=== PATIENT | male | born 1985 | race Caucasian/White ===

== ENCOUNTER 2016-11-05 09:14 | Inpatient (IN) | payer OTHER ==
[2017-01-16 12:41] VITALS: BP 106/66
--- NOTE | 2017-01-16 17:07 | ADMNOTE ---
Admission Note HPI - HPI Handedness: H&P DOS 01/16/17 right History of Present Illness: Omar Downs Jr is a 31 year old man with a history of anxiety and presumed epilepsy since the age of 2. The history was obtained from the patient as the patient's mother was not in the room at the time of the interview. He is not sure what his seizures were like when he was a child. Now, he reports his hands become clammy, then he "snaps into a seizure". He is still able to walk around during his seizures but reports his "top half" twitches. He denies convulsions. Events last [address] Kurger's notes indicates he is unresponsive during these events. The last seizures were 3 weeks ago and he reports having 9 seizures "back to back" on that day. This occurred a couple of days after his daughter was born (to his ex, and he has not really seen the baby ). He believes anxiety triggers these and says Dr. Kruger thinks so too. He is not well versed in his medications and indicates that he has been out of diazepam for one month, and is not sure why Dr. Kruger stopped it. He indicates this was given to him for his anxiety, when records indicate the intent was for seizures. He is also treated with lamotrigine 100mg BID and levetiracetam 750mg 3 tabs BID. He sometimes forgets to take his meds at night. His longest seizure-free period was 4 to 5 months. He was prescribed paroxetine at a recent visit with Dr. Kruger but it does not sound like he is taking that. Epilepsy Risk Factors: Father had epilepsy till he was 21 years old. Patient has a history of learning disability, was in special ed classes and dropped out in 11th grade. PNEA Risk Factors: Anxiety PMH/Surg Hx/FS Hx/Imm Hx Endocrine/Hematology History: Denies: Hx Anticoagulant Therapy, Hx Diabetes, Hx Thyroid Disease Cardiovascular History: Denies: Hx Hypertension, Hx Pacemaker/ICD Respiratory History: Denies: Hx Asthma, Hx Chronic Obstructive Pulmonary Disease (COPD) History: Denies: Hx Renal Disease Sensory History: Denies: Hx Contacts or Glasses, Hx Hearing Aid Opthamlomology History: Denies: Hx Contacts or Glasses Neurological History: Reports: Hx Developmental Delay - Learning Disabled, Hx Headaches, Hx Migraine - reports gets frequent Migraines, Hx Seizures - see detailed Hx--Pt here at EMU for Seizure Study Denies: Hx Dementia, Hx Nerve Disease, Hx Spinal Cord Injury, Hx Transient Ischemic Attacks (TIA), Other Neuro Impairments/Disorders Psychiatric History: Reports: Hx Anxiety, Hx Depression, Hx Substance Abuse Denies: Hx Attention Deficit Hyperactivity Disorder, Hx Eating Disorder, Hx Panic Disorder, Hx Post Traumatic Stress Disorder, Hx Inpatient Treatment, Hx Community Mental Health Tx - Has been referred, yet has not gone, Hx Schizophrenia, Hx Bipolar Disorder, Hx Suicide Attempt, Hx of Violent Episodes Against Others, Other Psychiatric Issues/Disorders - Immunization History Date of Tetanus Vaccine: 6 months ago Date of Influenza Vaccine: none Infectious Disease History: No Infectious Disease History: Denies: Hx Hepatitis, Hx Human Immunodeficiency Virus (HIV), Traveled Outside the [place] in Last 30 Days - Family History Known Family History: Positive: Other - Negative depression, negative alcohol abuse - Social History Alcohol Use: varying reports from several daily to none currently Alcohol Amount: as above Substance Use Type: Reports: Prescribed Substance Use Comment - Amount & Last Used: believed to have used Diazepam inappropriately Hx Tobacco Use: Yes Smoking Status (MU): Heavy Every Day Tobacco Smoker Type: Cigarettes Amount Used/How Often: 1/2 PPD + Have You Smoked in the Last Year: Yes EMU Exam - Exam Physical/Neurological Exam: Physical Exam: General: Well appearing in no acute distress. Thin Eyes: normal conjunctiva, pupils were equal and reactive. Neck: supple, no bruit ENT: atraumatic, normal oropharynx, missing teeth Pulmonary: clear to auscultation, good respiratory effort Cardiac: regular rate and rhythmic, no murmurs/rubs/gallops, pulses palpable MSK: no extremity deformities Derm: no rashes or lesions Neurological Exam: Mental Status: Awake and alert. Oriented to person, place, and time. Fluent. Comprehension intact. Affect appropriate. Cranial Nerves: Visual castro full to confrontation.. Pupils were equal, round, and reactive constricting from 3mm to 2mm. Versions were full and without nystagmus. Facial musculature and sensation were symmetric. Hearing grossly intact to finger rub. Palate was upgoing bilaterally. Tongue was midline. Shoulder shrug was symmetric. Motor: Bulk, tone, and strength were normal throughout. Pronator drift was absent. There were no abnormal movements. Sensory: Sensation to light touch intact. Romberg was deferred. Coordination: Finger to nose and heel to bay were intact. Reflexes: 2+ throughout the upper and lower extremities with downgoing toes bilaterally. Gait: Narrow based and normal. EMU Review of Systems Review of Systems: A 12 point review of systems was completed and significantly positive for: as per HPI. The remainder of the review was negative except as stated above in the HPI. EMU Diagnostics - Diagnostic Most Recent Vital Signs: Vital Signs: Temp Pulse Resp BP Pulse Ox 97.2 F 58 16 106/66 100 01/16/17 14:30 01/16/17 14:30 01/16/17 14:30 01/16/17 14:30 01/16/17 14:30 Interim video-EEG long-term monitoring report: Routine EEG in July demonstrated left temporal slowing EMU Assessment/Plan - Assessment/Plan Assessment/Plan: Patient presents with episodes of unresponsiveness and twitching, but preserved ability to walk triggered by anxiety. These events sometimes happen back to back. Routine EEG in the fall showed slowing and sharp features in the left temporal region, but not definitive epileptiform abnormalities. The differential includes localization-related epilepsy and psychogenic non- epileptic attacks, the latter especially suggested given the preserved ability to walk around with apparent bilateral twitching and unresponsiveness and events that occur in quick succession. The patient was to be admitted for characterization of these events. Unfortunately, within 4 hours, the patient indicated that he felt trapped and could not tolerate the admission. He felt forced to come here by his mother and others around him and did not want to stay. He indicated that he would "get the state involved" if he could not go. He was informed that this was a voluntary admission and the purposes and goals were explained to him again. I tried to see if he would agree to stay at least overnight, to see if we could glean any more information, but he avoided eye contact and indicated that he could not. Plan: Admitted briefly to the Epilepsy Service, Dr. Alex attending [facility] discharge home on current meds, with follow up with Dr Kruger as planned.
--- NOTE | 2017-01-18 06:57 | EEG ---
CC: Dr. Kruger ELECTROENCEPHALOGRAPHY: DATE OF STUDY: 01/16/17 LOCATION: The patient was an inpatient in the EMU. CLINICAL PROBLEM: This is a 31-year-old male with a history of seizures since he was 2 years old. He reports that with an event his hands get clammy and then he "snaps into the seizure." He reports being able to walk during a seizure and denies any generalized tonic-clonic activity. He indicates when pressed that his top half "twitches" and episodes usually last 15 to 20 minutes. The last one was approximately 3 weeks ago and he reports having had 9 episodes back to back. This occurred a couple of days after his daughter was born. He believes anxiety triggers these events. He was recommended for admission to the epilepsy monitoring unit for characterization of these events and was admitted but several hours after his admission, he expressed that he was unable to tolerate staying in the hospital and requested to be discharged. Therefore, approximately 4-1/2 hours of EEG was recorded and the patient was subsequently discharged home. He did not have any events during his brief stay. MEDICATIONS: 1. Lamotrigine 100 mg twice daily. 2. Keppra 750 mg 3 tablets twice daily. REPORT: The most notable feature of the intraictal EEG was the presence of polymorphic slowing and sharp waves which were rarely seen in the left temporoparietal region during sleep. The slowing was in the range of 2 to 5 Hz and intermixed with occasional spike/sharp waves with maximal negativity at T7 and P7. The morphology of these sharp waves were borderline epileptiform in nature but not definitive. Otherwise, the waking background showed appropriate organization with clearly defined anterior to posterior voltage and frequency gradients. There was a well - defined posterior dominant rhythm of 9 Hz which was symmetrical and showed normal reactivity. Anteriorly, there is an expected pattern of lower voltage, irregular, fixed faster frequencies. Attenuation of the occipital rhythm accompanied drowsiness. The sleep background was appropriately organized with well-developed sleep spindles and vertex waves. The sleep transients showed appropriate morphology and were bilaterally synchronous and symmetrical. Throughout the recording, there were no typical events captured. CLINICAL IMPRESSION: This is an abnormal waking and sleep prolonged EEG due to the presence of intermittent slowing in the left temporoparietal region with associated sharp wave forms which are borderline epileptiform in nature but not definitive. These findings are suggestive of underlying neuronal dysfunction in these brain regions with possible increased epileptic potential. Unfortunately , the patient chose not to stay for the epilepsy monitoring admission and none of his typical events were recorded. [id number]/[facility] #: [id number] HERNANDEZ
--- NOTE | 2017-01-19 15:45 | DS ---
EMU Discharge - Discharge Summary Discharge Summary: Admitted: 01/16/17 Attending: Socorro Alex MD Admitting Diagnosis: epilepsy Discharge Diagnosis: epilepsy Admission History (From Admission H&P): see H&P Admission Examination: see H&P Admission AED Medications: lamotrigine 150mgg BID levetiracetam 2250mg BID Hospital Course: The patient was admitted to the epilepsy service for long-term video EEG monitoring. The patient had 0 events because he requested to be discharged 4 hours after admission. He indicated that he had been forced to come to the hospital by his mother and others and did not want to stay. The following medication medication changes were made during the testing: none The nature of his events remains uncertain Discharge Examination: not done, see H&P Destination: Home. Diet: Regular. Follow-up: with Dr Kruger as previously scheduled. Home Medications Medication Instructions Recorded Confirmed Type Diazepam TAB(*) [Valium TAB(*)] 5 mg PO BID PRN 06/11/13 01/16/17 History Levetiracetam 2,250 mg PO BID 06/11/13 01/16/17 History lamoTRIgine TAB(*) [Lamictal 150 mg PO BID 06/11/13 01/16/17 History TAB(*)]
== END 2017-01-16 17:35 | disposition home or self-care (01) | DRG 53 ==
LOC: EMU 01-16 11:20
PROVIDERS: ADMIT Psychiatry & Neurology Neurology; ATTEND Psychiatry & Neurology Neurology
DX: G40.909 Epilepsy, unspecified, not intractable, without status epilepticus (principal); F41.9 Anxiety disorder, unspecified; F81.9 Developmental disorder of scholastic skills, unspecified; Z82.0 Family history of epilepsy and other diseases of the nervous system
CPT/HCPCS: 95813

== ENCOUNTER 2016-12-22 01:45 | Emergency (ER) | payer MEDICAID, OTHER ==
[2016-12-22] MEDS ORDERED: NS 0.9% 1000 ML* 1,000 ML IV ONE (02:08)
[2016-12-22] MEDS ORDERED: Ketorolac INJ* 30 MG/ML 1 ML VIAL IV PUSH ONE (02:09)
[2016-12-22] MEDS ORDERED: LORazepam INJ* 2 MG/ML 1 ML VIAL IV PUSH ONE ×2 (02:24→03:50)
[2016-12-22 02:39] LABS: Hematocrit 38 % (42-52); Hemoglobin 12.8 g/dl (14.0-18.0); Mean Corpuscular HGB Conc 34 g/dl (31-36); Mean Corpuscular Hemoglobin 30 pg (27-31); Mean Corpuscular Volume 89 fL (80-94); Mean Platelet Volume 8 um3 (7.4-10.4); Red Blood Count 4.22 10^6/ul (4.0-5.4); Red Cell Distribution Width 14 % (10.5-15); White Blood Count 10.6 10^3/ul (3.5-10.8)
[2016-12-22 02:42] LABS: Albumin 4.3 g/dL (3.2-5.2); BUN/Creatinine Ratio 11.4 (8-20); EGFR African American 96.4 (>60); EGFR Non-African American 74.9 (>60); Globulin 3.2 g/dL (2-4); Magnesium 2.2 mg/dL (1.9-2.7); Potassium 3.9 mmol/L (3.5-5.0); Total Bilirubin 0.3 mg/dL (0.2-1.0); Total Protein 7.5 g/dL (6.4-8.9)
[2016-12-22 04:26] VITALS: BP 100/51
--- NOTE | 2016-12-22 04:42 | ED ---
Balaji Rojas Adam, scribed for Abdiaziz Guallpa MD on 12/22/16 at 0210 . Neurological HPI - HPI Summary HPI Summary: Pt is a 31 year old male presenting after multiple seizures. His girlfriend states that she has witnessed the pt have 7 seizures today. He was lying in bed when the first seizure set on. He apparently bit his tongue and he presents with a laceration to the left side of his tongue. He did not hit his head and he has no other injuries, but he does c/o a MANE which he states is normal after he has a seizure. He denies any vomiting, fever, cough, dysuria, abdominal pain , or recent illness. Pt takes Keppra and Lamictal for seizures. He used to take Valium. His last seizure prior to today was several months ago. Positive tobacco use. Occasional alcohol use but none recently. - History of Current Complaint Chief Complaint: EDSeizure Stated Complaint: SEIZURES Time Seen by Provider: 12/22/16 01:58 Hx Obtained From: Patient Onset/Duration: Sudden Onset, Started hours ago, Resolved Timing: Intermittent Episodes Lasting: - Seconds Current Severity: None Seizure Severity: Moderate Number of Seizures: 7 Aggravating: Unknown Alleviating: Spontanious Resolution Associated Signs and Symptoms: Positive: Headache - and tongue laceration - Allergy/Home Medications Allergies/Adverse Reactions: Allergies Allergy/AdvReac Type Severity Reaction Status Date / Time No Known Allergies Allergy Verified 10/23/13 12:09 PMH/Surg Hx/FS Hx/Imm Hx Endocrine/Hematology History: Denies: Hx Anticoagulant Therapy, Hx Diabetes, Hx Thyroid Disease Cardiovascular History: Denies: Hx Hypertension, Hx Pacemaker/ICD Respiratory History: Denies: Hx Asthma, Hx Chronic Obstructive Pulmonary Disease (COPD) History: Denies: Hx Renal Disease Neurological History: 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 Denies: Hx Dementia Psychiatric History: Reports: Hx Substance Abuse Denies: Hx Eating Disorder, Hx of Violent Episodes Against Others - Immunization History Date of Tetanus Vaccine: 6 months ago Date of Influenza Vaccine: none Infectious Disease History: No Infectious Disease History: Denies: Hx Hepatitis, Hx Human Immunodeficiency Virus (HIV), Traveled Outside the [place] in Last 30 Days - Family History Known Family History: Positive: Other - Negative depression, negative alcohol abuse - Social History Occupation: Disabled Lives: Alone Alcohol Use: Occasionally Hx Tobacco Use: Yes Smoking Status (MU): Heavy Every Day Tobacco Smoker Amount Used/How Often: 1/2 PPD Review of Systems Negative: Fever Negative: Cough Negative: Abdominal Pain, Vomiting Negative: dysuria Positive: Other - Tongue laceration Neurological: Other - Seizures Positive: Headache All Other Systems Reviewed And Are Negative: Yes Physical Exam - Summary Physical Exam Summary: The patient is well-nourished in no acute distress and in no acute pain. The skin is warm and dry and skin color reflects adequate perfusion. HEENT: The head is normocephalic and atraumatic. The pupils are equal and reactive. The conjunctivae are clear and without drainage. Nares are patent and without drainage. Mouth reveals moist mucous membranes and the throat is without erythema and exudate. Laceration to the left side of the tongue. The external ears are intact. The ear canals are patent and without drainage. The tympanic membranes are intact. Neck is supple with full range of motion and non-tender. There are no carotid bruits. There is no neck vein distension. Respiratory: Chest is non-tender. Lungs are clear to auscultation and breath sounds are symmetrical and equal. Cardiovascular: Hear is regular rate and rhythm. There is no murmur or rub auscultated. There is no peripheral edema and pulses are symmetrical and equal. Abdomen: The abdomen is soft and non-tender. There are normal bowel sounds heard in all four quadrants and there is no organomegaly palpated. Musculoskeletal: There is no back pain noted. Extremities are non-tender with full range of motion. There is good capillary refill. There is no peripheral edema or calf tenderness elicited. Neurological: Patient is alert and oriented to person, place and time. Slow to answer questions, which could be his baseline. The patient has symmetrical motor strength in all four extremities. Cranial nerves are grossly intact. Deep tendon reflexes are symmetrical and equal in all four extremities. Patient is not seizing anymore. Psychiatric: The patient has an appropriate affect and does not exhibit any anxiety or depression. Triage Information Reviewed: Yes Vital Signs On Initial Exam: Initial Vitals Temp Pulse Resp BP Pulse Ox 99.0 F 86 16 99/58 96 12/22/16 02:02 12/22/16 02:02 12/22/16 02:02 12/22/16 02:02 12/22/16 02:02 Vital Signs Reviewed: Yes Diagnostics - Vital Signs Vital Signs Temp Pulse Resp BP Pulse Ox 12/22/16 02:02 99.0 F 86 16 99/58 96 - Laboratory Lab Results: Lab Results 12/22/16 12/22/16 12/22/16 Range/Units 02:13 02:13 02:13 WBC 10.6 (3.5-10.8) 10^3/ul RBC 4.22 (4.0-5.4) 10^6/ul Hgb 12.8 L (14.0-18.0) g/dl Hct 38 L (42-52) % MCV 89 (80-94) fL MCH 30 (27-31) pg MCHC 34 (31-36) g/dl RDW 14 (10.5-15) % Plt Count 169 (150-450) 10^3/ul MPV 8 (7.4-10.4) um3 Neut % (Auto) 88.2 H (38-83) % Lymph % (Auto) 6.3 L (25-47) % Bailey % (Auto) 5.4 (1-9) % Eos % (Auto) 0 (0-6) % Baso % (Auto) 0.1 (0-2) % Absolute Neuts (auto) 9.3 H (1.5-7.7) 10^3/ul Absolute Lymphs (auto) 0.7 L (1.0-4.8) 10^3/ul Absolute Monos (auto) 0.6 (0-0.8) 10^3/ul Absolute Eos (auto) 0 (0-0.6) 10^3/ul Absolute Basos (auto) 0 (0-0.2) 10^3/ul Absolute Nucleated RBC 0.01 10^3/ul Nucleated RBC % 0.1 INR (Anticoag Therapy) 1.02 (0.89-1.11) Sodium 136 (133-145) mmol/L Potassium 3.9 (3.5-5.0) mmol/L Chloride 104 (101-111) mmol/L Carbon Dioxide 25 (22-32) mmol/L Anion Gap 7 (2-11) mmol/L BUN 13 (6-24) mg/dL Creatinine 1.14 (0.67-1.17) mg/dL Est GFR ( Amer) 96.4 (>60) Est GFR (Non-Af Amer) 74.9 (>60) BUN/Creatinine Ratio 11.4 (8-20) Glucose 103 H (70-100) mg/dL Lactic Acid (0.5-2.0) mmol/L Calcium 9.0 (8.6-10.3) mg/dL Magnesium 2.2 (1.9-2.7) mg/dL Total Bilirubin 0.30 (0.2-1.0) mg/dL AST 21 (13-39) U/L ALT 22 (7-52) U/L Alkaline Phosphatase 41 (34-104) U/L Total Creatine Kinase 104 (10-223) U/L Total Protein 7.5 (6.4-8.9) g/dL Albumin 4.3 (3.2-5.2) g/dL Globulin 3.2 (2-4) g/dL Albumin/Globulin Ratio 1.3 (1-3) // Range/Units 02:13 WBC (3.5-10.8) 10^3/ul RBC (4.0-5.4) 10^6/ul Hgb (14.0-18.0) g/dl Hct (42-52) % MCV (80-94) fL MCH (27-31) pg MCHC (31-36) g/dl RDW (10.5-15) % Plt Count (150-450) 10^3/ul MPV (7.4-10.4) um3 Neut % (Auto) (38-83) % Lymph % (Auto) (25-47) % Bailey % (Auto) (1-9) % Eos % (Auto) (0-6) % Baso % (Auto) (0-2) % Absolute Neuts (auto) (1.5-7.7) 10^3/ul Absolute Lymphs (auto) (1.0-4.8) 10^3/ul Absolute Monos (auto) (0-0.8) 10^3/ul Absolute Eos (auto) (0-0.6) 10^3/ul Absolute Basos (auto) (0-0.2) 10^3/ul Absolute Nucleated RBC 10^3/ul Nucleated RBC % INR (Anticoag Therapy) (0.89-1.11) Sodium (133-145) mmol/L Potassium (3.5-5.0) mmol/L Chloride (101-111) mmol/L Carbon Dioxide (22-32) mmol/L Anion Gap (2-11) mmol/L BUN (6-24) mg/dL Creatinine (0.67-1.17) mg/dL Est GFR ( Amer) (>60) Est GFR (Non-Af Amer) (>60) BUN/Creatinine Ratio (8-20) Glucose (70-100) mg/dL Lactic Acid 1.1 (0.5-2.0) mmol/L Calcium (8.6-10.3) mg/dL Magnesium (1.9-2.7) mg/dL Total Bilirubin (0.2-1.0) mg/dL AST (13-39) U/L ALT (7-52) U/L Alkaline Phosphatase (34-104) U/L Total Creatine Kinase (10-223) U/L Total Protein (6.4-8.9) g/dL Albumin (3.2-5.2) g/dL Globulin (2-4) g/dL Albumin/Globulin Ratio (1-3) Result Diagrams: 12/22/16 02:13 12/22/16 02:13 Lab Statement: Any lab studies that have been ordered have been reviewed, and results considered in the medical decision making process. Re-Evaluation - Re-Evaluation First Eval Re-Evaluation Time: 02:24 - Patient is having seizure-like activity. 1 mg Ativan given. Second Eval Re-Evaluation Time: 03:53 - Patient is feeling better and is ready to go home. Change: Improved Course/Dx - Course Course Of Treatment: Previous chart reviewed. Last EEG showed no seizure-like activity. - Differential Dx Differential Diagnoses Neuro: Positive: Seizure Disorder, Other - anxiety, pseudoseizure - Diagnoses Provider Diagnoses: Pseudoseizures Discharge - Discharge Plan Condition: Stable Disposition: HOME Patient Education Materials: Recurrent Seizures in Adults (ED) Referrals: Raul Cosme MD [Primary Care Provider] - Additional Instructions: Follow up with your Primary Care Physician. The documentation as recorded by the Balaji dickson Adam accurately reflects the service I personally performed and the decisions made by me, Abdiaziz Guallpa MD.
== END 2016-12-22 04:38 | disposition home or self-care (01) ==
LOC: ED 01:45
DX: F44.5 Conversion disorder with seizures or convulsions (principal); S01.512A Laceration without foreign body of oral cavity, initial encounter; R51 Headache; X58.XXXA Exposure to other specified factors, initial encounter; Y93.9 Activity, unspecified; Y92.9 Unspecified place or not applicable
CPT/HCPCS: 36415; 80053; 80175; 80177; 82550; 83605; 83735; 85025; 85610; 96374; 96375; 99282; J1885; J2060

== ENCOUNTER 2017-03-22 12:22 | Emergency (ER) | payer OTHER ==
[2017-03-22] MEDS ORDERED: LORazepam INJ* 2 MG/ML 1 ML VIAL ONE (12:29)
[2017-03-22] MEDS ORDERED: LORazepam INJ* 2 MG/ML 1 ML VIAL IV ONE (12:35)
[2017-03-22] MEDS ORDERED: NS 0.9% 1000 ML* 1,000 ML IV ONE (12:35)
[2017-03-22 12:45] LABS: Hematocrit 43 % (42-52); Hemoglobin 14.5 g/dl (14.0-18.0); Mean Corpuscular HGB Conc 34 g/dl (31-36); Mean Corpuscular Hemoglobin 31 pg (27-31); Mean Corpuscular Volume 92 fL (80-94); Mean Platelet Volume 8 um3 (7.4-10.4); Red Blood Count 4.69 10^6/ul (4.0-5.4); Red Cell Distribution Width 13 % (10.5-15); White Blood Count 15.1 10^3/ul (3.5-10.8)
[2017-03-22 13:03] LABS: ALT 9 U/L (7-52); AST 19 U/L (13-39); Albumin 5.1 g/dL (3.2-5.2); Alkaline Phosphatase 47 U/L (34-104); Anion Gap 11 mmol/L (2-11); BUN/Creatinine Ratio 10.3 (8-20); Blood Urea Nitrogen 13 mg/dL (6-24); CO2 Carbon Dioxide 22 mmol/L (22-32); Calcium 9.7 mg/dL (8.6-10.3); Chloride 106 mmol/L (101-111); EGFR African American 85.8 (>60); EGFR Non-African American 66.8 (>60); Globulin 3.3 g/dL (2-4); Glucose 91 mg/dL (70-100); Magnesium 2.5 mg/dL (1.9-2.7); Potassium 4.2 mmol/L (3.5-5.0); Sodium 139 mmol/L (133-145); Total Protein 8.4 g/dL (6.4-8.9)
[2017-03-22 13:24] LABS: Alcohol < 10 mg/dL (<10)
[2017-03-22 13:35] LABS: TSH (Thyroid Stimulating Horm) 1.15 mcIU/mL (0.34-5.60)
--- NOTE | 2017-03-22 13:47 | RAD ---
INDICATION: Left rib injury. TECHNIQUE: 4 views of the left ribs were obtained. FINDINGS: No fracture or significant focal osseous abnormality is seen. IMPRESSION: NO EVIDENCE FOR FRACTURE.
--- NOTE | 2017-03-22 13:49 | RAD ---
INDICATION: Seizure. COMPARISON: Comparison is made with a prior chest x-ray study from October 08, 2010. TECHNIQUE: AP and lateral views of the chest were obtained. FINDINGS: The heart is within normal limits in size. Mediastinal and hilar contours appear within normal limits. The lungs are clear. No pleural effusion or pneumothorax is seen. IMPRESSION: NO EVIDENCE FOR ACTIVE CARDIOPULMONARY DISEASE.
[2017-03-22] MEDS ORDERED: levETIRAcetam 500 MG IVPREMIX* 500 MG/100 ML BAG IV SCH (14:00)
[2017-03-22 15:14] LABS: Urine Bacteria Absent (Absent); Urine Bilirubin Negative (Negative); Urine Glucose Negative (Negative); Urine Nitrite Negative (Negative)
[2017-03-22 15:18] LABS: Benzodiazepine Urine Screen None Detected (None Detect)
[2017-03-22 16:03] VITALS: BP 99/55
--- NOTE | 2017-03-23 09:18 | ED ---
Jina Rojas Thomas, scribed for Raul Singh MD on 03/22/17 at 1239 . Altered Mental Status - HPI Summary HPI Summary: LEVEL 5 CAVEAT: HPI IS LIMITED BY PATIENTS SEIZURE The pt is a 31 y/o M accompanied by his girlfriend and presenting to the ED c/o episodes of seizures that began this AM. At the time of evaluation he is under a seizure. His girlfriend supplies his history. She says that he started seizing today at 09:30 and he has had 4 seizures today, including his current seizure. She reporrs that his current seizure is typical for him. His neurologist is Dr. Kruger. The pt has a PMHx of seizures since he was [age] years old. His last seizure before his current seizure was today at 10:00. He daily medications are Keppra 750 three times a day, Lamotrigine 150mg BID. His last seizure before today was 3 weeks ago (03/03/17). He drank a little last night but otherwise he does not drink much, per girlfriend. She claims that he is generally compliant with his medication. PMHx: seizures, claustrophobia. PSHx : none. SHx: tobacco smoking, rare alcohol, no illicit drugs. FHx: seizures. - History Of Current Complaint Stated Complaint: SEIZURE Hx Obtained From: Patient, Family/[employer] - is present Onset/Duration: Suddenly - this AM at 09:30 Aggravating Factor(s): Nothing Alleviating Factor(s): Nothing Associated Signs And Symptoms: Positive: Seizure - Allergies/Home Medications Allergies/Adverse Reactions: Allergies Allergy/AdvReac Type Severity Reaction Status Date / Time No Known Allergies Allergy Verified 10/23/13 12:09 PMH/Surg Hx/FS Hx/Imm Hx Previously Healthy: No - LEVEL 5 CAVEAT: PMHX IS LIMITED BY PATIENTS SEIZURE Endocrine/Hematology History: Denies: Hx Anticoagulant Therapy, Hx Diabetes, Hx Thyroid Disease Cardiovascular History: Denies: Hx Hypertension, Hx Pacemaker/ICD Respiratory History: Denies: Hx Asthma, Hx Chronic Obstructive Pulmonary Disease (COPD) History: Denies: Hx Renal Disease Sensory History: Denies: Hx Contacts or Glasses, Hx Hearing Aid Opthamlomology History: Denies: Hx Contacts or Glasses Neurological History: Reports: Hx Developmental Delay - Learning Disabled, Hx Headaches, Hx Migraine - reports gets frequent Migraines, Hx Seizures - see detailed Hx--Pt here at EMU for Seizure Study Denies: Hx Dementia, Hx Nerve Disease, Hx Spinal Cord Injury, Hx Transient Ischemic Attacks (TIA), Other Neuro Impairments/Disorders Psychiatric History: Reports: Hx Anxiety, Hx Depression, Hx Substance Abuse Denies: Hx Attention Deficit Hyperactivity Disorder, Hx Eating Disorder, Hx Panic Disorder, Hx Post Traumatic Stress Disorder, Hx Inpatient Treatment, Hx Community Mental Health Tx - Has been referred, yet has not gone, Hx Schizophrenia, Hx Bipolar Disorder, Hx Suicide Attempt, Hx of Violent Episodes Against Others, Other Psychiatric Issues/Disorders - Immunization History Date of Tetanus Vaccine: 6 months ago Date of Influenza Vaccine: none Infectious Disease History: Denies: Hx Hepatitis, Hx Human Immunodeficiency Virus (HIV), Traveled Outside the [place] in Last 30 Days - Family History Known Family History: Positive: Other - POS: seizure; Negative depression, negative alcohol abuse - Social History Alcohol Use: Rare Alcohol Amount: as above Substance Use Type: Reports: Prescribed Substance Use Comment - Amount & Last Used: believed to have used Diazepam inappropriately Hx Tobacco Use: Yes Smoking Status (MU): Heavy Every Day Tobacco Smoker Type: Cigarettes Amount Used/How Often: 1/2 PPD + Have You Smoked in the Last Year: Yes Review of Systems - ROS Summary Review of Systems Summary: LEVEL 5 CAVEAT: ROS IS LIMITED BY PATIENTS SEIZURE Neurological: Other - POS: seizure (at time of evaluation and 3x today, beginning at 09:30) All Other Systems Reviewed And Are Negative: No Physical Exam - Summary Physical Exam Summary: LEVEL 5 CAVEAT: PE IS LIMITED BY PATIENTS SEIZURE VITAL SIGNS: Reviewed. GENERAL: Patient is a well-developed and nourished male who is lying comfortable in the stretcher. ~Patient is not in any acute respiratory distress. HEAD AND FACE: No signs of trauma. ~No ecchymosis, hematomas or skull depressions. No sinus tenderness. EYES: PERRLA, EOMI x 2, No injected conjunctiva, no nystagmus. No photophobia. EARS: Hearing grossly intact. Ear canals and tympanic membranes are within normal limits. MOUTH: Oropharynx within normal limits. NECK: Supple, trachea is midline, no adenopathy, no JVD, no carotid bruit, no c- spine tenderness, neck with full ROM. No meningeal signs, no Kernig's or brudzinskis signs. CHEST: Symmetric, no tenderness at palpation LUNGS: Clear to auscultation bilaterally. No wheezing or crackles. CVS: Regular rate and rhythm, S1 and S2 present, no murmurs or gallops appreciated. ABDOMEN: Soft, non-tender. No signs of distention. No rebound no guarding, and no masses palpated. Bowel sounds are normal. EXTREMITIES: Myoclonus in the extremities. FROM in all major joints, no edema, no cyanosis or clubbing. NEURO: Alert but not oriented. It seems that the patient may be actively seizing. No acute neurological deficits. SKIN: Dry and warm Triage Information Reviewed: Yes Vital Signs On Initial Exam: Initial Vitals Pulse Pulse Ox 164 94 03/22/17 12:34 03/22/17 12:34 Vital Signs Reviewed: Yes Diagnostics - Vital Signs Vital Signs Temp Pulse Resp BP Pulse Ox 03/22/17 16:03 99 F 80 17 99/55 98 03/22/17 14:00 61 99 03/22/17 13:00 74 94 03/22/17 12:44 19 03/22/17 12:42 100.8 F 100 19 150/107 96 03/22/17 12:41 96 03/22/17 12:40 104 150/117 96 03/22/17 12:38 100.8 F 101 19 150/107 96 03/22/17 12:34 164 94 - Laboratory Lab Results: Lab Results 03/22/17 03/22/17 03/22/17 Range/Units 12:30 12:30 12:35 WBC 15.1 H (3.5-10.8) 10^3/ul RBC 4.69 (4.0-5.4) 10^6/ul Hgb 14.5 (14.0-18.0) g/dl Hct 43 (42-52) % MCV 92 (80-94) fL MCH 31 (27-31) pg MCHC 34 (31-36) g/dl RDW 13 (10.5-15) % Plt Count 198 (150-450) 10^3/ul MPV 8 (7.4-10.4) um3 Neut % (Auto) 87.6 H (38-83) % Lymph % (Auto) 6.4 L (25-47) % [place] % (Auto) 5.9 (1-9) % Eos % (Auto) 0 (0-6) % Baso % (Auto) 0.1 (0-2) % Absolute Neuts (auto) 13.3 H (1.5-7.7) 10^3/ul Absolute Lymphs (auto) 1.0 (1.0-4.8) 10^3/ul Absolute Monos (auto) 0.9 H (0-0.8) 10^3/ul Absolute Eos (auto) 0 (0-0.6) 10^3/ul Absolute Basos (auto) 0 (0-0.2) 10^3/ul Absolute Nucleated RBC 0.05 10^3/ul Nucleated RBC % 0.4 INR (Anticoag Therapy) 0.90 (0.89-1.11) Sodium 139 (133-145) mmol/L Potassium 4.2 (3.5-5.0) mmol/L Chloride 106 (101-111) mmol/L Carbon Dioxide 22 (22-32) mmol/L Anion Gap 11 (2-11) mmol/L BUN 13 (6-24) mg/dL Creatinine 1.26 H (0.67-1.17) mg/dL Est GFR ( Amer) 85.8 (>60) Est GFR (Non-Af Amer) 66.8 (>60) BUN/Creatinine Ratio 10.3 (8-20) Glucose 91 (70-100) mg/dL Lactic Acid (0.5-2.0) mmol/L Calcium 9.7 (8.6-10.3) mg/dL Magnesium 2.5 (1.9-2.7) mg/dL Total Bilirubin 0.40 (0.2-1.0) mg/dL AST 19 (13-39) U/L ALT 9 (7-52) U/L Alkaline Phosphatase 47 (34-104) U/L Total Protein 8.4 (6.4-8.9) g/dL Albumin 5.1 (3.2-5.2) g/dL Globulin 3.3 (2-4) g/dL Albumin/Globulin Ratio 1.5 (1-3) TSH 1.15 (0.34-5.60) mcIU/mL Urine Color Urine Appearance Urine pH (5-9) Ur Specific [place] (1.010-1.030) Urine Protein (Negative) Urine Ketones (Negative) Urine Blood (Negative) Urine Nitrate (Negative) Urine Bilirubin (Negative) Urine Urobilinogen (Negative) Ur Leukocyte Esterase (Negative) Urine WBC (Auto) (Absent) Urine RBC (Auto) (Absent) Urine Bacteria (Absent) Urine Glucose (Negative) Urine Opiates Screen (None Detect) Ur Barbiturates Screen (None Detect) Ur Phencyclidine Scrn (None Detect) Ur Amphetamines Screen (None Detect) U Benzodiazepines Scrn (None Detect) Urine Cocaine Screen (None Detect) U Cannabinoids Screen (None Detect) Serum Alcohol < 10 (<10) mg/dL 03/22/17 03/22/17 03/22/17 Range/Units 12:35 14:54 14:54 WBC (3.5-10.8) 10^3/ul RBC (4.0-5.4) 10^6/ul Hgb (14.0-18.0) g/dl Hct (42-52) % MCV (80-94) fL MCH (27-31) pg MCHC (31-36) g/dl RDW (10.5-15) % Plt Count (150-450) 10^3/ul MPV (7.4-10.4) um3 Neut % (Auto) (38-83) % Lymph % (Auto) (25-47) % [place] % (Auto) (1-9) % Eos % (Auto) (0-6) % Baso % (Auto) (0-2) % Absolute Neuts (auto) (1.5-7.7) 10^3/ul Absolute Lymphs (auto) (1.0-4.8) 10^3/ul Absolute Monos (auto) (0-0.8) 10^3/ul Absolute Eos (auto) (0-0.6) 10^3/ul Absolute Basos (auto) (0-0.2) 10^3/ul Absolute Nucleated RBC 10^3/ul Nucleated RBC % INR (Anticoag Therapy) (0.89-1.11) Sodium (133-145) mmol/L Potassium (3.5-5.0) mmol/L Chloride (101-111) mmol/L Carbon Dioxide (22-32) mmol/L Anion Gap (2-11) mmol/L BUN (6-24) mg/dL Creatinine (0.67-1.17) mg/dL Est GFR ( Amer) (>60) Est GFR (Non-Af Amer) (>60) BUN/Creatinine Ratio (8-20) Glucose (70-100) mg/dL Lactic Acid 2.1 H* (0.5-2.0) mmol/L Calcium (8.6-10.3) mg/dL Magnesium (1.9-2.7) mg/dL Total Bilirubin (0.2-1.0) mg/dL AST (13-39) U/L ALT (7-52) U/L Alkaline Phosphatase (34-104) U/L Total Protein (6.4-8.9) g/dL Albumin (3.2-5.2) g/dL Globulin (2-4) g/dL Albumin/Globulin Ratio (1-3) TSH (0.34-5.60) mcIU/mL Urine Color Yellow Urine Appearance Cloudy Urine pH 5.0 (5-9) Ur Specific [place] 1.015 (1.010-1.030) Urine Protein Negative (Negative) Urine Ketones Trace H (Negative) Urine Blood 1+ H (Negative) Urine Nitrate Negative (Negative) Urine Bilirubin Negative (Negative) Urine Urobilinogen Negative (Negative) Ur Leukocyte Esterase Negative (Negative) Urine WBC (Auto) Trace(0-5/hpf) (Absent) Urine RBC (Auto) Trace(0-2/hpf) (Absent) Urine Bacteria Absent (Absent) Urine Glucose Negative (Negative) Urine Opiates Screen None detected (None Detect) Ur Barbiturates Screen None detected (None Detect) Ur Phencyclidine Scrn None detected (None Detect) Ur Amphetamines Screen None detected (None Detect) U Benzodiazepines Scrn None detected (None Detect) Urine Cocaine Screen None detected (None Detect) U Cannabinoids Screen None detected (None Detect) Serum Alcohol (<10) mg/dL Result Diagrams: 03/22/17 12:30 03/22/17 12:35 Lab Statement: Any lab studies that have been ordered have been reviewed, and results considered in the medical decision making process. - Radiology Ribs XR Xray Interpretation: No Acute Changes - No Fx Radiology Interpretation Completed By: Radiologist CXR Xray Interpretation: No Acute Changes - No evidence for active cardiopulmonary disease Radiology Interpretation Completed By: Radiologist Altered Mental Statu Course/Dx - Course Assessment/Plan: LEVEL 5 CAVEAT: A&P IS LIMITED BY PATIENTS SEIZURE. The pt is a 31 y/o M accompanied by his girlfriend and presenting to the ED c/o episodes of seizures that began this AM. At the time of evaluation he is under a seizure. His girlfriend supplies his history. She says that he started seizing today at 09:30 and he has had 4 seizures today, including his current seizure. She reporrs that his current seizure is typical for him. His neurologist is Dr. Kruger. The pt has a PMHx of seizures since he was [age] years old. His last seizure before his current seizure was today at 10:00. He daily medications are Keppra 750 three times a day, Lamotrigine 150mg BID. His last seizure before today was 3 weeks ago (03/03/17). He drank a little last night but otherwise he does not drink much, per girlfriend. She claims that he is generally compliant with his medication. PMHx: seizures, claustrophobia. PSHx : none. SHx: tobacco smoking, rare alcohol, no illicit drugs. FHx: seizures. Ribs XR shows no evidence for fracture. CXR reveals no evidence for active cardiopulmonary disease. The tests results are without significant abnormalities except WBC 15.1 and creatinine 1.26. UA is negative for UTI. Urine toxicology is negative. In the ED course the patient was hydrated with IV fluids and Ativan 2mg, and the patients symptoms resolved. At this point, the patient is A&Ox3 and has been observed for a couple of hours The patient was given one dose of Keppra IV 700mg. I consulted the case with Dr. Kruger, neurologist, who recommended to discharge home with later follow-up at their office. We discussed the test results with the patient and his , and they agreed with the plan. The pt will be discharged home with follow-up with Dr. Kruger and was instructed to continue to take his medication as indicated at this time. - Diagnoses Differential Diagnosis/HQI/PQRI: Seizure Discharge Diagnoses: Seizure Discharge - Discharge Plan Condition: Stable Disposition: HOME Patient Education Materials: Recurrent Seizures in Adults (ED) Referrals: Raul Cosme MD [Primary Care Provider] - 3 Days The documentation as recorded by the Jina dickson Thomas accurately reflects the service I personally performed and the decisions made by me, Raul Singh MD.
[2017-03-24 15:19] LABS: Lamotrigine 3.4 mcg/mL (2.5 - 15.0)
[2017-03-24 15:45] LABS: Levetiracetam 82.9 mcg/mL
== END 2017-03-22 16:16 | disposition home or self-care (01) ==
LOC: ED 12:22 → EEVIPCON 12:22 → ED 16:16
DX: R56.9 Unspecified convulsions (principal)
CPT/HCPCS: 36415; 71020; 80053; 80175; 80177; 80307; 80320; 81003; 81015; 83605; 83735; 84443; 85025; 85610; 93005; 96374; 99282; G0480; J2060

== ENCOUNTER 2017-03-27 14:20 | Emergency (ER) | payer OTHER ==
[2017-03-27] MEDS ORDERED: LORazepam INJ* 2 MG/ML 1 ML VIAL IV PUSH ONE (16:08)
--- NOTE | 2017-03-27 16:47 | RAD ---
Indication: Tightness in throat. Possible metallic foreign body ingestion. Comparison: June 13, 2011 Technique: AP and lateral views of the neck with soft tissue technique. Report: Dental amalgam and presumed jewelry related linear metallic element at the level of the oral cavity unchanged from the prior exam. Superimposed earrings. No finding suspicious for retained radiopaque foreign body at the soft tissues of the neck. Unremarkable prevertebral soft tissue contours. Normal alignment of the cervical spine without suspicious osseous finding. IMPRESSION: No finding suspicious for retained radiopaque foreign body at the soft tissues of the neck.
[2017-03-27 17:14] LABS: Hematocrit 48 % (42-52); Hemoglobin 16.2 g/dl (14.0-18.0); Mean Corpuscular HGB Conc 34 g/dl (31-36); Mean Corpuscular Hemoglobin 31 pg (27-31); Mean Corpuscular Volume 92 fL (80-94); Mean Platelet Volume 8 um3 (7.4-10.4); Red Blood Count 5.21 10^6/ul (4.0-5.4); Red Cell Distribution Width 13 % (10.5-15)
[2017-03-27 17:28] LABS: Albumin 5.2 g/dL (3.2-5.2); BUN/Creatinine Ratio 7.9 (8-20); Calcium 10.2 mg/dL (8.6-10.3); EGFR African American 96.4 (>60); EGFR Non-African American 74.9 (>60); Globulin 3.4 g/dL (2-4); Magnesium 2.1 mg/dL (1.9-2.7); Potassium 3.9 mmol/L (3.5-5.0); Total Bilirubin 0.9 mg/dL (0.2-1.0); Total Protein 8.6 g/dL (6.4-8.9)
[2017-03-27 17:54] LABS: TSH (Thyroid Stimulating Horm) 1.8 mcIU/mL (0.34-5.60)
[2017-03-27 18:01] LABS: Free T4 1.07 ng/dL (0.61-1.12)
[2017-03-27 18:53] VITALS: BP 115/73
[2017-03-30 16:20] LABS: Lamotrigine 4.4 mcg/mL (2.5 - 15.0)
[2017-03-30 16:39] LABS: Levetiracetam 58.1 mcg/mL
--- NOTE | 2017-04-04 14:43 | ED ---
Jina Rojas Thomas, scribed for Tigre Doe MD on 03/27/17 at 1543 . Psychiatric Complaint - HPI Summary HPI Summary: The pt is a 31 y/o M presenting to the ED complaining of feelings of anxiety that began today at 09:00. His fiance is present and supplies his history. He recently was taken off of Valium. He is on Keppra 750mg three times a day and Lamotrigine 150mg BID. He denies missing any doses of these medications. He denies that he is coming off of any drugs. His last drink was five days ago. The pt has not slept in two days. Recent stressors include inability to see his 4-month-old daughter in [place] because the child's mother will not let him see his daughter. The last time he had a seizure was five days ago when he was seen at [facility] by Dr. Singh. During these seizures, he had constant, shaking movement. He had four seizures that day. Pt additionally c/o throat tightness, feelings of numbness, shaky hands, cool hands to the touch, blurred vision, eyes roll back in the head, insomnia, tachypnea. Pt denies SI. He also recently swallowed a metal tongue ring. Dr. Kruger saw the patient last month. PMHx: seizures, anxiety, substance abuse. PSHx: tonsillectomy. SHx: occasional drinking, no illicit drugs, tobacco use. FHx: seizures. He denies any work or court obligations. He has never been admitted to the hospital. - History Of Current Complaint Chief Complaint: EDPsychosocial Time Seen by Provider: 03/27/17 14:27 Hx Obtained From: Patient, Family/Die Att[employer] - fiance is in room and supplies much of history. Onset/Duration: Lasting Hours - onset today at 09:00, Still Present Timing: Constant Character: Anxious Aggravating Factor(s): Nothing Alleviating Factor(s): Nothing Associated Signs And Symptoms: Positive: Sleep Disturbance - insomnia, has not slept in last two days Related History: Positive For: Prior Psychiatric Issues - for anxiety, substance abuse Has Homicidal: Denies: Thoughts Recent Stressor(s): Cannot see 4-month-old daughter - Allergies/Home Medications Allergies/Adverse Reactions: Allergies Allergy/AdvReac Type Severity Reaction Status Date / Time No Known Allergies Allergy Verified 10/23/13 12:09 PMH/Surg Hx/FS Hx/Imm Hx Previously Healthy: No Endocrine/Hematology History: Denies: Hx Anticoagulant Therapy, Hx Diabetes, Hx Thyroid Disease Cardiovascular History: Denies: Hx Hypertension, Hx Pacemaker/ICD Respiratory History: Denies: Hx Asthma, Hx Chronic Obstructive Pulmonary Disease (COPD) History: Denies: Hx Renal Disease Sensory History: Denies: Hx Contacts or Glasses, Hx Hearing Aid Opthamlomology History: Denies: Hx Contacts or Glasses Neurological History: Reports: Hx Developmental Delay - Learning Disabled, Hx Headaches, Hx Migraine - reports gets frequent Migraines, Hx Seizures - see detailed Hx--Pt here at EMU for Seizure Study Denies: Hx Dementia, Hx Nerve Disease, Hx Spinal Cord Injury, Hx Transient Ischemic Attacks (TIA), Other Neuro Impairments/Disorders Psychiatric History: Reports: Hx Anxiety, Hx Depression, Hx Substance Abuse Denies: Hx Attention Deficit Hyperactivity Disorder, Hx Eating Disorder, Hx Panic Disorder, Hx Post Traumatic Stress Disorder, Hx Inpatient Treatment, Hx Community Mental Health Tx - Has been referred, yet has not gone, Hx Schizophrenia, Hx Bipolar Disorder, Hx Suicide Attempt, Hx of Violent Episodes Against Others, Other Psychiatric Issues/Disorders - Immunization History Date of Tetanus Vaccine: 6 months ago Date of Influenza Vaccine: none Infectious Disease History: Denies: Hx Hepatitis, Hx Human Immunodeficiency Virus (HIV), Traveled Outside the [place] in Last 30 Days - Family History Known Family History: Positive: Other - POS: seizure; Negative depression, negative alcohol abuse - Social History Alcohol Use: Rare Alcohol Amount: as above Substance Use Type: Reports: Prescribed Substance Use Comment - Amount & Last Used: believed to have used Diazepam inappropriately Hx Tobacco Use: Yes Smoking Status (MU): Heavy Every Day Tobacco Smoker Type: Cigarettes Amount Used/How Often: 1/2 PPD + Have You Smoked in the Last Year: Yes Review of Systems Positive: Other - POS: "hands cool to the touch". Negative: Fever, Chills Positive: Blurred Vision. Negative: Erythema - eyes Positive: Other - POS: throat tighness. Negative: Ear Ache Cardiovascular: Negative Negative: Chest Pain Positive: Other - POS: tachypnea. Negative: Shortness Of Breath, Cough Gastrointestinal: Negative Negative: Abdominal Pain, Vomiting, Nausea Genitourinary: Negative Negative: dysuria, hematuria Musculoskeletal: Negative Negative: Edema - leg Skin: Negative Negative: Rash Neurological: Other - POS: "shaky hands"; NEG: dizziness Positive: Numbness - "feelings of numbness" Positive: Anxious - onset today at 09:00, Other - POS: insomnia; NEG: SI All Other Systems Reviewed And Are Negative: Yes Physical Exam - Summary Physical Exam Summary: Constitutional: Well-developed, Well-nourished, Alert. (-) Distressed Skin: Warm, Dry HENT: Normocephalic; Atraumatic Eyes: Conjunctiva normal Neck: Musculoskeletal ROM normal neck. (-) JVD, (-) Stridor, (-) Tracheal deviation Cardio: Rhythm regular, rate normal, Heart sounds normal; Intact distal pulses; The pedal pulses are 2+ and symmetric. Radial pulses are 2+ and symmetric. (-) Murmur Pulmonary/Chest wall: Effort normal. (-) Respiratory distress, (-) Wheezes, (-) Rales Abd: Soft, (-) Tenderness, (-) Distension, (-) Guarding, (-) Rebound Musculoskeletal: (-) Edema Lymph: (-) Cervical adenopathy Neuro: Tremulous. Alert, Oriented x3 Psych: Mood and affect Normal Triage Information Reviewed: Yes Vital Signs On Initial Exam: Initial Vitals Temp Pulse Resp BP Pulse Ox 98.0 F 57 18 123/63 100 03/27/17 14:42 03/27/17 14:42 03/27/17 14:42 03/27/17 14:42 03/27/17 14:42 Vital Signs Reviewed: Yes Diagnostics - Vital Signs Vital Signs Temp Pulse Resp BP Pulse Ox 03/27/17 15:07 52 100 03/27/17 15:06 113/75 03/27/17 14:42 98.0 F 57 18 123/63 100 - Laboratory Result Diagrams: 03/27/17 17:00 03/27/17 17:00 Lab Statement: Any lab studies that have been ordered have been reviewed, and results considered in the medical decision making process. - Radiology Soft tissue neck XR Xray Interpretation: No Acute Changes - No finding suspicious for retained radiopaque foreign body at the soft tissues of the neck. Radiology Interpretation Completed By: Radiologist - EKG 15:16 Cardiac Rate: Bradycardia - 48 BPM EKG Interpretation: TWI at V2 (new) and V3, no STEMI Re-Evaluation - Re-Evaluation First Eval Re-Evaluation Time: 18:15 Change: Improved Comment: The patient tells me that he is feeling better. He still has some mild R throat discomfort. There are no palpable masses and no lymphadenopathy. I do not suspect a parapharyngeal abscess. Course/Dx - Course Assessment/Plan: The pt is a 31 y/o M presenting to the ED complaining of feelings of anxiety that began today at 09:00. His fiance is present and supplies his history. He recently was taken off of Valium. He is on Keppra 750mg three times a day and Lamotrigine 150mg BID. He denies missing any doses of these medications. He denies that he is coming off of any drugs. His last drink was five days ago. The pt has not slept in two days. Recent stressors include inability to see his 4-month-old daughter in [place] because the child's mother will not let him see his daughter. The last time he had a seizure was five days ago when he was seen at [facility] by Dr. Singh. During these seizures, he had constant, shaking movement. He had four seizures that day. Pt additionally c/o throat tightness, feelings of numbness, shaky hands, cool hands to the touch, blurred vision, eyes roll back in the head, insomnia, tachypnea. Pt denies SI. He also recently swallowed a metal tongue ring. Dr. Kruger saw the patient last month. PMHx: seizures, anxiety, substance abuse. PSHx: tonsillectomy. SHx: occasional drinking, no illicit drugs, tobacco use. FHx: seizures. He denies any work or court obligations. He has never been admitted to the hospital. PE Findings: (normal adult, normal child, normal baby , trauma adult, trauma child, neuro, no-touch exam). EKG reveals TWI at V2 (new ) and V3, no STEMI. Soft tissue neck XR reveals No finding suspicious for retained radiopaque foreign body at the soft tissues of the neck. During re- evaluation, the patient tells me that he is feeling better. He still has some mild R throat discomfort. There are no palpable masses and no lymphadenopathy. I do not suspect a parapharyngeal abscess. Dr. Kruger says that the pt has had benzodiazepine abuse in the past as well as medication noncompliance. He says that there is no indication for admission at this time. The patient is discharged from [facility] and diagnosed with panic attack and neck pain. - Differential Dx/Clinical Impression Provider Diagnosis: Panic attack, Neck pain - Physician Notifications Discussed Care Of Patient With: Matthew Kruger Time Discussed With Above Provider: 18:16 Instructed by Provider To: Other - Dr. Kruger says that the pt has had benzodiazepine abuse in the past as well as medication noncompliance. He says that there is no indication for admission at this time. Discharge - Discharge Plan Condition: Stable Disposition: HOME Prescriptions: traZODone TAB* [Desyrel TAB*] 50 mg PO BEDTIME PRN #[id number] tab PRN Reason: Insomnia Patient Education Materials: Neck Pain (ED), Panic Attack (ED) Referrals: Matthew Kruger MD [Medical Doctor] - 3 Days [facility] REFERRAL [Outside] - 3 Days Additional Instructions: RETURN TO THE EMERGENCY DEPARTMENT FOR CHANGING OR WORSENING SYMPTOMS The documentation as recorded by the Jina dickson Thomas accurately reflects the service I personally performed and the decisions made by me, Tigre Doe MD.
== END 2017-03-27 18:53 | disposition home or self-care (01) ==
LOC: ED 14:20
DX: N39.0 Urinary tract infection, site not specified (principal); E46 Unspecified protein-calorie malnutrition
CPT/HCPCS: 36415; 70360; 80053; 80175; 80177; 83735; 84439; 84443; 85027; 93005; 96374; 99282; J2060

== ENCOUNTER 2017-06-05 12:34 | Inpatient (IN) | payer OTHER ==
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
[2017-06-05] MEDS: Nicotine Inhaler* 10 MG AMP INH PRN ×3 (17:39→22:06)
[2017-06-05] MEDS: Ibuprofen TAB* 400 MG PO PRN (17:40)
[2017-06-05] MEDS: diPHENhydraMINE PO* 25 MG PO PRN (17:41)
[2017-06-05] MEDS: Nicotine PATCH 21 MG/24 HR* PATCH TRANSDERM SCH (17:46)
[2017-06-05] MEDS ORDERED: Mouth Piece, Nicotine* 1 EACH CARTRIDGE INH ONE (18:00)
[2017-06-05] MEDS: lamoTRIgine TAB(*) 25 MG PO SCH (19:57)
[2017-06-05] MEDS: LORazepam INJ* 2 MG/ML 1 ML VIAL IV PRN (20:54)
[2017-06-05] MEDS ORDERED: levETIRAcetam LIQ* 500 MG/5 ML UDC PO SCH (21:00)
[2017-06-05] MEDS: Acetaminophen TAB* 325 MG PO PRN (21:32)
[2017-06-06] MEDS: Ibuprofen TAB* 400 MG PO PRN ×3 (08:33→20:15)
[2017-06-06] MEDS: Acetaminophen TAB* 325 MG PO PRN (08:33)
[2017-06-06] MEDS: Nicotine Inhaler* 10 MG AMP INH PRN ×2 (08:33→14:15)
[2017-06-06] MEDS ORDERED: PAROXETINE 12.5 MG PO SCH (09:00)
[2017-06-06] MEDS ORDERED: Influenza VAC *QUAD* 2017-18* 0.5 ML SYRINGE IM ONE (09:00)
[2017-06-06] MEDS: lamoTRIgine TAB(*) 25 MG PO SCH ×2 (09:51→20:15)
[2017-06-06] MEDS ORDERED: levETIRAcetam TAB* 500 MG PO SCH ×2 (10:00→21:00)
[2017-06-06] MEDS: LORazepam INJ* 2 MG/ML 1 ML VIAL IV PRN (10:35)
[2017-06-06] MEDS: Nicotine PATCH 21 MG/24 HR* PATCH TRANSDERM SCH (11:13)
[2017-06-06] MEDS: PARoxetine HCL TAB* 20 MG PO SCH (11:15)
--- NOTE | 2017-06-06 11:35 | EEG ---
[facility] VIDEO/EEG MONITORING - Monitoring Monitoring Start Date: 06/05/17 Current Monitoring Session: 06/05/17 to [] EEG Clinical Indication: Omar Downs is a 31 year old man with a history of epilepsy since he was a toddler, now treated with lamotrigine and levetiracetam, who presents for characterization of episodes which begin with clammy hands, tremulousness and jitteriness and progress to bilateral shaking which often involves his upper extremities more than his lower extremities, but can involve all 4 extremities. He can often communicate and continue to hear what others are saying to him during episodes of bilateral upper body shaking. Events can last 15 to 20 minutes and occur back to back for an hour or more. Triggers include stress. retirement monitoring is undertaken in order to characterize these events. Introduction: INTRODUCTION: The EEG was monitored from 21 scalp electrodes. Nineteen electrodes consisted of the standard parasagittal, temporal and midline leads of the International 10 -20 system. In addition, special electrodes FT9 and FT10 were placed. EEG data were recorded on an [employer] system with simultaneous MPEG-4 digital video recording of patient behavior. EEG recording was in a monopolar montage with all electrodes referenced to FCz. Significant behavioral events were signaled by an event button, or putative electrical seizure events were detected by a computer program. All EEG data were reviewed in their entirety on a monitor with reconstruction of montages and adjustments of sensitivity and filtering. Simultaneous patient behavior was viewed on an adjacent monitor and correlated with the EEG. - Medications Active Medications: Acetaminophen (Tylenol Tab*) 650 mg PO Q6H PRN PRN Reason: PAIN Last Admin: 06/06/17 08:33 Dose: 650 mg Diphenhydramine HCl (Benadryl Po*) 25 mg PO Q6H PRN PRN Reason: ITCHING Last Admin: 06/05/17 17:41 Dose: 25 mg Ibuprofen (Motrin Tab*) 400 mg PO Q6H PRN PRN Reason: PAIN Last Admin: 06/06/17 08:33 Dose: 400 mg Lamotrigine (Lamictal Tab(*)) 75 mg PO BID [facility] Last Admin: 06/06/17 09:51 Dose: 75 mg Levetiracetam (Keppra Tab*) 1,000 mg PO BID [facility] Last Admin: 06/06/17 09:51 Dose: 1,000 mg Lorazepam (Ativan Inj*) 1 mg IV Q8H PRN PRN Reason: SEE COMMENTS Last Admin: 06/06/17 10:35 Dose: 1 mg Nicotine (Nicotine Inhaler*) 10 mg INH Q2H PRN PRN Reason: CRAVING Last Admin: 06/06/17 08:33 Dose: 10 mg Nicotine (Nicotine Patch 21 Mg/24 Hr*) 1 patch TRANSDERM DAILY [facility] Last Admin: 06/06/17 11:13 Dose: 1 patch Paroxetine HCl (Paxil Tab*) 20 mg PO DAILY [facility] Last Admin: 06/06/17 11:15 Dose: 20 mg Pharmacy Profile Note (Nicotine Patch Removal Note*) 1 note PATCH OFF 2100 [facility] - Description Background: The waking background showed appropriate organization with clearly defined anterior-posterior voltage and frequency gradients. There was a defined posterior dominant rhythm of 8.5-9 Hertz, which was symmetrical and showed normal reactivity. Anteriorly, there was the expected pattern of lower voltage and more irregular theta and beta rhythms. There was intermittent, moderate voltage, diffuse polymorphic mixed frequency slowing lasting 1 to seconds per epoch. In addition, there was occasional polymorphic mixed frequency slowing in the left temporal region with some intermixed sharp features which were not epileptiform in morphology. The sleep background was appropriately organized with well-developed spindles and vertex waves indicative of stage 2 sleep. These sleep transients showed appropriate morphology and were bilaterally synchronous and symmetrical. Development of diffuse delta range frequencies with dropout of stage 2 architecture accompanied transition to slow wave sleep, and a lower voltage mixed frequency pattern associated with eye movements was consistent with REM sleep. No epileptiform abnormalities were recorded. Intericatal Epileptiform Activity: #01 06/05: Medications: lamotrigine 75mg BID and levetiracetam 1125mg QPM and 1000mg QAM Background as described above. No epileptiform abnormalities. #02 10/: Medications: lamotrigine 50mg BID x2 doses starting PM 10/7, levetiracetam 500mg BID x2 doses starting PM 10/7 Background as described above. There were some periods of slowing and sharp features in the left temporal region, which were not definitively epileptiform in nature. In addition, there were occasional sharp contours intermixed within brief epochs of diffuse slowing, also not epileptiform. #03 06/07 Ictal Activity: #01 06/05: The patient experienced a typical event which began around 20:34 on 06/05. His hands became shaky and he stated he felt jittery and "not normal". He called the nurse in and was given a cold washcloth which he placed on his forehead. He eventually developed slightly tremulousness, then his body stiffened up. His eyes closed and he exhibited irregular jerking. His right leg was extended and left leg was flexed at the hip and knee and externally rotated. He remained with his left hand up near his eyes through much of the event. The event button was pressed by the nurse at 20:52 and he was given 1mg Ativan IV at 20:55. The shaking and tremulousness rapidly resolved after this. The EEG was normal throughout the event. No ictal patterns noted #02 06/06: The patient experienced another typical event and the event button was pressed at 10:14, then again at 10:28 on 06/06. He was sitting in bed using his nicotine inhaler when he commented to his mother that he started feeling jittery. His hands were tremulous. The nurse call button was pressed and his mother indicated this is how it started last night. His mother offered a cold washcloth, which he accepted. The nurse pressed the event button for him. There was a lot of artifact in the EKG lead so it was difficult to discern his heart rate. Tremulousness increased and started to involve his legs. He indicated he was trying to control it. He continued to tell the nurse how he felt and how his events typically progress. He indicated he did not want to lay down because it usually causes him to bite his tongue. Nurse asked him to raise his right hand and he did not do so but moved the washcloth, which was in his right hand, from his mouth to his forehead. He was able to show 3 fingers on his left hand, but was shaky. He was able to state his name. After 5 minutes he indicated the muscles in his chest were getting tight and he reclined in bed with the washcloth placed over his nose and eyes, which were closed. A normal PDR was seen. He stopped trembling but still appeared uncomfortable. Intermittent body jerks began around 10:27 and he was noted to start tightening up. At this point , the nurse pressed his event button again. His eyes were closed, he grimaced, grabbed his left leg with his right hand and began to roll onto his left side. The left hand was clutching his right shoulder. The nurse asked him his last name he did not respond. There was irregular, arrhythmic low amplitude shaking of the legs and the arms were stiff. The left foot was turned inward. There was excessive muscle artifact noted but no ictal pattern was seen and intermittently a normal PDR was observed. He was given 1mg Ativan at 10:34. The shaking calmed down after this but he was still intermittently tremulous and indicated he could not roll onto his back but was able to state his last name. He showed 3 fingers on his left hand. He could not remember the recall phrase given to him. 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 I entered the room and began discussing with his mother that there was no ictal pattern associated with this shaking and this would pass and he stopped shaking around 10:44. He was extremely sweaty and indicated his muscles were sore. The EEG was normal throughout. He had another event at 23:12. Around 23:03 he was noted to be sitting up in bed , rocking slightly. His nurse got him a cold washcloth, which he put up to his mouth. At 23:09, the nurse laid him back in bed and he began to stiffen and jerk irregularly. Eyes were closed with the washcloth pressed to his face. A normal PDR was observed. He rolled onto his right side and continued to shake. The shaking stopped at 23:18, then he gradually started to stiffen and shake again around 23:25. The event button was pressed again at 23:27 when this increased. Shaking gradually slowed over a period of more than 10 minutes then stopped around 23:41. Again, a normal background was observed. He started shaking again around 23:50 for about 5 minutes. EEG normal throughout. No ictal patterns noted.
--- NOTE | 2017-06-06 11:41 | PN ---
Epilepsy Service Progress Note - Subjective DOS 06/06/17 Patient experienced 2 typical events: the first around 20:30 last evening and the second at 10:14am this morning. With both of these the patient first felt jittery, hands became clammy and he became tremulous. With the event this morning, this progressed to whole body stiffness and irregular shaking. He was able to hear what was being said to him but could not respond. He was given 1mg Ativan IV with each of these events. These events were non-epileptic After the event, he indicated that he wanted to go home but I expressed that it would be beneficial to continue to reduce his medication to see if he still has epileptic features in his EEG to try to determine whether he still requires antiseizure medication or not. After discussion with him and his mother he has agreed to stay until Thursday at this point. - Medications Active Medications: Acetaminophen (Tylenol Tab*) 650 mg PO Q6H PRN PRN Reason: PAIN Last Admin: 06/06/17 08:33 Dose: 650 mg Diphenhydramine HCl (Benadryl Po*) 25 mg PO Q6H PRN PRN Reason: ITCHING Last Admin: 06/05/17 17:41 Dose: 25 mg Ibuprofen (Motrin Tab*) 400 mg PO Q6H PRN PRN Reason: PAIN Last Admin: 06/06/17 08:33 Dose: 400 mg Lamotrigine (Lamictal Tab(*)) 75 mg PO BID COUNT INCLUDES [facility] Last Admin: 06/06/17 09:51 Dose: 75 mg Levetiracetam (Keppra Tab*) 1,000 mg PO BID COUNT INCLUDES THE [facility] Last Admin: 06/06/17 09:51 Dose: 1,000 mg Lorazepam (Ativan Inj*) 1 mg IV Q8H PRN PRN Reason: SEE COMMENTS Last Admin: 06/06/17 10:35 Dose: 1 mg Nicotine (Nicotine Inhaler*) 10 mg INH Q2H PRN PRN Reason: CRAVING Last Admin: 06/06/17 08:33 Dose: 10 mg Nicotine (Nicotine Patch 21 Mg/24 Hr*) 1 patch TRANSDERM DAILY [facility] Last Admin: 06/06/17 11:13 Dose: 1 patch Paroxetine HCl (Paxil Tab*) 20 mg PO DAILY [facility] Last Admin: 06/06/17 11:15 Dose: 20 mg Pharmacy Profile Note (Nicotine Patch Removal Note*) 1 note PATCH OFF 2100 [facility] Diagnostics - Diagnostic Most Recent Vital Signs: Vital Signs: Temp Pulse Resp BP Pulse Ox 98.3 F 71 30 106/57 99 06/05/17 19:57 06/05/17 19:57 06/06/17 10:35 06/05/17 19:57 06/05/17 13:48 Interim video-EEG long-term monitoring report: #01 06/05: PDR 9, intermittent diffuse polymorphic slowing and other periods of polymorphic slowing in the left temporal region with some sharp features which are not epileptiform in nature. Sleep background is normal. He had an event of jitteriness, clammy hands, and irregular shaking around 20:30 which was non- epileptic in nature. No epileptiform discharges #02 06/06: event at 10:14 waxed and waned for more than 15 minutes and consisted of the above features but progressed to also involve whole body stiffening, sweating, eyes closed. He received 1mg Ativan IV. This event was non-epileptic in nature as well. EMU Exam - Exam Physical/Neurological Exam: Physical Exam: General: Well appearing in no acute distress. Thin. Sweaty after event. c/o muscle soreness MSK: no extremity deformities Derm: no rashes or lesions but multiple tattoos and piercings present Neurological Exam: Mental Status: Awake and alert. Oriented to person, place, and time. Fluent. Comprehension intact. Affect restricted and somewhat annoyed after event discussing next steps. Cranial Nerves: Visual castro full to confrontation.. Pupils were equal, round, and reactive constricting from 3mm to 2mm. Versions were full and without nystagmus. Facial musculature and sensation were symmetric. Hearing grossly intact to voice. Palate was upgoing bilaterally. Tongue was midline. Shoulder shrug was symmetric. Motor: Bulk, tone, and strength were normal throughout. Pronator drift was absent. There were no abnormal movements after the above described episode ceased. Sensory: Sensation to light touch intact. Romberg was deferred. Coordination: Finger to nose intact. Reflexes: 2+ throughout the upper and lower extremities with downgoing toes bilaterally. Gait: deferred EMU Progress Note Assessment/P - Assessment/Plan Assessment: 31 year old man with a history of childhood epilepsy admitted for characterization of episodes of jitteriness, clammy hands progressing to stiffening and shaking which can last many minutes, sometimes an hour, and often occur back to back. Differential includes epileptic and non-epileptic events but suspicion was high for non-epileptic events. Two typical events recorded which are non-epileptic in nature. 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 Supportive management discussed and mother encouraged to not call ambulance in the future for these events. Recommend counseling as outpatient. Will provide PNEA brochure. Encouraged patient to stay to continue to taper medications to see if he still has a latent/well-controlled epilepsy, or if AEDs can be discontinued completely. Patient has a difficult time understanding rationale but appears amenable currently to staying with continued reinforcement from his mother. Will continue to wean meds. Plan: * Continue terminal makeup operator video EEG monitoring to capture typical episodes and evaluate for emergence of epileptiform abnormalities * Seizure precautions * reduce lamotrigine to 50mg tonight, 50mg tomorrow morning then stop * reduce levetiracetam to 500mg tonight, 250mg tomorrow morning, then stop * will not give Ativan for any further PNEA episodes but will encourage deep breathing and muscle relaxation during event, provide reassurance. * Ativan 1mg IV only to be given for GTC (eyes open, tonic stiffening followed by clonic extremity shaking) * continue alternating ibuprofen and acetaminophen as needed for shoulder pain or muscle soreness.
[2017-06-06] MEDS ORDERED: Nicotine Lozenge* 4 MG LOZENGE MT PRN (13:08)
[2017-06-06] MEDS: diPHENhydraMINE PO* 25 MG PO PRN ×2 (13:10→21:50)
[2017-06-07] MEDS: Nicotine PATCH 21 MG/24 HR* PATCH TRANSDERM SCH ×3 (00:30→23:12)
[2017-06-07] MEDS: Nicotine Patch Removal NOTE PATCH OFF SCH ×2 (00:30→22:30)
[2017-06-07] MEDS: lamoTRIgine TAB(*) 25 MG PO SCH (08:53)
[2017-06-07] MEDS: PARoxetine HCL TAB* 20 MG PO SCH (08:53)
[2017-06-07] MEDS ORDERED: levETIRAcetam TAB* 500 MG PO SCH (09:00)
[2017-06-07] MEDS: Ibuprofen TAB* 400 MG PO PRN ×2 (12:16→19:16)
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
[2017-06-07] MEDS ORDERED: Mouth Piece, Nicotine* 1 EACH CARTRIDGE INH ONE (13:00)
[2017-06-07] MEDS: diPHENhydraMINE PO* 25 MG PO PRN (13:03)
[2017-06-07] MEDS: Nicotine Inhaler* 10 MG AMP INH PRN ×3 (16:57→23:05)
--- NOTE | 2017-06-07 22:54 | CONSULT ---
Consult Consult: CAT response Upon arrival, Mr Downs, was reported by his primary nurse to have been having a seizure for the past 45 minutes culminating in him becoming ashen colored and developing apnea for which the CAT was called. He additionally had some frothing of the mouth associated with some bleeding. He is hypo-responsive to noxious stimuli, but makes vague ataxic gestures with his hands reaching towards his EEG leads. He is profusely diffusely diaphoretic. There is no tonic or clonic movements. As I arrived, nursing was administering 1mg IV lorazepam. After ~5 minutes, Mr Downs began to open his eyes and make incoherent attempts at speech. After another ~10minutes he was understandable and perseverant regarding his desire to be given medication for the seizure, but seemed confused and not able to process repeated attempts to explain he had already received a medication. Vitals are stable. Glucose 155. general: WNWD white male currently in no distress lungs: CTAB, normal effort CV: sinus tachycardia by palpation rate ~110, normal S1S2 abdomen: SNTND extremities: grossly intact integument: diffusely profusely diaphoretic neuro: mental status confused, difficulty processing information labs: none indicated assessment: plan seizure-like activity : Frank Alex MD neurology apprised; will review EEG & further discuss management with nursing : no other specific intervention currently indicated, nursing to continue monitoring and report significant changes
[2017-06-07] MEDS: Acetaminophen TAB* 325 MG PO PRN (22:55)
[2017-06-07] MEDS: lamoTRIgine TAB(*) 100 MG PO SCH (22:58)
[2017-06-08] MEDS: lamoTRIgine TAB(*) 100 MG PO SCH (08:42)
[2017-06-08] MEDS: PARoxetine HCL TAB* 20 MG PO SCH (08:47)
[2017-06-08] MEDS: Nicotine Inhaler* 10 MG AMP INH PRN ×2 (08:48→12:17)
[2017-06-08] MEDS ORDERED: levETIRAcetam TAB* 500 MG PO SCH (09:00)
[2017-06-08 09:04] VITALS: BP 107/70
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
[2017-06-08 13:01] LABS: Levetiracetam 18.7 mcg/mL
--- NOTE | 2017-06-08 13:25 | DS ---
EMU Discharge - Discharge Summary Discharge Summary: Admitted: 06/05/17 Attending: Socorro Alex MD Admitting Diagnosis: [] Discharge Diagnosis: [] Admission History (From Admission H&P): [] Admission Examination: [] Admission AED Medications: [] Hospital Course: [] Discharge Examination: [] Destination: Home. Diet: Regular. Follow-up: [] Home Medications Medication Instructions Recorded Confirmed Type Levetiracetam 2,250 mg PO BID 06/11/13 06/05/17 History Paroxetine HCl [Paroxetine HCl ER] 25 mg PO DAILY 06/05/17 06/05/17 History Diazepam TAB(*) [Valium TAB(*)] 5 mg PO BID PRN #30 tab MDD 10 06/08/17 Rx lamoTRIgine TAB(*) [Lamictal 200 mg PO BID #0 06/08/17 06/05/17 Rx TAB(*)]
[2017-06-08 14:29] LABS: Lamotrigine 1.4 mcg/mL (2.5 - 15.0)
== END 2017-06-08 13:30 | disposition home or self-care (01) | DRG 53 ==
LOC: EMU 12:34
PROVIDERS: ADMIT Psychiatry & Neurology Neurology; ATTEND Psychiatry & Neurology Neurology
PROC: 4A10X4Z Monitoring of Central Nervous Electrical Activity, External Approach (ICD-10-PCS; principal; 2017-06-05)
DX: G40.909 Epilepsy, unspecified, not intractable, without status epilepticus (principal); F32.9 Major depressive disorder, single episode, unspecified; F11.90 Opioid use, unspecified, uncomplicated; F41.9 Anxiety disorder, unspecified; G43.909 Migraine, unspecified, not intractable, without status migrainosus; F17.210 Nicotine dependence, cigarettes, uncomplicated; Z72.89 Other problems related to lifestyle; F15.90 Other stimulant use, unspecified, uncomplicated; Z82.0 Family history of epilepsy and other diseases of the nervous system; F81.9 Developmental disorder of scholastic skills, unspecified; Z23 Encounter for immunization; R45.1 Restlessness and agitation
CPT/HCPCS: 80175; 80177; 90686; 95951; A9270-GY; J2060

== ENCOUNTER 2017-10-12 21:40 | Observation (INO) | payer OTHER ==
[2017-10-12] MEDS ORDERED: NS 0.9% 1000 ML* 1,000 ML IV ONE (22:22)
[2017-10-12 22:58] LABS: ABS Basophils 0 10^3/ul (0-0.2); ABS Eosinophils 0 10^3/ul (0-0.6); ABS Lymphocytes 0.7 10^3/ul (1.0-4.8); ABS Monocytes 0.6 10^3/ul (0-0.8); ABS Neutrophils 9.5 10^3/ul (1.5-7.7); ABS Nucleated RBC 0.1 10^3/ul; Eosinophil % 0 % (0-6); Hematocrit 44 % (42-52); Hemoglobin 15.5 g/dl (14.0-18.0); Lymphocyte % 6.2 % (25-47); Mean Corpuscular HGB Conc 35 g/dl (31-36); Mean Corpuscular Hemoglobin 32 pg (27-31); Mean Corpuscular Volume 91 fL (80-94); Mean Platelet Volume 8 um3 (7.4-10.4); Nucleated Red Blood Cells % 0.5; Platelet Count 224 10^3/ul (150-450); Red Blood Count 4.85 10^6/ul (4.0-5.4); Red Cell Distribution Width 14 % (10.5-15); White Blood Count 10.8 10^3/ul (3.5-10.8)
[2017-10-13] MEDS ORDERED: NS 0.9% 1000 ML* 1,000 ML IV ONE (00:30)
[2017-10-13] MEDS ORDERED: LORazepam INJ* 2 MG/ML 1 ML VIAL ONE (01:02)
[2017-10-13] MEDS ORDERED: LORazepam INJ* 2 MG/ML 1 ML VIAL IV PUSH ONE ×2 (01:04)
[2017-10-13] MEDS ORDERED: Acetaminophen TAB* 325 MG PO PRN (01:24)
[2017-10-13] MEDS ORDERED: Ondansetron INJ* 2 MG/ML VIAL IV PRN (01:24)
[2017-10-13] MEDS ORDERED: Al Hydrox/Mg Hydrox/Simet LIQ* 30 ML UDC PO PRN (01:24)
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
[2017-10-13] MEDS: NS 0.9% 1000 ML* 1,000 ML IV ONE ×2 (02:36→02:41)
[2017-10-13 03:23] LABS: Urine Appearance Cloudy; Urine Blood 1+ (Negative); Urine Color Yellow; Urine Ketones Trace (Negative); Urine Protein 1+(30 mg/dL) (Negative); Urine Urobilinogen Negative (Negative)
[2017-10-13] MEDS ORDERED: Ibuprofen TAB* 600 MG PO PRN (03:35)
[2017-10-13] MEDS ORDERED: diPHENhydraMINE PO* 25 MG PO PRN (03:35)
[2017-10-13] MEDS ORDERED: PARoxetine HCL TAB* 10 MG PO SCH (09:00)
[2017-10-13] MEDS ORDERED: levETIRAcetam TAB* 500 MG PO SCH (09:00)
[2017-10-13] MEDS ORDERED: lamoTRIgine TAB(*) 100 MG PO SCH ×3 (09:00→18:00)
[2017-10-13] MEDS ORDERED: PARoxetine HCL TAB* 20 MG PO SCH (09:42)
[2017-10-13 11:37] VITALS: BP 88/51
--- NOTE | 2017-10-13 12:27 | HP ---
CC: Dr. Raul Cosme; Dr. Socorro Alex. HISTORY AND PHYSICAL: DATE OF ADMISSION: 10/13/17 TIME OF EVALUATION: 0200. PRIMARY CARE PHYSICIAN: Raul Cosme MD and Socorro Alex MD. CHIEF COMPLAINT: Seizure. HISTORY OF PRESENT ILLNESS: This is a 31-year-old male with a past medical history of seizure and pseudoseizure disorder who presents to the emergency room with persistent seizures. The patient states he began having his seizure activity around 8 yesterday morning and he was seizing all day long. He called EMS. He said it seemed to improve when he arrived to the emergency room around 10 p.m. The patient had initial workup and thought the ER physician was going to send them home; however, he had another seizure which looked similar to his seizures in the past with his asynchronous movement of his upper extremities. He was verbalizing during his seizure activity. The patient was given Ativan in the emergency room and referred to me. I saw the patient shortly after anesthesia. He did not appear postictal. He did state he did bite his tongue earlier today, no loss of bowel or bladder control. He states he usually has a seizure one time per month, but this time it was 2 times. He denies missing any medications. He has been taking them routinely. He has been clean for the past several months, going to [facility] rehab. He has had some congestion recently, no cough, no fever, no nausea, vomiting, diarrhea, no abdominal pain, no urinary symptoms, no headache, otherwise review of systems is negative. PAST MEDICAL HISTORY: 1. History of seizure disorder and history of pseudoseizures, followed by Dr. Alex. 2. Anxiety. 3. History of IV drug use. 4. History of alcohol use. MEDICATIONS: 1. Lamotrigine 200 mg p.o. b.i.d. 2. Keppra 2250 mg p.o. b.i.d. 3. Valium as needed. 4. Paxil 25 mg daily. ALLERGIES: No known drug allergies. FAMILY HISTORY: Father with epilepsy. SOCIAL HISTORY: The patient states he lives alone. 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 He smokes about a half pack per day for the past 15 years. He has been clean for the past 7 months from alcohol and IV drug use. He used to inject opioids. He has a 9-month-old daughter who is under the custody of his mother. CODE STATUS: Full code. REVIEW OF SYSTEMS: A 14-point review of systems is as mentioned in the HPI, otherwise negative. PHYSICAL EXAMINATION GENERAL: In no acute distress, resting comfortably. VITAL SIGNS: Temp 91.1, pulse 94, respiratory rate 16, oxygen saturation 99% on room air, blood pressure 116/80. HEENT: Head normocephalic. Pupils equal and reactive, anicteric. Oropharynx: Mucous membranes moist. He has dried blood around his lips. NECK: Supple. No lymphadenopathy. RESPIRATORY: Diminished breath sounds. No wheezes, rhonchi or rales. CARDIAC: Regular rate and rhythm. No murmurs, rubs or gallops. ABDOMEN: Soft, nontender, nondistended. EXTREMITIES: No clubbing, cyanosis, or edema. +2 DPs. NEUROLOGIC: Alert and oriented x3. No gross focal neurological deficits. DERM: The patient will multiple tattoos and nose piercing. DIAGNOSTIC STUDIES/LAB DATA: White count 10.8, hemoglobin 15.5, hematocrit 44 , platelets 224. Sodium 139, potassium 4.7, chloride 103, bicarb 27, BUN 12, creatinine 1.24. Lactic acid 2.8. ASSESSMENT: This is a 31-year-old male with past medical history of seizures and pseudoseizures who seemed to have a prolonged seizure activity earlier and then another episode in the emergency room that was atypical most resembling his pseudoseizures that were described by Dr. Alex when he was in the EMU back in May 2017. 1. Seizure/pseudoseizure. Assessment: It is unclear what transpired, if this was all pseudoseizure as it seemed to have been in the emergency room and what really happened earlier today. He has been taking his medications routinely. There is no evidence of an infectious process and it appears that he has been clean from alcohol and drugs. Plan: We will admit him to telemetry, keep him on seizure precautions, neuro checks, continue his home antiepileptic regimen, will check order to put in for levels to be checked and order a urine drug screen and consult Neurology in the morning. 2. Chronic medical problems, anxiety. Continue his Paxil. 3. FEN. Will advance the patient's diet as tolerated. 4. DVT prophylaxis. The patient scores low risk. We will order SCDs as we would limit ambulation independently at this time. 5. Code status. Full code. TIME SPENT: Greater than 50 minutes spent doing the history and physical, more than half the time spent in direct patient contact. [id number]/[facility] #: [id number] MTDD
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
--- NOTE | 2017-10-14 03:18 | DS ---
CC: Dr. Cosme; Dr. Alex * DISCHARGE SUMMARY: DATE OF ADMISSION: 10/13/17 DATE OF DISCHARGE: 10/13/17 PRIMARY CARE PROVIDER: Dr. Cosme. DISCHARGE DIAGNOSIS: Epileptic versus nonepileptic seizures. SECONDARY DIAGNOSES: 1. History of nonepileptic seizures. 2. History of epilepsy. 3. History of anxiety. MEDICATIONS AT DISCHARGE: Include: 1. Lamictal 200 mg in the morning and 250 mg at night for 7 days, then increase it to 250 mg b.i.d. 2. Keppra 2250 mg b.i.d. 3. Valium as needed. 4. Paxil 25 mg daily. HOSPITALIZATION COURSE: Omar Downs is a 31-year-old male with a history of seizures and pseudoseizures, who presented to the hospital after a seizure and he was noted to seize again when in the ED. The patient was placed on overnight observation and did not have any seizures during his hospital stay. He appeared mildly dehydrated and was noted to have very mild hypercalcemia and elevation of creatinine. He received intravenous fluids during his hospital stay. The case was discussed with Dr. Le from Neurology, who recommended the patient to increase his lamotrigine as noted above. PHYSICAL EXAMINATION AT DISCHARGE: Blood pressure of 94/47, heart rate of 67 and regular, respiratory rate 18, oxygen saturation 100% on room air, and temperature 97.9. General: The patient is a very pleasant 31-year-old male who is in no acute distress. Alert, awake, and oriented x3. HEENT: Head, atraumatic and normocephalic. Eyes, pupils are equal, round, and reactive to light and accommodation. Oropharynx clear. Mucosa moist. Neck: Supple. No JVD, no bruits bilaterally. Cardiovascular: Regular rate and rhythm. No murmur. Respiratory: Clear to auscultation bilaterally. Abdomen: Soft and nontender. Bowel sounds present in all 4 quadrants. Extremities: There is no edema. Pulses are +2 bilaterally. No clubbing or cyanosis. Neuro Evaluation: Speech clear. Cranial nerves II through XII grossly intact. Motor Strength is 5/5 bilaterally. RECOMMENDATION: The patient is recommended to follow up with Dr. Cosme in approximately 4 to [address] Alex in approximately a month. The patient is recommended not to drive. Please note that this is a short summary of the patient's hospital stay. Please refer to further medical records for details. [id number]/[facility] #: [id number] MTDD
[2017-10-14 15:43] LABS: Levetiracetam 86.5 mcg/mL
== END 2017-10-13 14:34 | disposition home or self-care (01) ==
LOC: ED 21:40 → MEDTELE 10-13 01:24
PROVIDERS: ADMIT Pediatrics; ATTEND Internal Medicine
DX: G40.909 Epilepsy, unspecified, not intractable, without status epilepticus (principal); F11.11 Opioid abuse, in remission; Z86.59 Personal history of other mental and behavioral disorders; Z86.69 Personal history of other diseases of the nervous system and sense organs; F17.210 Nicotine dependence, cigarettes, uncomplicated; Z87.898 Personal history of other specified conditions
CPT/HCPCS: 36415; 80053; 80175; 80177; 80307; 81003; 81015; 82550; 83605; 83735; 85025; 96374; 96375; 99284; A9270-GY; G0378; J2060

== ENCOUNTER → 2017-11-05 10:40 | Emergency (ER) | payer OTHER ==
[~2017-11-05 10:40] MED LIST: Ketorolac INJ* 60 MG/2 ML VIAL IM ONE; Ondansetron ODT TAB* 4 MG PO ONE
[2017-11-05 11:21] LABS: ABS Basophils 0 10^3/ul (0-0.2); ABS Eosinophils 0 10^3/ul (0-0.6); ABS Lymphocytes 1.4 10^3/ul (1.0-4.8); ABS Monocytes 0.3 10^3/ul (0-0.8); ABS Neutrophils 1.9 10^3/ul (1.5-7.7); ABS Nucleated RBC 0 10^3/ul; Eosinophil % 0 % (0-6); Hematocrit 43 % (42-52); Hemoglobin 14.8 g/dl (14.0-18.0); Lymphocyte % 37.7 % (25-47); Mean Corpuscular HGB Conc 35 g/dl (31-36); Mean Corpuscular Hemoglobin 32 pg (27-31); Mean Corpuscular Volume 92 fL (80-94); Mean Platelet Volume 8 um3 (7.4-10.4); Nucleated Red Blood Cells % 0; Platelet Count 180 10^3/ul (150-450); Red Blood Count 4.65 10^6/ul (4.0-5.4); Red Cell Distribution Width 14 % (10.5-15); White Blood Count 3.7 10^3/ul (3.5-10.8)
[2017-11-05 11:45] LABS: EGFR Non-African American 74.2 (>60)
--- NOTE | 2017-11-05 11:53 | RAD ---
INDICATION: Headache COMPARISON: MRI of the brain dated July 09, 2017 TECHNIQUE: Contiguous axial sections of the brain were obtained from the skull base to the vertex without contrast. FINDINGS: The ventricles, cisterns and sulci are within normal limits. The pereira-white matter differentiation is adequately maintained and there is no sulcal effacement. No significant focal abnormality or mass effect is present. There is no evidence for intracranial hemorrhage. No significant focal osseous abnormality is present. The visualized portion of the paranasal sinuses appear clear. The mastoid air cells are well aerated bilaterally. IMPRESSION: Normal CT of the brain.
--- NOTE | 2017-11-05 11:54 | RAD ---
INDICATION: Dyspnea. COMPARISON: Comparison is made with a prior chest x-ray study from March 22, 2017. TECHNIQUE: Dual-energy PA and lateral views of the chest were obtained. FINDINGS: The heart is within normal limits in size. Mediastinal and hilar contours appear within normal limits. The lungs are underinflated and clear. No pleural effusion is seen. IMPRESSION: NO EVIDENCE FOR ACTIVE CARDIOPULMONARY DISEASE.
[2017-11-05 15:30] VITALS: BP 115/64
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
== END | disposition home or self-care (01) ==
LOC: ED 10:40
DX: R51 Headache (principal); F32.9 Major depressive disorder, single episode, unspecified; F17.210 Nicotine dependence, cigarettes, uncomplicated; F41.0 Panic disorder [episodic paroxysmal anxiety]; G43.909 Migraine, unspecified, not intractable, without status migrainosus
CPT/HCPCS: 36415; 70450; 71046; 80053; 80307; 85025; 96372; 99283; A9270-GY; J1885

== ENCOUNTER 2017-11-19 10:57 | Emergency (ER) | payer OTHER ==
[2017-11-19] MEDS: NS 0.9% 1000 ML* 2,000 ML IV ONE (11:48)
[2017-11-19 12:23] LABS: ABS Basophils 0 10^3/ul (0-0.2); ABS Eosinophils 0 10^3/ul (0-0.6); ABS Lymphocytes 0.8 10^3/ul (1.0-4.8); ABS Monocytes 0.8 10^3/ul (0-0.8); ABS Neutrophils 8.8 10^3/ul (1.5-7.7); ABS Nucleated RBC 0 10^3/ul; Eosinophil % 0 % (0-6); Hematocrit 41 % (42-52); Hemoglobin 14.1 g/dl (14.0-18.0); Lymphocyte % 7.5 % (25-47); Mean Corpuscular HGB Conc 34 g/dl (31-36); Mean Corpuscular Hemoglobin 31 pg (27-31); Mean Corpuscular Volume 91 fL (80-94); Mean Platelet Volume 7.5 um3 (7.4-10.4); Nucleated Red Blood Cells % 0; Platelet Count 188 10^3/ul (150-450); Red Cell Distribution Width 14 % (10.5-15); White Blood Count 10.4 10^3/ul (3.5-10.8)
[2017-11-19 12:34] LABS: INR 0.88 (0.77-1.02)
[2017-11-19] MEDS ORDERED: Acetaminophen TAB* 325 MG PO ONE (13:02)
[2017-11-19] MEDS ORDERED: Cyclobenzaprine TAB* 10 MG PO ONE (13:43)
[2017-11-19 14:31] VITALS: BP 114/51
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
== END 2017-11-19 14:31 | disposition home or self-care (01) ==
LOC: ED 10:57
DX: G40.901 Epilepsy, unspecified, not intractable, with status epilepticus (principal); R03.0 Elevated blood-pressure reading, without diagnosis of hypertension
CPT/HCPCS: 36415; 80053; 80175; 80177; 80320; 82550; 83605; 83735; 84443; 85025; 85610; 85730; 86140; 93005; 96360; 99283; A9270-GY; G0480

== ENCOUNTER 2017-11-22 15:21 | Emergency (ER) | payer OTHER ==
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
[2017-11-22 16:07] LABS: ABS Basophils 0 10^3/ul (0-0.2); ABS Eosinophils 0 10^3/ul (0-0.6); ABS Lymphocytes 1.7 10^3/ul (1.0-4.8); ABS Monocytes 0.4 10^3/ul (0-0.8); ABS Nucleated RBC 0 10^3/ul; Eosinophil % 0 % (0-6); Hematocrit 44 % (42-52); Hemoglobin 15.2 g/dl (14.0-18.0); Lymphocyte % 23.3 % (25-47); Mean Corpuscular HGB Conc 35 g/dl (31-36); Mean Corpuscular Hemoglobin 32 pg (27-31); Mean Corpuscular Volume 92 fL (80-94); Mean Platelet Volume 7.9 um3 (7.4-10.4); Nucleated Red Blood Cells % 0.1; Platelet Count 210 10^3/ul (150-450); Red Blood Count 4.77 10^6/ul (4.0-5.4); Red Cell Distribution Width 14 % (10.5-15); White Blood Count 7.1 10^3/ul (3.5-10.8)
[2017-11-22 16:19] LABS: EGFR Non-African American 77.6 (>60)
[2017-11-22] MEDS ORDERED: Cyclobenzaprine TAB* 10 MG PO ONE (16:49)
[2017-11-22 17:30] VITALS: BP 114/70
== END 2017-11-22 17:23 | disposition home or self-care (01) ==
LOC: ED 15:21
DX: R56.9 Unspecified convulsions (principal); F41.9 Anxiety disorder, unspecified; R45.7 State of emotional shock and stress, unspecified; R53.83 Other fatigue; G43.909 Migraine, unspecified, not intractable, without status migrainosus; R62.50 Unspecified lack of expected normal physiological development in childhood; F32.9 Major depressive disorder, single episode, unspecified; F17.210 Nicotine dependence, cigarettes, uncomplicated
CPT/HCPCS: 36415; 80053; 80320; 80329; 85025; 86140; 99282; A9270-GY; G0480

== ENCOUNTER 2017-12-15 02:13 | Emergency (ER) | payer OTHER ==
[2017-12-15] MEDS ORDERED: LORazepam INJ* 2 MG/ML 1 ML VIAL ONE (02:26)
[2017-12-15] MEDS ORDERED: Lidocaine 2% PF * 5 ML VIAL ONE (02:32)
[2017-12-15] MEDS ORDERED: LORazepam INJ* 2 MG/ML 1 ML VIAL IV PUSH ONE (02:40)
[2017-12-15] MEDS ORDERED: NS 0.9% 1000 ML* 1,000 ML IV ONE ×2 (02:40→03:35)
[2017-12-15] MEDS ORDERED: lamoTRIgine TAB(*) 100 MG PO ONE (02:51)
[2017-12-15 03:01] LABS: Hematocrit 46 % (42-52); Hemoglobin 15.3 g/dl (14.0-18.0); Mean Corpuscular HGB Conc 33 g/dl (31-36); Mean Corpuscular Hemoglobin 32 pg (27-31); Mean Corpuscular Volume 95 fL (80-94); Mean Platelet Volume 7.8 um3 (7.4-10.4); Platelet Count 253 10^3/ul (150-450); Red Blood Count 4.84 10^6/ul (4.0-5.4); Red Cell Distribution Width 14 % (10.5-15); White Blood Count 12.6 10^3/ul (3.5-10.8)
[2017-12-15 03:17] LABS: EGFR Non-African American 55.5 (>60)
[2017-12-15 03:19] LABS: INR 0.82 (0.77-1.02)
[2017-12-15] MEDS ORDERED: Potassium Chlor TAB* 20 MEQ TAB.ER PO ONE (03:22)
[2017-12-15 03:44] LABS: ABS Basophils 0 10^3/ul (0-0.2); ABS Eosinophils 0 10^3/ul (0-0.6); ABS Lymphocytes 7.4 10^3/ul (1.0-4.8); ABS Monocytes 1.1 10^3/ul (0-0.8); ABS Neutrophils 3.8 10^3/ul (1.5-7.7); ABS Nucleated RBC 0 10^3/ul; Eosinophil % 0.1 % (0-6); Lymphocyte % 59.9 % (25-47); Nucleated Red Blood Cells % 0
[2017-12-15] MEDS ORDERED: Metoclopramide IV* 5 MG/ML 2 ML VIAL IV SLOW PU ONE (04:36)
[2017-12-15] MEDS ORDERED: Morphine INJ* 4 MG/ML 1 ML SYRINGE (NEW SYRINGE VERSION) IV ONE (04:36)
[2017-12-15 04:41] LABS: Urine Appearance Clear; Urine Blood Negative (Negative); Urine Color Yellow; Urine Ketones Trace (Negative); Urine Protein 1+(30 mg/dL) (Negative); Urine Specific Gravity 1.027 (1.010-1.030); Urine Urobilinogen Negative (Negative)
[2017-12-15] MEDS ORDERED: Morphine VIAL* 4 MG/ML VIAL (1 ml vial) IV ONE (04:52)
[2017-12-15 05:46] VITALS: BP 114/69
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
--- NOTE | 2017-12-15 06:48 | CONS ---
CC: Raul Cosme MD; Socorro Alex MD CONSULTATION REPORT: DATE OF CONSULTATION: 12/15/17 TIME OF EVALUATION: 0500. PRIMARY CARE PHYSICIAN: Raul Cosme MD NEUROLOGIST: Socorro Alex MD REQUESTING PHYSICIAN FOR CONSULTATION: Dr. Morris. REASON FOR CONSULTATION: Evaluation for admission. CHIEF COMPLAINT: Seizure. HISTORY OF PRESENT ILLNESS: This is a 32-year-old male with a past medical history of seizures and p seudoseizures followed by Dr. Alex who was actually in the emergency room this evening accompanying his erendirae who was with the patient. She was discharged from the emergency room. While they are carlie ting for the cab, the patient told his fiancee that he was about to have a seizure. He was conscious , his arms were shaking, his legs were shaking. They brought him back to the emergency room. They h ad a difficult time getting an IV because of all the shaking. They ended up putting an IO and gettin g labs at that time that showed a significant metabolic lactic acidosis. He was given Ativan 2 mg, L amictal 100 mg and 2 L of normal saline. Hospitalist service was called for further evaluation. The patient denies having any infectious illness. No fevers. No chills. No URI symptoms. No nausea, v omiting, diarrhea. No urinary symptoms. He states he has been taking his medications as prescribed. He has noted over the past 2 to 3 months that he has been having difficulty with sleeping. He only got a few hours of sleep this evening and his fiancee says that he naps often during the day. The p atient states he was aware of mostly mainly of when he was seizing this evening; however, he was not aware of when he got the IO in place. He denied any loss of urine. No biting of his tongue. Otherw ise, remaining review of systems is negative. PAST MEDICAL HISTORY: 1. History of seizures and pseudoseizures followed by Dr. Alex. 2. History of anxiety. 3. History of IV drug use and alcohol use. The patient states he has been clean for 9 months. 4. History of headaches with migraines. MEDICATIONS: 1. The patient states he takes 2 and a half tabs of Lamictal in the morning and 3 tabs in the evenin g. 2. Keppra 750 mg p.o. b.i.d. 3. Paxil 25 mg daily. 4. Valium as needed. 5. He gets monthly Vivitrol injections at [facility]. ALLERGIES: No known drug allergies. SOCIAL HISTORY: The patient is living with his Galilea fraser, who is his healthcare proxy. He has been clean for 9 months. He is still smoking half a pack per day for the past 15 years. He has a 1 -year-old daughter who he is planning to meet with CPS for custody. Currently, the child is in his m other's custody. FAMILY HISTORY: Father has seizure disorder. REVIEW OF SYSTEMS: A 14-point review of systems as mentioned above, otherwise negative. The patient states he has diffuse body aches and being sore. PHYSICAL EXAMINATION: Vitals: Temp 98.1, pulse rate 100, respiratory rate 16, oxygen saturation 97% on room air, blood pressure 118/78. General: No acute distress. Resting comfortably with his fianc ee at the bedside. HEENT: Head: Normocephalic. Pupils are equal and reactive, anicteric. Orophary nx: Mucous membranes are moist. Neck: Supple. No lymphadenopathy. Cardiac: Tachycardia with soft , systolic murmur heard throughout. Respiratory: Clear to auscultation. No wheezing, rhonchi, or r ales. Abdomen: Soft, nontender, nondistended. Extremities: No clubbing, cyanosis, or edema. Neur ological: Alert and oriented x3. No gross focal neurologic deficits. He does have a mild resting t remor. Derm: Multiple tattoos noted. LABORATORY DATA: White count 12.6, hemoglobin 15.3, hematocrit 46, platelets 253. INR 0.82. Sodium 139, potassium 3.1, chloride 99, bicarb 14, anion gap 27, BUN 14, creatinine 1.47, glucose 130. Lact ic acid 15.5. Trace ketones in his urine. Urine tox screen is negative. RADIOGRAPHIC DATA: Chest x-ray is unremarkable. ASSESSMENT AND RECOMMENDATIONS: This is a 32-year-old male with a past medical history of seizure an d pseudoseizures who presented after having a seizure while leaving the emergency room for his fipanda hernandes who lives with the patient. Seizure/pseudoseizure. Assessment: It appears the patient gets the seizures on average once a month . He has been compliant with medication. I suspect this is related to sleep deprivation. The azeb rn is his lactic acidosis. The patient does not want to be admitted for observation. We will contin ue hydration and repeat followup labs. As he has appointment with his seo associate and meet with CPS ear ly this morning to discuss custody of his daughter, I spoke with Dr. Morris. Dr. Morris is going to [place] ve him be discharged against medical advice. I recommended the patient that he follow up with Dr. Justice virk regarding his seizure this morning and to defer to her for any changes in his antiseizure regimen . PATIENT TIME: Greater than 45 minutes were spent doing this consultation, more than half the time sp ent in direct patient contact. [id number]/[facility] #: [id number]
--- NOTE | 2017-12-15 07:59 | RAD ---
Indication: Seizures. Single frontal view of the chest performed at 0345 hours was reviewed. Comparison is made with previous exam dated November 05, 2017. No mediastinal shift is noted. Heart is of normal size and configuration. Lung castro appear clear. IMPRESSION: NO ACTIVE CARDIOPULMONARY DISEASE IS NOTED.
== END 2017-12-15 05:48 | disposition left against medical advice (07) ==
LOC: ED 02:13
DX: E87.2 Acidosis (principal); R56.9 Unspecified convulsions; F17.210 Nicotine dependence, cigarettes, uncomplicated; R51 Headache; Z86.69 Personal history of other diseases of the nervous system and sense organs; Z72.820 Sleep deprivation
CPT/HCPCS: 36415; 71045; 80053; 80307; 81003; 81015; 82550; 83605; 83735; 85025; 85060; 85610; 99284; A9270-GY; J2060; J2270; J2765

== ENCOUNTER 2018-01-17 23:00 | Emergency (ER) | payer OTHER ==
--- OUTSIDE RECORDS SUMMARY | 2018-01-17 23:09 | XMS REPORT ---
:1985 External Reference #:[id number] Author Organization [facility] Address [address] [address] Phone [phone] Care Team Providers Name Role Phone Raul Cosme III, MD Primary Care Physician Unavailable Payers Type Date Identification Numbers Payment Provider Subscriber Commercial Effective: Policy Number: [id number] [employer] Omar Downs JR 2016 Medicaid PayID: [id number] [address] [address] [place] [address] Medigap Part B Expires: 2016 Policy Number: Medicaid Omar Downs JR [id number] Group Name: [id number] [address] PayID: [id number] [place] [address] Problems Date Description Provider Status Onset: 07/25/2015 Idiopathic generalized epilepsy Matthew Kruger M.D. 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 Socorro Alex MD Active Onset: 08/05/2017 Refractory epilepsy Socorro Alex MD Active Social History Type Date Description Comments Marital Status Single Occupation Disabled On SSI due to seizure disorder ETOH Use Denies alcohol use Smoking Patient is a current smoker, smokes every day Recreational Drug Use Denies Drug Use Allergies, Adverse Reactions, Alerts Date Description Reaction Status Severity Comments 03/23/2014 NKDA active Medications Medication Date Status Form Strength Qnty SIG Indications Ordering Provider Topiramate 12/24/ Active Tablets 25mg 120ta 1 twice G40.919 Socorro 2017 bs a day MD Isai for 1 week then 2 twice a day Sumatriptan 12/24/ Active Tablets 50mg 9tabs take 1 G43.009 Socorro Succinate 2018 at onset MD Isai of migraine . may repeat within 2 hours if needed. max 2x/week. max daily dose 100mg Melatonin 12/24/ Active Tablets 3mg 30tab take 1 G47.00 Socorro 2018 s tablet 1 MD Isai to 2 hours before bed Cyclobenzaprine 11/22/ Active Tablets 10mg 15tab 1 tablet Socorro HCL 2017 s up to MD Isai three times daily as needed Paroxetine HCL ER 10/19/ Active Tablets ER 25mg 30tab 1 by Socorro 2015 24HR s mouth MD Isai every day Lamotrigine 07/25/ Active Tablets 100mg 150ta 2.5 tabs Socorro 2014 bs by mouth MD Isai twice a day Keppra / Active Tablets 750mg 180ta take Socorro bs three MD Isai tablets by mouth two times daily Mens Multi / Active Tablets 1 Tab A Unknown Vitamin & Day Mineral Formula Vivitrol / Active Suspension 380mg once a Unknown Rec month Paroxetine HCL ER 07/25/ Hx Tablets ER 12.5mg 30tab 1 by Matthew Winter 2014 - 24HR s mouth Slick, 10/19/ every M.D. 2015 day Lamotrigine ER / Hx Tablets ER 200mg 60tab 1 by Nela 0000 - 24HR s mouth Benjamin, 07/25/ twice a M.D. 2014 day Diazepam / Hx Tablets 5mg 30tab 1 by Socorro 0000 - s vinny Alex MD 10/21/ twice a 2017 day as needed for seizure Trazodone HCL / Hx Tablets 50mg 1 at [facility] 0000 - Tigre Verdugo 04/06/ M.D. 2016 Medications Administered in Office Medication Date Status Form Strength Qnty SIG Indications Ordering Provider Influenza Administered Injection Unknown Virus Vaccine 014 Vital Signs Date Vital Result Comment 12/24/2017 Height 68.5 inches 5'8.50" Weight 132.50 lb Heart Rate 80 /min BP Systolic 118 mmHg BP Diastolic 82 mmHg BMI (Body Mass Index) 19.9 kg/m2 08/05/2017 Height 68.5 inches 5'8.50" Weight 129.00 lb Heart Rate 74 /min BP Systolic 112 mmHg BP Diastolic 78 mmHg BMI (Body Mass Index) 19.3 kg/m2 04/06/2017 Height 68.5 inches 5'8.50" Weight 122.00 lb Heart Rate 68 /min BP Systolic Sitting 102 mmHg BP Diastolic Sitting 72 mmHg Respiratory Rate 14 /min BMI (Body Mass Index) 18.3 kg/m2 09/29/2016 Height 68.5 inches 5'8.50" Weight 121.12 lb Heart Rate 80 /min BP Systolic Sitting 90 mmHg BP Diastolic Sitting 60 mmHg Respiratory Rate 17 /min BMI (Body Mass Index) 18.1 kg/m2 10/19/2015 Height 68.5 inches 5'8.50" Weight 115.00 lb Heart Rate 64 /min BP Systolic Sitting 102 mmHg BP Diastolic Sitting 68 mmHg Respiratory Rate 20 /min BMI (Body Mass Index) 17.2 kg/m2 07/25/2015 Height 68.5 inches 5'8.50" Weight 130.00 lb Heart Rate 52 /min BP Systolic Sitting 112 mmHg BP Diastolic Sitting 60 mmHg Respiratory Rate 16 /min BMI (Body Mass Index) 19.5 kg/m2 01/01/2015 Height 68.5 inches 5'8.50" Weight 130.00 lb Heart Rate 59 /min BP Systolic Sitting 118 mmHg BP Diastolic Sitting 62 mmHg Body Temperature 97.6 F O2 % BldC Oximetry 95 % BMI (Body Mass Index) 19.5 kg/m2 03/23/2014 Height 68.5 inches 5'8.50" Weight 122.00 lb Heart Rate 52 /min BP Systolic Sitting 112 mmHg BP Diastolic Sitting 74 mmHg Body Temperature 97.1 F BMI (Body Mass Index) 18.3 kg/m2 Results Test Date Test Result H/L Range Note Urine Drug SCR ED 12/15/2017 Amphetamine Ur Screen None Detected None Detect & [facility] Barbiturates Urine Screen None Detected None Detect Benzodiazepine Urine Screen None Detected None Detect Urine Cannabinoids Screen None Detected None Detect Urine Cocaine Screen None Detected None Detect Urine Opiates Screen None Detected None Detect Urine Phencyclidine Screen None Detected None Detect 1 Urinalysis Profile 12/15/2017 Urine Color Yellow Urine Appearance Clear Urine Specific [place] 1.027 1.010-1.030 Urine pH 5.0 5-9 Urine Urobilinogen Negative Negative Urine Ketones Trace Negative Urine Protein 1+(30 mg/dL) Negative Urine Leukocytes Negative Negative Urine Blood Negative Negative * * Negative 2 Urine Nitrite Negative Negative Urine Bilirubin Negative Negative Urine Glucose Negative Negative Urine White Blood Cell Absent Absent Urine Red Blood Cell Trace(0-2/hpf) Absent Urine Bacteria Absent Absent Inr/Protime 12/15/2017 Inr 0.82 0.77-1.02 Comp Metabolic Panel 12/15/2017 Sodium 139 mmol/L 139-145 Potassium 3.1 mmol/L Low 3.5-5.0 Chloride 99 mmol/L Low 101-111 Glucose 130 mg/dL High 70-100 Blood Urea Nitrogen 14 mg/dL 6-24 Creatinine 1.47 mg/dL High 0.67-1.17 BUN/Creatinine Ratio 9.5 8-20 Calcium 9.8 mg/dL 8.6-10.3 Total Protein 8.5 g/dL 6.4-8.9 Albumin 5.3 g/dL High 3.2-5.2 Globulin 3.2 g/dL 2-4 Albumin/Globulin Ratio 1.7 1-3 Total Bilirubin 0.40 mg/dL 0.2-1.0 Alkaline Phosphatase 56 U/L 34-104 Alt 10 U/L 7-52 Ast 17 U/L 13-39 Egfr Non- 55.5 >60 Egfr 71.4 >60 3 Co2 Carbon Dioxide 14 mmol/L Low 22-32 4 Anion Gap 26 mmol/L High 2-11 Laboratory test finding 12/15/2017 Magnesium 2.1 mg/dL 1.9-2.7 Creatine Kinase(CK) 51 U/L 10-223 Lactic Acid 15.5 mmol/L High 0.5-2.0 5 CBC Auto Diff 12/15/2017 White Blood Count 12.6 10^3/uL High 3.5-10.8 Red Blood Count 4.84 10^6/uL 4.0-5.4 Hemoglobin 15.3 g/dL 14.0-18.0 Hematocrit 46 % 42-52 Mean Corpuscular Volume 95 fL High 80-94 Mean Corpuscular Hemoglobin 32 pg High 27-31 Mean Corpuscular HGB Conc 33 g/dL 31-36 Red Cell Distribution Width 14 % 10.5-15 Platelet Count 253 10^3/uL 150-450 Mean Platelet Volume 7.8 um3 7.4-10.4 Abs Neutrophils 3.8 10^3/uL 1.5-7.7 Abs Lymphocytes 7.4 10^3/uL High 1.0-4.8 Abs Monocytes 1.1 10^3/uL High 0-0.8 Abs Eosinophils 0 10^3/uL 0-0.6 Abs Basophils 0 10^3/uL 0-0.2 Abs Nucleated RBC 0 10^3/uL Granulocyte % 30.9 % Low 38-83 Lymphocyte % 59.9 % High 25-47 Monocyte % 8.8 % High 0-7 Eosinophil % 0.1 % 0-6 Basophil % 0.3 % 0-2 Nucleated Red Blood Cells % 0 Laboratory test finding 12/15/2017 Pathologist Review (SEE NOTE) 6 CBC Auto Diff 11/22/2017 White Blood Count 7.1 10^3/uL 3.5-10.8 Red Blood Count 4.77 10^6/uL 4.0-5.4 Hemoglobin 15.2 g/dL 14.0-18.0 Hematocrit 44 % 42-52 Mean Corpuscular Volume 92 fL 80-94 Mean Corpuscular Hemoglobin 32 pg High 27-31 Mean Corpuscular HGB Conc 35 g/dL 31-36 Red Cell Distribution Width 14 % 10.5-15 Platelet Count 210 10^3/uL 150-450 Mean Platelet Volume 7.9 um3 7.4-10.4 Abs Neutrophils 5.0 10^3/uL 1.5-7.7 Abs Lymphocytes 1.7 10^3/uL 1.0-4.8 Abs Monocytes 0.4 10^3/uL 0-0.8 Abs Eosinophils 0 10^3/uL 0-0.6 Abs Basophils 0 10^3/uL 0-0.2 Abs Nucleated RBC 0 10^3/uL Granulocyte % 70.5 % 38-83 Lymphocyte % 23.3 % Low 25-47 Monocyte % 6.1 % 0-7 Eosinophil % 0 % 0-6 Basophil % 0.1 % 0-2 Nucleated Red Blood Cells % 0.1 Comp Metabolic Panel 11/22/2017 Sodium 136 mmol/L 133-145 Potassium 4.0 mmol/L 3.5-5.0 Chloride 103 mmol/L 101-111 Co2 Carbon Dioxide 29 mmol/L 22-32 Anion Gap 4 mmol/L 2-11 Glucose 107 mg/dL High 70-100 Blood Urea Nitrogen 8 mg/dL 6-24 Creatinine 1.10 mg/dL 0.67-1.17 BUN/Creatinine Ratio 7.3 Low 8-20 Calcium 10.1 mg/dL 8.6-10.3 Total Protein 8.3 g/dL 6.4-8.9 Albumin 5.0 g/dL 3.2-5.2 Globulin 3.3 g/dL 2-4 Albumin/Globulin Ratio 1.5 1-3 Total Bilirubin 0.40 mg/dL 0.2-1.0 Alkaline Phosphatase 41 U/L 34-104 Alt 5 U/L Low 7-52 Ast 14 U/L 13-39 Egfr Non- 77.6 >60 Egfr 99.8 >60 7 Laboratory test finding 11/22/2017 C Reactive Protein < 1.00 mg/L &lt ; 5.00 8 Acetaminophen < 15 g/mL 9 Alcohol < 10 mg/dL <10 Laboratory test finding 11/19/2017 Magnesium 2.1 mg/dL 1.9-2.7 Creatine Kinase(CK) 46 U/L 10-223 C Reactive Protein < 1.00 mg/L < 5.00 10 Alcohol < 10 mg/dL <10 TSH (Thyroid Stim Horm) 2.55 mcIU/mL 0.34-5.60 Levetiracetam (Keppra) 81.3 g/mL 11 Lamotrigine (Lamictal) 9.0 g/mL 2.5 - 15.0 12 Comp Metabolic Panel 11/19/2017 Sodium 138 mmol/L 133-145 Potassium 4.0 mmol/L 3.5-5.0 Chloride 107 mmol/L 101-111 Co2 Carbon Dioxide 25 mmol/L 22-32 Anion Gap 6 mmol/L 2-11 Glucose 72 mg/dL 70-100 Blood Urea Nitrogen 12 mg/dL 6-24 Creatinine 1.16 mg/dL 0.67-1.17 BUN/Creatinine Ratio 10.3 8-20 Calcium 9.2 mg/dL 8.6-10.3 Total Protein 7.0 g/dL 6.4-8.9 Albumin 4.3 g/dL 3.2-5.2 Globulin 2.7 g/dL 2-4 Albumin/Globulin Ratio 1.6 1-3 Total Bilirubin 0.20 mg/dL 0.2-1.0 Alkaline Phosphatase 39 U/L 34-104 Alt 6 U/L Low 7-52 Ast 14 U/L 13-39 Egfr Non- 73.0 >60 Egfr 93.8 >60 13 Laboratory test finding 11/19/2017 Lactic Acid 2.3 mmol/L High 0.5-2.0 14 CBC Auto Diff 11/19/2017 White Blood Count 10.4 10^3/uL 3.5-10.8 Red Blood Count 4.50 10^6/uL 4.0-5.4 Hemoglobin 14.1 g/dL 14.0-18.0 Hematocrit 41 % Low 42-52 Mean Corpuscular Volume 91 fL 80-94 Mean Corpuscular Hemoglobin 31 pg 27-31 Mean Corpuscular HGB Conc 34 g/dL 31-36 Red Cell Distribution Width 14 % 10.5-15 Platelet Count 188 10^3/uL 150-450 Mean Platelet Volume 7.5 um3 7.4-10.4 Abs Neutrophils 8.8 10^3/uL High 1.5-7.7 Abs Lymphocytes 0.8 10^3/uL Low 1.0-4.8 Abs Monocytes 0.8 10^3/uL 0-0.8 Abs Eosinophils 0 10^3/uL 0-0.6 Abs Basophils 0 10^3/uL 0-0.2 Abs Nucleated RBC 0 10^3/uL Granulocyte % 84.4 % High 38-83 Lymphocyte % 7.5 % Low 25-47 Monocyte % 8.0 % High 0-7 Eosinophil % 0 % 0-6 Basophil % 0.1 % 0-2 Nucleated Red Blood Cells % 0 Laboratory test 11/19/2017 Partial Thrombo Time 29.1 seconds 26.0-36.3 finding PTT Inr/Protime 11/19/2017 Inr 0.88 0.77-1.02 Urine Drug SCR ED 11/05/2017 Amphetamine Ur Screen None Detected None Detect & Pain Clinic Barbiturates Urine Screen None Detected None Detect Benzodiazepine Urine Screen None Detected None Detect Urine Cannabinoids Screen None Detected None Detect Urine Cocaine Screen None Detected None Detect Urine Opiates Screen None Detected None Detect Urine Phencyclidine Screen None Detected None Detect 15 CBC Auto Diff 11/05/2017 White Blood Count 3.7 10^3/uL 3.5-10.8 Red Blood Count 4.65 10^6/uL 4.0-5.4 Hemoglobin 14.8 g/dL 14.0-18.0 Hematocrit 43 % 42-52 Mean Corpuscular Volume 92 fL 80-94 Mean Corpuscular Hemoglobin 32 pg High 27-31 Mean Corpuscular HGB Conc 35 g/dL 31-36 Red Cell Distribution Width 14 % 10.5-15 Platelet Count 180 10^3/uL 150-450 Mean Platelet Volume 8 um3 7.4-10.4 Abs Neutrophils 1.9 10^3/uL 1.5-7.7 Abs Lymphocytes 1.4 10^3/uL 1.0-4.8 Abs Monocytes 0.3 10^3/uL 0-0.8 Abs Eosinophils 0 10^3/uL 0-0.6 Abs Basophils 0 10^3/uL 0-0.2 Abs Nucleated RBC 0 10^3/uL Granulocyte % 52.7 % 38-83 Lymphocyte % 37.7 % 25-47 Monocyte % 9.0 % High 0-7 Eosinophil % 0 % 0-6 Basophil % 0.6 % 0-2 Nucleated Red Blood Cells % 0 Comp Metabolic Panel 11/05/2017 Sodium 136 mmol/L 133-145 Potassium 3.9 mmol/L 3.5-5.0 Chloride 105 mmol/L 101-111 Co2 Carbon Dioxide 27 mmol/L 22-32 Anion Gap 4 mmol/L 2-11 Glucose 95 mg/dL 70-100 Blood Urea Nitrogen 12 mg/dL 6-24 Creatinine 1.15 mg/dL 0.67-1.17 BUN/Creatinine Ratio 10.4 8-20 Calcium 9.7 mg/dL 8.6-10.3 Total Protein 7.7 g/dL 6.4-8.9 Albumin 4.7 g/dL 3.2-5.2 Globulin 3.0 g/dL 2-4 Albumin/Globulin Ratio 1.6 1-3 Total Bilirubin 0.30 mg/dL 0.2-1.0 Alkaline Phosphatase 42 U/L 34-104 Alt 6 U/L Low 7-52 Ast 12 U/L Low 13-39 Egfr Non- 74.2 >60 Egfr 95.4 >60 16 Laboratory test finding 10/12/2017 Levetiracetam (Keppra) 86.5 g/mL 17 Lamotrigine (Lamictal) 5.7 g/mL 2.5 - 15.0 18 CBC Auto Diff 10/12/2017 White Blood Count 10.8 10^3/uL 3.5-10.8 Red Blood Count 4.85 10^6/uL 4.0-5.4 Hemoglobin 15.5 g/dL 14.0-18.0 Hematocrit 44 % 42-52 Mean Corpuscular Volume 91 fL 80-94 Mean Corpuscular Hemoglobin 32 pg High 27-31 Mean Corpuscular HGB Conc 35 g/dL 31-36 Red Cell Distribution Width 14 % 10.5-15 Platelet Count 224 10^3/uL 150-450 Mean Platelet Volume 8 um3 7.4-10.4 Abs Neutrophils 9.5 10^3/uL High 1.5-7.7 Abs Lymphocytes 0.7 10^3/uL Low 1.0-4.8 Abs Monocytes 0.6 10^3/uL 0-0.8 Abs Eosinophils 0 10^3/uL 0-0.6 Abs Basophils 0 10^3/uL 0-0.2 Abs Nucleated RBC 0.1 10^3/uL Granulocyte % 87.8 % High 38-83 Lymphocyte % 6.2 % Low 25-47 Monocyte % 5.9 % 1-9 Eosinophil % 0 % 0-6 Basophil % 0.1 % 0-2 Nucleated Red Blood Cells % 0.5 Laboratory test finding 10/12/2017 Magnesium 2.5 mg/dL 1.9-2.7 Creatine Kinase(CK) 84 U/L 10-223 Comp Metabolic Panel 10/12/2017 Sodium 139 mmol/L 133-145 Potassium 4.7 mmol/L 3.5-5.0 Chloride 103 mmol/L 101-111 Co2 Carbon Dioxide 27 mmol/L 22-32 Anion Gap 9 mmol/L 2-11 Glucose 95 mg/dL 70-100 Blood Urea Nitrogen 12 mg/dL 6-24 Creatinine 1.24 mg/dL High 0.67-1.17 BUN/Creatinine Ratio 9.7 8-20 Calcium 10.4 mg/dL High 8.6-10.3 Total Protein 8.5 g/dL 6.4-8.9 Albumin 5.3 g/dL High 3.2-5.2 Globulin 3.2 g/dL 2-4 Albumin/Globulin Ratio 1.7 1-3 Total Bilirubin 0.40 mg/dL 0.2-1.0 Alkaline Phosphatase 42 U/L 34-104 Alt 7 U/L 7-52 Ast 16 U/L 13-39 Egfr Non- 68.0 >60 Egfr 87.4 >60 19 CBC Auto Diff 07/05/2017 White Blood Count 5.3 10^3/uL 3.5-10.8 Red Blood Count 4.85 10^6/uL 4.0-5.4 Hemoglobin 15.5 g/dL 14.0-18.0 Hematocrit 44 % 42-52 Mean Corpuscular Volume 91 fL 80-94 Mean Corpuscular Hemoglobin 32 pg High 27-31 Mean Corpuscular HGB Conc 35 g/dL 31-36 Red Cell Distribution Width 13 % 10.5-15 Platelet Count 187 10^3/uL 150-450 Mean Platelet Volume 8 um3 7.4-10.4 Abs Neutrophils 3.2 10^3/uL 1.5-7.7 Abs Lymphocytes 1.7 10^3/uL 1.0-4.8 Abs Monocytes 0.4 10^3/uL 0-0.8 Abs Eosinophils 0 10^3/uL 0-0.6 Abs Basophils 0 10^3/uL 0-0.2 Abs Nucleated RBC 0.01 10^3/uL Granulocyte % 60.7 % 38-83 Lymphocyte % 31.4 % 25-47 Monocyte % 7.6 % 1-9 Eosinophil % 0.1 % 0-6 Basophil % 0.2 % 0-2 Nucleated Red Blood Cells % 0.2 Laboratory test finding 07/05/2017 Lactic Acid 1.1 mmol/L 0.5-2.0 20 Comp Metabolic Panel 07/05/2017 Sodium 138 mmol/L 133-145 Potassium 3.8 mmol/L 3.5-5.0 Chloride 106 mmol/L 101-111 Co2 Carbon Dioxide 27 mmol/L 22-32 Anion Gap 5 mmol/L 2-11 Glucose 95 mg/dL 70-100 Blood Urea Nitrogen 11 mg/dL 6-24 Creatinine 1.16 mg/dL 0.67-1.17 BUN/Creatinine Ratio 9.5 8-20 Calcium 10.1 mg/dL 8.6-10.3 Total Protein 8.2 g/dL 6.4-8.9 Albumin 4.6 g/dL 3.2-5.2 Globulin 3.6 g/dL 2-4 Albumin/Globulin Ratio 1.3 1-3 Total Bilirubin 0.40 mg/dL 0.2-1.0 Alkaline Phosphatase 41 U/L 34-104 Alt 6 U/L Low 7-52 Ast 12 U/L Low 13-39 Egfr Non- 73.4 >60 Egfr 94.4 >60 21 Laboratory test finding 07/05/2017 Creatine Kinase(CK) 24 U/L 10-223 Acetaminophen < 15 g/mL 22 Alcohol < 10 mg/dL <10 Salicylate < 2.50 mg/dL <30 TSH (Thyroid Stim Horm) 0.80 mcIU/mL 0.34-5.60 Levetiracetam (Keppra) 75.1 g/mL 23 Lamotrigine (Lamictal) 6.7 g/mL 2.5 - 15.0 24 Urine Drug SCR ED 07/05/2017 Amphetamine Ur Screen None Detected None Detect & Pain Clinic Barbiturates Urine Screen None Detected None Detect Benzodiazepine Urine Screen Presumptive Posi <SEE NOTE> None Detect 25 Urine Cannabinoids Screen None Detected None Detect Urine Cocaine Screen None Detected None Detect Urine Opiates Screen None Detected None Detect Urine Phencyclidine Screen None Detected None Detect 26 Urinalysis Profile 07/05/2017 Urine Color Yellow Urine Appearance Clear Urine Specific [place] 1.019 1.010-1.030 Urine pH 6.0 5-9 Urine Urobilinogen Negative Negative Urine Ketones Negative Negative Urine Protein Negative Negative Urine Leukocytes Negative Negative Urine Blood 1+ Negative Urine Nitrite Negative Negative Urine Bilirubin Negative Negative Urine Glucose Negative Negative Urine White Blood Cell Trace(0-5/hpf) Absent Urine Red Blood Cell Trace(0-2/hpf) Absent Urine Bacteria Absent Absent Urine Squamous Epithelial Cell Present Absent Comp Metabolic Panel 03/27/2017 Sodium 139 mmol/L 133-145 Potassium 3.9 mmol/L 3.5-5.0 Chloride 106 mmol/L 101-111 Co2 Carbon Dioxide 27 mmol/L 22-32 Anion Gap 6 mmol/L 2-11 Glucose 95 mg/dL 70-100 Blood Urea Nitrogen 9 mg/dL 6-24 Creatinine 1.14 mg/dL 0.67-1.17 BUN/Creatinine Ratio 7.9 Low 8-20 Calcium 10.2 mg/dL 8.6-10.3 Total Protein 8.6 g/dL 6.4-8.9 Albumin 5.2 g/dL 3.2-5.2 Globulin 3.4 g/dL 2-4 Albumin/Globulin Ratio 1.5 1-3 Total Bilirubin 0.90 mg/dL 0.2-1.0 Alkaline Phosphatase 40 U/L 34-104 Alt 8 U/L 7-52 Ast 14 U/L 13-39 Egfr Non- 74.9 >60 Egfr 96.4 >60 27 CBC No Diff 03/27/2017 White Blood Count 7.0 10^3/uL 3.5-10.8 Red Blood Count 5.21 10^6/uL 4.0-5.4 Hemoglobin 16.2 g/dL 14.0-18.0 Hematocrit 48 % 42-52 Mean Corpuscular Volume 92 fL 80-94 Mean Corpuscular Hemoglobin 31 pg 27-31 Mean Corpuscular HGB Conc 34 g/dL 31-36 Red Cell Distribution Width 13 % 10.5-15 Platelet Count 194 10^3/uL 150-450 Mean Platelet Volume 8 um3 7.4-10.4 Laboratory test finding 03/27/2017 Magnesium 2.1 mg/dL 1.9-2.7 TSH (Thyroid Stim Horm) 1.80 mcIU/mL 0.34-5.60 Free T4 (Free Thyroxine) 1.07 ng/dL 0.61-1.12 Lamotrigine (Lamictal) 4.4 g/mL 2.5 - 15.0 28 Levetiracetam (Keppra) 58.1 g/mL 29 CBC Auto Diff 03/22/2017 White Blood Count 15.1 10^3/uL High 3.5-10.8 Red Blood Count 4.69 10^6/uL 4.0-5.4 Hemoglobin 14.5 g/dL 14.0-18.0 Hematocrit 43 % 42-52 Mean Corpuscular Volume 92 fL 80-94 Mean Corpuscular Hemoglobin 31 pg 27-31 Mean Corpuscular HGB Conc 34 g/dL 31-36 Red Cell Distribution Width 13 % 10.5-15 Platelet Count 198 10^3/uL 150-450 Mean Platelet Volume 8 um3 7.4-10.4 Abs Neutrophils 13.3 10^3/uL High 1.5-7.7 Abs Lymphocytes 1.0 10^3/uL 1.0-4.8 Abs Monocytes 0.9 10^3/uL High 0-0.8 Abs Eosinophils 0 10^3/uL 0-0.6 Abs Basophils 0 10^3/uL 0-0.2 Abs Nucleated RBC 0.05 10^3/uL Granulocyte % 87.6 % High 38-83 Lymphocyte % 6.4 % Low 25-47 Monocyte % 5.9 % 1-9 Eosinophil % 0 % 0-6 Basophil % 0.1 % 0-2 Nucleated Red Blood Cells % 0.4 Inr/Protime 03/22/2017 Inr 0.90 0.89-1.11 Laboratory test finding 03/22/2017 Lactic Acid 2.1 mmol/L High 0.5-2.0 30 Comp Metabolic Panel 03/22/2017 Sodium 139 mmol/L 133-145 Potassium 4.2 mmol/L 3.5-5.0 Chloride 106 mmol/L 101-111 Co2 Carbon Dioxide 22 mmol/L 22-32 Anion Gap 11 mmol/L 2-11 Glucose 91 mg/dL 70-100 Blood Urea Nitrogen 13 mg/dL 6-24 Creatinine 1.26 mg/dL High 0.67-1.17 BUN/Creatinine Ratio 10.3 8-20 Calcium 9.7 mg/dL 8.6-10.3 Total Protein 8.4 g/dL 6.4-8.9 Albumin 5.1 g/dL 3.2-5.2 Globulin 3.3 g/dL 2-4 Albumin/Globulin Ratio 1.5 1-3 Total Bilirubin 0.40 mg/dL 0.2-1.0 Alkaline Phosphatase 47 U/L 34-104 Alt 9 U/L 7-52 Ast 19 U/L 13-39 Egfr Non- 66.8 >60 Egfr 85.8 >60 31 Laboratory test finding 03/22/2017 Magnesium 2.5 mg/dL 1.9-2.7 Alcohol < 10 mg/dL <10 TSH (Thyroid Stim Horm) 1.15 mcIU/mL 0.34-5.60 Urinalysis Profile 03/22/2017 Urine Color Yellow Urine Appearance Cloudy Urine Specific [place] 1.015 1.010-1.030 Urine pH 5.0 5-9 Urine Urobilinogen Negative Negative Urine Ketones Trace Negative Urine Protein Negative Negative Urine Leukocytes Negative Negative Urine Blood 1+ Negative Urine Nitrite Negative Negative Urine Bilirubin Negative Negative Urine Glucose Negative Negative Urine White Blood Cell Trace(0-5/hpf) Absent Urine Red Blood Cell Trace(0-2/hpf) Absent Urine Bacteria Absent Absent Laboratory test finding 03/22/2017 Lamotrigine (Lamictal) 3.4 g/mL 2.5 - 15.0 32 Levetiracetam (Keppra) 82.9 g/mL 33 Urine Drug SCR ED 03/22/2017 Amphetamine Ur Screen None Detected None Detect & Pain Clinic Barbiturates Urine Screen None Detected None Detect Benzodiazepine Urine Screen None Detected None Detect Urine Cannabinoids Screen None Detected None Detect Urine Cocaine Screen None Detected None Detect Urine Opiates Screen None Detected None Detect Urine Phencyclidine Screen None Detected None Detect 34 Laboratory test finding 12/22/2016 Lactic Acid 1.1 mmol/L 0.5-2.0 35 Comp Metabolic Panel 12/22/2016 Sodium 136 mmol/L 133-145 Potassium 3.9 mmol/L 3.5-5.0 Chloride 104 mmol/L 101-111 Co2 Carbon Dioxide 25 mmol/L 22-32 Anion Gap 7 mmol/L 2-11 Glucose 103 mg/dL High 70-100 Blood Urea Nitrogen 13 mg/dL 6-24 Creatinine 1.14 mg/dL 0.67-1.17 BUN/Creatinine Ratio 11.4 8-20 Calcium 9.0 mg/dL 8.6-10.3 Total Protein 7.5 g/dL 6.4-8.9 Albumin 4.3 g/dL 3.2-5.2 Globulin 3.2 g/dL 2-4 Albumin/Globulin Ratio 1.3 1-3 Total Bilirubin 0.30 mg/dL 0.2-1.0 Alkaline Phosphatase 41 U/L 34-104 Alt 22 U/L 7-52 Ast 21 U/L 13-39 Egfr Non- 74.9 >60 Egfr 96.4 >60 36 Laboratory test finding 12/22/2016 Magnesium 2.2 mg/dL 1.9-2.7 Creatine Kinase(CK) 104 U/L 10-223 Inr/Protime 12/22/2016 Inr 1.02 0.89-1.11 CBC Auto Diff 12/22/2016 White Blood Count 10.6 10^3/uL 3.5-10.8 Red Blood Count 4.22 10^6/uL 4.0-5.4 Hemoglobin 12.8 g/dL Low 14.0-18.0 Hematocrit 38 % Low 42-52 Mean Corpuscular Volume 89 fL 80-94 Mean Corpuscular Hemoglobin 30 pg 27-31 Mean Corpuscular HGB Conc 34 g/dL 31-36 Red Cell Distribution Width 14 % 10.5-15 Platelet Count 169 10^3/uL 150-450 Mean Platelet Volume 8 um3 7.4-10.4 Abs Neutrophils 9.3 10^3/uL High 1.5-7.7 Abs Lymphocytes 0.7 10^3/uL Low 1.0-4.8 Abs Monocytes 0.6 10^3/uL 0-0.8 Abs Eosinophils 0 10^3/uL 0-0.6 Abs Basophils 0 10^3/uL 0-0.2 Abs Nucleated RBC 0.01 10^3/uL Granulocyte % 88.2 % High 38-83 Lymphocyte % 6.3 % Low 25-47 Monocyte % 5.4 % 1-9 Eosinophil % 0 % 0-6 Basophil % 0.1 % 0-2 Nucleated Red Blood Cells % 0.1 Laboratory test finding 12/22/2016 Levetiracetam (Keppra) 91.7 g/mL 37 Lamotrigine (Lamictal) 3.6 g/mL 2.5 - 15.0 38 Comp Metabolic Panel 09/29/2016 Sodium 133 mmol/L 133-145 Potassium 4.1 mmol/L 3.5-5.0 Chloride 98 mmol/L Low 101-111 Co2 Carbon Dioxide 27 mmol/L 22-32 Anion Gap 8 mmol/L 2-11 Glucose 87 mg/dL 70-100 Blood Urea Nitrogen 10 mg/dL 6-24 Creatinine 1.12 mg/dL 0.67-1.17 BUN/Creatinine Ratio 8.9 8-20 Calcium 9.8 mg/dL 8.6-10.3 Total Protein 8.3 g/dL 6.4-8.9 Albumin 5.0 g/dL 3.2-5.2 Globulin 3.3 g/dL 2-4 Albumin/Globulin Ratio 1.5 1-3 Total Bilirubin 0.70 mg/dL 0.2-1.0 Alkaline Phosphatase 42 U/L 34-104 Alt 7 U/L 7-52 Ast 24 U/L 13-39 Egfr Non- 77.0 >60 Egfr 99.0 >60 39 Laboratory test finding 09/29/2016 Levetiracetam (Keppra) 92.8 g/mL 40 Lamotrigine (Lamictal) 5.6 g/mL 2.5 - 15.0 41 Comp Metabolic Panel 03/09/2016 Sodium 135 mmol/L 133-145 Potassium 3.2 mmol/L Low 3.5-5.0 Chloride 102 mmol/L 101-111 Co2 Carbon Dioxide 23 mmol/L 22-32 Anion Gap 10 mmol/L 2-11 Glucose 112 mg/dL High 70-100 Blood Urea Nitrogen 9 mg/dL 6-24 Creatinine 0.93 mg/dL 0.67-1.17 BUN/Creatinine Ratio 9.7 8-20 Calcium 9.4 mg/dL 8.6-10.3 Total Protein 7.3 g/dL 6.4-8.9 Albumin 4.1 g/dL 3.2-5.2 Globulin 3.2 g/dL 2-4 Albumin/Globulin Ratio 1.3 1-3 Total Bilirubin 0.30 mg/dL 0.2-1.0 Alkaline Phosphatase 44 U/L 34-104 Alt 7 U/L 7-52 Ast 15 U/L 13-39 Egfr Non- 95.4 >60 Egfr 122.7 >60 42 Laboratory test finding 03/09/2016 Creatine Kinase(CK) 328 U/L High 10- 223 Urinalysis Profile 03/09/2016 Urine Color Yellow Urine Appearance Clear Urine Specific [place] 1.014 1.010-1.030 Urine pH 6.0 5-9 Urine Urobilinogen Negative Negative Urine Ketones Negative Negative Urine Protein Negative Negative Urine Leukocytes Negative Negative Urine Blood 1+ Negative Urine Nitrite Negative Negative Urine Bilirubin Negative Negative Urine Glucose Negative Negative Urine White Blood Cell Trace(0-5/hpf) Absent Urine Red Blood Cell Trace(0-2/hpf) Absent Urine Bacteria Absent Absent Laboratory test finding 03/09/2016 Levetiracetam (Keppra) 85.5 g/mL 43 Lamotrigine (Lamictal) 3.7 g/mL 2.5 - 15.0 44 CBC Auto Diff 03/09/2016 White Blood Count 11.7 10^3/uL High 3.5-10.8 Red Blood Count 4.20 10^6/uL 4.0-5.4 Hemoglobin 12.9 g/dL Low 14.0-18.0 Hematocrit 37 % Low 42-52 Mean Corpuscular Volume 87 fL 80-94 Mean Corpuscular Hemoglobin 31 pg 27-31 Mean Corpuscular HGB Conc 35 g/dL 31-36 Red Cell Distribution Width 12 % 10.5-15 Platelet Count 206 10^3/uL 150-450 Mean Platelet Volume 8 um3 7.4-10.4 Abs Neutrophils 9.6 10^3/uL High 1.5-7.7 Abs Lymphocytes 1.0 10^3/uL 1.0-4.8 Abs Monocytes 1.0 10^3/uL High 0-0.8 Abs Eosinophils 0 10^3/uL 0-0.6 Abs Basophils 0 10^3/uL 0-0.2 Abs Nucleated RBC 0.01 10^3/uL Granulocyte % 82.5 % 38-83 Lymphocyte % 8.7 % Low 25-47 Monocyte % 8.6 % 1-9 Eosinophil % 0 % 0-6 Basophil % 0.2 % 0-2 Nucleated Red Blood Cells % 0.1 1 The urine specimen was tested at the listed cutoffs: Drug class test level (ng/mL) Amphetamines 500 Barbiturates 200 Benzodiazepine metabolites 200 Cocaine metabolites 150 Cannabinoids 50 Opiates 300 Pcp 25 Specimen was received without chain of custody. Results should be used for medical purposes only. 2 *Ascorbic acid is present which may interfere with detection of blood. 3 Because ethnic data is not always readily available, this report includes an eGFR for both -Americans and non- Americans. The National Kidney Disease Education Program (NKDEP) does not endorse the use of the MDRD equation for patients that are not between the ages of 18 and 70, are , have extremes of body size, muscle mass, or nutritional status, or are non- or non-. According to the National Kidney Foundation, irrespective of diagnosis, the stage of the disease is based on the level of kidney function: Stage Description GFR(mL/min/1.73 m(2)) 1 Kidney damage with normal or decreased GFR 90 2 Kidney damage with mild decrease in GFR 60-89 3 Moderate decrease in GFR 30-59 4 Severe decrease in GFR 15-29 5 Kidney failure <15 (or dialysis) 4 Critical Result CO2:14 Called to [id number] at: 03:22:47 by:[id number] Read back by:[id number] 5 Critical Result LACT:15.5 Called to [id number] at: 03:34:10 by:[id number] Read back by:[id number] [place] Severe Sepsis and Septic Shock Management Bundle Measure requires all lactic acids initially measuring >2.0 mmol/L be repeated. 6 Absolute lymphocytosis, favor reactive. If persistent, recommend correlation with flow cytometry to exclude a low-grade lymphoproliferative disorder. Reviewed by Fawn Gil MD 7 Because ethnic data is not always readily available, this report includes an eGFR for both -Americans and non- Americans. The National Kidney Disease Education Program (NKDEP) does not endorse the use of the MDRD equation for patients that are not between the ages of 18 and 70, are , have extremes of body size, muscle mass, or nutritional status, or are non- or non-. According to the National Kidney Foundation, irrespective of diagnosis, the stage of the disease is based on the level of kidney function: Stage Description GFR(mL/min/1.73 m(2)) 1 Kidney damage with normal or decreased GFR 90 2 Kidney damage with mild decrease in GFR 60-89 3 Moderate decrease in GFR 30-59 4 Severe decrease in GFR 15-29 5 Kidney failure <15 (or dialysis) 8 Acute inflammation: >10.00 9 Therapeutic concentration: <50 ug/mL Toxic concentration: >120 ug/mL 10 Acute inflammation: >10.00 11 REFERENCE VALUE 12.0 - 46.0 ADDITIONAL INFORMATION This test was developed and its performance characteristics determined by [facility] in a manner consistent with CLIA requirements. This test has not been cleared or approved by the U.S. Food and Drug Administration. Test Performed by: [facility] [employer] - [address] [address] 12 ADDITIONAL INFORMATION This test was developed and its performance characteristics determined by [facility] in a manner consistent with CLIA requirements. This test has not been cleared or approved by the U.S. Food and Drug Administration. Test Performed by: [facility] [place] [address] 13 Because ethnic data is not always readily available, this report includes an eGFR for both -Americans and non- Americans. The National Kidney Disease Education Program (NKDEP) does not endorse the use of the MDRD equation for patients that are not between the ages of 18 and 70, are , have extremes of body size, muscle mass, or nutritional status, or are non- or non-. According to the National Kidney Foundation, irrespective of diagnosis, the stage of the disease is based on the level of kidney function: Stage Description GFR(mL/min/1.73 m(2)) 1 Kidney damage with normal or decreased GFR 90 2 Kidney damage with mild decrease in GFR 60-89 3 Moderate decrease in GFR 30-59 4 Severe decrease in GFR 15-29 5 Kidney failure <15 (or dialysis) 14 Critical Result LACT:2.3 Called to KAELYN at: 12:52:18 by:[id number] Read back by:KAELYN FAY Severe Sepsis and Septic Shock Management Bundle Measure requires all lactic acids initially measuring >2.0 mmol/L be repeated. 15 The urine specimen was tested at the listed cutoffs: Drug class test level (ng/mL) Amphetamines 500 Barbiturates 200 Benzodiazepine metabolites 200 Cocaine metabolites 150 Cannabinoids 50 Opiates 300 Pcp 25 Specimen was received without chain of custody. Results should be used for medical purposes only. 16 Because ethnic data is not always readily available, this report includes an eGFR for both -Americans and non- Americans. The National Kidney Disease Education Program (NKDEP) does not endorse the use of the MDRD equation for patients that are not between the ages of 18 and 70, are , have extremes of body size, muscle mass, or nutritional status, or are non- or non-. According to the National Kidney Foundation, irrespective of diagnosis, the stage of the disease is based on the level of kidney function: Stage Description GFR(mL/min/1.73 m(2)) 1 Kidney damage with normal or decreased GFR 90 2 Kidney damage with mild decrease in GFR 60-89 3 Moderate decrease in GFR 30-59 4 Severe decrease in GFR 15-29 5 Kidney failure <15 (or dialysis) 17 REFERENCE VALUE 12.0 - 46.0 ADDITIONAL INFORMATION This test was developed and its performance characteristics determined by [facility] in a manner consistent with CLIA requirements. This test has not been cleared or approved by the U.S. Food and Drug Administration. Test Performed by: [facility] [employer] - [address] [address] 18 ADDITIONAL INFORMATION This test was developed and its performance characteristics determined by [facility] in a manner consistent with CLIA requirements. This test has not been cleared or approved by the U.S. Food and Drug Administration. Test Performed by: [facility] - [address] [address] 19 Because ethnic data is not always readily available, this report includes an eGFR for both -Americans and non- Americans. The National Kidney Disease Education Program (NKDEP) does not endorse the use of the MDRD equation for patients that are not between the ages of 18 and 70, are , have extremes of body size, muscle mass, or nutritional status, or are non- or non-. According to the National Kidney Foundation, irrespective of diagnosis, the stage of the disease is based on the level of kidney function: Stage Description GFR(mL/min/1.73 m(2)) 1 Kidney damage with normal or decreased GFR 90 2 Kidney damage with mild decrease in GFR 60-89 3 Moderate decrease in GFR 30-59 4 Severe decrease in GFR 15-29 5 Kidney failure <15 (or dialysis) 20 [facility] Severe Sepsis and Septic Shock Management Bundle Measure requires all lactic acids initially measuring >2.0 mmol/L be repeated. 21 Because ethnic data is not always readily available, this report includes an eGFR for both -Americans and non- Americans. The National Kidney Disease Education Program (NKDEP) does not endorse the use of the MDRD equation for patients that are not between the ages of 18 and 70, are , have extremes of body size, muscle mass, or nutritional status, or are non- or non-. According to the National Kidney Foundation, irrespective of diagnosis, the stage of the disease is based on the level of kidney function: Stage Description GFR(mL/min/1.73 m(2)) 1 Kidney damage with normal or decreased GFR 90 2 Kidney damage with mild decrease in GFR 60-89 3 Moderate decrease in GFR 30-59 4 Severe decrease in GFR 15-29 5 Kidney failure <15 (or dialysis) 22 Therapeutic concentration: <50 ug/mL Toxic concentration: >120 ug/mL 23 REFERENCE VALUE 12.0 - 46.0 ADDITIONAL INFORMATION This test was developed and its performance characteristics determined by [facility] in a manner consistent with CLIA requirements. This test has not been cleared or approved by the U.S. Food and Drug Administration. Test Performed by: [facility] [employer] - [facility] [address] [place] [address] 24 ADDITIONAL INFORMATION This test was developed and its performance characteristics determined by [facility] in a manner consistent with CLIA requirements. This test has not been cleared or approved by the U.S. Food and Drug Administration. Test Performed by: [facility] [employer] - [facility] [address] [place] [id number] 25 Presumptive Positive Presumptive positive results are unconfirmed. 26 The urine specimen was tested at the listed cutoffs: Drug class test level (ng/mL) Amphetamines 500 Barbiturates 200 Benzodiazepine metabolites 200 Cocaine metabolites 150 Cannabinoids 50 Opiates 300 Pcp 25 Specimen was received without chain of custody. Results should be used for medical purposes only. 27 Because ethnic data is not always readily available, this report includes an eGFR for both -Americans and non- Americans. The National Kidney Disease Education Program (NKDEP) does not endorse the use of the MDRD equation for patients that are not between the ages of 18 and 70, are , have extremes of body size, muscle mass, or nutritional status, or are non- or non-. According to the National Kidney Foundation, irrespective of diagnosis, the stage of the disease is based on the level of kidney function: Stage Description GFR(mL/min/1.73 m(2)) 1 Kidney damage with normal or decreased GFR 90 2 Kidney damage with mild decrease in GFR 60-89 3 Moderate decrease in GFR 30-59 4 Severe decrease in GFR 15-29 5 Kidney failure <15 (or dialysis) 28 ADDITIONAL INFORMATION This test was developed and its performance characteristics determined by [facility] in a manner consistent with CLIA requirements. This test has not been cleared or approved by the U.S. Food and Drug Administration. Test Performed by: [facility] [employer] - [facility] [address] [place] [address] 29 REFERENCE VALUE 12.0 - 46.0 ADDITIONAL INFORMATION This test was developed and its performance characteristics determined by [facility] in a manner consistent with CLIA requirements. This test has not been cleared or approved by the U.S. Food and Drug Administration. Test Performed by: [facility] [employer] [address] [place] [address] 30 Critical Result LACT:2.1 Called to [id number] at: 13:04:15 by:[id number] Read back by:DEANNE [place] Severe Sepsis and Septic Shock Management Bundle Measure requires all lactic acids initially measuring >2.0 mmol/L be repeated. 31 Because ethnic data is not always readily available, this report includes an eGFR for both -Americans and non- Americans. The National Kidney Disease Education Program (NKDEP) does not endorse the use of the MDRD equation for patients that are not between the ages of 18 and 70, are , have extremes of body size, muscle mass, or nutritional status, or are non- or non-. According to the National Kidney Foundation, irrespective of diagnosis, the stage of the disease is based on the level of kidney function: Stage Description GFR(mL/min/1.73 m(2)) 1 Kidney damage with normal or decreased GFR 90 2 Kidney damage with mild decrease in GFR 60-89 3 Moderate decrease in GFR 30-59 4 Severe decrease in GFR 15-29 5 Kidney failure <15 (or dialysis) 32 ADDITIONAL INFORMATION This test was developed and its performance characteristics determined by [facility] in a manner consistent with CLIA requirements. This test has not been cleared or approved by the U.S. Food and Drug Administration. Test Performed by: [facility] [employer] - [place] [employer] [address] [address] 33 REFERENCE VALUE 12.0 - 46.0 ADDITIONAL INFORMATION This test was developed and its performance characteristics determined by [facility] in a manner consistent with CLIA requirements. This test has not been cleared or approved by the U.S. Food and Drug Administration. Test Performed by: [facility] - [address] [address] 34 The urine specimen was tested at the listed cutoffs: Drug class test level (ng/mL) Amphetamines 500 Barbiturates 200 Benzodiazepine metabolites 200 Cocaine metabolites 150 Cannabinoids 50 Opiates 300 Pcp 25 Specimen was received without chain of custody. Results should be used for medical purposes only. 35 [facility] Severe Sepsis and Septic Shock Management Bundle Measure requires all lactic acids initially measuring >2.0 mmol/L be repeated. 36 Because ethnic data is not always readily available, this report includes an eGFR for both -Americans and non- Americans. The National Kidney Disease Education Program (NKDEP) does not endorse the use of the MDRD equation for patients that are not between the ages of 18 and 70, are , have extremes of body size, muscle mass, or nutritional status, or are non- or non-. According to the National Kidney Foundation, irrespective of diagnosis, the stage of the disease is based on the level of kidney function: Stage Description GFR(mL/min/1.73 m(2)) 1 Kidney damage with normal or decreased GFR 90 2 Kidney damage with mild decrease in GFR 60-89 3 Moderate decrease in GFR 30-59 4 Severe decrease in GFR 15-29 5 Kidney failure <15 (or dialysis) 37 REFERENCE VALUE 12.0 - 46.0 ADDITIONAL INFORMATION This test was developed and its performance characteristics determined by [facility] in a manner consistent with CLIA requirements. This test has not been cleared or approved by the U.S. Food and Drug Administration. Test Performed by: [facility] [employer] - [address] [address] 38 ADDITIONAL INFORMATION This test was developed and its performance characteristics determined by [facility] in a manner consistent with CLIA requirements. This test has not been cleared or approved by the U.S. Food and Drug Administration. Test Performed by: [facility] - [address] [address] 39 Because ethnic data is not always readily available, this report includes an eGFR for both -Americans and non- Americans. The National Kidney Disease Education Program (NKDEP) does not endorse the use of the MDRD equation for patients that are not between the ages of 18 and 70, are , have extremes of body size, muscle mass, or nutritional status, or are non- or non-. According to the National Kidney Foundation, irrespective of diagnosis, the stage of the disease is based on the level of kidney function: Stage Description GFR(mL/min/1.73 m(2)) 1 Kidney damage with normal or decreased GFR 90 2 Kidney damage with mild decrease in GFR 60-89 3 Moderate decrease in GFR 30-59 4 Severe decrease in GFR 15-29 5 Kidney failure <15 (or dialysis) 40 REFERENCE VALUE 12.0 - 46.0 ADDITIONAL INFORMATION This test was developed and its performance characteristics determined by [facility] in a manner consistent with CLIA requirements. This test has not been cleared or approved by the U.S. Food and Drug Administration. Test Performed by: [facility] [place] [address] [employer]: Adria Nguyen II, M.D., Ph.D. 41 ADDITIONAL INFORMATION This test was developed and its performance characteristics determined by [facility] in a manner consistent with CLIA requirements. This test has not been cleared or approved by the U.S. Food and Drug Administration. Test Performed by: [facility] [place] [address] [employer]: Adria Nguyen II, M.D., Ph.D. 42 Because ethnic data is not always readily available, this report includes an eGFR for both -Americans and non- Americans. The National Kidney Disease Education Program (NKDEP) does not endorse the use of the MDRD equation for patients that are not between the ages of 18 and 70, are , have extremes of body size, muscle mass, or nutritional status, or are non- or non-. According to the National Kidney Foundation, irrespective of diagnosis, the stage of the disease is based on the level of kidney function: Stage Description GFR(mL/min/1.73 m(2)) 1 Kidney damage with normal or decreased GFR 90 2 Kidney damage with mild decrease in GFR 60-89 3 Moderate decrease in GFR 30-59 4 Severe decrease in GFR 15-29 5 Kidney failure <15 (or dialysis) 43 REFERENCE VALUE 12.0 - 46.0 Test Performed by: [facility] [place] [address] [employer]: Adria Nguyen II, M.D., Ph.D. 44 Test Performed by: [place] [address] [employer]: Adria Nguyen II, M.D., Ph.D. Procedures Date CPT Code Description Status 06/07/2017 57796 EEG Monitoring & Video Recording Completed 06/06/2017 72651 EEG Monitoring & Video Recording Completed 06/05/2017 86294 EEG Monitoring & Video Recording Completed 01/16/2017 87376 Electroencephalogram EEG Extended Monitoring Over 1 Completed Hour 07/30/2015 46599 EEG Recording Awake & Drowsy Completed 08/12/2012 04115 EEG Recording Awake & Asleep Completed Encounters Type Date Location Provider CPT E/M Dx Office Visit 12/15/2017 [facility],[place] [address] G40.909 11:11a Hospitalists F41.9 F44.5 Office Visit 10/13/2017 2:10p [facility],[place] [address] R56.9 Hospitalists F44.5 F41.9 Office Visit 10/13/2017 1:35p [facility] Arnie Le [address] G40.019 Amari Office Visit 08/05/2017 1:00p [facility] [address] G40.919 F11.19 Office Visit 06/08/2017 11:42a [facility] [address] G40.919 Office Visit 06/07/2017 11:40a [facility] [place] [address] G40.919 Office Visit 06/07/2017 11:21a [facility],toshia Rodriguez [address] G40.901 Markos CHAN M.D. R06.81 Office Visit 06/06/2017 11:38a [facility] [place] [address] G40.919 Office Visit 06/05/2017 11:34a [facility] [address] G40.919 Office Visit 04/06/2017 10:30a [facility] Matthew Winter [address] G40.019 Services Of Carlos Kruger M.D. Z91.19 F41.9 Office Visit 01/16/2017 11:36a [facility] [place] [address] G40.019 Z91.19 Office Visit 09/29/2016 10:00a [facility] Matthew GrubbsKusum [address] G40.011 Amari Kruger Z91.19 Office Visit 10/19/2015 10:15a [facility] Matthew Winter [address] G40.909 Amari Kruger F41.9 Office Visit 07/25/2015 9:00a [facility] Matthew Winter [address] G40.909 Amari Kruger F41.9 Office Visit 01/01/2015 11:40a [facility] Raul Cosme, [address] 345.90 - Irma Fitzpatrick Office Visit 03/23/2014 3:40p [facility] Raul Cosme, [address] V70.0 - Irma Fitzpatrick 345.90 305.1 Office Visit 02/25/2012 10:45a [facility] Leilani Gonzales, [address] 883.0 Of Shelly Fitzpatrick Office Visit 02/18/2012 10:30a [facility] Leilani Gonzales, 88880 883.0 Of Shelly Fitzpatrick 305.1 Office Visit 01/06/2010 12:30a [facility], Yannick Mcconnell, [address]113 977.9 Hospitalists Amari 345.90 780.39 300.00 308.9 Office Visit 01/05/2010 1:15a [facility], Yannick Mccnonell, [address] 300.9 Hospitalists MRos 969.4 780.39 308.9 Office Visit 01/05/2010 12:30a [facility] Jay Guthrie, 277[address] 977.9 Assoc, Hospitalists MRos Hospitalist 780.39 300.9 Plan of Care Future Appointment(s):02/23/2018 9:00 am - Socorro Alex MD at [facility] Hadcwz4712/24/2017 - Socorro Alex MDG40.919 Epilepsy, unsp, intractable, without status epilepticusNew Medication:Topiramate 25 mgFollow up:: 8 weeks ok to add in 9am slotRecommendations:start topiramate which can help both seizrues and migraines. possible side effects include tingling,taste changes, weight loss, foggy thinking, rarely kidney stones. Always watch for a rash and call if any [id number] Migraine w/o aura, not intractable, w/o status migrainosusNew Medication:Sumatriptan Succinate 50 mgG47.00 Insomnia, unspecifiedNew Medication :Melatonin 3 mgRecommendations:try to avoid naps during the day so you're tired enough at night to sleep Avoid using your phone, TVor computer for at least 1 hour before you want to go to bed. Try melatonin 1 to 2 hours before bed
[2018-01-18] MEDS ORDERED: lamoTRIgine TAB(*) 100 MG PO ONE (00:02)
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
[2018-01-18 00:12] LABS: ABS Basophils 0 10^3/ul (0-0.2); ABS Eosinophils 0 10^3/ul (0-0.6); ABS Lymphocytes 1.9 10^3/ul (1.0-4.8); ABS Monocytes 0.7 10^3/ul (0-0.8); ABS Neutrophils 7.2 10^3/ul (1.5-7.7); ABS Nucleated RBC 0 10^3/ul; Eosinophil % 0.1 % (0-6); Hematocrit 43 % (42-52); Hemoglobin 15.2 g/dl (14.0-18.0); Lymphocyte % 19.7 % (25-47); Mean Corpuscular HGB Conc 35 g/dl (31-36); Mean Corpuscular Hemoglobin 32 pg (27-31); Mean Corpuscular Volume 91 fL (80-94); Mean Platelet Volume 7.7 um3 (7.4-10.4); Nucleated Red Blood Cells % 0; Platelet Count 210 10^3/ul (150-450); Red Blood Count 4.72 10^6/ul (4.0-5.4); Red Cell Distribution Width 13 % (10.5-15); White Blood Count 9.9 10^3/ul (3.5-10.8)
[2018-01-18 00:31] LABS: EGFR Non-African American 60.2 (>60)
[2018-01-18] MEDS ORDERED: NS 0.9% 1000 ML* 1,000 ML IV ONE (00:34)
[2018-01-18 02:13] VITALS: BP 112/77
== END 2018-01-18 02:15 | disposition home or self-care (01) ==
LOC: ED 23:00
DX: R25.1 Tremor, unspecified (principal); G40.909 Epilepsy, unspecified, not intractable, without status epilepticus; F41.9 Anxiety disorder, unspecified; F32.9 Major depressive disorder, single episode, unspecified; F17.210 Nicotine dependence, cigarettes, uncomplicated
CPT/HCPCS: 36415; 80053; 80307; 83605; 85025; 86140; 96360; 99284; A9270-GY

== ENCOUNTER 2018-01-30 15:59 | Emergency (ER) | payer OTHER ==
[2018-01-30 16:11] VITALS: BP 99/60
--- NOTE | 2018-01-30 16:42 | UC ---
Skin Complaint HPI - HPI Summary HPI Summary: Patient is a 32-year-old male presenting to the with bilateral upper shoulder rash. He endorses intense pruritus with small raised papules with no surrounding erythema, warmth or other signs of infection. This appears to be environmental allergy. No drainage from the area. No vesicular eruptions or other lesions. He denies any known allergies. States [place] He states he has been otherwise healthy. - History of Current Complaint Chief Complaint: UCUpperExtremity Time Seen by Provider: 01/30/18 16:14 Stated Complaint: RASH- L SHOULDER Hx Obtained From: Patient Onset/Duration: Sudden Onset Skin Exposure Onset/Duration: Hours Ago Timing: Constant Onset Severity: Mild Current Severity: Mild Pain Intensity: 0 Pain Scale Used: 0-10 Numeric Character: Pruritus Aggravating Factor(s): Nothing Alleviating Factor(s): Nothing Related History: Insect Bite/Sting, Possible Reaction to: Environmental Exposure - Allergy/Home Medications Allergies/Adverse Reactions: Allergies Allergy/AdvReac Type Severity Reaction Status Date / Time No Known Allergies Allergy Verified 01/30/18 16:11 Review of Systems Constitutional: Negative Skin: Rash Cardiovascular: Negative Gastrointestinal: Negative Motor: Negative Neurovascular: Negative Neurological: Negative Psychological: Negative Is Patient Immunocompromised?: No All Other Systems Reviewed And Are Negative: Yes PMH/Surg Hx/FS Hx/Imm Hx Previously Healthy: Yes Other History Of: Negative For: Anticoagulant Therapy - Surgical History Surgical History: None Surgery Procedure, Year, and Place: none - Family History Known Family History: Positive: Seizure Disorder, Other - Negative depression, negative alcohol abuse - Social History Occupation: Employed Full-time Lives: With Family Alcohol Use: Occasionally Alcohol Amount: denies Substance Use Type: Heroin, 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 Smoking Status (MU): Heavy Every Day Tobacco Smoker Type: Cigarettes Amount Used/How Often: 1/2 PPD + Have You Smoked in the Last Year: Yes Household Exposure Type: Cigarettes - Immunization History Most Recent Influenza Vaccination: reports did Not receive this past Flu Season Most Recent Pneumonia Vaccination: unknown if ever received Physical Exam Triage Information Reviewed: Yes Appearance: Well-Appearing, No Pain Distress, Well-Nourished Vital Signs: Initial Vital Signs Temp 97.1 F 01/30/18 16:05 Pulse 65 01/30/18 16:05 Resp 18 01/30/18 16:05 BP 99/60 01/30/18 16:05 Pulse Ox 100 01/30/18 16:05 Eye Exam: Normal Eyes: Positive: Conjunctiva Clear Respiratory: Positive: Chest non-tender Musculoskeletal Exam: Normal Musculoskeletal: Positive: Strength Intact Neurological Exam: Normal Neurological: Positive: Alert Psychological: Positive: Normal Response To Family Course/Dx - Course Course Of Treatment: During the course of treatment, patient is evaluated for environmental allergy vs other acute rash. There is a small collection of papules without drainage resembling acute reaction to environment. Triamcinolone and benadryl given as negative prescriptions. No evidence of bed bugs, fleas. - Diagnoses Provider Diagnoses: environmental reaction Discharge - Sign-Out/Discharge Documenting (check all that apply): Discharge/Admit/Transfer - Discharge Plan Condition: Stable Disposition: HOME Prescriptions: diphenhydrAMINE HCl [Benadryl Allergy] 25 mg PO TID #10 tablet Triamcinolone 0.5% CREAM(NF) [Triamcinolone 0.5% CREAM*] 1 applic TOPICAL TID # 1 tube Patient Education Materials: Acute Rash (ED) Referrals: Raul Cosme MD [Primary Care Provider] - Additional Instructions: Apply cream to area three times daily Benadryl up to three times daily - do not drive with this medication as it may make you drowsy - Billing Disposition and Condition Condition: STABLE Disposition: HOME
== END 2018-01-30 16:30 | disposition home or self-care (01) ==
LOC: UCEAST 15:59
DX: R21 Rash and other nonspecific skin eruption (principal); Z82.0 Family history of epilepsy and other diseases of the nervous system; F17.210 Nicotine dependence, cigarettes, uncomplicated
CPT/HCPCS: 99212; G0463

== ENCOUNTER 2018-02-27 19:33 | Emergency (ER) | payer OTHER ==
[2018-02-27 23:06] VITALS: BP 129/80
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
--- NOTE | 2018-02-28 08:10 | RAD ---
Indication: Cough. 2 views of the chest including dual energy PA views demonstrates no mediastinal shift. Heart is of normal size and configuration. Lung castro are clear. Compared to previous exam of December 15, 2017 no significant change is noted. IMPRESSION: No active cardiopulmonary disease is noted.
== END 2018-02-27 23:04 | disposition home or self-care (01) ==
LOC: ED 19:33
DX: J06.9 Acute upper respiratory infection, unspecified (principal); H60.91 Unspecified otitis externa, right ear; R62.50 Unspecified lack of expected normal physiological development in childhood; F17.210 Nicotine dependence, cigarettes, uncomplicated
CPT/HCPCS: 71046; 99282

== ENCOUNTER 2018-03-19 17:35 | Emergency (ER) | payer OTHER ==
--- OUTSIDE RECORDS SUMMARY | 2018-03-19 18:08 | XMS REPORT ---
:1985 External Reference #:[id number] Author Organization [facility] Address [address] [place] [address] Phone [phone] Care Team Providers Name Role Phone Raul Cosme III, MD Primary Care Physician Unavailable Payers Type Date Identification Numbers Payment Provider Subscriber Commercial Effective: Policy Number: [id number] [employer] Omar Downs JR 2016 Medicaid PayID: [id number] [address] [address] [place] [address] Medigap Part B Expires: 2016 Policy Number: Medicaid Omar Downs JR [id number] Group Name: [id number] [address] PayID: [id number] [place] [address] Problems Date Description Provider Status Onset: 07/25/2015 [...] Provider Topiramate 12/24/ Active Tablets 25mg 120ta 2 twice G40.919 Socorro 2017 bs a day MD Isai Sumatriptan 12/24/ Active Tablets 50mg 9tabs take 1 G43.009 Socorro Succinate 2018 at onset MD Isai of migraine . may repeat within 2 hours if needed. max 2x/week. max daily dose 100mg Cyclobenzaprine 11/22/ Active Tablets 10mg 15tab 1 tablet Socorro HCL 2017 s up to MD Isai three times daily as needed Paroxetine HCL ER 10/19/ Active Tablets ER 25mg 30tab 1 by Socorro 2015 24HR s mouth MD Isai every day Lamotrigine 07/25/ Active Tablets 100mg 165ta 2.5 tabs Socorro 2014 bs in the MD Isai morning and 3 at night Keppra / Active Tablets 750mg 180ta take Socorro bs three MD Isai tablets by mouth two times daily Vivitrol / Active Suspension 380mg once a Unknown Rec month Melatonin 12/24/ Hx Tablets 3mg 30tab take 1 G47.00 Socorro 2017 - s tablet 1 MD Isai to 2 2018 hours before bed Paroxetine HCL ER 07/25/ Hx Tablets ER 12.5mg 30tab 1 by Matthew Winter 2014 - 24HR s mouth Slick, 10/19/ every M.D. 2015 day Lamotrigine ER / Hx Tablets ER 200mg 60tab 1 by Nela 0000 - 24HR s mouth Benjamin, 07/25/ twice a M.D. 2014 day Diazepam / Hx Tablets 5mg 30tab 1 by Socorro 0000 - s mouth MD Isai 10/21/ twice a 2017 day as needed for seizure Trazodone HCL / Hx Tablets 50mg 1 at hs Nader 0000 - Tigre Verdugo 04/06/ M.D. 2017 Mens Multi / Hx Tablets 1 Tab A Unknown Vitamin & Mineral - Day Formula 2017 Medications Administered in Office Medication Date Status Form Strength Qnty SIG Indications Ordering Provider Influenza Administered Injection Unknown Virus Vaccine 014 Vital Signs Date Vital Result Comment 03/10/2018 Height 68.5 inches 5'8.50" Weight 131.00 lb Heart Rate 72 /min BP Systolic 110 mmHg BP Diastolic 66 mmHg BMI (Body Mass Index) 19.6 kg/m2 12/24/2017 Height 68.5 inches 5'8.50" Weight 132.50 [...] Test Date Test Result H/L Range Note CBC Auto Diff 01/18/2018 White Blood Count 9.9 10^3/uL 3.5-10.8 Red Blood Count 4.72 10^6/uL 4.0-5.4 Hemoglobin 15.2 g/dL 14.0-18.0 Hematocrit 43 % 42-52 Mean Corpuscular Volume 91 fL 80-94 Mean Corpuscular Hemoglobin 32 pg High 27-31 Mean Corpuscular HGB Conc 35 g/dL 31-36 Red Cell Distribution Width 13 % 10.5-15 Platelet Count 210 10^3/uL 150-450 Mean Platelet Volume 7.7 um3 7.4-10.4 Abs Neutrophils 7.2 10^3/uL 1.5-7.7 Abs Lymphocytes 1.9 10^3/uL 1.0-4.8 Abs Monocytes 0.7 10^3/uL 0-0.8 Abs Eosinophils 0 10^3/uL 0-0.6 Abs Basophils 0 10^3/uL 0-0.2 Abs Nucleated RBC 0 10^3/uL Granulocyte % 72.7 % 38-83 Lymphocyte % 19.7 % Low 25-47 Monocyte % 7.2 % High 0-7 Eosinophil % 0.1 % 0-6 Basophil % 0.3 % 0-2 Nucleated Red Blood Cells % 0 Comp Metabolic Panel 01/18/2018 Sodium 138 mmol/L Low 139-145 Potassium 4.1 mmol/L 3.5-5.0 Chloride 107 mmol/L 101-111 Co2 Carbon Dioxide 25 mmol/L 22-32 Anion Gap 6 mmol/L 2-11 Glucose 93 mg/dL 70-100 Blood Urea Nitrogen 18 mg/dL 6-24 Creatinine 1.37 mg/dL High 0.67-1.17 BUN/Creatinine Ratio 13.1 8-20 Calcium 9.9 mg/dL 8.6-10.3 Total Protein 8.1 g/dL 6.4-8.9 Albumin 4.8 g/dL 3.2-5.2 Globulin 3.3 g/dL 2-4 Albumin/Globulin Ratio 1.5 1-3 Total Bilirubin 0.40 mg/dL 0.2-1.0 Alkaline Phosphatase 52 U/L 34-104 Alt 6 U/L Low 7-52 Ast 13 U/L 13-39 Egfr Non- 60.2 >60 Egfr 77.4 >60 1 Laboratory test 01/18/2018 C Reactive Protein 3.38 mg/L < 5.00 2 finding Urine Drug SCR ED & 01/18/2018 Amphetamine Ur Screen None Detected None Detect Pain Clinic Barbiturates Urine Screen None Detected None Detect Benzodiazepine Urine Screen None Detected None Detect Urine Cannabinoids Screen None Detected None Detect Urine Cocaine Screen None Detected None Detect Urine Opiates Screen None Detected None Detect Urine Phencyclidine Screen None Detected None Detect 3 Laboratory test finding 01/18/2018 Lactic Acid 0.9 mmol/L 0.5-2.0 4 Laboratory test finding 12/15/2017 Pathologist Review (SEE NOTE) 5 CBC Auto Diff 12/15/2017 White Blood [...] Cells % 0 Laboratory test finding 12/15/2017 Magnesium 2.1 mg/dL 1.9-2.7 Creatine Kinase(CK) 51 U/L 10-223 Lactic Acid 15.5 mmol/L High 0.5-2.0 6 Comp Metabolic Panel 12/15/2017 Sodium 139 mmol/L [...] Egfr Non- 55.5 >60 Egfr 71.4 >60 7 Co2 Carbon Dioxide 14 mmol/L Low 22-32 8 Anion Gap 26 mmol/L High 2-11 Inr/Protime 12/15/2017 Inr 0.82 0.77-1.02 Urinalysis Profile 12/15/2017 Urine Color Yellow Urine Appearance Clear Urine Specific [place] 1.027 1.010-1.030 Urine pH 5.0 5-9 Urine Urobilinogen Negative Negative Urine Ketones Trace Negative Urine Protein 1+(30 mg/dL) Negative Urine Leukocytes Negative Negative Urine Blood Negative Negative * * Negative 9 Urine Nitrite Negative Negative Urine Bilirubin Negative Negative Urine Glucose Negative Negative Urine White Blood Cell Absent Absent Urine Red Blood Cell Trace(0-2/hpf) Absent Urine Bacteria Absent Absent Urine Drug SCR ED & 12/15/2017 Amphetamine Ur Screen None Detected None Detect Pain Clinic Barbiturates Urine Screen None Detected None Detect Benzodiazepine Urine Screen None Detected None Detect Urine Cannabinoids Screen None Detected None Detect Urine Cocaine Screen None Detected None Detect Urine Opiates Screen None Detected None Detect Urine Phencyclidine Screen None Detected None Detect 10 CBC Auto Diff 11/22/2017 White Blood Count [...] Egfr Non- 77.6 >60 Egfr 99.8 >60 11 Laboratory test finding 11/22/2017 C Reactive Protein < 1.00 mg/L < 5.00 12 Acetaminophen < 15 g/mL 13 Alcohol < 10 mg/dL <10 Laboratory test finding 11/19/2017 Magnesium 2.1 mg/dL 1.9-2.7 Creatine Kinase(CK) 46 U/L 10-223 C Reactive Protein < 1.00 mg/L < 5.00 14 Alcohol < 10 mg/dL <10 TSH (Thyroid Stim Horm) 2.55 mcIU/mL 0.34-5.60 Levetiracetam (Keppra) 81.3 g/mL 15 Lamotrigine (Lamictal) 9.0 g/mL 2.5 - 15.0 16 Comp Metabolic Panel 11/19/2017 Sodium 138 mmol/L [...] Egfr Non- 73.0 >60 Egfr 93.8 >60 17 Laboratory test finding 11/19/2017 Lactic Acid 2.3 mmol/L High 0.5-2.0 18 CBC Auto Diff 11/19/2017 White Blood Count [...] Inr 0.88 0.77-1.02 Urine Drug SCR ED & 11/05/2017 Amphetamine Ur Screen None Detected None Detect Pain Clinic Barbiturates Urine Screen None Detected None Detect Benzodiazepine Urine Screen None Detected None Detect Urine Cannabinoids Screen None Detected None Detect Urine Cocaine Screen None Detected None Detect Urine Opiates Screen None Detected None Detect Urine Phencyclidine Screen None Detected None Detect 19 CBC Auto Diff 11/05/2017 White Blood Count [...] Egfr Non- 74.2 >60 Egfr 95.4 >60 20 Comp Metabolic Panel 10/12/2017 Sodium 139 mmol/L [...] Egfr Non- 68.0 >60 Egfr 87.4 >60 21 Laboratory test finding 10/12/2017 Magnesium 2.5 mg/dL 1.9-2.7 Creatine Kinase(CK) 84 U/L 10-223 CBC Auto Diff 10/12/2017 White Blood Count [...] Cells % 0.5 Laboratory test finding 10/12/2017 Levetiracetam (Keppra) 86.5 g/mL 22 Lamotrigine (Lamictal) 5.7 g/mL 2.5 - 15.0 23 Urinalysis Profile 07/05/2017 Urine Color Yellow Urine Appearance Clear Urine Specific [place] 1.019 1.010-1.030 Urine pH 6.0 5-9 Urine Urobilinogen Negative Negative Urine Ketones Negative Negative Urine Protein Negative Negative Urine Leukocytes Negative Negative Urine Blood 1+ Negative Urine Nitrite Negative Negative Urine Bilirubin Negative Negative Urine Glucose Negative Negative Urine White Blood Cell Trace(0-5/hpf) Absent Urine Red Blood Cell Trace(0-2/hpf) Absent Urine Bacteria Absent Absent Urine Squamous Epithelial Cell Present Absent Urine Drug SCR ED & 07/05/2017 Amphetamine Ur Screen None Detected None Detect Pain Clinic Barbiturates Urine Screen None Detected None Detect Benzodiazepine Urine Screen Presumptive Posi <SEE NOTE> None Detect 24 Urine Cannabinoids Screen None Detected None Detect Urine Cocaine Screen None Detected None Detect Urine Opiates Screen None Detected None Detect Urine Phencyclidine Screen None Detected None Detect 25 Laboratory test finding 07/05/2017 Creatine Kinase(CK) 24 U/L 10-223 Acetaminophen < 15 g/mL 26 Alcohol < 10 mg/dL <10 Salicylate < 2.50 mg/dL <30 TSH (Thyroid Stim Horm) 0.80 mcIU/mL 0.34-5.60 Levetiracetam (Keppra) 75.1 g/mL 27 Lamotrigine (Lamictal) 6.7 g/mL 2.5 - 15.0 28 Comp Metabolic Panel 07/05/2017 Sodium 138 mmol/L [...] Egfr Non- 73.4 >60 Egfr 94.4 >60 29 Laboratory test finding 07/05/2017 Lactic Acid 1.1 mmol/L 0.5-2.0 30 CBC Auto Diff 07/05/2017 White Blood Count [...] 0-2 Nucleated Red Blood Cells % 0.2 CBC No Diff 03/27/2017 White Blood Count 7.0 10^3/uL 3.5-10.8 Red Blood Count 5.21 10^6/uL 4.0-5.4 Hemoglobin 16.2 g/dL 14.0-18.0 Hematocrit 48 % 42-52 Mean Corpuscular Volume 92 fL 80-94 Mean Corpuscular Hemoglobin 31 pg 27-31 Mean Corpuscular HGB Conc 34 g/dL 31-36 Red Cell Distribution Width 13 % 10.5-15 Platelet Count 194 10^3/uL 150-450 Mean Platelet Volume 8 um3 7.4-10.4 Comp Metabolic Panel 03/27/2017 Sodium 139 mmol/L [...] Egfr Non- 74.9 >60 Egfr 96.4 >60 31 Laboratory test finding 03/27/2017 Magnesium 2.1 mg/dL 1.9-2.7 TSH (Thyroid Stim Horm) 1.80 mcIU/mL 0.34-5.60 Free T4 (Free Thyroxine) 1.07 ng/dL 0.61-1.12 Lamotrigine (Lamictal) 4.4 g/mL 2.5 - 15.0 32 Levetiracetam (Keppra) 58.1 g/mL 33 Laboratory test finding 03/22/2017 Lamotrigine (Lamictal) 3.4 g/mL 2.5 - 15.0 34 Levetiracetam (Keppra) 82.9 g/mL 35 Urinalysis Profile 03/22/2017 Urine Color Yellow Urine Appearance Cloudy Urine Specific [place] 1.015 1.010-1.030 Urine pH 5.0 5-9 Urine Urobilinogen Negative Negative Urine Ketones Trace Negative Urine Protein Negative Negative Urine Leukocytes Negative Negative Urine Blood 1+ Negative Urine Nitrite Negative Negative Urine Bilirubin Negative Negative Urine Glucose Negative Negative Urine White Blood Cell Trace(0-5/hpf) Absent Urine Red Blood Cell Trace(0-2/hpf) Absent Urine Bacteria Absent Absent Laboratory test finding 03/22/2017 Magnesium 2.5 mg/dL 1.9-2.7 Alcohol < 10 mg/dL <10 TSH (Thyroid Stim Horm) 1.15 mcIU/mL 0.34-5.60 Comp Metabolic Panel 03/22/2017 Sodium 139 mmol/L [...] Egfr Non- 66.8 >60 Egfr 85.8 >60 36 Laboratory test finding 03/22/2017 Lactic Acid 2.1 mmol/L High 0.5-2.0 37 Inr/Protime 03/22/2017 Inr 0.90 0.89-1.11 CBC Auto Diff 03/22/2017 White Blood Count [...] 0-2 Nucleated Red Blood Cells % 0.4 Urine Drug SCR ED & 03/22/2017 Amphetamine Ur Screen None Detected None Detect Pain Clinic Barbiturates Urine Screen None Detected None Detect Benzodiazepine Urine Screen None Detected None Detect Urine Cannabinoids Screen None Detected None Detect Urine Cocaine Screen None Detected None Detect Urine Opiates Screen None Detected None Detect Urine Phencyclidine Screen None Detected None Detect 38 Laboratory test finding 12/22/2016 Levetiracetam (Keppra) 91.7 g/mL 39 Lamotrigine (Lamictal) 3.6 g/mL 2.5 - 15.0 40 CBC Auto Diff 12/22/2016 White Blood Count [...] 0-2 Nucleated Red Blood Cells % 0.1 Inr/Protime 12/22/2016 Inr 1.02 0.89-1.11 Laboratory test finding 12/22/2016 Lactic Acid 1.1 mmol/L 0.5-2.0 41 Comp Metabolic Panel 12/22/2016 Sodium 136 mmol/L [...] Egfr Non- 74.9 >60 Egfr 96.4 >60 42 Laboratory test finding 12/22/2016 Magnesium 2.2 mg/dL 1.9-2.7 Creatine Kinase(CK) 104 U/L 10-223 Laboratory test finding 09/29/2016 Levetiracetam (Keppra) 92.8 g/mL 43 Lamotrigine (Lamictal) 5.6 g/mL 2.5 - 15.0 44 Comp Metabolic Panel 09/29/2016 Sodium 133 mmol/L [...] Egfr Non- 77.0 >60 Egfr 99.0 >60 45 Laboratory test finding 03/09/2016 Levetiracetam (Keppra) 85.5 g/mL 46 Lamotrigine (Lamictal) 3.7 g/mL 2.5 - 15.0 47 Urinalysis Profile 03/09/2016 Urine Color Yellow Urine Appearance Clear Urine Specific [place] 1.014 1.010-1.030 Urine pH 6.0 5-9 Urine Urobilinogen Negative Negative Urine Ketones Negative Negative Urine Protein Negative Negative Urine Leukocytes Negative Negative Urine Blood 1+ Negative Urine Nitrite Negative Negative Urine Bilirubin Negative Negative Urine Glucose Negative Negative Urine White Blood Cell Trace(0-5/hpf) Absent Urine Red Blood Cell Trace(0-2/hpf) Absent Urine Bacteria Absent Absent Laboratory test finding 03/09/2016 Creatine Kinase(CK) 328 U/L High 10- 223 Comp Metabolic Panel 03/09/2016 Sodium 135 mmol/L [...] Egfr Non- 95.4 >60 Egfr 122.7 >60 48 CBC Auto Diff 03/09/2016 White Blood Count [...] Nucleated Red Blood Cells % 0.1 1 Because ethnic data is not always readily [...] 15-29 5 Kidney failure <15 (or dialysis) 2 Acute inflammation: >10.00 3 The urine specimen was tested at the listed cutoffs: Drug class test level (ng/mL) Amphetamines 500 Barbiturates 200 Benzodiazepine metabolites 200 Cocaine metabolites 150 Cannabinoids 50 Opiates 300 Pcp 25 Specimen was received without chain of custody. Results should be used for medical purposes only. 4 [facility] Severe Sepsis and Septic Shock Management Bundle Measure requires all lactic acids initially measuring >2.0 mmol/L be repeated. 5 Absolute lymphocytosis, favor reactive. If persistent, recommend correlation with flow cytometry to exclude a low-grade lymphoproliferative disorder. Reviewed by Fawn Gil MD 6 Critical Result LACT:15.5 Called to [id number] at: 03:34:10 by:[id number] Read back by:[id number] [facility] Severe Sepsis and Septic Shock Management Bundle Measure requires all lactic acids initially measuring >2.0 mmol/L be repeated. 7 Because ethnic data is not always [...] 5 Kidney failure <15 (or dialysis) 8 Critical Result CO2:14 Called to [id number] at: 03:22:47 by:[id number] Read back by:[id number] *Ascorbic acid is present which may interfere with detection of blood. 10 The urine specimen was tested at the listed cutoffs: Drug class test level (ng/mL) Amphetamines 500 Barbiturates 200 Benzodiazepine metabolites 200 Cocaine metabolites 150 Cannabinoids 50 Opiates 300 Pcp 25 Specimen was received without chain of custody. Results should be used for medical purposes only. 11 Because ethnic data is not always readily [...] 15-29 5 Kidney failure <15 (or dialysis) 12 Acute inflammation: >10.00 13 Therapeutic concentration: <50 ug/mL Toxic concentration: >120 ug/mL 14 Acute inflammation: >10.00 15 REFERENCE VALUE 12.0 - 46.0 ADDITIONAL INFORMATION This test was developed and its performance characteristics determined by [facility] in a manner consistent with CLIA requirements. This test has not been cleared or approved by the U.S. Food and Drug Administration. Test Performed by: [facility] [address] [place] [id number] ADDITIONAL INFORMATION This test was developed and its performance characteristics determined by [facility] in a manner consistent with CLIA requirements. This test has not been cleared or approved by the U.S. Food and Drug Administration. Test Performed by: [facility] [address] [facility], [place] [address] 17 Because ethnic data is not always readily [...] 15-29 5 Kidney failure <15 (or dialysis) 18 Critical Result LACT:2.3 Called to KAELYN at: 12:52:18 by:[id number] Read back by:KAELYN FAY Severe Sepsis and Septic Shock Management Bundle Measure requires all lactic acids initially measuring >2.0 mmol/L be repeated. 19 The urine specimen was tested at the listed cutoffs: Drug class test level (ng/mL) Amphetamines 500 Barbiturates 200 Benzodiazepine metabolites 200 Cocaine metabolites 150 Cannabinoids 50 Opiates 300 Pcp 25 Specimen was received without chain of custody. Results should be used for medical purposes only. 20 Because ethnic data is not always readily [...] 15-29 5 Kidney failure <15 (or dialysis) 21 Because ethnic data is not always [...] 5 Kidney failure <15 (or dialysis) 22 REFERENCE VALUE 12.0 - 46.0 ADDITIONAL INFORMATION This test was developed and its performance characteristics determined by [facility] in a manner consistent with CLIA requirements. This test has not been cleared or approved by the U.S. Food and Drug Administration. Test Performed by: [facility] [address] 23 ADDITIONAL INFORMATION This test was developed and its performance characteristics determined by [facility] in a manner consistent with CLIA requirements. This test has not been cleared or approved by the U.S. Food and Drug Administration. Test Performed by: [facility] [place] [address] 24 Presumptive Positive Presumptive positive results are unconfirmed. 25 The urine specimen was tested at the listed cutoffs: Drug class test level (ng/mL) Amphetamines 500 Barbiturates 200 Benzodiazepine metabolites 200 Cocaine metabolites 150 Cannabinoids 50 Opiates 300 Pcp 25 Specimen was received without chain of custody. Results should be used for medical purposes only. 26 Therapeutic concentration: <50 ug/mL Toxic concentration: >120 ug/mL 27 REFERENCE VALUE 12.0 - 46.0 ADDITIONAL INFORMATION This test was developed and its performance characteristics determined by [facility] in a manner consistent with CLIA requirements. This test has not been cleared or approved by the U.S. Food and Drug Administration. Test Performed by: [facility] - [address] [id number] 28 ADDITIONAL INFORMATION This test was developed and its performance characteristics determined by [facility] in a manner consistent with CLIA requirements. This test has not been cleared or approved by the U.S. Food and Drug Administration. Test Performed by: [facility] - [address] [address] 29 Because ethnic data is not always readily [...] 15-29 5 Kidney failure <15 (or dialysis) 30 [place] Severe Sepsis and Septic Shock Management [...] developed and its performance characteristics determined by [facility] in a manner consistent with CLIA requirements. This test has not been cleared or approved by the U.S. Food and Drug Administration. Test Performed by: [facility] - [address] [address] 33 REFERENCE VALUE 12.0 - 46.0 ADDITIONAL INFORMATION This test was developed and its performance characteristics determined by [facility] in a manner consistent with CLIA requirements. This test has not been cleared or approved by the U.S. Food and Drug Administration. Test Performed by: [facility] - [address] [address] 34 ADDITIONAL INFORMATION This test was developed and its performance characteristics determined by [facility] in a manner consistent with CLIA requirements. This test has not been cleared or approved by the U.S. Food and Drug Administration. Test Performed by: [facility] - [address] [address] 35 REFERENCE VALUE 12.0 - 46.0 ADDITIONAL INFORMATION This test was developed and its performance characteristics determined by [facility] in a manner consistent with CLIA requirements. This test has not been cleared or approved by the U.S. Food and Drug Administration. Test Performed by: [facility] - [address] [address] 36 Because ethnic data is not always [...] 5 Kidney failure <15 (or dialysis) 37 Critical Result LACT:2.1 Called to [id number] at: 13:04:15 by:[id number] Read back by:DEANNE [facility] Severe Sepsis and Septic Shock Management Bundle Measure requires all lactic acids initially measuring >2.0 mmol/L be repeated. 38 The urine specimen was tested at the listed cutoffs: Drug class test level (ng/mL) Amphetamines 500 Barbiturates 200 Benzodiazepine metabolites 200 Cocaine metabolites 150 Cannabinoids 50 Opiates 300 Pcp 25 Specimen was received without chain of custody. Results should be used for medical purposes only. 39 REFERENCE VALUE 12.0 - 46.0 ADDITIONAL INFORMATION This test was developed and its performance characteristics determined by [facility] in a manner consistent with CLIA requirements. This test has not been cleared or approved by the U.S. Food and Drug Administration. Test Performed by: [facility] - [address] [address] 40 ADDITIONAL INFORMATION This test was developed and its performance characteristics determined by [facility] in a manner consistent with CLIA requirements. This test has not been cleared or approved by the U.S. Food and Drug Administration. Test Performed by: [facility] - [address] [address] 41 [facility] Severe Sepsis and Septic Shock Management Bundle Measure requires all lactic acids initially measuring >2.0 mmol/L be repeated. 42 Because ethnic data is not always [...] dialysis) 43 REFERENCE VALUE 12.0 - 46.0 ADDITIONAL INFORMATION This test was developed and its performance characteristics determined by [facility] in a manner consistent with CLIA requirements. This test has not been cleared or approved by the U.S. Food and Drug Administration. Test Performed by: [facility] [address] Radiocommunications Technician: Adria Nguyen II, M.D., Ph.D. 44 ADDITIONAL INFORMATION This test was developed and its performance characteristics determined by [facility] in a manner consistent with CLIA requirements. This test has not been cleared or approved by the U.S. Food and Drug Administration. Test Performed by: [facility] - [place] [id number] Radiocommunications Technician: Adria Nguyen II, M.D., Ph.D. 45 Because ethnic data is not always readily [...] 15-29 5 Kidney failure <15 (or dialysis) 46 REFERENCE VALUE 12.0 - 46.0 Test Performed by: [facility] [address] Radiocommunications Technician: Adria Nguyen II, M.D., Ph.D. 47 Test Performed by: [facility] [place] [address] Radiocommunications Technician: Adria Nguyen II, M.D., Ph.D. 48 Because ethnic data is not always readily [...] 15-29 5 Kidney failure <15 (or dialysis) Procedures Date CPT Code Description Status 06/07/2017 34360 EEG Monitoring & Video Recording Completed 06/06/2017 23665 EEG Monitoring & Video Recording Completed 06/05/2017 25248 EEG Monitoring & Video Recording Completed 01/16/2017 92598 Electroencephalogram EEG Extended Monitoring Over 1 Completed Hour 07/30/2015 43038 EEG Recording Awake & Drowsy Completed 08/12/2012 63412 EEG Recording Awake & Asleep Completed Encounters Type Date Location Provider CPT E/M Dx Office Visit 12/24/2017 [facility] [address] G40.919 10:00a G43.009 G47.00 Office Visit 12/15/2017 11:11a [facility], [place] [address] G40.909 Hospitalists F41.9 F44.5 Office Visit 10/13/2017 2:10p [facility] Karen Lyons [address] R56.9 Hospitalists F44.5 F41.9 Office Visit 10/13/2017 1:35p [facility] Arnie Le 43263 G40.019 Amari Office Visit 08/05/2017 1:00p [facility] [address] G40.919 F11.19 Office Visit 06/08/2017 11:42a [facility] [place] [address] G40.919 Office Visit 06/07/2017 11:40a [facility] [address] G40.919 Office Visit 06/07/2017 11:21a [facility] Gilberto Rodriguez 525[address] G40.901 Markos CHAN M.D. R06.81 Office Visit 06/06/2017 11:38a [facility] [address] G40.919 Office Visit 06/05/2017 11:34a [facility] [address] G40.919 Office Visit 04/06/2017 10:30a [facility] Matthew Winter [address] G40.019 Services [facility] Carlos Kruger M.D. Z91.19 F41.9 Office Visit 01/16/2017 11:36a [facility] [address] G40.019 Z91.19 Office Visit 09/29/2016 10:00a [facility] Matthew Winter [address] G40.011 Amari Kruger Z91.19 Office Visit 10/19/2015 10:15a [facility] Matthew Winter [address]35[address] G40.909 Amari Kruger F41.9 Office Visit 07/25/2015 9:00a [facility] Matthew Winter 65560 G40.909 Amari Kruger F41.9 Office Visit 01/01/2015 11:40a [facility] Internal Medicine Raul Cosme [id number] Eric Solis M.D. Office Visit 03/23/2014 3:40p [facility] Internal Medicine Raul Cosme, 53424 V70.0 - Irma Fitzpatrick [phone] Office Visit 02/25/2012 10:45a [facility] Leilani Gonzales, [id number] 883.0 Of Shelly Fitzpatrick Office Visit 02/18/2012 10:30a [facility] Leilani Gonzales, 40295 883.0 Of Shelly Fitzpatrick 305.1 Office Visit 01/06/2010 12:30a [facility], Yannick Mcconnell, 23198 977.9 Hospitalists Amari [phone] 300.00 308.9 Office Visit 01/05/2010 1:15a [facility], Yannick Mcconnell, 55706 300.9 Hospitalists Amari 969.4 [phone] Office Visit 01/05/2010 12:30a [facility] Jay Guthrie, 63662 977.9 Assoc, Hospitalists M.Abiola Hospitalist [phone] Plan of Care 03/10/2018 - Socorro Alex MDG40.919 Epilepsy, unsp, intractable, without status epilepticusReferral:[facility], Clinic/CenterFollow up :: 4 MONTHS with me in [place] . You need to get the Medicaid transportation form done well ahead of time. Social work at of can help with thisRecommendations:continue lamotrigine 250mg in the AM and 300mg in the PM and continue topiramate 50mg twice a dayG43.009 Migraine w/o aura, not intractable, w/o status migrainosusRecommendations:continue sumatriptan as needed for migraine but not more than twice a week Make a follow up with Richelle for your regular medical care Your rib pain is musculoskeletal in nature. Ibuprofen as needed when it's bad could help.G47.00 Insomnia, unspecifiedRecommendations:stop melatonin. you could use Benadryl over the counter
[2018-03-19] MEDS ORDERED: LORazepam TAB(*) 1 MG PO ONE (20:58)
[2018-03-19 21:14] VITALS: BP 116/63
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
== END 2018-03-19 21:13 | disposition home or self-care (01) ==
LOC: ED 17:35
DX: G40.909 Epilepsy, unspecified, not intractable, without status epilepticus (principal); F11.11 Opioid abuse, in remission; F17.210 Nicotine dependence, cigarettes, uncomplicated; Z82.0 Family history of epilepsy and other diseases of the nervous system
CPT/HCPCS: 99282; A9270-GY

== ENCOUNTER 2018-03-19 21:25 | Emergency (ER) | payer OTHER ==
[2018-03-19] MEDS ORDERED: LORazepam INJ* 2 MG/ML 1 ML VIAL IM ONE (21:42)
[2018-03-19 22:04] LABS: ABS Basophils 0 10^3/ul (0-0.2); ABS Eosinophils 0 10^3/ul (0-0.6); ABS Lymphocytes 3.2 10^3/ul (1.0-4.8); ABS Monocytes 0.5 10^3/ul (0-0.8); ABS Neutrophils 4.9 10^3/ul (1.5-7.7); ABS Nucleated RBC 0 10^3/ul; Eosinophil % 0 % (0-6); Hematocrit 40 % (42-52); Hemoglobin 13.8 g/dl (14.0-18.0); Lymphocyte % 37.1 % (25-47); Mean Corpuscular HGB Conc 34 g/dl (31-36); Mean Corpuscular Hemoglobin 32 pg (27-31); Mean Corpuscular Volume 92 fL (80-94); Nucleated Red Blood Cells % 0.1; Platelet Count 225 10^3/ul (150-450); Red Blood Count 4.33 10^6/ul (4.00-5.40); Red Cell Distribution Width 13 % (10.5-15); White Blood Count 8.6 10^3/ul (3.5-10.8)
[2018-03-19 22:16] LABS: EGFR Non-African American 66.9 (>60)
[2018-03-19 22:50] VITALS: BP 125/82
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
== END 2018-03-19 22:49 | disposition home or self-care (01) ==
LOC: ED 21:25
DX: F44.5 Conversion disorder with seizures or convulsions (principal); F17.210 Nicotine dependence, cigarettes, uncomplicated
CPT/HCPCS: 36415; 80053; 83605; 85025; 96372; 99283; J2060

== ENCOUNTER 2018-03-24 20:51 | Emergency (ER) | payer OTHER ==
[2018-03-24] MEDS ORDERED: NS 0.9% 1000 ML* 1,000 ML IV ONE (21:59)
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
[2018-03-24 22:17] LABS: ABS Basophils 0 10^3/ul (0-0.2); ABS Eosinophils 0 10^3/ul (0-0.6); ABS Lymphocytes 0.9 10^3/ul (1.0-4.8); ABS Monocytes 0.5 10^3/ul (0-0.8); ABS Neutrophils 5.4 10^3/ul (1.5-7.7); ABS Nucleated RBC 0 10^3/ul; Eosinophil % 0 % (0-6); Hematocrit 37 % (42-52); Lymphocyte % 12.8 % (25-47); Mean Corpuscular HGB Conc 35 g/dl (31-36); Mean Corpuscular Hemoglobin 32 pg (27-31); Mean Corpuscular Volume 92 fL (80-94); Mean Platelet Volume 7.7 um3 (7.4-10.4); Nucleated Red Blood Cells % 0; Platelet Count 185 10^3/ul (150-450); Red Blood Count 4.08 10^6/ul (4.00-5.40); Red Cell Distribution Width 13 % (10.5-15); White Blood Count 6.8 10^3/ul (3.5-10.8)
[2018-03-24 22:38] LABS: EGFR Non-African American 80.1 (>60)
[2018-03-24 23:41] VITALS: BP 117/71
== END 2018-03-24 23:39 | disposition home or self-care (01) ==
LOC: ED 20:51
DX: R55 Syncope and collapse (principal); F17.210 Nicotine dependence, cigarettes, uncomplicated
CPT/HCPCS: 36415; 80053; 80175; 80177; 82550; 83605; 83735; 85025; 96360; 99284

== ENCOUNTER → 2018-03-31 01:56 | Emergency (ER) | payer OTHER ==
[~2018-03-31 01:56] MED LIST changes: +ALPRAZolam TAB* 0.5 MG PO ONE; -Ketorolac INJ* 60 MG/2 ML VIAL IM ONE; +NS 0.9% 1000 ML* 1,000 ML IV ONE; -Ondansetron ODT TAB* 4 MG PO ONE
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
[2018-03-31 02:32] LABS: ABS Basophils 0 10^3/ul (0-0.2); ABS Eosinophils 0 10^3/ul (0-0.6); ABS Lymphocytes 2.3 10^3/ul (1.0-4.8); ABS Monocytes 0.4 10^3/ul (0-0.8); ABS Nucleated RBC 0 10^3/ul; Eosinophil % 0.2 % (0-6); Hematocrit 43 % (42-52); Hemoglobin 14.8 g/dl (14.0-18.0); Lymphocyte % 39.8 % (25-47); Mean Corpuscular HGB Conc 35 g/dl (31-36); Mean Corpuscular Hemoglobin 32 pg (27-31); Mean Corpuscular Volume 92 fL (80-94); Mean Platelet Volume 7.2 um3 (7.4-10.4); Nucleated Red Blood Cells % 0.1; Platelet Count 250 10^3/ul (150-450); Red Blood Count 4.63 10^6/ul (4.00-5.40); Red Cell Distribution Width 14 % (10.5-15); White Blood Count 5.7 10^3/ul (3.5-10.8)
[2018-03-31 02:41] LABS: INR 0.83 (0.77-1.02)
[2018-03-31 02:52] LABS: EGFR Non-African American 82.8 (>60)
[2018-03-31 04:30] VITALS: BP 102/62
== END | disposition home or self-care (01) ==
LOC: ED 01:56
DX: F44.5 Conversion disorder with seizures or convulsions (principal); F17.210 Nicotine dependence, cigarettes, uncomplicated; Z79.899 Other long term (current) drug therapy
CPT/HCPCS: 36415; 80053; 80320; 83735; 84484; 85025; 85610; 85730; 96360; 99284; A9270-GY; G0480

== ENCOUNTER → 2018-05-04 21:10 | Emergency (ER) | payer OTHER ==
[~2018-05-04 21:10] MED LIST changes: -ALPRAZolam TAB* 0.5 MG PO ONE; +LORazepam INJ* 2 MG/ML 1 ML VIAL IV PUSH ONE; +LORazepam INJ* 2 MG/ML 1 ML VIAL ONE; +Labetalol IV* 5 MG/ML 20 ML VIAL IV PUSH ONE; +Metoclopramide IV* 5 MG/ML 2 ML VIAL IV SLOW PU ONE; +Morphine INJ* 2 MG/ML 1 ML SYRINGE (TWO MG - NEW SYRINGE VERSION) IV ONE; +diPHENhydraMINE IV* 50 MG/ML 1 ml VIAL (BENADRYL) IV ONE
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
[2018-05-04 22:15] LABS: ABS Basophils 0 10^3/ul (0-0.2); ABS Eosinophils 0.1 10^3/ul (0-0.6); ABS Lymphocytes 1.2 10^3/ul (1.0-4.8); ABS Monocytes 0.6 10^3/ul (0-0.8); ABS Nucleated RBC 0 10^3/ul; Eosinophil % 1.3 % (0-6); Hematocrit 43 % (42-52); Hemoglobin 14.6 g/dl (14.0-18.0); Lymphocyte % 20.9 % (25-47); Mean Corpuscular HGB Conc 34 g/dl (31-36); Mean Corpuscular Hemoglobin 32 pg (27-31); Mean Corpuscular Volume 94 fL (80-94); Mean Platelet Volume 7.6 um3 (7.4-10.4); Nucleated Red Blood Cells % 0.1; Platelet Count 221 10^3/ul (150-450); Red Blood Count 4.57 10^6/ul (4.00-5.40); Red Cell Distribution Width 14 % (10.5-15); White Blood Count 5.9 10^3/ul (3.5-10.8)
[2018-05-04 22:32] LABS: EGFR Non-African American 68.2 (>60)
[2018-05-04 23:42] VITALS: BP 136/62
== END | disposition home or self-care (01) ==
LOC: ED 21:10
DX: F44.5 Conversion disorder with seizures or convulsions (principal); F17.210 Nicotine dependence, cigarettes, uncomplicated
CPT/HCPCS: 36415; 80053; 80320; 82550; 83605; 83735; 85025; 96374; 99283; G0480; J2060

== ENCOUNTER 2018-06-02 17:25 | Emergency (ER) | payer OTHER ==
[2018-06-02 18:03] LABS: ABS Basophils 0 10^3/ul (0-0.2); ABS Eosinophils 0 10^3/ul (0-0.6); ABS Lymphocytes 0.7 10^3/ul (1.0-4.8); ABS Monocytes 0.9 10^3/ul (0-0.8); ABS Neutrophils 7.3 10^3/ul (1.5-7.7); ABS Nucleated RBC 0 10^3/ul; Eosinophil % 0.1 % (0-6); Hematocrit 41 % (42-52); Hemoglobin 14.2 g/dl (14.0-18.0); Mean Corpuscular HGB Conc 35 g/dl (31-36); Mean Corpuscular Hemoglobin 32 pg (27-31); Mean Corpuscular Volume 94 fL (80-94); Mean Platelet Volume 7.4 um3 (7.4-10.4); Nucleated Red Blood Cells % 0.1; Platelet Count 199 10^3/ul (150-450); Red Cell Distribution Width 14 % (10.5-15); White Blood Count 8.9 10^3/ul (3.5-10.8)
[2018-06-02 18:21] LABS: EGFR Non-African American 68.8 (>60)
[2018-06-02] MEDS ORDERED: Cyclobenzaprine TAB* 10 MG PO ONE (19:35)
[2018-06-02] MEDS ORDERED: LORazepam INJ* 2 MG/ML 1 ML VIAL IV ONE (19:58)
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
[2018-06-02 20:22] VITALS: BP 114/71
== END 2018-06-02 20:22 | disposition home or self-care (01) ==
LOC: ED 17:25
DX: G40.901 Epilepsy, unspecified, not intractable, with status epilepticus (principal); S01.512A Laceration without foreign body of oral cavity, initial encounter; X58.XXXA Exposure to other specified factors, initial encounter; Y92.9 Unspecified place or not applicable; F17.210 Nicotine dependence, cigarettes, uncomplicated
CPT/HCPCS: 36415; 80053; 80175; 80177; 85025; 86140; 93005; 96374; 99284; A9270-GY; J2060

== ENCOUNTER 2018-06-04 21:48 | Emergency (ER) | payer OTHER ==
[2018-06-04] MEDS ORDERED: NS 0.9% 1000 ML* 1,000 ML IV ONE (22:37)
[2018-06-04] MEDS ORDERED: LORazepam TAB(*) 1 MG PO ONE (22:37)
[2018-06-04 23:12] LABS: ABS Basophils 0 10^3/ul (0-0.2); ABS Eosinophils 0 10^3/ul (0-0.6); ABS Lymphocytes 0.6 10^3/ul (1.0-4.8); ABS Monocytes 0.8 10^3/ul (0-0.8); ABS Neutrophils 7.2 10^3/ul (1.5-7.7); ABS Nucleated RBC 0 10^3/ul; Eosinophil % 0.1 % (0-6); Hematocrit 41 % (42-52); Lymphocyte % 7.2 % (25-47); Mean Corpuscular HGB Conc 34 g/dl (31-36); Mean Corpuscular Hemoglobin 32 pg (27-31); Mean Corpuscular Volume 94 fL (80-94); Mean Platelet Volume 7.6 um3 (7.4-10.4); Nucleated Red Blood Cells % 0; Platelet Count 206 10^3/ul (150-450); Red Blood Count 4.34 10^6/ul (4.00-5.40); Red Cell Distribution Width 14 % (10.5-15); White Blood Count 8.6 10^3/ul (3.5-10.8)
[2018-06-04 23:31] LABS: EGFR Non-African American 65.7 (>60)
[2018-06-05 00:04] VITALS: BP 110/67
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
== END 2018-06-05 00:04 | disposition home or self-care (01) ==
LOC: ED 21:48
DX: G40.909 Epilepsy, unspecified, not intractable, without status epilepticus (principal); R00.0 Tachycardia, unspecified; R79.89 Other specified abnormal findings of blood chemistry
CPT/HCPCS: 36415; 80053; 85025; 99283; A9270-GY

== ENCOUNTER 2018-07-26 08:01 | Emergency (ER) | payer OTHER ==
[2018-07-26] MEDS ORDERED: NS 0.9% 1000 ML* 2,000 ML IV ONE (08:07)
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
[2018-07-26 08:56] LABS: ABS Basophils 0 10^3/ul (0-0.2); ABS Eosinophils 0 10^3/ul (0-0.6); ABS Lymphocytes 1.9 10^3/ul (1.0-4.8); ABS Monocytes 0.7 10^3/ul (0-0.8); ABS Neutrophils 3.6 10^3/ul (1.5-7.7); ABS Nucleated RBC 0 10^3/ul; Eosinophil % 0.3 % (0-6); Hematocrit 42 % (42-52); Hemoglobin 14.4 g/dl (14.0-18.0); Lymphocyte % 30.8 % (25-47); Mean Corpuscular HGB Conc 35 g/dl (31-36); Mean Corpuscular Hemoglobin 32 pg (27-31); Mean Corpuscular Volume 94 fL (80-94); Mean Platelet Volume 7.9 fL (7.4-10.4); Nucleated Red Blood Cells % 0.1; Platelet Count 207 10^3/ul (150-450); Red Blood Count 4.45 10^6/ul (4.00-5.40); Red Cell Distribution Width 13 % (10.5-15); White Blood Count 6.2 10^3/ul (3.5-10.8)
[2018-07-26 09:09] LABS: INR 0.9 (0.77-1.02)
[2018-07-26 09:14] LABS: EGFR Non-African American 84.6 (>60)
[2018-07-26 09:22] LABS: Urine Appearance Clear; Urine Blood 1+ (Negative); Urine Color Straw; Urine Ketones Negative (Negative); Urine Protein Negative (Negative); Urine Red Blood Cell Trace(0-2/hpf) (Absent); Urine Urobilinogen Negative (Negative); Urine White Blood Cell Absent (Absent)
[2018-07-26 09:55] VITALS: BP 129/75
[2018-07-26] MEDS ORDERED: LORazepam TAB(*) 1 MG PO ONE (09:55)
[2018-07-26] MEDS ORDERED: Ibuprofen TAB* 600 MG PO ONE (09:56)
[2018-07-26] MEDS ORDERED: LORazepam TAB(*) 1 MG ONE (09:57)
[2018-07-26] MEDS ORDERED: Ibuprofen TAB* 600 MG ONE (09:57)
== END 2018-07-26 10:03 | disposition home or self-care (01) ==
LOC: ED 08:01
DX: G40.909 Epilepsy, unspecified, not intractable, without status epilepticus (principal); M79.10 Myalgia, unspecified site; R42 Dizziness and giddiness; F17.210 Nicotine dependence, cigarettes, uncomplicated
CPT/HCPCS: 36415; 80053; 80175; 80177; 80307; 80320; 81003; 81015; 82550; 83605; 83735; 84443; 85025; 85610; 85730; 93005; 96360; 99282; A9270-GY; G0480

== ENCOUNTER 2018-07-27 07:21 | Emergency (ER) | payer OTHER ==
[2018-07-27 09:14] VITALS: BP 124/70
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
== END 2018-07-27 09:14 | disposition home or self-care (01) ==
LOC: ED 07:21
DX: R04.0 Epistaxis (principal); Z79.01 Long term (current) use of anticoagulants; I25.10 Atherosclerotic heart disease of native coronary artery without angina pectoris; Z95.5 Presence of coronary angioplasty implant and graft; I10 Essential (primary) hypertension; Z87.891 Personal history of nicotine dependence
CPT/HCPCS: 99282

== ENCOUNTER 2018-08-25 06:36 | Emergency (ER) | payer OTHER ==
--- OUTSIDE RECORDS SUMMARY | 2018-08-25 06:41 | XMS REPORT | Continuity of Care Document ---
:1985 External Reference #:[id number] Author Name Carmen Tran Care Team Providers Name Role Phone Care Connections Primary Care Physician Unavailable Payers Type Date Identification Numbers Payment Provider Subscriber Effective: Policy Number: [id number] [employer] Omar Downs JR 2016 Medicaid PayID: [id number] [address] [address] [place] [address] Expires: 2016 Policy Number: [id number] Medicaid Omar Downs JR Group Name: [id number] [address] PayID: [id number] [place] [address] Advance Directives Description No Information Available Problems Date Description Provider Status Onset: 07/25/2015 Idiopathic generalized epilepsy Matthew Kruger M.D. 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 Socorro Alex MD Active Onset: 08/05/2017 Refractory epilepsy Socorro Alex MD Active Family History Date Family Member(s) Problem(s) Comments General Seizure Disorder Father Seizure Disorder Social History Type Date Description Comments Sex Unknown Marital Status Single Occupation Disabled On SSI due to seizure disorder ETOH Use Denies alcohol use Tobacco Use Start: Unknown Patient is a current smoker, smokes every day Recreational Drug Use Denies Drug Use Smoking Status Reviewed: 07/29/18 Patient is a current smoker, smokes every day Allergies, Adverse Reactions, Alerts Description No Known Drug Allergies Medications Medication Date Status Form Strength Qnty SIG Indications Ordering Provider Paroxetine HCL 07/29 Active Tablets 40mg 30tab use 1 Mj Pathak s tab daily. Keppra 07/09 Active Tablets 750mg 180ta 3 tabs Arnie bs by vinny Le M.D. twice daily Topiramate 12/24 Active Tablets 25mg 120ta 2 twice G40.919 Socorro Alex bs a day Sumatriptan 12/24 Active Tablets 50mg 9tabs take 1 G43.009 Christopher Succinate at onset Amari Le of migraine . may repeat within 2 hours if needed. max 2x/week. max daily dose 100mg Cyclobenzaprine 11/22 Active Tablets 10mg 15tab 1 tablet Christopher HCL s up to Amari Le three times daily as needed Lamotrigine 07/25 Active Tablets 100mg 165ta 3 tabs Socorro Alex bs in the MD morning and 3 at night Vivitrol Active Suspension 380mg once a Melatonin 12/24 Hx Tablets 3mg 30tab take 1 G47.00 Socorro Alex s tablet 1 MD - to 2 before bed Paroxetine HCL 10/19 Hx Tablets ER 25mg 30tab 1 by Mj Pathak, 24HR s vinny MORATAYA - every Paroxetine HCL 07/25 Hx Tablets ER 12.5mg 30tab 1 by Matthew Winter ER 24HR s mouth Slick, - every M.D. Lamotrigine ER Hx Tablets ER 200mg 60tab 1 by eNla 24HR s vinny Alexander M.D. - twice a Diazepam Hx Tablets 5mg 30tab 1 by Socorro Alex, s vinny MORATAYA - twice a 10/21 day needed for seizure Trazodone HCL Hx Tablets 50mg 1 at hs Nader, /0000 Jailyn Gould M.D. 04/06 Mens Multi Hx Tablets 1 Tab A Unknown Vitamin & / Day Mineral Formula - 03/09 Medications Administered in Office Medication Date Status Form Strength Qnty SIG Indications Ordering Provider Influenza Administered Injection Unknown Virus Vaccine 014 Immunizations Description No Information Available Vital Signs Date Vital Result Comment 07/29/2018 10:09am Height 68.5 inches 5'8.50" Weight 126.00 lb Heart Rate 58 /min BP Systolic 112 mmHg BP Diastolic 64 mmHg Respiratory Rate 16 /min Body Temperature 98.1 F Pain Level 8 muscular aches O2 % BldC Oximetry 98 % BMI (Body Mass Index) 18.9 kg/m2 03/10/2018 2:29pm Height 68.5 inches 5'8.50" Weight 131.00 lb Heart Rate 72 /min BP Systolic 110 mmHg BP Diastolic 66 mmHg BMI (Body Mass Index) 19.6 kg/m2 12/24/2017 10:26am Height 68.5 inches 5'8.50" Weight 132.50 lb Heart Rate 80 /min BP Systolic 118 mmHg BP Diastolic 82 mmHg BMI (Body Mass Index) 19.9 kg/m2 08/05/2017 1:10pm Height 68.5 inches 5'8.50" Weight 129.00 lb Heart Rate 74 /min BP Systolic 112 mmHg BP Diastolic 78 mmHg BMI (Body Mass Index) 19.3 kg/m2 04/06/2017 10:17am Height 68.5 inches 5'8.50" Weight 122.00 lb Heart Rate 68 /min BP Systolic Sitting 102 mmHg BP Diastolic Sitting 72 mmHg Respiratory Rate 14 /min BMI (Body Mass Index) 18.3 kg/m2 09/29/2016 10:22am Height 68.5 inches 5'8.50" Weight 121.12 lb Heart Rate 80 /min BP Systolic Sitting 90 mmHg BP Diastolic Sitting 60 mmHg Respiratory Rate 17 /min BMI (Body Mass Index) 18.1 kg/m2 10/19/2015 10:44am Height 68.5 inches 5'8.50" Weight 115.00 lb Heart Rate 64 /min BP Systolic Sitting 102 mmHg BP Diastolic Sitting 68 mmHg Respiratory Rate 20 /min BMI (Body Mass Index) 17.2 kg/m2 07/25/2015 8:43am Height 68.5 inches 5'8.50" Weight 130.00 lb Heart Rate 52 /min BP Systolic Sitting 112 mmHg BP Diastolic Sitting 60 mmHg Respiratory Rate 16 /min BMI (Body Mass Index) 19.5 kg/m2 01/01/2015 12:01pm Height 68.5 inches 5'8.50" Weight 130.00 lb Heart Rate 59 /min BP Systolic Sitting 118 mmHg BP Diastolic Sitting 62 mmHg Body Temperature 97.6 F O2 % BldC Oximetry 95 % BMI (Body Mass Index) 19.5 kg/m2 03/23/2014 3:32pm Height 68.5 inches 5'8.50" Weight 122.00 lb Heart Rate 52 /min BP Systolic Sitting 112 mmHg BP Diastolic Sitting 74 mmHg Body Temperature 97.1 F BMI (Body Mass Index) 18.3 kg/m2 Results Test Date Facility Test Result H/L Range Note Laboratory 07/29/20 [facility] Syphillis Igg Nonreactive Nonreactive 1 test finding [address] W/[place] [address] [phone] Urine Drug SCR 07/26/20 [facility] Amphetamine Ur None Detected None Detect ED & Pain [address] [place] [address] [phone] Barbiturates Urine Screen None Detected None Detect Benzodiazepine Urine Screen None Detected None Detect Urine Cannabinoids Screen None Detected None Detect Urine Cocaine Screen None Detected None Detect Urine Opiates Screen None Detected None Detect Urine Phencyclidine Screen None Detected None Detect 2 Laboratory test 07/26/2018 [facility] Levetiracetam 73.6 Abnormal [address] (Keppra) g/[place] [address] [phone] Lamotrigine (Lamictal) 9.1 g/mL 2.5 - 15.0 4 CBC Auto Diff 07/26/2018 [facility] White Blood 6.2 10^3/uL N 3.5-10.[address] [place] [address] [phone] Red Blood Count 4.45 10^6/uL N 4.00-5.40 Hemoglobin 14.4 g/dL N 14.0-18.0 Hematocrit 42 % N 42-52 Mean Corpuscular Volume 94 fL N 80-94 Mean Corpuscular Hemoglobin 32 pg High 27-31 Mean Corpuscular HGB Conc 35 g/dL N 31-36 Red Cell Distribution Width 13 % N 10.5-15 Platelet Count 207 10^3/uL N 150-450 Mean Platelet Volume 7.9 fL N 7.4-10.4 Abs Neutrophils 3.6 10^3/uL N 1.5-7.7 Abs Lymphocytes 1.9 10^3/uL N 1.0-4.8 Abs Monocytes 0.7 10^3/uL N 0-0.8 Abs Eosinophils 0 10^3/uL N 0-0.6 Abs Basophils 0 10^3/uL N 0-0.2 Abs Nucleated RBC 0 10^3/uL Granulocyte % 57.7 % N 38-83 Lymphocyte % 30.8 % N 25-47 Monocyte % 10.6 % High 0-7 Eosinophil % 0.3 % N 0-6 Basophil % 0.6 % N 0-2 Nucleated Red Blood Cells % 0.1 Laboratory test 07/26/2018 [facility] Lactic Acid 1.1 mmol/L N 0.5-2.0 5 finding [address] [place] [address] [phone] Inr/Protime 07/26/2018 [facility] Inr 0.90 N 0.77-1.[address] [place] [address] [phone] Laboratory test 07/26/2018 [facility] Partial 27.4 seconds N 26.0-36.[address] [place] [address] [place] [address] PTT [phone] Urinalysis 07/26/2018 [facility] Urine Color Straw Profile [address] [place] [address] [phone] Urine Appearance Clear Urine Specific [place] 1.010 N 1.010-1.030 Urine pH 6.0 N 5-9 Urine Urobilinogen Negative Negative Urine Ketones Negative Negative Urine Protein Negative Negative Urine Leukocytes Negative Negative Urine Blood 1+ Abnormal Negative Urine Nitrite Negative Negative Urine Bilirubin Negative Negative Urine Glucose Negative Negative Urine White Blood Cell Absent Absent Urine Red Blood Cell Trace(0-2/hpf) Absent Urine Bacteria Absent Absent Comp Metabolic Panel 07/26/2018 [facility] Sodium 136 mmol/L N 135-145 [address] [place] [address] [phone] Potassium 3.8 mmol/L N 3.5-5.0 Chloride 105 mmol/L N 101-111 Co2 Carbon Dioxide 26 mmol/L N 22-32 Anion Gap 5 mmol/L N 2-11 Glucose 92 mg/dL N 70-100 Blood Urea Nitrogen 22 mg/dL N 6-24 Creatinine 1.02 mg/dL N 0.67-1.17 BUN/Creatinine Ratio 21.6 High 8-20 Calcium 10.1 mg/dL N 8.6-10.3 Total Protein 7.8 g/dL N 6.4-8.9 Albumin 5.0 g/dL N 3.2-5.2 Globulin 2.8 g/dL N 2-4 Albumin/Globulin Ratio 1.8 N 1-3 Total Bilirubin 0.50 mg/dL N 0.2-1.0 Alkaline Phosphatase 44 U/L N 34-104 Alt 6 U/L Low 7-52 Ast 13 U/L N 13-39 Egfr Non- 84.6 >60 Egfr 102.4 >60 6 Laboratory test 07/26/2018 [facility] Magnesium 2.0 mg/dL N 1.9-2.7 finding [address] [place] [address] [phone] Creatine Kinase(CK) 40 U/L N 10-223 Alcohol < 10 mg/dL N <10 TSH (Thyroid Stim Horm) 6.93 mcIU/mL High 0.34-5.60 Laboratory test 07/16/2018 [facility] Levetiracetam 27.3 g/mL 7 finding 101 [facility] (Keppra) [place] [address] [phone] Lamotrigine (Lamictal) 4.7 g/mL 2.5 - 15.0 8 Comp Metabolic Panel 07/16/2018 [facility] Sodium 136 mmol/L N 135-145 [address] [place] [address] [phone] Potassium 4.4 mmol/L N 3.5-5.0 Chloride 102 mmol/L N 101-111 Co2 Carbon Dioxide 27 mmol/L N 22-32 Anion Gap 7 mmol/L N 2-11 Glucose 97 mg/dL N 70-100 Blood Urea Nitrogen 16 mg/dL N 6-24 Creatinine 1.10 mg/dL N 0.67-1.17 BUN/Creatinine Ratio 14.5 N 8-20 Calcium 10.4 mg/dL High 8.6-10.3 Total Protein 8.2 g/dL N 6.4-8.9 Albumin 5.3 g/dL High 3.2-5.2 Globulin 2.9 g/dL N 2-4 Albumin/Globulin Ratio 1.8 N 1-3 Total Bilirubin 0.40 mg/dL N 0.2-1.0 Alkaline Phosphatase 49 U/L N 34-104 Alt 6 U/L Low 7-52 Ast 14 U/L N 13-39 Egfr Non- 77.6 >60 Egfr 93.9 >60 9 CBC Auto Diff 07/16/2018 [facility] White Blood 5.5 10^3/uL N 3.5-10.[address] [place] [address] [phone] Red Blood Count 4.88 10^6/uL N 4.00-5.40 Hemoglobin 15.9 g/dL N 14.0-18.0 Hematocrit 46 % N 42-52 Mean Corpuscular Volume 94 fL N 80-94 Mean Corpuscular Hemoglobin 33 pg High 27-31 Mean Corpuscular HGB Conc 35 g/dL N 31-36 Red Cell Distribution Width 13 % N 10.5-15 Platelet Count 237 10^3/uL N 150-450 Mean Platelet Volume 7.6 fL N 7.4-10.4 Abs Neutrophils 3.5 10^3/uL N 1.5-7.7 Abs Lymphocytes 1.6 10^3/uL N 1.0-4.8 Abs Monocytes 0.4 10^3/uL N 0-0.8 Abs Eosinophils 0 10^3/uL N 0-0.6 Abs Basophils 0 10^3/uL N 0-0.2 Abs Nucleated RBC 0 10^3/uL Granulocyte % 63.4 % N 38-83 Lymphocyte % 28.9 % N 25-47 Monocyte % 7.2 % High 0-7 Eosinophil % 0.1 % N 0-6 Basophil % 0.4 % N 0-2 Nucleated Red Blood Cells % 0.1 CBC Auto Diff 06/04/2018 [facility] White Blood 8.6 10^3/uL N 3.5-10.[address] [place] [address] [phone] Red Blood Count 4.34 10^6/uL N 4.00-5.40 Hemoglobin 14.0 g/dL N 14.0-18.0 Hematocrit 41 % Low 42-52 Mean Corpuscular Volume 94 fL N 80-94 Mean Corpuscular Hemoglobin 32 pg High 27-31 Mean Corpuscular HGB Conc 34 g/dL N 31-36 Red Cell Distribution Width 14 % N 10.5-15 Platelet Count 206 10^3/uL N 150-450 Mean Platelet Volume 7.6 um3 N 7.4-10.4 Abs Neutrophils 7.2 10^3/uL N 1.5-7.7 Abs Lymphocytes 0.6 10^3/uL Low 1.0-4.8 Abs Monocytes 0.8 10^3/uL N 0-0.8 Abs Eosinophils 0 10^3/uL N 0-0.6 Abs Basophils 0 10^3/uL N 0-0.2 Abs Nucleated RBC 0 10^3/uL Granulocyte % 83.6 % High 38-83 Lymphocyte % 7.2 % Low 25-47 Monocyte % 8.9 % High 0-7 Eosinophil % 0.1 % N 0-6 Basophil % 0.2 % N 0-2 Nucleated Red Blood Cells % 0 CBC Auto Diff 06/02/2018 [facility] White Blood 8.9 10^3/uL N 3.5-10.[address] [place] [address] [phone] Red Blood Count 4.40 10^6/uL N 4.00-5.40 Hemoglobin 14.2 g/dL N 14.0-18.0 Hematocrit 41 % Low 42-52 Mean Corpuscular Volume 94 fL N 80-94 Mean Corpuscular Hemoglobin 32 pg High 27-31 Mean Corpuscular HGB Conc 35 g/dL N 31-36 Red Cell Distribution Width 14 % N 10.5-15 Platelet Count 199 10^3/uL N 150-450 Mean Platelet Volume 7.4 um3 N 7.4-10.4 Abs Neutrophils 7.3 10^3/uL N 1.5-7.7 Abs Lymphocytes 0.7 10^3/uL Low 1.0-4.8 Abs Monocytes 0.9 10^3/uL High 0-0.8 Abs Eosinophils 0 10^3/uL N 0-0.6 Abs Basophils 0 10^3/uL N 0-0.2 Abs Nucleated RBC 0 10^3/uL Granulocyte % 81.9 % N 38-83 Lymphocyte % 8.0 % Low 25-47 Monocyte % 9.9 % High 0-7 Eosinophil % 0.1 % N 0-6 Basophil % 0.1 % N 0-2 Nucleated Red Blood Cells % 0.1 Comp Metabolic Panel 06/02/2018 [facility] Sodium 139 mmol/L N 135-[address] [place] [address] [phone] Potassium 4.2 mmol/L N 3.5-5.0 Chloride 106 mmol/L N 101-111 Co2 Carbon Dioxide 30 mmol/L N 22-32 Anion Gap 3 mmol/L N 2-11 Glucose 92 mg/dL N 70-100 Blood Urea Nitrogen 11 mg/dL N 6-24 Creatinine 1.22 mg/dL High 0.67-1.17 BUN/Creatinine Ratio 9.0 N 8-20 Calcium 9.9 mg/dL N 8.6-10.3 Total Protein 7.5 g/dL N 6.4-8.9 Albumin 4.8 g/dL N 3.2-5.2 Globulin 2.7 g/dL N 2-4 Albumin/Globulin Ratio 1.8 N 1-3 Total Bilirubin 0.30 mg/dL N 0.2-1.0 Alkaline Phosphatase 46 U/L N 34-104 Alt 7 U/L N 7-52 Ast 14 U/L N 13-39 Egfr Non- 68.8 >60 Egfr 83.3 >60 10 Laboratory test 06/02/2018 [facility] C Reactive < 1.00 mg/L N <8.[address] [place] [address] [phone] Levetiracetam (Keppra) 55.1 g/mL Abnormal 11 Lamotrigine (Lamictal) 8.8 g/mL 2.5 - 15.0 12 CBC Auto Diff 05/04/2018 [facility] White Blood 5.9 10^3/uL N 3.5-10.[address] [place] [address] [phone] Red Blood Count 4.57 10^6/uL N 4.00-5.40 Hemoglobin 14.6 g/dL N 14.0-18.0 Hematocrit 43 % N 42-52 Mean Corpuscular Volume 94 fL N 80-94 Mean Corpuscular Hemoglobin 32 pg High 27-31 Mean Corpuscular HGB Conc 34 g/dL N 31-36 Red Cell Distribution Width 14 % N 10.5-15 Platelet Count 221 10^3/uL N 150-450 Mean Platelet Volume 7.6 um3 N 7.4-10.4 Abs Neutrophils 4.0 10^3/uL N 1.5-7.7 Abs Lymphocytes 1.2 10^3/uL N 1.0-4.8 Abs Monocytes 0.6 10^3/uL N 0-0.8 Abs Eosinophils 0.1 10^3/uL N 0-0.6 Abs Basophils 0 10^3/uL N 0-0.2 Abs Nucleated RBC 0 10^3/uL Granulocyte % 66.9 % N 38-83 Lymphocyte % 20.9 % Low 25-47 Monocyte % 10.5 % High 0-7 Eosinophil % 1.3 % N 0-6 Basophil % 0.4 % N 0-2 Nucleated Red Blood Cells % 0.1 Laboratory test 05/04/2018 [facility] Lactic Acid 3.0 mmol/L High 0.5-2.0 13 finding [address] [place] [address] [phone] Comp Metabolic 05/04/2018 [facility] Sodium 140 mmol/L N 135- 145 Panel [address] [place] [address] [phone] Potassium 4.0 mmol/L N 3.5-5.0 Chloride 106 mmol/L N 101-111 Co2 Carbon Dioxide 22 mmol/L N 22-32 Anion Gap 12 mmol/L High 2-11 Glucose 79 mg/dL N 70-100 Blood Urea Nitrogen 13 mg/dL N 6-24 Creatinine 1.23 mg/dL High 0.67-1.17 BUN/Creatinine Ratio 10.6 N 8-20 Calcium 9.6 mg/dL N 8.6-10.3 Total Protein 7.5 g/dL N 6.4-8.9 Albumin 4.8 g/dL N 3.2-5.2 Globulin 2.7 g/dL N 2-4 Albumin/Globulin Ratio 1.8 N 1-3 Total Bilirubin 0.30 mg/dL N 0.2-1.0 Alkaline Phosphatase 47 U/L N 34-104 Alt 7 U/L N 7-52 Ast 14 U/L N 13-39 Egfr Non- 68.2 >60 Egfr 82.5 >60 14 Laboratory test 05/04/2018 [facility] Magnesium 2.0 mg/dL N 1.9-2.7 finding [address] [place] [address] [phone] Creatine Kinase(CK) 51 U/L N 10-223 Alcohol 44 mg/dL High <10 Laboratory test 03/31/2018 [facility] Magnesium 2.2 mg/dL N 1.9-2.7 finding [address] [place] [address] [phone] Troponin-I (TnI) 0.00 ng/mL <0.04 Alcohol 59 mg/dL High <10 Comp Metabolic Panel 03/31/2018 [facility] Sodium 139 mmol/L N 135-145 [address] [place] [address] [phone] Potassium 4.0 mmol/L N 3.5-5.0 Chloride 105 mmol/L N 101-111 Co2 Carbon Dioxide 22 mmol/L N 22-32 Anion Gap 12 mmol/L High 2-11 Glucose 100 mg/dL N 70-100 Blood Urea Nitrogen 12 mg/dL N 6-24 Creatinine 1.04 mg/dL N 0.67-1.17 BUN/Creatinine Ratio 11.5 N 8-20 Calcium 10.0 mg/dL N 8.6-10.3 Total Protein 7.7 g/dL N 6.4-8.9 Albumin 4.7 g/dL N 3.2-5.2 Globulin 3.0 g/dL N 2-4 Albumin/Globulin Ratio 1.6 N 1-3 Total Bilirubin 0.30 mg/dL N 0.2-1.0 Alkaline Phosphatase 46 U/L N 34-104 Alt 6 U/L Low 7-52 Ast 12 U/L Low 13-39 Egfr Non- 82.8 >60 Egfr 100.1 >60 15 Laboratory test 03/31/2018 [facility] Partial 31.2 seconds N 26.0-36.3 finding 101 [facility] [place] [address] PTT [phone] Inr/Protime 03/31/2018 [facility] Inr 0.83 N 0.77-1.[address] [place] [address] [phone] CBC Auto Diff 03/31/2018 [facility] White Blood 5.7 10^3/uL N 3.5-10.[address] [place] [address] [phone] Red Blood Count 4.63 10^6/uL N 4.00-5.40 Hemoglobin 14.8 g/dL N 14.0-18.0 Hematocrit 43 % N 42-52 Mean Corpuscular Volume 92 fL N 80-94 Mean Corpuscular Hemoglobin 32 pg High 27-31 Mean Corpuscular HGB Conc 35 g/dL N 31-36 Red Cell Distribution Width 14 % N 10.5-15 Platelet Count 250 10^3/uL N 150-450 Mean Platelet Volume 7.2 um3 Low 7.4-10.4 Abs Neutrophils 3.0 10^3/uL N 1.5-7.7 Abs Lymphocytes 2.3 10^3/uL N 1.0-4.8 Abs Monocytes 0.4 10^3/uL N 0-0.8 Abs Eosinophils 0 10^3/uL N 0-0.6 Abs Basophils 0 10^3/uL N 0-0.2 Abs Nucleated RBC 0 10^3/uL Granulocyte % 52.6 % N 38-83 Lymphocyte % 39.8 % N 25-47 Monocyte % 6.9 % N 0-7 Eosinophil % 0.2 % N 0-6 Basophil % 0.5 % N 0-2 Nucleated Red Blood Cells % 0.1 CBC Auto Diff 03/24/2018 [facility] White Blood 6.8 10^3/uL N 3.5-10.[address] [place] [address] [phone] Red Blood Count 4.08 10^6/uL N 4.00-5.40 Hemoglobin 13.0 g/dL Low 14.0-18.0 Hematocrit 37 % Low 42-52 Mean Corpuscular Volume 92 fL N 80-94 Mean Corpuscular Hemoglobin 32 pg High 27-31 Mean Corpuscular HGB Conc 35 g/dL N 31-36 Red Cell Distribution Width 13 % N 10.5-15 Platelet Count 185 10^3/uL N 150-450 Mean Platelet Volume 7.7 um3 N 7.4-10.4 Abs Neutrophils 5.4 10^3/uL N 1.5-7.7 Abs Lymphocytes 0.9 10^3/uL Low 1.0-4.8 Abs Monocytes 0.5 10^3/uL N 0-0.8 Abs Eosinophils 0 10^3/uL N 0-0.6 Abs Basophils 0 10^3/uL N 0-0.2 Abs Nucleated RBC 0 10^3/uL Granulocyte % 79.0 % N 38-83 Lymphocyte % 12.8 % Low 25-47 Monocyte % 8.0 % High 0-7 Eosinophil % 0 % N 0-6 Basophil % 0.2 % N 0-2 Nucleated Red Blood Cells % 0 Laboratory test 03/24/2018 [facility] Lactic Acid 1.0 mmol/L N 0.5-2.0 16 finding [address] [place] [address] [phone] Comp Metabolic 03/24/2018 [facility] Sodium 138 mmol/L N 135- 145 Panel [address] [place] [address] [phone] Potassium 4.1 mmol/L N 3.5-5.0 Chloride 106 mmol/L N 101-111 Co2 Carbon Dioxide 27 mmol/L N 22-32 Anion Gap 5 mmol/L N 2-11 Glucose 94 mg/dL N 70-100 Blood Urea Nitrogen 10 mg/dL N 6-24 Creatinine 1.07 mg/dL N 0.67-1.17 BUN/Creatinine Ratio 9.3 N 8-20 Calcium 9.4 mg/dL N 8.6-10.3 Total Protein 7.2 g/dL N 6.4-8.9 Albumin 4.4 g/dL N 3.2-5.2 Globulin 2.8 g/dL N 2-4 Albumin/Globulin Ratio 1.6 N 1-3 Total Bilirubin 0.30 mg/dL N 0.2-1.0 Alkaline Phosphatase 47 U/L N 34-104 Alt 5 U/L Low 7-52 Ast 11 U/L Low 13-39 Egfr Non- 80.1 >60 Egfr 96.9 >60 17 Laboratory test 03/24/2018 [facility] Magnesium 2.0 mg/dL N 1.9-2.[address] [place] [address] [phone] Creatine Kinase(CK) 39 U/L N 10-223 Levetiracetam (Keppra) 89.3 g/mL Abnormal 18 Lamotrigine (Lamictal) 9.5 g/mL 2.5 - 15.0 19 Comp Metabolic Panel 03/19/2018 [facility] Sodium 138 mmol/L N 135-[address] [place] [address] [phone] Potassium 3.9 mmol/L N 3.5-5.0 Chloride 103 mmol/L N 101-111 Co2 Carbon Dioxide 19 mmol/L Low 22-32 Anion Gap 16 mmol/L High 2-11 Glucose 136 mg/dL High 70-100 Blood Urea Nitrogen 9 mg/dL N 6-24 Creatinine 1.25 mg/dL High 0.67-1.17 BUN/Creatinine Ratio 7.2 Low 8-20 Calcium 9.8 mg/dL N 8.6-10.3 Total Protein 8.1 g/dL N 6.4-8.9 Albumin 4.9 g/dL N 3.2-5.2 Globulin 3.2 g/dL N 2-4 Albumin/Globulin Ratio 1.5 N 1-3 Total Bilirubin 0.40 mg/dL N 0.2-1.0 Alkaline Phosphatase 50 U/L N 34-104 Alt 6 U/L Low 7-52 Ast 14 U/L N 13-39 Egfr Non- 66.9 >60 Egfr 81.0 >60 20 CBC Auto Diff 03/19/2018 [facility] White Blood 8.6 10^3/uL N 3.5-10.[address] [place] [address] [phone] Red Blood Count 4.33 10^6/uL N 4.00-5.40 Hemoglobin 13.8 g/dL Low 14.0-18.0 Hematocrit 40 % Low 42-52 Mean Corpuscular Volume 92 fL N 80-94 Mean Corpuscular Hemoglobin 32 pg High 27-31 Mean Corpuscular HGB Conc 34 g/dL N 31-36 Red Cell Distribution Width 13 % N 10.5-15 Platelet Count 225 10^3/uL N 150-450 Mean Platelet Volume 8.0 um3 N 7.4-10.4 Abs Neutrophils 4.9 10^3/uL N 1.5-7.7 Abs Lymphocytes 3.2 10^3/uL N 1.0-4.8 Abs Monocytes 0.5 10^3/uL N 0-0.8 Abs Eosinophils 0 10^3/uL N 0-0.6 Abs Basophils 0 10^3/uL N 0-0.2 Abs Nucleated RBC 0 10^3/uL Granulocyte % 56.6 % N 38-83 Lymphocyte % 37.1 % N 25-47 Monocyte % 5.8 % N 0-7 Eosinophil % 0 % N 0-6 Basophil % 0.5 % N 0-2 Nucleated Red Blood Cells % 0.1 Laboratory 03/19/2018 [facility] Lactic Acid 7.0 mmol/L High 0.5-2.0 21 test finding [address] [place] [address] [phone] Laboratory 01/18/2018 [facility] Lactic Acid 0.9 mmol/L N 0.5- 2.0 22 test finding [address] [place] [address] [phone] Urine Drug SCR 01/18/2018 [facility] Amphetamine Ur None None ED & Pain [address] [place] [address] [phone] Barbiturates Urine Screen None Detected None Detect Benzodiazepine Urine Screen None Detected None Detect Urine Cannabinoids Screen None Detected None Detect Urine Cocaine Screen None Detected None Detect Urine Opiates Screen None Detected None Detect Urine Phencyclidine Screen None Detected None Detect 23 Laboratory test 01/18/2018 [facility] C Reactive 3.38 mg/L N < 5.00 [address] [place] [address] [phone] Comp Metabolic 01/18/2018 [facility] Sodium 138 Low 139-[address] mmol/[place] [address] [phone] Potassium 4.1 mmol/L N 3.5-5.0 Chloride 107 mmol/L N 101-111 Co2 Carbon Dioxide 25 mmol/L N 22-32 Anion Gap 6 mmol/L N 2-11 Glucose 93 mg/dL N 70-100 Blood Urea Nitrogen 18 mg/dL N 6-24 Creatinine 1.37 mg/dL High 0.67-1.17 BUN/Creatinine Ratio 13.1 N 8-20 Calcium 9.9 mg/dL N 8.6-10.3 Total Protein 8.1 g/dL N 6.4-8.9 Albumin 4.8 g/dL N 3.2-5.2 Globulin 3.3 g/dL N 2-4 Albumin/Globulin Ratio 1.5 N 1-3 Total Bilirubin 0.40 mg/dL N 0.2-1.0 Alkaline Phosphatase 52 U/L N 34-104 Alt 6 U/L Low 7-52 Ast 13 U/L N 13-39 Egfr Non- 60.2 >60 Egfr 77.4 >60 25 CBC Auto Diff 01/18/2018 [facility] White Blood 9.9 10^3/uL N 3.5-10.[address] [place] [address] [phone] Red Blood Count 4.72 10^6/uL N 4.0-5.4 Hemoglobin 15.2 g/dL N 14.0-18.0 Hematocrit 43 % N 42-52 Mean Corpuscular Volume 91 fL N 80-94 Mean Corpuscular Hemoglobin 32 pg High 27-31 Mean Corpuscular HGB Conc 35 g/dL N 31-36 Red Cell Distribution Width 13 % N 10.5-15 Platelet Count 210 10^3/uL N 150-450 Mean Platelet Volume 7.7 um3 N 7.4-10.4 Abs Neutrophils 7.2 10^3/uL N 1.5-7.7 Abs Lymphocytes 1.9 10^3/uL N 1.0-4.8 Abs Monocytes 0.7 10^3/uL N 0-0.8 Abs Eosinophils 0 10^3/uL N 0-0.6 Abs Basophils 0 10^3/uL N 0-0.2 Abs Nucleated RBC 0 10^3/uL Granulocyte % 72.7 % N 38-83 Lymphocyte % 19.7 % Low 25-47 Monocyte % 7.2 % High 0-7 Eosinophil % 0.1 % N 0-6 Basophil % 0.3 % N 0-2 Nucleated Red Blood Cells % 0 Urine Drug 12/15/2017 [facility] Amphetamine Ur None Detected None Detect SCR ED & [address] [place] [address] [phone] Barbiturates Urine Screen None Detected None Detect Benzodiazepine Urine Screen None Detected None Detect Urine Cannabinoids Screen None Detected None Detect Urine Cocaine Screen None Detected None Detect Urine Opiates Screen None Detected None Detect Urine Phencyclidine Screen None Detected None Detect 26 Urinalysis Profile 12/15/2017 [facility] Urine Color Yellow [address] [place] [address] [phone] Urine Appearance Clear Urine Specific [place] 1.027 N 1.010-1.030 Urine pH 5.0 N 5-9 Urine Urobilinogen Negative Negative Urine Ketones Trace Abnormal Negative Urine Protein 1+(30 mg/dL) Abnormal Negative Urine Leukocytes Negative Negative Urine Blood Negative Negative * * Abnormal Negative 27 Urine Nitrite Negative Negative Urine Bilirubin Negative Negative Urine Glucose Negative Negative Urine White Blood Cell Absent Absent Urine Red Blood Cell Trace(0-2/hpf) Absent Urine Bacteria Absent Absent Inr/Protime 12/15/2017 [facility] Inr 0.82 N 0.77-1.02 [address] [place] [address] [phone] Comp Metabolic Panel 12/15/2017 [facility] Sodium 139 mmol/L N 139-145 [address] [place] [address] [phone] Potassium 3.1 mmol/L Low 3.5-5.0 Chloride 99 mmol/L Low 101-111 Glucose 130 mg/dL High 70-100 Blood Urea Nitrogen 14 mg/dL N 6-24 Creatinine 1.47 mg/dL High 0.67-1.17 BUN/Creatinine Ratio 9.5 N 8-20 Calcium 9.8 mg/dL N 8.6-10.3 Total Protein 8.5 g/dL N 6.4-8.9 Albumin 5.3 g/dL High 3.2-5.2 Globulin 3.2 g/dL N 2-4 Albumin/Globulin Ratio 1.7 N 1-3 Total Bilirubin 0.40 mg/dL N 0.2-1.0 Alkaline Phosphatase 56 U/L N 34-104 Alt 10 U/L N 7-52 Ast 17 U/L N 13-39 Egfr Non- 55.5 >60 Egfr 71.4 >60 28 Co2 Carbon Dioxide 14 mmol/L Low 22-32 29 Anion Gap 26 mmol/L High 2-11 Laboratory test 12/15/2017 [facility] Magnesium 2.1 mg/dL N 1.9-2.[address] [place] [address] [phone] Creatine Kinase(CK) 51 U/L N 10-223 Lactic Acid 15.5 mmol/L High 0.5-2.0 30 CBC Auto 12/15/2017 [facility] White Blood 12.6 10^3/uL High 3.5-10.[address] [place] [address] [phone] Red Blood Count 4.84 10^6/uL N 4.0-5.4 Hemoglobin 15.3 g/dL N 14.0-18.0 Hematocrit 46 % N 42-52 Mean Corpuscular Volume 95 fL High 80-94 Mean Corpuscular Hemoglobin 32 pg High 27-31 Mean Corpuscular HGB Conc 33 g/dL N 31-36 Red Cell Distribution Width 14 % N 10.5-15 Platelet Count 253 10^3/uL N 150-450 Mean Platelet Volume 7.8 um3 N 7.4-10.4 Abs Neutrophils 3.8 10^3/uL N 1.5-7.7 Abs Lymphocytes 7.4 10^3/uL High 1.0-4.8 Abs Monocytes 1.1 10^3/uL High 0-0.8 Abs Eosinophils 0 10^3/uL N 0-0.6 Abs Basophils 0 10^3/uL N 0-0.2 Abs Nucleated RBC 0 10^3/uL Granulocyte % 30.9 % Low 38-83 Lymphocyte % 59.9 % High 25-47 Monocyte % 8.8 % High 0-7 Eosinophil % 0.1 % N 0-6 Basophil % 0.3 % N 0-2 Nucleated Red Blood Cells % 0 Laboratory test 12/15/2017 [facility] Pathologist (SEE NOTE) [address] [place] [address] [phone] CBC Auto Diff 11/22/2017 [facility] White Blood Count 7.1 10^3/ uL N 3.5-[address] 0.8 [place] [address] [phone] Red Blood Count 4.77 10^6/uL N 4.0-5.4 Hemoglobin 15.2 g/dL N 14.0-18.0 Hematocrit 44 % N 42-52 Mean Corpuscular Volume 92 fL N 80-94 Mean Corpuscular Hemoglobin 32 pg High 27-31 Mean Corpuscular HGB Conc 35 g/dL N 31-36 Red Cell Distribution Width 14 % N 10.5-15 Platelet Count 210 10^3/uL N 150-450 Mean Platelet Volume 7.9 um3 N 7.4-10.4 Abs Neutrophils 5.0 10^3/uL N 1.5-7.7 Abs Lymphocytes 1.7 10^3/uL N 1.0-4.8 Abs Monocytes 0.4 10^3/uL N 0-0.8 Abs Eosinophils 0 10^3/uL N 0-0.6 Abs Basophils 0 10^3/uL N 0-0.2 Abs Nucleated RBC 0 10^3/uL Granulocyte % 70.5 % N 38-83 Lymphocyte % 23.3 % Low 25-47 Monocyte % 6.1 % N 0-7 Eosinophil % 0 % N 0-6 Basophil % 0.1 % N 0-2 Nucleated Red Blood Cells % 0.1 Comp Metabolic Panel 11/22/2017 [facility] Sodium 136 mmol/L N 133-[address] [place] [address] [phone] Potassium 4.0 mmol/L N 3.5-5.0 Chloride 103 mmol/L N 101-111 Co2 Carbon Dioxide 29 mmol/L N 22-32 Anion Gap 4 mmol/L N 2-11 Glucose 107 mg/dL High 70-100 Blood Urea Nitrogen 8 mg/dL N 6-24 Creatinine 1.10 mg/dL N 0.67-1.17 BUN/Creatinine Ratio 7.3 Low 8-20 Calcium 10.1 mg/dL N 8.6-10.3 Total Protein 8.3 g/dL N 6.4-8.9 Albumin 5.0 g/dL N 3.2-5.2 Globulin 3.3 g/dL N 2-4 Albumin/Globulin Ratio 1.5 N 1-3 Total Bilirubin 0.40 mg/dL N 0.2-1.0 Alkaline Phosphatase 41 U/L N 34-104 Alt 5 U/L Low 7-52 Ast 14 U/L N 13-39 Egfr Non- 77.6 >60 Egfr 99.8 >60 32 Laboratory test 11/22/2017 [facility] C Reactive < 1.00 N < 5.00 33 finding 101 [facility] Protein mg/[place] [address] [phone] Acetaminophen < 15 g/mL 34 Alcohol < 10 mg/dL N <10 Laboratory test 11/19/2017 [facility] Magnesium 2.1 mg/dL N 1.9-2.7 finding [address] [place] [address] [phone] Creatine Kinase(CK) 46 U/L N 10-223 C Reactive Protein < 1.00 mg/L N < 5.00 35 Alcohol < 10 mg/dL N <10 TSH (Thyroid Stim Horm) 2.55 mcIU/mL N 0.34-5.60 Levetiracetam (Keppra) 81.3 g/mL Abnormal 36 Lamotrigine (Lamictal) 9.0 g/mL 2.5 - 15.0 37 Comp Metabolic Panel 11/19/2017 [facility] Sodium 138 mmol/L N 133-145 [address] [place] [address] [phone] Potassium 4.0 mmol/L N 3.5-5.0 Chloride 107 mmol/L N 101-111 Co2 Carbon Dioxide 25 mmol/L N 22-32 Anion Gap 6 mmol/L N 2-11 Glucose 72 mg/dL N 70-100 Blood Urea Nitrogen 12 mg/dL N 6-24 Creatinine 1.16 mg/dL N 0.67-1.17 BUN/Creatinine Ratio 10.3 N 8-20 Calcium 9.2 mg/dL N 8.6-10.3 Total Protein 7.0 g/dL N 6.4-8.9 Albumin 4.3 g/dL N 3.2-5.2 Globulin 2.7 g/dL N 2-4 Albumin/Globulin Ratio 1.6 N 1-3 Total Bilirubin 0.20 mg/dL N 0.2-1.0 Alkaline Phosphatase 39 U/L N 34-104 Alt 6 U/L Low 7-52 Ast 14 U/L N 13-39 Egfr Non- 73.0 >60 Egfr 93.8 >60 38 Laboratory test 11/19/2017 [facility] Lactic Acid 2.3 mmol/L High 0.5-2.0 [address] [place] [address] [phone] CBC Auto Diff 11/19/2017 [facility] White Blood 10.4 N 3.5- 10.[address] Count 10^3/[place] [address] [phone] Red Blood Count 4.50 10^6/uL N 4.0-5.4 Hemoglobin 14.1 g/dL N 14.0-18.0 Hematocrit 41 % Low 42-52 Mean Corpuscular Volume 91 fL N 80-94 Mean Corpuscular Hemoglobin 31 pg N 27-31 Mean Corpuscular HGB Conc 34 g/dL N 31-36 Red Cell Distribution Width 14 % N 10.5-15 Platelet Count 188 10^3/uL N 150-450 Mean Platelet Volume 7.5 um3 N 7.4-10.4 Abs Neutrophils 8.8 10^3/uL High 1.5-7.7 Abs Lymphocytes 0.8 10^3/uL Low 1.0-4.8 Abs Monocytes 0.8 10^3/uL N 0-0.8 Abs Eosinophils 0 10^3/uL N 0-0.6 Abs Basophils 0 10^3/uL N 0-0.2 Abs Nucleated RBC 0 10^3/uL Granulocyte % 84.4 % High 38-83 Lymphocyte % 7.5 % Low 25-47 Monocyte % 8.0 % High 0-7 Eosinophil % 0 % N 0-6 Basophil % 0.1 % N 0-2 Nucleated Red Blood Cells % 0 Laboratory 11/19/2017 [facility] Partial Thrombo 29.1 N 26.0- 36.3 test finding [address] [place] [place] [address] [phone] Inr/Protime 11/19/2017 [facility] Inr 0.88 N 0.77-1.[address] [place] [address] [phone] Urine Drug SCR 11/05/2017 [facility] Amphetamine Ur None None Detect ED & Pain [address] [place] [address] [phone] Barbiturates Urine Screen None Detected None Detect Benzodiazepine Urine Screen None Detected None Detect Urine Cannabinoids Screen None Detected None Detect Urine Cocaine Screen None Detected None Detect Urine Opiates Screen None Detected None Detect Urine Phencyclidine Screen None Detected None Detect 40 CBC Auto Diff 11/05/2017 [facility] White Blood 3.7 10^3/uL N 3.5-10.[address] [place] [address] [phone] Red Blood Count 4.65 10^6/uL N 4.0-5.4 Hemoglobin 14.8 g/dL N 14.0-18.0 Hematocrit 43 % N 42-52 Mean Corpuscular Volume 92 fL N 80-94 Mean Corpuscular Hemoglobin 32 pg High 27-31 Mean Corpuscular HGB Conc 35 g/dL N 31-36 Red Cell Distribution Width 14 % N 10.5-15 Platelet Count 180 10^3/uL N 150-450 Mean Platelet Volume 8 um3 N 7.4-10.4 Abs Neutrophils 1.9 10^3/uL N 1.5-7.7 Abs Lymphocytes 1.4 10^3/uL N 1.0-4.8 Abs Monocytes 0.3 10^3/uL N 0-0.8 Abs Eosinophils 0 10^3/uL N 0-0.6 Abs Basophils 0 10^3/uL N 0-0.2 Abs Nucleated RBC 0 10^3/uL Granulocyte % 52.7 % N 38-83 Lymphocyte % 37.7 % N 25-47 Monocyte % 9.0 % High 0-7 Eosinophil % 0 % N 0-6 Basophil % 0.6 % N 0-2 Nucleated Red Blood Cells % 0 Comp Metabolic Panel 11/05/2017 [facility] Sodium 136 mmol/L N 133-[address] [place] [address] [phone] Potassium 3.9 mmol/L N 3.5-5.0 Chloride 105 mmol/L N 101-111 Co2 Carbon Dioxide 27 mmol/L N 22-32 Anion Gap 4 mmol/L N 2-11 Glucose 95 mg/dL N 70-100 Blood Urea Nitrogen 12 mg/dL N 6-24 Creatinine 1.15 mg/dL N 0.67-1.17 BUN/Creatinine Ratio 10.4 N 8-20 Calcium 9.7 mg/dL N 8.6-10.3 Total Protein 7.7 g/dL N 6.4-8.9 Albumin 4.7 g/dL N 3.2-5.2 Globulin 3.0 g/dL N 2-4 Albumin/Globulin Ratio 1.6 N 1-3 Total Bilirubin 0.30 mg/dL N 0.2-1.0 Alkaline Phosphatase 42 U/L N 34-104 Alt 6 U/L Low 7-52 Ast 12 U/L Low 13-39 Egfr Non- 74.2 >60 Egfr 95.4 >60 41 Comp Metabolic Panel 10/12/2017 [facility] Sodium 139 mmol/L N 133-[address] [place] [address] [phone] Potassium 4.7 mmol/L N 3.5-5.0 Chloride 103 mmol/L N 101-111 Co2 Carbon Dioxide 27 mmol/L N 22-32 Anion Gap 9 mmol/L N 2-11 Glucose 95 mg/dL N 70-100 Blood Urea Nitrogen 12 mg/dL N 6-24 Creatinine 1.24 mg/dL High 0.67-1.17 BUN/Creatinine Ratio 9.7 N 8-20 Calcium 10.4 mg/dL High 8.6-10.3 Total Protein 8.5 g/dL N 6.4-8.9 Albumin 5.3 g/dL High 3.2-5.2 Globulin 3.2 g/dL N 2-4 Albumin/Globulin Ratio 1.7 N 1-3 Total Bilirubin 0.40 mg/dL N 0.2-1.0 Alkaline Phosphatase 42 U/L N 34-104 Alt 7 U/L N 7-52 Ast 16 U/L N 13-39 Egfr Non- 68.0 >60 Egfr 87.4 >60 42 Laboratory test 10/12/2017 [facility] Magnesium 2.5 mg/dL N 1.9-2.[address] [place] [address] [phone] Creatine Kinase(CK) 84 U/L N 10-223 CBC Auto Diff 10/12/2017 [facility] White Blood 10.8 10^3/uL N 3.5-10.[address] [place] [address] [phone] Red Blood Count 4.85 10^6/uL N 4.0-5.4 Hemoglobin 15.5 g/dL N 14.0-18.0 Hematocrit 44 % N 42-52 Mean Corpuscular Volume 91 fL N 80-94 Mean Corpuscular Hemoglobin 32 pg High 27-31 Mean Corpuscular HGB Conc 35 g/dL N 31-36 Red Cell Distribution Width 14 % N 10.5-15 Platelet Count 224 10^3/uL N 150-450 Mean Platelet Volume 8 um3 N 7.4-10.4 Abs Neutrophils 9.5 10^3/uL High 1.5-7.7 Abs Lymphocytes 0.7 10^3/uL Low 1.0-4.8 Abs Monocytes 0.6 10^3/uL N 0-0.8 Abs Eosinophils 0 10^3/uL N 0-0.6 Abs Basophils 0 10^3/uL N 0-0.2 Abs Nucleated RBC 0.1 10^3/uL Granulocyte % 87.8 % High 38-83 Lymphocyte % 6.2 % Low 25-47 Monocyte % 5.9 % N 1-9 Eosinophil % 0 % N 0-6 Basophil % 0.1 % N 0-2 Nucleated Red Blood Cells % 0.5 Laboratory test 10/12/2017 [facility] Levetiracetam 86.5 Abnormal [address] (Keppra) g/[place] [address] [phone] Lamotrigine (Lamictal) 5.7 g/mL 2.5 - 15.0 44 Urinalysis Profile 07/05/2017 [facility] Urine Color Yellow N [address] [place] [address] [phone] Urine Appearance Clear N Urine Specific [place] 1.019 N 1.010-1.030 Urine pH 6.0 N 5-9 Urine Urobilinogen Negative N Negative Urine Ketones Negative N Negative Urine Protein Negative N Negative Urine Leukocytes Negative N Negative Urine Blood 1+ Abnormal Negative Urine Nitrite Negative N Negative Urine Bilirubin Negative N Negative Urine Glucose Negative N Negative Urine White Blood Cell Trace(0-5/hpf) N Absent Urine Red Blood Cell Trace(0-2/hpf) N Absent Urine Bacteria Absent N Absent Urine Squamous Epithelial Cell Present Abnormal Absent Urine Drug 07/05/2017 [facility] Amphetamine Ur None Detected N None Detect SCR ED & [address] [place] [address] [phone] Barbiturates Urine Screen None Detected N None Detect Benzodiazepine Urine Screen Presumptive Posi <SEE NOTE> Abnormal None Detect 45 Urine Cannabinoids Screen None Detected N None Detect Urine Cocaine Screen None Detected N None Detect Urine Opiates Screen None Detected N None Detect Urine Phencyclidine Screen None Detected N None Detect 46 Laboratory test 07/05/2017 [facility] Creatine 24 U/L N 10- [address] Kinase(CK) [place] [address] [phone] Acetaminophen < 15 g/mL N 47 Alcohol < 10 mg/dL N <10 Salicylate < 2.50 mg/dL N <30 TSH (Thyroid Stim Horm) 0.80 mcIU/mL N 0.34-5.60 Levetiracetam (Keppra) 75.1 g/mL Abnormal 48 Lamotrigine (Lamictal) 6.7 g/mL N 2.5 - 15.0 49 Comp Metabolic Panel 07/05/2017 [facility] Sodium 138 mmol/L N 133-[address] [place] [address] [phone] Potassium 3.8 mmol/L N 3.5-5.0 Chloride 106 mmol/L N 101-111 Co2 Carbon Dioxide 27 mmol/L N 22-32 Anion Gap 5 mmol/L N 2-11 Glucose 95 mg/dL N 70-100 Blood Urea Nitrogen 11 mg/dL N 6-24 Creatinine 1.16 mg/dL N 0.67-1.17 BUN/Creatinine Ratio 9.5 N 8-20 Calcium 10.1 mg/dL N 8.6-10.3 Total Protein 8.2 g/dL N 6.4-8.9 Albumin 4.6 g/dL N 3.2-5.2 Globulin 3.6 g/dL N 2-4 Albumin/Globulin Ratio 1.3 N 1-3 Total Bilirubin 0.40 mg/dL N 0.2-1.0 Alkaline Phosphatase 41 U/L N 34-104 Alt 6 U/L Low 7-52 Ast 12 U/L Low 13-39 Egfr Non- 73.4 N >60 Egfr 94.4 N >60 50 Laboratory test 07/05/2017 [facility] Lactic Acid 1.1 mmol/L N 0.5-2.0 [address] [place] [address] [phone] CBC Auto Diff 07/05/2017 [facility] White Blood 5.3 10^3/uL N 3.5-10.[address] [place] [address] [phone] Red Blood Count 4.85 10^6/uL N 4.0-5.4 Hemoglobin 15.5 g/dL N 14.0-18.0 Hematocrit 44 % N 42-52 Mean Corpuscular Volume 91 fL N 80-94 Mean Corpuscular Hemoglobin 32 pg High 27-31 Mean Corpuscular HGB Conc 35 g/dL N 31-36 Red Cell Distribution Width 13 % N 10.5-15 Platelet Count 187 10^3/uL N 150-450 Mean Platelet Volume 8 um3 N 7.4-10.4 Abs Neutrophils 3.2 10^3/uL N 1.5-7.7 Abs Lymphocytes 1.7 10^3/uL N 1.0-4.8 Abs Monocytes 0.4 10^3/uL N 0-0.8 Abs Eosinophils 0 10^3/uL N 0-0.6 Abs Basophils 0 10^3/uL N 0-0.2 Abs Nucleated RBC 0.01 10^3/uL N Granulocyte % 60.7 % N 38-83 Lymphocyte % 31.4 % N 25-47 Monocyte % 7.6 % N 1-9 Eosinophil % 0.1 % N 0-6 Basophil % 0.2 % N 0-2 Nucleated Red Blood Cells % 0.2 N CBC No Diff 03/27/2017 [facility] White Blood 7.0 10^3/uL N 3.5-10.[address] [place] [address] [phone] Red Blood Count 5.21 10^6/uL N 4.0-5.4 Hemoglobin 16.2 g/dL N 14.0-18.0 Hematocrit 48 % N 42-52 Mean Corpuscular Volume 92 fL N 80-94 Mean Corpuscular Hemoglobin 31 pg N 27-31 Mean Corpuscular HGB Conc 34 g/dL N 31-36 Red Cell Distribution Width 13 % N 10.5-15 Platelet Count 194 10^3/uL N 150-450 Mean Platelet Volume 8 um3 N 7.4-10.4 Comp Metabolic Panel 03/27/2017 [facility] Sodium 139 mmol/L N 133-145 [address] [place] [address] [phone] Potassium 3.9 mmol/L N 3.5-5.0 Chloride 106 mmol/L N 101-111 Co2 Carbon Dioxide 27 mmol/L N 22-32 Anion Gap 6 mmol/L N 2-11 Glucose 95 mg/dL N 70-100 Blood Urea Nitrogen 9 mg/dL N 6-24 Creatinine 1.14 mg/dL N 0.67-1.17 BUN/Creatinine Ratio 7.9 Low 8-20 Calcium 10.2 mg/dL N 8.6-10.3 Total Protein 8.6 g/dL N 6.4-8.9 Albumin 5.2 g/dL N 3.2-5.2 Globulin 3.4 g/dL N 2-4 Albumin/Globulin Ratio 1.5 N 1-3 Total Bilirubin 0.90 mg/dL N 0.2-1.0 Alkaline Phosphatase 40 U/L N 34-104 Alt 8 U/L N 7-52 Ast 14 U/L N 13-39 Egfr Non- 74.9 N >60 Egfr 96.4 N >60 52 Laboratory test 03/27/2017 [facility] Magnesium 2.1 mg/dL N 1.9-2.7 finding [address] [place] [address] [phone] TSH (Thyroid Stim Horm) 1.80 mcIU/mL N 0.34-5.60 Free T4 (Free Thyroxine) 1.07 ng/dL N 0.61-1.12 Lamotrigine (Lamictal) 4.4 g/mL N 2.5 - 15.0 53 Levetiracetam (Keppra) 58.1 g/mL Abnormal 54 Laboratory test 03/22/2017 [facility] Lamotrigine 3.4 g/mL N 2.5 - 55 finding 101 [facility] (Lamictal) 15.0 [place] [address] [phone] Levetiracetam (Keppra) 82.9 g/mL Abnormal 56 Urinalysis Profile 03/22/2017 [facility] Urine Color Yellow N [address] [place] [address] [phone] Urine Appearance Cloudy N Urine Specific [place] 1.015 N 1.010-1.030 Urine pH 5.0 N 5-9 Urine Urobilinogen Negative N Negative Urine Ketones Trace Abnormal Negative Urine Protein Negative N Negative Urine Leukocytes Negative N Negative Urine Blood 1+ Abnormal Negative Urine Nitrite Negative N Negative Urine Bilirubin Negative N Negative Urine Glucose Negative N Negative Urine White Blood Cell Trace(0-5/hpf) N Absent Urine Red Blood Cell Trace(0-2/hpf) N Absent Urine Bacteria Absent N Absent Laboratory test 03/22/2017 [facility] Magnesium 2.5 mg/dL N 1.9-2.7 finding [address] [place] [address] [phone] Alcohol < 10 mg/dL N <10 TSH (Thyroid Stim Horm) 1.15 mcIU/mL N 0.34-5.60 Comp Metabolic Panel 03/22/2017 [facility] Sodium 139 mmol/L N 133-145 [address] [place] [address] [phone] Potassium 4.2 mmol/L N 3.5-5.0 Chloride 106 mmol/L N 101-111 Co2 Carbon Dioxide 22 mmol/L N 22-32 Anion Gap 11 mmol/L N 2-11 Glucose 91 mg/dL N 70-100 Blood Urea Nitrogen 13 mg/dL N 6-24 Creatinine 1.26 mg/dL High 0.67-1.17 BUN/Creatinine Ratio 10.3 N 8-20 Calcium 9.7 mg/dL N 8.6-10.3 Total Protein 8.4 g/dL N 6.4-8.9 Albumin 5.1 g/dL N 3.2-5.2 Globulin 3.3 g/dL N 2-4 Albumin/Globulin Ratio 1.5 N 1-3 Total Bilirubin 0.40 mg/dL N 0.2-1.0 Alkaline Phosphatase 47 U/L N 34-104 Alt 9 U/L N 7-52 Ast 19 U/L N 13-39 Egfr Non- 66.8 N >60 Egfr 85.8 N >60 57 Laboratory 03/22/2017 [facility] Lactic Acid 2.1 mmol/L High 0.5-2.0 58 test finding [address] [place] [address] [phone] Urine Drug SCR 03/22/2017 [facility] Amphetamine Ur None N None ED & Pain [address] [place] [address] [phone] Barbiturates Urine Screen None Detected N None Detect Benzodiazepine Urine Screen None Detected N None Detect Urine Cannabinoids Screen None Detected N None Detect Urine Cocaine Screen None Detected N None Detect Urine Opiates Screen None Detected N None Detect Urine Phencyclidine Screen None Detected N None Detect 59 CBC Auto 03/22/2017 [facility] White Blood 15.1 10^3/uL High 3.5-10.[address] [place] [address] [phone] Red Blood Count 4.69 10^6/uL N 4.0-5.4 Hemoglobin 14.5 g/dL N 14.0-18.0 Hematocrit 43 % N 42-52 Mean Corpuscular Volume 92 fL N 80-94 Mean Corpuscular Hemoglobin 31 pg N 27-31 Mean Corpuscular HGB Conc 34 g/dL N 31-36 Red Cell Distribution Width 13 % N 10.5-15 Platelet Count 198 10^3/uL N 150-450 Mean Platelet Volume 8 um3 N 7.4-10.4 Abs Neutrophils 13.3 10^3/uL High 1.5-7.7 Abs Lymphocytes 1.0 10^3/uL N 1.0-4.8 Abs Monocytes 0.9 10^3/uL High 0-0.8 Abs Eosinophils 0 10^3/uL N 0-0.6 Abs Basophils 0 10^3/uL N 0-0.2 Abs Nucleated RBC 0.05 10^3/uL N Granulocyte % 87.6 % High 38-83 Lymphocyte % 6.4 % Low 25-47 Monocyte % 5.9 % N 1-9 Eosinophil % 0 % N 0-6 Basophil % 0.1 % N 0-2 Nucleated Red Blood Cells % 0.4 N Inr/Protime 03/22/2017 [facility] Inr 0.90 N 0.89-1.[address] [place] [address] [phone] Laboratory test 12/22/2016 [facility] Lactic Acid 1.1 mmol/L N 0.5-2.0 [address] [place] [address] [phone] Comp Metabolic 12/22/2016 [facility] Sodium 136 mmol/L N 133- [address] [place] [address] [phone] Potassium 3.9 mmol/L N 3.5-5.0 Chloride 104 mmol/L N 101-111 Co2 Carbon Dioxide 25 mmol/L N 22-32 Anion Gap 7 mmol/L N 2-11 Glucose 103 mg/dL High 70-100 Blood Urea Nitrogen 13 mg/dL N 6-24 Creatinine 1.14 mg/dL N 0.67-1.17 BUN/Creatinine Ratio 11.4 N 8-20 Calcium 9.0 mg/dL N 8.6-10.3 Total Protein 7.5 g/dL N 6.4-8.9 Albumin 4.3 g/dL N 3.2-5.2 Globulin 3.2 g/dL N 2-4 Albumin/Globulin Ratio 1.3 N 1-3 Total Bilirubin 0.30 mg/dL N 0.2-1.0 Alkaline Phosphatase 41 U/L N 34-104 Alt 22 U/L N 7-52 Ast 21 U/L N 13-39 Egfr Non- 74.9 N >60 Egfr 96.4 N >60 61 Laboratory test 12/22/2016 [facility] Magnesium 2.2 mg/dL N 1.9-2.[address] [place] [address] [phone] Creatine Kinase(CK) 104 U/L N 10-223 Inr/Protime 12/22/2016 [facility] Inr 1.02 N 0.89-1.[address] [place] [address] [phone] CBC Auto Diff 12/22/2016 [facility] White Blood 10.6 N 3.5- 10.[address] Count 10^3/[place] [address] [phone] Red Blood Count 4.22 10^6/uL N 4.0-5.4 Hemoglobin 12.8 g/dL Low 14.0-18.0 Hematocrit 38 % Low 42-52 Mean Corpuscular Volume 89 fL N 80-94 Mean Corpuscular Hemoglobin 30 pg N 27-31 Mean Corpuscular HGB Conc 34 g/dL N 31-36 Red Cell Distribution Width 14 % N 10.5-15 Platelet Count 169 10^3/uL N 150-450 Mean Platelet Volume 8 um3 N 7.4-10.4 Abs Neutrophils 9.3 10^3/uL High 1.5-7.7 Abs Lymphocytes 0.7 10^3/uL Low 1.0-4.8 Abs Monocytes 0.6 10^3/uL N 0-0.8 Abs Eosinophils 0 10^3/uL N 0-0.6 Abs Basophils 0 10^3/uL N 0-0.2 Abs Nucleated RBC 0.01 10^3/uL N Granulocyte % 88.2 % High 38-83 Lymphocyte % 6.3 % Low 25-47 Monocyte % 5.4 % N 1-9 Eosinophil % 0 % N 0-6 Basophil % 0.1 % N 0-2 Nucleated Red Blood Cells % 0.1 N Laboratory test 12/22/2016 [facility] Levetiracetam 91.7 Abnormal [address] (Keppra) g/[place] [address] [phone] Lamotrigine (Lamictal) 3.6 g/mL N 2.5 - 15.0 63 Laboratory test 09/29/2016 [facility] Levetiracetam 92.8 Abnormal [address] (Keppra) g/[place] [address] [phone] Lamotrigine (Lamictal) 5.6 g/mL N 2.5 - 15.0 65 Comp Metabolic Panel 09/29/2016 [facility] Sodium 133 mmol/L N 133-[address] [place] [address] [phone] Potassium 4.1 mmol/L N 3.5-5.0 Chloride 98 mmol/L Low 101-111 Co2 Carbon Dioxide 27 mmol/L N 22-32 Anion Gap 8 mmol/L N 2-11 Glucose 87 mg/dL N 70-100 Blood Urea Nitrogen 10 mg/dL N 6-24 Creatinine 1.12 mg/dL N 0.67-1.17 BUN/Creatinine Ratio 8.9 N 8-20 Calcium 9.8 mg/dL N 8.6-10.3 Total Protein 8.3 g/dL N 6.4-8.9 Albumin 5.0 g/dL N 3.2-5.2 Globulin 3.3 g/dL N 2-4 Albumin/Globulin Ratio 1.5 N 1-3 Total Bilirubin 0.70 mg/dL N 0.2-1.0 Alkaline Phosphatase 42 U/L N 34-104 Alt 7 U/L N 7-52 Ast 24 U/L N 13-39 Egfr Non- 77.0 N >60 Egfr 99.0 N >60 66 Laboratory test 03/09/2016 [facility] Levetiracetam 85.5 Abnormal [address] (Keppra) g/[place] [address] [phone] Lamotrigine (Lamictal) 3.7 g/mL N 2.5 - 15.0 68 Urinalysis Profile 03/09/2016 [facility] Urine Color Yellow N [address] [place] [address] [phone] Urine Appearance Clear N Urine Specific [place] 1.014 N 1.010-1.030 Urine pH 6.0 N 5-9 Urine Urobilinogen Negative N Negative Urine Ketones Negative N Negative Urine Protein Negative N Negative Urine Leukocytes Negative N Negative Urine Blood 1+ Abnormal Negative Urine Nitrite Negative N Negative Urine Bilirubin Negative N Negative Urine Glucose Negative N Negative Urine White Blood Cell Trace(0-5/hpf) N Absent Urine Red Blood Cell Trace(0-2/hpf) N Absent Urine Bacteria Absent N Absent Laboratory test 03/09/2016 [facility] Creatine 328 U/L High 10 -[address] Kinase(CK) [place] [address] [phone] Comp Metabolic 03/09/2016 [facility] Sodium 135 N 133-[address] mmol/[place] [address] [phone] Potassium 3.2 mmol/L Low 3.5-5.0 Chloride 102 mmol/L N 101-111 Co2 Carbon Dioxide 23 mmol/L N 22-32 Anion Gap 10 mmol/L N 2-11 Glucose 112 mg/dL High 70-100 Blood Urea Nitrogen 9 mg/dL N 6-24 Creatinine 0.93 mg/dL N 0.67-1.17 BUN/Creatinine Ratio 9.7 N 8-20 Calcium 9.4 mg/dL N 8.6-10.3 Total Protein 7.3 g/dL N 6.4-8.9 Albumin 4.1 g/dL N 3.2-5.2 Globulin 3.2 g/dL N 2-4 Albumin/Globulin Ratio 1.3 N 1-3 Total Bilirubin 0.30 mg/dL N 0.2-1.0 Alkaline Phosphatase 44 U/L N 34-104 Alt 7 U/L N 7-52 Ast 15 U/L N 13-39 Egfr Non- 95.4 N >60 Egfr 122.7 N >60 69 CBC Auto 03/09/2016 [facility] White Blood 11.7 10^3/uL High 3.5-10.[address] [place] [address] [phone] Red Blood Count 4.20 10^6/uL N 4.0-5.4 Hemoglobin 12.9 g/dL Low 14.0-18.0 Hematocrit 37 % Low 42-52 Mean Corpuscular Volume 87 fL N 80-94 Mean Corpuscular Hemoglobin 31 pg N 27-31 Mean Corpuscular HGB Conc 35 g/dL N 31-36 Red Cell Distribution Width 12 % N 10.5-15 Platelet Count 206 10^3/uL N 150-450 Mean Platelet Volume 8 um3 N 7.4-10.4 Abs Neutrophils 9.6 10^3/uL High 1.5-7.7 Abs Lymphocytes 1.0 10^3/uL N 1.0-4.8 Abs Monocytes 1.0 10^3/uL High 0-0.8 Abs Eosinophils 0 10^3/uL N 0-0.6 Abs Basophils 0 10^3/uL N 0-0.2 Abs Nucleated RBC 0.01 10^3/uL N Granulocyte % 82.5 % N 38-83 Lymphocyte % 8.7 % Low 25-47 Monocyte % 8.6 % N 1-9 Eosinophil % 0 % N 0-6 Basophil % 0.2 % N 0-2 Nucleated Red Blood Cells % 0.1 N 1 Warning: A positive result is not useful for establishing a diagnosis of syphilis. In most situations, such a result may reflect a prior treated infection; a negative result can exclude a diagnosis of syphilis except for incubating or early primary disease. 2 The urine specimen was tested at the listed cutoffs: Drug class test level (ng/mL) Amphetamines 500 Barbiturates 200 Benzodiazepine metabolites 200 Cocaine metabolites 150 Cannabinoids 50 Opiates 300 Pcp 25 Specimen was received without chain of custody. Results should be used for medical purposes only. 3 REFERENCE VALUE 12.0 - 46.0 ADDITIONAL INFORMATION This test was developed and its performance characteristics determined by [facility] in a manner consistent with CLIA requirements. This test has not been cleared or approved by the U.S. Food and Drug Administration. Test Performed by: [facility] [address] [place] [address] 4 ADDITIONAL INFORMATION This test was developed and its performance characteristics determined by [facility] in a manner consistent with CLIA requirements. This test has not been cleared or approved by the U.S. Food and Drug Administration. Test Performed by: [facility] [place] [address] 5 [facility] Severe Sepsis and Septic Shock Management Bundle Measure requires all lactic acids initially measuring >2.0 mmol/L be repeated. 6 Because ethnic data is not always readily [...] 15-29 5 Kidney failure <15 (or dialysis) 7 REFERENCE VALUE 12.0 - 46.0 ADDITIONAL INFORMATION This test was developed and its performance characteristics determined by [facility] in a manner consistent with CLIA requirements. This test has not been cleared or approved by the U.S. Food and Drug Administration. Test Performed by: [facility] - [address] [address] 8 ADDITIONAL INFORMATION This test was developed and its performance characteristics determined by [facility] in a manner consistent with CLIA requirements. This test has not been cleared or approved by the U.S. Food and Drug Administration. Test Performed by: [facility] [place] [address] 9 Because ethnic data is not always readily [...] 15-29 5 Kidney failure <15 (or dialysis) 10 Because ethnic data is not always readily [...] 15-29 5 Kidney failure <15 (or dialysis) 11 REFERENCE VALUE 12.0 - 46.0 ADDITIONAL INFORMATION This test was developed and its performance characteristics determined by [facility] in a manner consistent with CLIA requirements. This test has not been cleared or approved by the U.S. Food and Drug Administration. Test Performed by: [facility] [place] [address] 12 ADDITIONAL INFORMATION This test was developed and its performance characteristics determined by [facility] in a manner consistent with CLIA requirements. This test has not been cleared or approved by the U.S. Food and Drug Administration. Test Performed by: [place] [address] 13 Critical Result LACT:3.0 Called to [id number] at: 22:40:21 by:[id number] Read back by:[email or web address] [facility] Severe Sepsis and Septic Shock Management Bundle Measure requires all lactic acids initially measuring >2.0 mmol/L be repeated. 14 Because ethnic data is not always readily [...] 15-29 5 Kidney failure <15 (or dialysis) 15 Because ethnic data is not always readily [...] 15-29 5 Kidney failure <15 (or dialysis) 16 [facility] Severe Sepsis and Septic Shock Management Bundle Measure requires all lactic acids initially measuring >2.0 mmol/L be repeated. 17 Because ethnic data is not always [...] 5 Kidney failure <15 (or dialysis) 18 REFERENCE VALUE 12.0 - 46.0 ADDITIONAL INFORMATION This test was developed and its performance characteristics determined by [facility] in a manner consistent with CLIA requirements. This test has not been cleared or approved by the U.S. Food and Drug Administration. Test Performed by: [facility] [address] [place] [id number] 19 ADDITIONAL INFORMATION This test was developed and its performance characteristics determined by [facility] in a manner consistent with CLIA requirements. This test has not been cleared or approved by the U.S. Food and Drug Administration. Test Performed by: [facility] - [address] [id number] 20 Because ethnic data is not always [...] 5 Kidney failure <15 (or dialysis) 21 Critical Result LACT:7.0 Called to [id number] at: 22:15:21 by:[id number] Read back by:[email or web address] [facility] Severe Sepsis and Septic Shock Management Bundle Measure requires all lactic acids initially measuring >2.0 mmol/L be repeated. 22 [facility] Severe Sepsis and Septic Shock Management Bundle Measure requires all lactic acids initially measuring >2.0 mmol/L be repeated. 23 The urine specimen was tested at the listed cutoffs: Drug class test level (ng/mL) Amphetamines 500 Barbiturates 200 Benzodiazepine metabolites 200 Cocaine metabolites 150 Cannabinoids 50 Opiates 300 Pcp 25 Specimen was received without chain of custody. Results should be used for medical purposes only. 24 Acute inflammation: >10.00 25 Because ethnic data is not always readily [...] 15-29 5 Kidney failure <15 (or dialysis) 26 The urine specimen was tested at the listed cutoffs: Drug class test level (ng/mL) Amphetamines 500 Barbiturates 200 Benzodiazepine metabolites 200 Cocaine metabolites 150 Cannabinoids 50 Opiates 300 Pcp 25 Specimen was received without chain of custody. Results should be used for medical purposes only. 27 *Ascorbic acid is present which may interfere with detection of blood. 28 Because ethnic data is not always readily [...] 15-29 5 Kidney failure <15 (or dialysis) 29 Critical Result CO2:14 Called to [id number] at: 03:22:47 by:[id number] Read back by:[id number] 30 Critical Result LACT:15.5 Called to [id number] at: 03:34:10 by:[id number] Read back by:[id number] [place] Severe Sepsis and Septic Shock Management Bundle Measure requires all lactic acids initially measuring >2.0 mmol/L be repeated. 31 Absolute lymphocytosis, favor reactive. If persistent, recommend correlation with flow cytometry to exclude a low-grade lymphoproliferative disorder. Reviewed by Fawn Gil MD 32 Because ethnic data is not always readily [...] 15-29 5 Kidney failure <15 (or dialysis) 33 Acute inflammation: >10.00 34 Therapeutic concentration: <50 ug/mL Toxic concentration: >120 ug/mL 35 Acute inflammation: >10.00 36 REFERENCE VALUE 12.0 - 46.0 ADDITIONAL INFORMATION This test was developed and its performance characteristics determined by [facility] in a manner consistent with CLIA requirements. This test has not been cleared or approved by the U.S. Food and Drug Administration. Test Performed by: [facility] - [address] [address] 37 ADDITIONAL INFORMATION This test was developed and its performance characteristics determined by [facility] in a manner consistent with CLIA requirements. This test has not been cleared or approved by the U.S. Food and Drug Administration. Test Performed by: [facility] - [address] [address] 38 Because ethnic data is not always readily [...] 15-29 5 Kidney failure <15 (or dialysis) 39 Critical Result LACT:2.3 Called to KAELYN at: 12:52:18 by:[id number] Read back by:KAELYN FAY Severe Sepsis and Septic Shock Management Bundle Measure requires all lactic acids initially measuring >2.0 mmol/L be repeated. 40 The urine specimen was tested at the listed cutoffs: Drug class test level (ng/mL) Amphetamines 500 Barbiturates 200 Benzodiazepine metabolites 200 Cocaine metabolites 150 Cannabinoids 50 Opiates 300 Pcp 25 Specimen was received without chain of custody. Results should be used for medical purposes only. 41 Because ethnic data is not always readily [...] 15-29 5 Kidney failure <15 (or dialysis) 42 Because ethnic data is not always [...] developed and its performance characteristics determined by [facility] in a manner consistent with CLIA requirements. This test has not been cleared or approved by the U.S. Food and Drug Administration. Test Performed by: [facility] [address] [place] [id number] 44 ADDITIONAL INFORMATION This test was developed and its performance characteristics determined by [facility] in a manner consistent with CLIA requirements. This test has not been cleared or approved by the U.S. Food and Drug Administration. Test Performed by: [facility] - [address] [address] 45 Presumptive Positive Presumptive positive results are unconfirmed. 46 The urine specimen was tested at the listed cutoffs: Drug class test level (ng/mL) Amphetamines 500 Barbiturates 200 Benzodiazepine metabolites 200 Cocaine metabolites 150 Cannabinoids 50 Opiates 300 Pcp 25 Specimen was received without chain of custody. Results should be used for medical purposes only. 47 Therapeutic concentration: <50 ug/mL Toxic concentration: >120 ug/mL 48 REFERENCE VALUE 12.0 - 46.0 ADDITIONAL INFORMATION This test was developed and its performance characteristics determined by [facility] in a manner consistent with CLIA requirements. This test has not been cleared or approved by the U.S. Food and Drug Administration. Test Performed by: [facility] - [address] [address] 49 ADDITIONAL INFORMATION This test was developed and its performance characteristics determined by [facility] in a manner consistent with CLIA requirements. This test has not been cleared or approved by the U.S. Food and Drug Administration. Test Performed by: [facility] - [address] [address] 50 Because ethnic data is not always readily [...] 15-29 5 Kidney failure <15 (or dialysis) 51 [facility] Severe Sepsis and Septic Shock Management Bundle Measure requires all lactic acids initially measuring >2.0 mmol/L be repeated. 52 Because ethnic data is not always readily [...] 15-29 5 Kidney failure <15 (or dialysis) 53 ADDITIONAL INFORMATION This test was developed and its performance characteristics determined by [facility] in a manner consistent with CLIA requirements. This test has not been cleared or approved by the U.S. Food and Drug Administration. Test Performed by: [facility] - [address] [address] 54 REFERENCE VALUE 12.0 - 46.0 ADDITIONAL INFORMATION This test was developed and its performance characteristics determined by [facility] in a manner consistent with CLIA requirements. This test has not been cleared or approved by the U.S. Food and Drug Administration. Test Performed by: [facility] - [address] [address] 55 ADDITIONAL INFORMATION This test was developed and its performance characteristics determined by [facility] in a manner consistent with CLIA requirements. This test has not been cleared or approved by the U.S. Food and Drug Administration. Test Performed by: [facility] - [address] [address] 56 REFERENCE VALUE 12.0 - 46.0 ADDITIONAL INFORMATION This test was developed and its performance characteristics determined by [facility] in a manner consistent with CLIA requirements. This test has not been cleared or approved by the U.S. Food and Drug Administration. Test Performed by: [facility] - [address] [address] 57 Because ethnic data is not always readily [...] 15-29 5 Kidney failure <15 (or dialysis) 58 Critical Result LACT:2.1 Called to [id number] at: 13:04:15 by:[id number] Read back by:[id number] [facility] Severe Sepsis and Septic Shock Management Bundle Measure requires all lactic acids initially measuring >2.0 mmol/L be repeated. 59 The urine specimen was tested at the listed cutoffs: Drug class test level (ng/mL) Amphetamines 500 Barbiturates 200 Benzodiazepine metabolites 200 Cocaine metabolites 150 Cannabinoids 50 Opiates 300 Pcp 25 Specimen was received without chain of custody. Results should be used for medical purposes only. 60 [facility] Severe Sepsis and Septic Shock Management Bundle Measure requires all lactic acids initially measuring >2.0 mmol/L be repeated. 61 Because ethnic data is not always readily [...] 15-29 5 Kidney failure <15 (or dialysis) 62 REFERENCE VALUE 12.0 - 46.0 ADDITIONAL INFORMATION This test was developed and its performance characteristics determined by [facility] in a manner consistent with CLIA requirements. This test has not been cleared or approved by the U.S. Food and Drug Administration. Test Performed by: [facility] - [address] [address] 63 ADDITIONAL INFORMATION This test was developed and its performance characteristics determined by [facility] in a manner consistent with CLIA requirements. This test has not been cleared or approved by the U.S. Food and Drug Administration. Test Performed by: [facility] - [address] [address] 64 REFERENCE VALUE 12.0 - 46.0 ADDITIONAL INFORMATION This test was developed and its performance characteristics determined by [facility] in a manner consistent with CLIA requirements. This test has not been cleared or approved by the U.S. Food and Drug Administration. Test Performed by: [facility] - [address] [address] [employer] Baler: Adria Nguyen II, M.D., Ph.D. 65 ADDITIONAL INFORMATION This test was developed and its performance characteristics determined by [facility] in a manner consistent with CLIA requirements. This test has not been cleared or approved by the U.S. Food and Drug Administration. Test Performed by: [facility] - [address] [address] [employer] Baler: Adria Nguyen II, M.D., Ph.D. 66 Because ethnic data is not always readily [...] 15-29 5 Kidney failure <15 (or dialysis) 67 REFERENCE VALUE 12.0 - 46.0 Test Performed by: [place] [address] [employer] Baler: Adria Nguyen II, M.D., Ph.D. 68 Test Performed by: [place] [address] [employer] Baler: Adria Nguyen II, M.D., Ph.D. 69 Because ethnic data is not always readily [...] Kidney failure <15 (or dialysis) Procedures Date Code Description Status 06/07/2017 88134 EEG Monitoring & Video Recording Completed 06/06/2017 37396 EEG Monitoring & Video Recording Completed 06/05/2017 15005 EEG Monitoring & Video Recording Completed 01/16/2017 49524 Electroencephalogram EEG Extended Monitoring Over 1 Hour Completed 07/30/2015 98967 EEG Recording Awake & Drowsy Completed 08/12/2012 84149 EEG Recording Awake & Asleep Completed Encounters Type Date Location Provider Dx Diagnosis Office Visit 03/10/2018 [facility] Alex G40.919 Epilepsy, unsp, 3:00p Clinic intractable, without status epilepticus G43.009 Migraine w/o aura, not intractable, w/o status migrainosus G47.00 Insomnia, unspecified Office Visit 12/24/2017 [facility] G40.919 Epilepsy, unsp, 10:00a Clinic MD Isai intractable, without status epilepticus G43.009 Migraine w/o aura, not intractable, w/o status migrainosus G47.00 Insomnia, unspecified Office Visit 12/15/2017 [facility] Karen G40.909 Epilepsy, unsp, 11:11a [facility], DO not intractable, Hospitalists without status epilepticus F41.9 Anxiety disorder, unspecified F44.5 Conversion disorder with seizures or convulsions Office Visit 10/13/2017 2:10p [facility] Karen R56.9 Unspecified [facility]ooth, DO convulsions Hospitalists F44.5 Conversion disorder with seizures or convulsions F41.9 Anxiety disorder, unspecified Office 10/13/2017 [facility] G40.019 Local-rel idio Visit 1:35p Clinic Calvin Le. epi w seiz of loc onset, ntrct, w/o stat epi Office 08/05/2017 [facility] Alex MD G40.919 Epilepsy, unsp, Visit 1:00p Clinic intractable, without status epilepticus F11.19 Opioid abuse with unspecified opioid-induced disorder Office 06/08/2017 [facility] Alex MD G40.919 Epilepsy, unsp, Visit 11:42a Clinic intractable, without status epilepticus Office 06/07/2017 [facility] Alex MD G40.919 Epilepsy, unsp, Visit 11:40a Clinic intractable, without status epilepticus [facility], [facility]sp, Visit 11:21a [facility] [place] II, not intractable, Hospitalists M.Abiola with status epilepticus R06.81 Apnea, not elsewhere classified Office Visit 06/06/2017 [facility] G40.919 Epilepsy, unsp, 11:38a Andrea Alex MD intractable, without status epilepticus Office Visit 06/05/2017 [facility] G40.919 Epilepsy, unsp, 11:34a Clinic MD Isai intractable, without status epilepticus Office Visit 04/06/2017 [facility] Winter G40.019 Local-rel idio 10:30a [facility] Slick, epi w seiz of loc M.D. onset, ntrct, w/o stat epi Z91.19 Patient's noncompliance w oth medical treatment and regimen F41.9 Anxiety disorder, unspecified Office Visit 01/16/2017 [facility] Alex, G40.019 Local-rel idio 11:36a Clinic epi w seiz of loc onset, ntrct, w/o stat epi Z91.19 Patient's noncompliance w oth medical treatment and regimen Office Visit 09/29/2016 [facility] Winter G40.011 Local-rel idio 10:00a Andrea Kruger M.D. epi w seiz of loc onset, ntrct, w stat epi Z91.19 Patient's noncompliance w oth medical treatment and regimen Office 10/19/2015 [facility] Winter G40.909 Epilepsy, unsp, Visit 10:15a Andrea Kruger M.D. not intractable, without status epilepticus F41.9 Anxiety disorder, unspecified Office 07/25/2015 [facility] G40.909 Epilepsy, unsp, Visit 9:00a Andrea Kruger M.D. not intractable, without status epilepticus F41.9 Anxiety disorder, unspecified Office Visit 01/01/2015 11:40a [facility] Internal Raul Olivo 345.90 Epilepsy Unspec Peyton Cosme M.D. W/O Intractable [place] Office Visit 03/23/2014 3:40p [facility] Internal Raul E. V70.0 Examination Medicine - Amari Cosme [facility] Routine AT [facility] 345.90 Epilepsy Unspec W/O Intractable 305.1 Tobacco Use Disorder Office Visit 02/25/2012 [facility] 883.0 Open Wound 10:45a [facility](S) W/O C.M.A. Complication Office Visit 02/18/2012 [facility] 883.0 Open Wound 10:30a [facility] Finger(S) W/O C.M.A. Complication 305.1 Tobacco Use Disorder Office Visit 01/06/2010 12:30a [facility] 977.9 Poisoning By toshia Irvin M.D. [facility] Substance Unspec 345.90 Epilepsy Unspec W/O Intractable 780.39 Convulsions Other 300.00 Anxiety State Unspec 308.9 Stress Reaction Unspec Acute Office Visit 01/05/[address] [facility] 300.9 Nonpsychotic 1:15a Asstoshia millan M.D. Disorders NOS [facility] 969.4 Poisoning By Benzodiazepine Based Tranquilizers 780.39 Convulsions Other 308.9 Stress Reaction Unspec Acute Office Visit 01/05/2010 [facility] Jay Culver 977.9 Poisoning By 12:30a toshia Irvin M.D. [facility] Hospitalist Substance Unspec 780.39 Convulsions Other 300.9 Nonpsychotic Disorders NOS Plan of Treatment Future Appointment(s):10/12/2018 9:30 am - Arnie Le M.D. at [facility]207/29/2018 - Mj Pathak MDB18.2 Chronic viral hepatitis CComments:Repeat Hepatitis Viral RNA to confirm this is chronic untreated infection vs resolved acute. Hx of IVDU. Referral to GI (Dr. Tucker) for potential genotype 1 treatment.Z11.3 Encounter for screening for infections with a predominantlyComments:Also adding treponomal test given Hx of Syphyllis IgG but negative treponomal tests in 2013.G40.919 Epilepsy, unspecified, intractable, without status epilepticComments:continue keppra, lamotrigine, topomax. Follow-up with Dr. Le as soon as possible.G43.009 Migraine without aura, not intractable, without status tdwxgC72.00 Insomnia, unspecifiedComments: unfortunately has had poor reaction to melatonin in past. Caution with hypnotics . Increased paroxetine for depression/anxiety. Continue antihistamines prn.F41.9 Anxiety disorder, unspecifiedComments:You were started on increased dose of paroxetine.M25.562 Pain in left kneeComments:I suspect this is at least in part due to the increased muscular rigidity.M62.451 Contracture of muscle, right thighComments:suspect medication side effect causing excessive rigidity in b/l lower extremities. CK was wnl. Willrequire careful titration of meds and coordination with Neurology.M62.452 Contracture of muscle, left thigh
[2018-08-25 07:01] LABS: ABS Basophils 0 10^3/ul (0-0.2); ABS Eosinophils 0.1 10^3/ul (0-0.6); ABS Lymphocytes 2.6 10^3/ul (1.0-4.8); ABS Monocytes 0.5 10^3/ul (0-0.8); ABS Neutrophils 3.6 10^3/ul (1.5-7.7); ABS Nucleated RBC 0 10^3/ul; Eosinophil % 1.2 %; Hematocrit 42 % (42-52); Hemoglobin 14.2 g/dl (14.0-18.0); Lymphocyte % 37.7 %; Mean Corpuscular HGB Conc 34 g/dl (31-36); Mean Corpuscular Hemoglobin 32 pg (27-31); Mean Corpuscular Volume 95 fL (80-94); Mean Platelet Volume 8.2 fL (7.4-10.4); Nucleated Red Blood Cells % 0.1; Platelet Count 204 10^3/ul (150-450); Red Blood Count 4.38 10^6/ul (4.00-5.40); Red Cell Distribution Width 13 % (10.5-15); White Blood Count 6.8 10^3/ul (3.5-10.8)
[2018-08-25 07:20] LABS: Albumin 4.9 g/dL (3.2-5.2); Albumin/Globulin Ratio 1.9 (1-3); BUN/Creatinine Ratio 6.8 (8-20); Calcium 9.8 mg/dL (8.6-10.3); EGFR Non-African American 62.3 (>60); Globulin 2.6 g/dL (2-4); Magnesium 2.1 mg/dL (1.9-2.7); Potassium 3.4 mmol/L (3.5-5.0); Total Bilirubin 0.3 mg/dL (0.2-1.0); Total Protein 7.5 g/dL (6.4-8.9)
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
[2018-08-25] MEDS ORDERED: Potassium Chlor TAB* 20 MEQ TAB.ER PO ONE (07:32)
[2018-08-25] MEDS: NS 0.9% 1000 ML* 2,000 ML IV ONE ×2 (07:43→07:44)
[2018-08-25 07:47] LABS: INR 0.94 (0.77-1.02)
[2018-08-25] MEDS ORDERED: LORazepam TAB(*) 1 MG PO ONE (07:58)
[2018-08-25 08:25] LABS: Urine Appearance Clear; Urine Bacteria Absent (Absent); Urine Bilirubin Negative (Negative); Urine Blood 1+ (Negative); Urine Color Yellow; Urine Glucose Negative (Negative); Urine Granular Casts Present (Absent); Urine Ketones Negative (Negative); Urine Nitrite Negative (Negative); Urine Protein Negative (Negative); Urine Red Blood Cell Trace(0-2/hpf) (Absent); Urine Urobilinogen Negative (Negative); Urine White Blood Cell Trace(0-5/hpf) (Absent)
[2018-08-25 08:44] LABS: Barbiturates Urine Screen None Detected (None Detect); Benzodiazepine Urine Screen None Detected (None Detect); Urine Cannabinoids Screen None Detected (None Detect)
[2018-08-25 10:24] VITALS: BP 112/70
--- NOTE | 2018-08-30 16:31 | ED ---
Progress - Progress Note Progress Note: BALAJI: 08/30/18 1535. Pt's keppra level is noted to be elevated at 131 by reviewing chart. Level is not called to any personnel as it is a "send out" lab to the [facility]. Review of previous keppra levels reveals elevated levels dating to 2016, including a level from 08/27/18 (115), a day in which pt had 2 ED visits for seizures. Per review of electronic records available about pt's prescriptions, it shows pt's last Rx for keppra was filled on 08/13/[address] Le for 750mg tabs: 3 po bid, #[address] Le in his office, and advised him of this. He is aware of pt, and pt's noncompliance with appointments. We discussed pt's plan of care to decrease his Keppra. Dr. Le states that he will attempt to contact pt, and advise him to decrease his Keppra. Dr. Le has pt's demographic info available in his office. B Balaji, 08/30/18 1631. Re-Evaluation - Re-Evaluation 1 Re-Evaluation Time: 08:30 Change: Improved Comment: Patient feeling better after oral Ativan, IV fluids running. He is still having muscle aches, but is not tremulous. Pt requesting Lamictal Rx for the rest of the month. Vitals at bedside: 80 bpm; 130/81 HR. 2 Re-Evaluation Time: 10:22 Change: Unchanged Comment: Discussing plan for dispo with patient. Patient is agreeable to this. Lamictal script not needed, pharmacy will fill it. Course/Dx - Course Course Of Treatment: Pt is a 32 y/o M presenting s/p one seizure at 0500 which has resolved. Associated sx: full body shakes, diaphoresis, muscles aches. Pt is mildly tremulous at bedside. He is scheduled to see Dr. Le, neuro, next month (Aug 2018). Patient says he has been under recent family stress. He is clean from opioid abuse, currently receiving Viv[facility]rol from [facility]. Allergies noted, high blood pressure noted. Pt medications reviewed this visit. 0757: Provider made aware of Lactic Acid: 2.1. UA results: 1+ blood, hyaline casts and granular casts are present. Creatinine elevated with normal GFR and BUN. K+ 3.4. Urine tox screen and alcohol levels are negative. In the ED pt was given ativan 2mg po, K+ 40mEq po, and 2 liters of NS IV with improvement of his symptoms. Will discharge patient home, to f/u with neuro, Dr. Le, as scheduled in August 2018. - Diagnoses Provider Diagnoses: Epilepsy, Tobacco abuse disorder, Elevated BP without diagnosis of hypertension , Hypokalemia, Elevated serum creatinine, Lactic acidosis Discharge - Sign-Out/Discharge Documenting (check all that apply): Post-Discharge Follow Up - elevated Keppra level noted,discussed plan to decrease Keppra with Dr. Le by phone. Dr. Le to contact pt - Discharge Plan Condition: Stable Disposition: HOME Patient Education Materials: Epilepsy (ED) Referrals: Kurt Le MD [Medical Doctor] - (as scheduled. ) Raul Cosme MD [Primary Care Provider] - 2 Days Additional Instructions: Keep your appointment with neurology on 09/25/17. There is a pending keppra level and lamotrigine level at the time of discharge. You were given ativan 2mg orally for your seizure activity. RETURN TO THE EMERGENCY DEPARTMENT FOR CHANGING OR WORSENING SYMPTOMS. Your blood pressure reading today was 141/88, which is HYPERTENSIVE. Follow-up with your primary care provider within 4 weeks for blood pressure readings and further evaluation. - Billing Disposition and Condition Condition: STABLE Disposition: Home
== END 2018-08-25 10:33 | disposition home or self-care (01) ==
LOC: ED 06:36
DX: G40.909 Epilepsy, unspecified, not intractable, without status epilepticus (principal); R03.0 Elevated blood-pressure reading, without diagnosis of hypertension; E87.6 Hypokalemia; R79.89 Other specified abnormal findings of blood chemistry; E87.2 Acidosis; F17.210 Nicotine dependence, cigarettes, uncomplicated
CPT/HCPCS: 36415; 80053; 80177; 80307; 80320; 81003; 81015; 82550; 83605; 83735; 85025; 85610; 87077; 87086; 93005; 96360; 99283; A9270-GY; G0480

== ENCOUNTER 2018-08-27 06:33 | Emergency (ER) | payer OTHER ==
[2018-08-27 07:47] LABS: ABS Basophils 0 10^3/ul (0-0.2); ABS Eosinophils 0 10^3/ul (0-0.6); ABS Lymphocytes 1.1 10^3/ul (1.0-4.8); ABS Monocytes 0.6 10^3/ul (0-0.8); ABS Neutrophils 4.6 10^3/ul (1.5-7.7); ABS Nucleated RBC 0 10^3/ul; Eosinophil % 0.7 %; Hematocrit 43 % (42-52); Hemoglobin 14.1 g/dl (14.0-18.0); Lymphocyte % 17.5 %; Mean Corpuscular HGB Conc 33 g/dl (31-36); Mean Corpuscular Hemoglobin 32 pg (27-31); Mean Corpuscular Volume 95 fL (80-94); Nucleated Red Blood Cells % 0.1; Platelet Count 224 10^3/ul (150-450); Red Blood Count 4.46 10^6/ul (4.00-5.40); Red Cell Distribution Width 13 % (10.5-15); White Blood Count 6.4 10^3/ul (3.5-10.8)
[2018-08-27 08:01] LABS: Albumin 4.9 g/dL (3.2-5.2); Albumin/Globulin Ratio 1.8 (1-3); BUN/Creatinine Ratio 5.9 (8-20); Calcium 9.9 mg/dL (8.6-10.3); EGFR Non-African American 60.7 (>60); Globulin 2.7 g/dL (2-4); Total Bilirubin 0.3 mg/dL (0.2-1.0); Total Protein 7.6 g/dL (6.4-8.9)
[2018-08-27] MEDS ORDERED: hydrOXYzine IM* 50 MG/ML VIAL IM ONE (08:12)
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
[2018-08-27 09:09] VITALS: BP 132/76
[2018-08-29 13:59] LABS: Levetiracetam 115.6 mcg/mL
== END 2018-08-27 09:08 | disposition home or self-care (01) ==
LOC: ED 06:33
DX: R25.1 Tremor, unspecified (principal); R00.0 Tachycardia, unspecified; R07.89 Other chest pain; R06.02 Shortness of breath; F17.210 Nicotine dependence, cigarettes, uncomplicated
CPT/HCPCS: 36415; 80053; 80175; 80177; 82550; 82553; 84484; 85025; 93005; 96372; 99283; J3410

== ENCOUNTER 2018-08-27 12:14 | Emergency (ER) | payer OTHER ==
[2018-08-27] MEDS ORDERED: Ammonia Inhalant* 1 EA AMP ONE (12:28)
[2018-08-27] MEDS ORDERED: NS 0.9% 1000 ML* 1,000 ML IV ONE (12:37)
[2018-08-27 12:47] LABS: ABS Basophils 0 10^3/ul (0-0.2); ABS Eosinophils 0 10^3/ul (0-0.6); ABS Lymphocytes 3.5 10^3/ul (1.0-4.8); ABS Monocytes 0.8 10^3/ul (0-0.8); ABS Neutrophils 10.1 10^3/ul (1.5-7.7); ABS Nucleated RBC 0 10^3/ul; Eosinophil % 0.2 %; Hematocrit 43 % (42-52); Hemoglobin 14.6 g/dl (14.0-18.0); Mean Corpuscular HGB Conc 34 g/dl (31-36); Mean Corpuscular Hemoglobin 32 pg (27-31); Mean Corpuscular Volume 96 fL (80-94); Mean Platelet Volume 8.4 fL (7.4-10.4); Nucleated Red Blood Cells % 0; Platelet Count 264 10^3/ul (150-450); Red Blood Count 4.53 10^6/ul (4.00-5.40); Red Cell Distribution Width 13 % (10.5-15); White Blood Count 14.5 10^3/ul (3.5-10.8)
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
[2018-08-27 13:06] LABS: Albumin 5.3 g/dL (3.2-5.2); Albumin/Globulin Ratio 1.9 (1-3); BUN/Creatinine Ratio 5.8 (8-20); Calcium 10.3 mg/dL (8.6-10.3); EGFR Non-African American 52.6 (>60); Globulin 2.8 g/dL (2-4); Potassium 4.4 mmol/L (3.5-5.0); Total Bilirubin 0.5 mg/dL (0.2-1.0); Total Protein 8.1 g/dL (6.4-8.9)
[2018-08-27 13:23] LABS: TSH (Thyroid Stimulating Horm) 3.26 mcIU/mL (0.34-5.60)
[2018-08-27] MEDS ORDERED: LORazepam TAB(*) 1 MG PO ONE (13:27)
[2018-08-27 15:36] LABS: Urine Appearance Clear; Urine Bacteria 1+ (Absent); Urine Bilirubin Negative (Negative); Urine Blood 1+ (Negative); Urine Color Yellow; Urine Glucose Negative (Negative); Urine Ketones Negative (Negative); Urine Nitrite Negative (Negative); Urine Protein Negative (Negative); Urine Red Blood Cell 1+(3-5/hpf) (Absent); Urine Specific Gravity 1.017 (1.010-1.030); Urine Urobilinogen Negative (Negative); Urine White Blood Cell Trace(0-5/hpf) (Absent)
[2018-08-27 15:54] LABS: Barbiturates Urine Screen None Detected (None Detect); Benzodiazepine Urine Screen None Detected (None Detect); Urine Cannabinoids Screen None Detected (None Detect)
[2018-08-27] MEDS: Topiramate TAB(*) 25 MG PO ONE ×2 (16:28→16:33)
[2018-08-27 17:59] VITALS: BP 00/0
== END 2018-08-27 17:57 | disposition home or self-care (01) ==
LOC: ED 12:14
DX: F41.0 Panic disorder [episodic paroxysmal anxiety] (principal); E87.2 Acidosis; F17.210 Nicotine dependence, cigarettes, uncomplicated
CPT/HCPCS: 36415; 80053; 80307; 80320; 81003; 81015; 82550; 83605; 84443; 85025; 87086; 96360; 99283; A9270-GY; G0480

== ENCOUNTER 2018-10-09 23:01 | Emergency (ER) | payer OTHER ==
--- OUTSIDE RECORDS SUMMARY | 2018-10-09 23:08 | XMS REPORT | Continuity of Care Document ---
:1985 External Reference #:[id number] Author Name Ira Huntley Care Team Providers Name Role Phone Care Connections Primary Care Physician Unavailable Payers Date Identification Numbers Payment Provider Subscriber Effective: Policy Number: [id number] [employer] James Downs JR 2016 Medicaid PayID: [id number] [address] [address] [place] [address] Expires: 2016 Policy Number: [id number] Medicaid James Downs JR Group Name: [id number] [address] PayID: [id number] [place] [address] Advance Directives Description No Information Available Problems [...] MD Active Family History Date Family Member(s) Observation Comments General Seizure Disorder Father Seizure Disorder Social History Type Date Description Comments Sex Unknown Marital Status Single Occupation Disabled On SSI due to seizure disorder ETOH Use Denies alcohol use Tobacco Use Start: Unknown Patient is a current smoker, smokes every day Recreational Drug Use Denies Drug Use Smoking Status Reviewed: 10/08/18 Patient is a current smoker, smokes every day Allergies, Adverse Reactions, Alerts Description No Known Drug Allergies Medications Medication Date Status Form Strength Qnty SIG Indications Ordering Provider Topiramate 10/08 Active Tablets 50mg 60tab 1 tablet G43.009 oph s by mouth Amari Le twice a day Paroxetine HCL 07/29 Active Tablets 40mg 30tab use 1 Mj Pathak s tab daily. Keppra 07/09 Active Tablets 750mg 180ta 3 tabs Arnie bs by mouth Amari Le twice daily Sumatriptan 12/24 Active Tablets 50mg 9tabs take 1 G43.009 ellyer Succinate at onset Amari Le of migraine [...] night Vivitrol Active Suspension 380mg once a Rec month Topiramate 12/24 Hx Tablets 25mg 120ta 2 tabs G43.009 elly bs by vinny Le M.D. - twice a Melatonin 12/24 Hx Tablets 3mg 30tab take 1 G47.00 Socorro Alex s tablet 1 MD - to 2 03/10 hours /2017 before bed Paroxetine HCL 10/19 Hx Tablets ER 25mg 30tab 1 by Mj Pathak 24HR s vinny MORATAYA - every Paroxetine HCL 07/25 Hx Tablets ER 12.5mg 30tab 1 by Matthew BAZAN 24HR s mouth Slick, - every M.D. Lamotrigine ER Hx Tablets ER 200mg 60tab 1 by Nela / 24HR s mouth Alexander, M.D. - twice a Diazepam Hx Tablets 5mg 30tab 1 by Socorro Alex, /0000 s vinny MORATAYA - twice a 10/21 day needed for seizure Trazodone HCL Hx Tablets 50mg 1 at [place], /0000 Jailyn Gould M.D. 04/06 Mens Multi Hx Tablets 1 Tab A Unknown Vitamin & / Day Mineral Formula - 03/09 Medications Administered in Office Medication Date Status Form Strength Qnty SIG Indications Ordering Provider Influenza Administered Injection Unknown Virus Vaccine 014 Immunizations Description No Information Available Vital Signs Date Vital Result Comment 10/08/2018 12:59pm Height 68.5 inches 5'8.50" Weight 132.00 lb Heart Rate 66 /min BP Systolic 118 mmHg BP Diastolic 82 mmHg BMI (Body Mass Index) 19.8 kg/m2 07/29/2018 10:09am Height 68.5 inches 5'8.50" Weight [...] Facility Test Result H/L Range Note Laboratory test 08/27/2018 [facility] Lamotrigine 12.0 g/mL 2.5 - 15.0 [address] (Lamictal) [place] [address] [phone] Levetiracetam (Keppra) 115.6 g/mL Abnormal 2 CBC Auto Diff 08/27/2018 [facility] White Blood 6.4 10^3/uL N 3.5-10.[address] [place] [address] [phone] Red Blood Count 4.46 10^6/uL N 4.00-5.40 Hemoglobin 14.1 g/dL N 14.0-18.0 Hematocrit 43 % N 42-52 Mean Corpuscular Volume 95 fL High 80-94 Mean Corpuscular Hemoglobin 32 pg High 27-31 Mean Corpuscular HGB Conc 33 g/dL N 31-36 Red Cell Distribution Width 13 % N 10.5-15 Platelet Count 224 10^3/uL N 150-450 Mean Platelet Volume 8.0 fL N 7.4-10.4 Abs Neutrophils 4.6 10^3/uL N 1.5-7.7 Abs Lymphocytes 1.1 10^3/uL N 1.0-4.8 Abs Monocytes 0.6 10^3/uL N 0-0.8 Abs Eosinophils 0 10^3/uL N 0-0.6 Abs Basophils 0 10^3/uL N 0-0.2 Abs Nucleated RBC 0 10^3/uL Granulocyte % 71.9 % Lymphocyte % 17.5 % Monocyte % 9.3 % Eosinophil % 0.7 % Basophil % 0.6 % Nucleated Red Blood Cells % 0.1 Laboratory test 08/27/2018 [facility] Troponin-I (TnI) 0.00 ng/ mL <0.04 3 finding [address] [place] [address] [phone] CKMB 08/27/2018 [facility] CKMB ng/mL 1.0 ng/mL N 0.6-6.3 [address] [place] [address] [phone] Laboratory test 08/27/2018 [facility] Creatine 66 U/L N 10- 223 finding 101 [facility] Kinase(CK) [place] [address] [phone] Comp Metabolic 08/27/2018 [facility] Sodium 138 mmol/L N 135- 145 Panel [address] [place] [address] [phone] Potassium 4.0 mmol/L N 3.5-5.0 Chloride 105 mmol/L N 101-111 Co2 Carbon Dioxide 18 mmol/L Low 22-32 Anion Gap 15 mmol/L High 2-11 Glucose 92 mg/dL N 70-100 Blood Urea Nitrogen 8 mg/dL N 6-24 Creatinine 1.36 mg/dL High 0.67-1.17 BUN/Creatinine Ratio 5.9 Low 8-20 Calcium 9.9 mg/dL N 8.6-10.3 Total Protein 7.6 g/dL N 6.4-8.9 Albumin 4.9 g/dL N 3.2-5.2 Globulin 2.7 g/dL N 2-4 Albumin/Globulin Ratio 1.8 N 1-3 Total Bilirubin 0.30 mg/dL N 0.2-1.0 Alkaline Phosphatase 43 U/L N 34-104 Alt 6 U/L Low 7-52 Ast 14 U/L N 13-39 Egfr Non- 60.7 >60 Egfr 73.5 >60 4 Laboratory test 08/27/2018 [facility] Point of Care 118 mg/dL High 70-100 [address] [place] [address] [phone] Urine Culture 08/27/2018 [facility] Urine Culture SEE RESULT [address] [place] [address] [phone] Urine Drug SCR 08/27/2018 [facility] Amphetamine Ur None None [facility] [address] [place] [address] [phone] Barbiturates Urine Screen None Detected None Detect Benzodiazepine Urine Screen None Detected None Detect Urine Cannabinoids Screen None Detected None Detect Urine Cocaine Screen None Detected None Detect Urine Opiates Screen None Detected None Detect Urine Phencyclidine Screen None Detected None Detect 7 Urinalysis Profile 08/27/2018 [facility] Urine Color Yellow [address] [place] [address] [phone] Urine Appearance Clear Urine Specific [place] 1.017 N 1.010-1.030 Urine pH 5.0 N 5-9 Urine Urobilinogen Negative Negative Urine Ketones Negative Negative Urine Protein Negative Negative Urine Leukocytes Negative Negative Urine Blood 1+ Abnormal Negative Urine Nitrite Negative Negative Urine Bilirubin Negative Negative Urine Glucose Negative Negative Urine White Blood Cell Trace(0-5/hpf) Absent Urine Red Blood Cell 1+(3-5/hpf) Abnormal Absent Urine Bacteria 1+ Abnormal Absent Urine Squamous Epithelial Cell Present Abnormal Absent Urine Hyaline Casts Present Abnormal Absent Laboratory test 08/27/2018 [facility] Creatine 862 U/L High 10 -[address] Kinase(CK) [place] [address] [phone] TSH (Thyroid Stim Horm) 3.26 mcIU/mL N 0.34-5.60 Comp Metabolic Panel 08/27/2018 [facility] Sodium 142 mmol/L N 135-[address] [place] [address] [phone] Potassium 4.4 mmol/L N 3.5-5.0 Chloride 104 mmol/L N 101-111 Co2 Carbon Dioxide 22 mmol/L N 22-32 Anion Gap 16 mmol/L High 2-11 Glucose 123 mg/dL High 70-100 Blood Urea Nitrogen 9 mg/dL N 6-24 Creatinine 1.54 mg/dL High 0.67-1.17 BUN/Creatinine Ratio 5.8 Low 8-20 Calcium 10.3 mg/dL N 8.6-10.3 Total Protein 8.1 g/dL N 6.4-8.9 Albumin 5.3 g/dL High 3.2-5.2 Globulin 2.8 g/dL N 2-4 Albumin/Globulin Ratio 1.9 N 1-3 Total Bilirubin 0.50 mg/dL N 0.2-1.0 Alkaline Phosphatase 46 U/L N 34-104 Alt 8 U/L N 7-52 Ast 42 U/L High 13-39 Egfr Non- 52.6 >60 Egfr 63.7 >60 8 Laboratory test finding 08/27/2018 [facility] Alcohol < 10 mg/ dL N <[address] [place] [address] [phone] Lactic Acid 7.4 mmol/L High 0.5-2.0 9 CBC Auto 08/27/2018 [facility] White Blood 14.5 10^3/uL High 3.5-10.[address] [place] [address] [phone] Red Blood Count 4.53 10^6/uL N 4.00-5.40 Hemoglobin 14.6 g/dL N 14.0-18.0 Hematocrit 43 % N 42-52 Mean Corpuscular Volume 96 fL High 80-94 Mean Corpuscular Hemoglobin 32 pg High 27-31 Mean Corpuscular HGB Conc 34 g/dL N 31-36 Red Cell Distribution Width 13 % N 10.5-15 Platelet Count 264 10^3/uL N 150-450 Mean Platelet Volume 8.4 fL N 7.4-10.4 Abs Neutrophils 10.1 10^3/uL High 1.5-7.7 Abs Lymphocytes 3.5 10^3/uL N 1.0-4.8 Abs Monocytes 0.8 10^3/uL N 0-0.8 Abs Eosinophils 0 10^3/uL N 0-0.6 Abs Basophils 0 10^3/uL N 0-0.2 Abs Nucleated RBC 0 10^3/uL Granulocyte % 69.8 % Lymphocyte % 24.0 % Monocyte % 5.7 % Eosinophil % 0.2 % Basophil % 0.3 % Nucleated Red Blood Cells % 0 Laboratory test 08/25/2018 [facility] Levetiracetam 131.2 Abnormal [address] (Keppra) g/[place] [address] [phone] Urine Culture And 08/25/2018 [facility] Urine Culture SEE [address] [place] [address] BELOW [phone] Urinalysis 08/25/2018 [facility] Urine Color Yellow Profile [address] [place] [address] [phone] Urine Appearance Clear Urine Specific [place] 1.010 N 1.010-1.030 Urine pH 6.0 N 5-9 Urine Urobilinogen Negative Negative Urine Ketones Negative Negative Urine Protein Negative Negative Urine Leukocytes Negative Negative Urine Blood 1+ Abnormal Negative Urine Nitrite Negative Negative Urine Bilirubin Negative Negative Urine Glucose Negative Negative Urine White Blood Cell Trace(0-5/hpf) Absent Urine Red Blood Cell Trace(0-2/hpf) Absent Urine Bacteria Absent Absent Urine Hyaline Casts Present Abnormal Absent Urine Granular Casts Present Abnormal Absent Urine Drug 08/25/2018 [facility] Amphetamine Ur None Detected None Detect SCR ED & [address] [place] [address] [phone] Barbiturates Urine Screen None Detected None Detect Benzodiazepine Urine Screen None Detected None Detect Urine Cannabinoids Screen None Detected None Detect Urine Cocaine Screen None Detected None Detect Urine Opiates Screen None Detected None Detect Urine Phencyclidine Screen None Detected None Detect 12 Laboratory test 08/25/2018 [facility] Magnesium 2.1 mg/dL N 1.9-2.[address] [place], [place] [id number] [phone] Creatine Kinase(CK) 38 U/L N 10-223 Comp Metabolic Panel 08/25/2018 [facility] Sodium 137 mmol/L N 135-[address] [place] [address] [phone] Potassium 3.4 mmol/L Low 3.5-5.0 Chloride 103 mmol/L N 101-111 Co2 Carbon Dioxide 22 mmol/L N 22-32 Anion Gap 12 mmol/L High 2-11 Glucose 120 mg/dL High 70-100 Blood Urea Nitrogen 9 mg/dL N 6-24 Creatinine 1.33 mg/dL High 0.67-1.17 BUN/Creatinine Ratio 6.8 Low 8-20 Calcium 9.8 mg/dL N 8.6-10.3 Total Protein 7.5 g/dL N 6.4-8.9 Albumin 4.9 g/dL N 3.2-5.2 Globulin 2.6 g/dL N 2-4 Albumin/Globulin Ratio 1.9 N 1-3 Total Bilirubin 0.30 mg/dL N 0.2-1.0 Alkaline Phosphatase 45 U/L N 34-104 Alt 6 U/L Low 7-52 Ast 14 U/L N 13-39 Egfr Non- 62.3 >60 Egfr 75.4 >60 13 CBC Auto Diff 08/25/2018 [facility] White Blood 6.8 10^3/uL N 3.5-10.[address] [place] [address] [phone] Red Blood Count 4.38 10^6/uL N 4.00-5.40 Hemoglobin 14.2 g/dL N 14.0-18.0 Hematocrit 42 % N 42-52 Mean Corpuscular Volume 95 fL High 80-94 Mean Corpuscular Hemoglobin 32 pg High 27-31 Mean Corpuscular HGB Conc 34 g/dL N 31-36 Red Cell Distribution Width 13 % N 10.5-15 Platelet Count 204 10^3/uL N 150-450 Mean Platelet Volume 8.2 fL N 7.4-10.4 Abs Neutrophils 3.6 10^3/uL N 1.5-7.7 Abs Lymphocytes 2.6 10^3/uL N 1.0-4.8 Abs Monocytes 0.5 10^3/uL N 0-0.8 Abs Eosinophils 0.1 10^3/uL N 0-0.6 Abs Basophils 0 10^3/uL N 0-0.2 Abs Nucleated RBC 0 10^3/uL Granulocyte % 53.6 % Lymphocyte % 37.7 % Monocyte % 7.0 % Eosinophil % 1.2 % Basophil % 0.5 % Nucleated Red Blood Cells % 0.1 Inr/Protime 08/25/2018 [facility] Inr 0.94 N 0.77-1.[address] [place] [address] [phone] Laboratory test 08/25/2018 [facility] Alcohol < 10 mg/dL N < [address] [place] [address] [phone] Lactic Acid 2.1 mmol/L High 0.5-2.0 14 Laboratory 07/29/2018 [facility] Syphillis Nonreactive Nonreactive [address] Igg W/[place] [address] RPR [phone] Hepatitis C Rna Quant Undetected IU/mL Undetected 16 CBC Auto Diff 07/26/2018 [facility] White Blood 6.2 10^3/uL N 3.5-10.[address] [place] [address] [phone] Red Blood Count 4.45 10^6/uL N 4.00-5.40 [...] Blood Cells % 0.1 Laboratory test 07/26/2018 [facility] Lactic Acid 1.1 mmol/L N 0.5-2.[address] [place] [address] [phone] Inr/Protime 07/26/2018 [facility] Inr 0.90 N 0.77-1.[address] [place] [address] [phone] Laboratory test 07/26/2018 [facility] Partial 27.4 seconds N 26.0-36.[address] [place] [address] PTT [phone] Urinalysis 07/26/2018 [facility] Urine Color Straw Profile [address] [place] [address] [phone] Urine Appearance Clear Urine Specific [place] 1.010 N 1.010-1.030 Urine pH 6.0 N 5-9 Urine Urobilinogen Negative Negative Urine Ketones Negative Negative Urine Protein Negative Negative Urine Leukocytes Negative Negative Urine Blood 1+ Abnormal Negative Urine Nitrite Negative Negative Urine Bilirubin Negative Negative Urine Glucose Negative Negative Urine White Blood Cell Absent Absent Urine Red Blood Cell Trace(0-2/hpf) Absent Urine Bacteria Absent Absent Comp Metabolic Panel 07/26/2018 [facility] Sodium 136 mmol/L N 135-145 [address] [place] [address] [phone] Potassium 3.8 mmol/L N 3.5-5.0 Chloride 105 [...] Egfr Non- 84.6 >60 Egfr 102.4 >60 18 Laboratory test 07/26/2018 [facility] Magnesium 2.0 mg/dL N 1.9-2.[address] [place] [address] [phone] Creatine Kinase(CK) 40 U/L N 10-223 Alcohol < 10 mg/dL N <10 TSH (Thyroid Stim Horm) 6.93 mcIU/mL High 0.34-5.60 Laboratory test 07/26/2018 [facility] Levetiracetam 73.6 Abnormal [address] (Keppra) g/[place] [address] [phone] Lamotrigine (Lamictal) 9.1 g/mL 2.5 - 15.0 20 Urine Drug 07/26/2018 [facility] Amphetamine Ur None Detected None Detect SCR ED & [address] [place] [address] [phone] Barbiturates Urine Screen None Detected None Detect Benzodiazepine Urine Screen None Detected None Detect Urine Cannabinoids Screen None Detected None Detect Urine Cocaine Screen None Detected None Detect Urine Opiates Screen None Detected None Detect Urine Phencyclidine Screen None Detected None Detect 21 CBC Auto Diff 07/16/2018 [facility] White Blood 5.5 10^3/uL N 3.5-10.[address] [place] [address] [phone] Red Blood Count 4.88 10^6/uL N 4.00-5.40 [...] Blood Cells % 0.1 Comp Metabolic Panel 07/16/2018 [facility] Sodium 136 mmol/L N 135-[address] [place] [address] [phone] Potassium 4.4 mmol/L N 3.5-5.0 Chloride 102 [...] Egfr Non- 77.6 >60 Egfr 93.9 >60 22 Laboratory test 07/16/2018 [facility] Levetiracetam 27.3 g/mL [address] (Keppra) [place] [address] [phone] Lamotrigine (Lamictal) 4.7 g/mL 2.5 - 15.0 24 CBC Auto Diff 06/04/2018 [facility] White Blood 8.6 10^3/uL N 3.5-10.[address] [place] [address] [phone] Red Blood Count 4.34 10^6/uL N 4.00-5.40 [...] Cells % 0 CBC Auto Diff 06/02/2018 [facility] White Blood 8.9 10^3/uL N 3.5-10.[address] [place] [address] [phone] Red Blood Count 4.40 10^6/uL N 4.00-5.40 [...] Cells % 0.1 Comp Metabolic Panel 06/02/2018 [facility] Sodium 139 mmol/L N 135-[address] [place] [address] [phone] Potassium 4.2 mmol/L N 3.5-5.0 Chloride 106 [...] Egfr Non- 68.8 >60 Egfr 83.3 >60 25 Laboratory test 06/02/2018 [facility] C Reactive < 1.00 mg/L N <8.[address] [place] [address] [phone] Levetiracetam (Keppra) 55.1 g/mL Abnormal 26 Lamotrigine (Lamictal) 8.8 g/mL 2.5 - 15.0 27 CBC Auto Diff 05/04/2018 [facility] White Blood 5.9 10^3/uL N 3.5-10.[address] [place] [address] [phone] Red Blood Count 4.57 10^6/uL N 4.00-5.40 [...] Blood Cells % 0.1 Laboratory test 05/04/2018 [facility] Lactic Acid 3.0 mmol/L High 0.5-2.0 28 finding [address] [place] [address] [phone] Comp Metabolic 05/04/2018 [facility] Sodium 140 mmol/L N 135- 145 Panel [address] [place] [address] [phone] Potassium 4.0 mmol/L N 3.5-5.0 Chloride 106 [...] Egfr Non- 68.2 >60 Egfr 82.5 >60 29 Laboratory test 05/04/2018 [facility] Magnesium 2.0 mg/dL N 1.9-2.[address] [place], [place] [address] [phone] Creatine Kinase(CK) 51 U/L N 10-223 Alcohol 44 mg/dL High <10 CBC Auto Diff 03/31/2018 [facility] White Blood 5.7 10^3/uL N 3.5-10.[address] [place] [address] [phone] Red Blood Count 4.63 10^6/uL N 4.00-5.40 [...] Nucleated Red Blood Cells % 0.1 Inr/Protime 03/31/2018 [facility] Inr 0.83 N 0.77-1.[address] [place] [address] [phone] Laboratory test 03/31/2018 [facility] Partial 31.2 seconds N 26.0-36.[address] [place] [address] PTT [phone] Comp Metabolic 03/31/2018 [facility] Sodium 139 mmol/L N 135- [address] [place] [address] [phone] Potassium 4.0 mmol/L N 3.5-5.0 Chloride 105 [...] Egfr Non- 82.8 >60 Egfr 100.1 >60 30 Laboratory test 03/31/2018 [facility] Magnesium 2.2 mg/dL N 1.9-2.7 finding [address] [place] [address] [phone] Troponin-I (TnI) 0.00 ng/mL <0.04 Alcohol 59 mg/dL High <10 Laboratory test 03/24/2018 [facility] Magnesium 2.0 mg/dL N 1.9-2.7 finding [address] [place] [address] [phone] Creatine Kinase(CK) 39 U/L N 10-223 Levetiracetam (Keppra) 89.3 g/mL Abnormal 31 Lamotrigine (Lamictal) 9.5 g/mL 2.5 - 15.0 32 Comp Metabolic Panel 03/24/2018 [facility] Sodium 138 mmol/L N 135-145 [address] [place] [address] [phone] Potassium 4.1 mmol/L N 3.5-5.0 Chloride 106 [...] Egfr Non- 80.1 >60 Egfr 96.9 >60 33 Laboratory test 03/24/2018 [facility] Lactic Acid 1.0 mmol/L N 0.5-2.0 [address] [place] [address] [phone] CBC Auto Diff 03/24/2018 [facility] White Blood 6.8 10^3/uL N 3.5-10.[address] [place] [address] [phone] Red Blood Count 4.08 10^6/uL N 4.00-5.40 [...] Blood Cells % 0 Comp Metabolic Panel 03/19/2018 [facility] Sodium 138 mmol/L N 135-[address] [place] [address] [phone] Potassium 3.9 mmol/L N 3.5-5.0 Chloride 103 [...] Egfr Non- 66.9 >60 Egfr 81.0 >60 35 CBC Auto Diff 03/19/2018 [facility] White Blood 8.6 10^3/uL N 3.5-10.[address] [place] [address] [phone] Red Blood Count 4.33 10^6/uL N 4.00-5.40 [...] Red Blood Cells % 0.1 Laboratory test 03/19/2018 [facility] Lactic Acid 7.0 mmol/L High 0.5-2.0 [address] [place] [address] [phone] CBC Auto Diff 01/18/2018 [facility] White Blood 9.9 10^3/uL N 3.5-10.[address] [place] [address] [phone] Red Blood Count 4.72 10^6/uL N 4.0-5.4 [...] Cells % 0 Comp Metabolic Panel 01/18/2018 [facility] Sodium 138 mmol/L Low 139-[address] [place] [address] [phone] Potassium 4.1 mmol/L N 3.5-5.0 Chloride 107 [...] Egfr Non- 60.2 >60 Egfr 77.4 >60 37 Laboratory 01/18/2018 [facility] C Reactive 3.38 mg/L N < 5.00 38 test finding [address] [place] [address] [phone] Urine Drug SCR 01/18/2018 [facility] Amphetamine Ur None None ED & Pain DRIVE Screen [place] [address] [phone] Barbiturates Urine Screen None Detected None Detect Benzodiazepine Urine Screen None Detected None Detect Urine Cannabinoids Screen None Detected None Detect Urine Cocaine Screen None Detected None Detect Urine Opiates Screen None Detected None Detect Urine Phencyclidine Screen None Detected None Detect 39 Laboratory 01/18/2018 [facility] Lactic Acid 0.9 mmol/L N 0.5- 2.0 40 test finding [address] [place] [address] [phone] Laboratory 12/15/2017 [facility] Pathologist (SEE NOTE) 41 test finding [address] [place] [address] [phone] CBC Auto Diff 12/15/2017 [facility] White Blood 12.6 High 3.5- 10.[address] Count 10^3/[place] [address] [phone] Red Blood Count 4.84 10^6/uL N 4.0-5.4 [...] Blood Cells % 0 Urine Drug 12/15/2017 [facility] Amphetamine Ur None Detected None Detect SCR ED & [address] [place] [address] [phone] Barbiturates Urine Screen None Detected None Detect Benzodiazepine Urine Screen None Detected None Detect Urine Cannabinoids Screen None Detected None Detect Urine Cocaine Screen None Detected None Detect Urine Opiates Screen None Detected None Detect Urine Phencyclidine Screen None Detected None Detect 42 Urinalysis Profile 12/15/2017 [facility] Urine Color Yellow [address] [place] [address] [phone] Urine Appearance Clear Urine Specific [place] 1.027 N 1.010-1.030 Urine pH 5.0 N 5-9 Urine Urobilinogen Negative Negative Urine Ketones Trace Abnormal Negative Urine Protein 1+(30 mg/dL) Abnormal Negative Urine Leukocytes Negative Negative Urine Blood Negative Negative * * Abnormal Negative 43 Urine Nitrite Negative Negative Urine Bilirubin Negative Negative Urine Glucose Negative Negative Urine White Blood Cell Absent Absent Urine Red Blood Cell Trace(0-2/hpf) Absent Urine Bacteria Absent Absent Inr/Protime 12/15/2017 [facility] Inr 0.82 N 0.77-1.[address] [place] [address] [phone] Comp Metabolic Panel 12/15/2017 [facility] Sodium 139 mmol/L N 139-145 [address] [place] [address] [phone] Potassium 3.1 mmol/L Low 3.5-5.0 Chloride 99 [...] Egfr Non- 55.5 >60 Egfr 71.4 >60 44 Co2 Carbon Dioxide 14 mmol/L Low 22-32 45 Anion Gap 26 mmol/L High 2-11 Laboratory test 12/15/2017 [facility] Magnesium 2.1 mg/dL N 1.9-2.7 finding [address] [place] [address] [phone] Creatine Kinase(CK) 51 U/L N 10-223 Lactic Acid 15.5 mmol/L High 0.5-2.0 46 Comp Metabolic Panel 11/22/2017 [facility] Sodium 136 mmol/L N 133-145 [address] [place] [address] [phone] Potassium 4.0 mmol/L N 3.5-5.0 Chloride 103 [...] Egfr Non- 77.6 >60 Egfr 99.8 >60 47 Laboratory test 11/22/2017 [facility] C Reactive < 1.00 N < 5.00 [address] Protein mg/[place] [address] [phone] Acetaminophen < 15 g/mL 49 Alcohol < 10 mg/dL N <10 CBC Auto Diff 11/22/2017 [facility] White Blood 7.1 10^3/uL N 3.5-10.[address] [place] [address] [phone] Red Blood Count 4.77 10^6/uL N 4.0-5.4 [...] Nucleated Red Blood Cells % 0.1 Inr/Protime 11/19/2017 [facility] Inr 0.88 N 0.77-1.[address] [place] [address] [phone] Laboratory test 11/19/2017 [facility] Partial 29.1 seconds N 26.0-36.[address] [place] [address] PTT [phone] CBC Auto Diff 11/19/2017 [facility] White Blood 10.4 10^3/uL N 3.5-10.[address] [place] [address] [phone] Red Blood Count 4.50 10^6/uL N 4.0-5.4 [...] Blood Cells % 0 Laboratory test 11/19/2017 [facility] Lactic Acid 2.3 mmol/L High 0.5-2.[address] [place] [address] [phone] Comp Metabolic 11/19/2017 [facility] Sodium 138 mmol/L N 133- [address] [place] [address] [phone] Potassium 4.0 mmol/L N 3.5-5.0 Chloride 107 [...] Egfr Non- 73.0 >60 Egfr 93.8 >60 51 Laboratory test 11/19/2017 [facility] Magnesium 2.1 mg/dL N 1.9-2.[address] [place] [address] [phone] Creatine Kinase(CK) 46 U/L N 10-223 C Reactive Protein < 1.00 mg/L N < 5.00 52 Alcohol < 10 mg/dL N <10 TSH (Thyroid Stim Horm) 2.55 mcIU/mL N 0.34-5.60 Levetiracetam (Keppra) 81.3 g/mL Abnormal 53 Lamotrigine (Lamictal) 9.0 g/mL 2.5 - 15.0 54 Urine Drug 11/05/2017 [facility] Amphetamine Ur None Detected None Detect SCR ED & [address] [place] [address] [phone] Barbiturates Urine Screen None Detected None Detect Benzodiazepine Urine Screen None Detected None Detect Urine Cannabinoids Screen None Detected None Detect Urine Cocaine Screen None Detected None Detect Urine Opiates Screen None Detected None Detect Urine Phencyclidine Screen None Detected None Detect 55 CBC Auto Diff 11/05/2017 [facility] White Blood 3.7 10^3/uL N 3.5-10.[address] [place] [address] [phone] Red Blood Count 4.65 10^6/uL N 4.0-5.4 [...] Cells % 0 Comp Metabolic Panel 11/05/2017 [facility] Sodium 136 mmol/L N 133-[address] [place] [address] [phone] Potassium 3.9 mmol/L N 3.5-5.0 Chloride 105 [...] Egfr Non- 74.2 >60 Egfr 95.4 >60 56 Laboratory test 10/12/2017 [facility] Levetiracetam 86.5 Abnormal [address] (Keppra) g/[place] [address] [phone] Lamotrigine (Lamictal) 5.7 g/mL 2.5 - 15.0 58 CBC Auto Diff 10/12/2017 [facility] White Blood 10.8 10^3/uL N 3.5-10.[address] [place] [address] [phone] Red Blood Count 4.85 10^6/uL N 4.0-5.4 [...] Blood Cells % 0.5 Laboratory test 10/12/2017 [facility] Magnesium 2.5 mg/dL N 1.9-2.[address] [place] [address] [phone] Creatine Kinase(CK) 84 U/L N 10-223 Comp Metabolic Panel 10/12/2017 [facility] Sodium 139 mmol/L N 133-[address] [place] [address] [phone] Potassium 4.7 mmol/L N 3.5-5.0 Chloride 103 [...] Egfr Non- 68.0 >60 Egfr 87.4 >60 59 CBC Auto Diff 07/05/2017 [facility] White Blood 5.3 10^3/uL N 3.5-10.[address] [place] [address] [phone] Red Blood Count 4.85 10^6/uL N 4.0-5.4 [...] Nucleated Red Blood Cells % 0.2 N Laboratory test 07/05/2017 [facility] Lactic Acid 1.1 mmol/L N 0.5-2.0 [address] [place] [address] [phone] Comp Metabolic 07/05/2017 [facility] Sodium 138 mmol/L N 133- [address] [place] [address] [phone] Potassium 3.8 mmol/L N 3.5-5.0 Chloride 106 [...] 73.4 N >60 Egfr 94.4 N >60 61 Laboratory test 07/05/2017 [facility] Creatine 24 U/L N 10- [address] Kinase(CK) [place] [address] [phone] Acetaminophen < 15 g/mL N 62 Alcohol < 10 mg/dL N <10 Salicylate < 2.50 mg/dL N <30 TSH (Thyroid Stim Horm) 0.80 mcIU/mL N 0.34-5.60 Levetiracetam (Keppra) 75.1 g/mL Abnormal 63 Lamotrigine (Lamictal) 6.7 g/mL N 2.5 - 15.0 64 Urine Drug 07/05/2017 [facility] Amphetamine Ur None Detected N None Detect SCR ED & [address] [place] [address] [phone] Barbiturates Urine Screen None Detected N None Detect Benzodiazepine Urine Screen Presumptive Posi <SEE NOTE> Abnormal None Detect 65 Urine Cannabinoids Screen None Detected N None Detect Urine Cocaine Screen None Detected N None Detect Urine Opiates Screen None Detected N None Detect Urine Phencyclidine Screen None Detected N None Detect 66 Urinalysis Profile 07/05/2017 [facility] Urine Color Yellow N [address] [place] [address] [phone] Urine Appearance Clear N Urine Specific [place] 1.019 N 1.010-1.030 Urine pH 6.0 N [...] Urine Squamous Epithelial Cell Present Abnormal Absent CBC No Diff 03/27/2017 [facility] White Blood 7.0 10^3/uL N 3.5-10.[address] [place] [address] [phone] Red Blood Count 5.21 10^6/uL N 4.0-5.4 [...] um3 N 7.4-10.4 Comp Metabolic Panel 03/27/2017 [facility] Sodium 139 mmol/L N 133-[address] [place] [address] [phone] Potassium 3.9 mmol/L N 3.5-5.0 Chloride 106 [...] 74.9 N >60 Egfr 96.4 N >60 67 Laboratory test 03/27/2017 [facility] Magnesium 2.1 mg/dL N 1.9-2.7 finding [address] [place] [address] [phone] TSH (Thyroid Stim Horm) 1.80 mcIU/mL N 0.34-5.60 Free T4 (Free Thyroxine) 1.07 ng/dL N 0.61-1.12 Lamotrigine (Lamictal) 4.4 g/mL N 2.5 - 15.0 68 Levetiracetam (Keppra) 58.1 g/mL Abnormal 69 Laboratory test 03/22/2017 [facility] Lamotrigine 3.4 g/mL N 2.5 - 70 finding 101 [facility] (Lamictal) 15.0 [place] [address] [phone] Levetiracetam (Keppra) 82.9 g/mL Abnormal 71 Urinalysis Profile 03/22/2017 [facility] Urine Color Yellow [address] [place] [address] [phone] Urine Appearance Cloudy N Urine Specific [place] 1.015 N 1.010-1.030 Urine pH 5.0 N [...] Bacteria Absent N Absent Laboratory test 03/22/2017 [facility] Magnesium 2.5 mg/dL N 1.9-2.[address] [place] [address] [phone] Alcohol < 10 mg/dL N <10 TSH (Thyroid Stim Horm) 1.15 mcIU/mL N 0.34-5.60 Urine Drug 03/22/2017 [facility] Amphetamine Ur None Detected N None Detect SCR ED & [address] [place] [address] [phone] Barbiturates Urine Screen None Detected N None Detect Benzodiazepine Urine Screen None Detected N None Detect Urine Cannabinoids Screen None Detected N None Detect Urine Cocaine Screen None Detected N None Detect Urine Opiates Screen None Detected N None Detect Urine Phencyclidine Screen None Detected N None Detect 72 CBC Auto 03/22/2017 [facility] White Blood 15.1 10^3/uL High 3.5-10.[address] [place] [address] [phone] Red Blood Count 4.69 10^6/uL N 4.0-5.4 [...] Blood Cells % 0.4 N Inr/Protime 03/22/2017 [facility] Inr 0.90 N 0.89-1.[address] [place] [address] [phone] Laboratory test 03/22/2017 [facility] Lactic Acid 2.1 High 0.5 -2.0 [address] mmol/[place] [address] [phone] Comp Metabolic 03/22/2017 [facility] Sodium 139 N 133-[address] mmol/[place] [address] [phone] Potassium 4.2 mmol/L N 3.5-5.0 Chloride 106 [...] 66.8 N >60 Egfr 85.8 N >60 74 Laboratory test 12/22/2016 [facility] Lactic Acid 1.1 mmol/L N 0.5-2.0 [address] [place] [address] [phone] Comp Metabolic 12/22/2016 [facility] Sodium 136 mmol/L N 133- [address] [place] [address] [phone] Potassium 3.9 mmol/L N 3.5-5.0 Chloride 104 [...] 74.9 N >60 Egfr 96.4 N >60 76 Laboratory test 12/22/2016 [facility] Magnesium 2.2 mg/dL N 1.9-2.[address] [place] [address] [phone] Creatine Kinase(CK) 104 U/L N 10-223 Inr/Protime 12/22/2016 [facility] Inr 1.02 N 0.89-1.[address] [place] [address] [phone] CBC Auto Diff 12/22/2016 [facility] White Blood 10.6 N 3.5- 10.[address] Count 10^3/[place] [address] [phone] Red Blood Count 4.22 10^6/uL N 4.0-5.4 [...] Cells % 0.1 N Laboratory test 12/22/2016 [facility] Levetiracetam 91.7 Abnormal [address] (Keppra) g/[place] [address] [phone] Lamotrigine (Lamictal) 3.6 g/mL N 2.5 - 15.0 78 Laboratory test 09/29/2016 [facility] Levetiracetam 92.8 Abnormal [address] (Keppra) g/[place] [address] [phone] Lamotrigine (Lamictal) 5.6 g/mL N 2.5 - 15.0 80 Comp Metabolic Panel 09/29/2016 [facility] Sodium 133 mmol/L N 133-[address] [place] [address] [phone] Potassium 4.1 mmol/L N 3.5-5.0 Chloride 98 [...] 77.0 N >60 Egfr 99.0 N >60 81 Laboratory test 03/09/2016 [facility] Levetiracetam 85.5 Abnormal [address] (Keppra) g/[place] [address] [phone] Lamotrigine (Lamictal) 3.7 g/mL N 2.5 - 15.0 83 Urinalysis Profile 03/09/2016 [facility] Urine Color Yellow N [address] [place] [address] [phone] Urine Appearance Clear N Urine Specific [place] 1.014 N 1.010-1.030 Urine pH 6.0 N [...] Bacteria Absent N Absent Laboratory test 03/09/2016 [facility] Creatine 328 U/L High 10 -[address] Kinase(CK) [place] [address] [phone] Comp Metabolic 03/09/2016 [facility] Sodium 135 N 133-[address] mmol/[place] [address] [phone] Potassium 3.2 mmol/L Low 3.5-5.0 Chloride 102 [...] 95.4 N >60 Egfr 122.7 N >60 84 CBC Auto 03/09/2016 [facility] White Blood 11.7 10^3/uL High 3.5-10.[address] Count [place], [place] [phone] Red Blood Count 4.20 10^6/uL N 4.0-5.4 [...] Red Blood Cells % 0.1 N 1 ADDITIONAL INFORMATION This test was developed and its performance characteristics determined by [facility] in a manner consistent with CLIA requirements. This test has not been cleared or approved by the U.S. Food and Drug Administration. Test Performed by: [facility] [address] [facility], [place] [address] 2 REFERENCE VALUE 12.0 - 46.0 ADDITIONAL INFORMATION This test was developed and its performance characteristics determined by [facility] in a manner consistent with CLIA requirements. This test has not been cleared or approved by the U.S. Food and Drug Administration. Test Performed by: [facility] [address] [place] [address] 3 Troponin-I testing on Plasma Separator Tubes (PST) has a known false positive rate of 0.20-0.40%. All positive troponins reflex immediate secondary confirmatory testing. 4 Because ethnic data is not always readily [...] 15-29 5 Kidney failure <15 (or dialysis) 5 Animal Physiologist: [id number] 6 SEE RESULT BELOW Name: JAMES DOWNS JR : [address]: Tigre Doe MD Acct: [id number] Unit: [id number] AGE: 32 Location: ED Re08/27/18 SEX: M Status: DEP ER SPEC: [id number] FRANCISCO: 08/27/[address]: Tigre Doe MD REQ: [id number] RECD: 08/27/18 STATUS: DHARMESH HARRIS DR: Raul Cosme III, MD _ SOURCE: URINE SPDESC: ORDERED: Urine Culture Procedure Result Reported Site Urine Culture Final 08/28/18- 1209 ML No growth of clinically significant organisms * ML - Main Lab . END OF REPORT DEPARTMENT OF PATHOLOGY, [address] [place] [address] Alan Bee M.D. Director [facility] # [id number] 7 The urine specimen was tested at the listed cutoffs: Drug class test level (ng/mL) Amphetamines 500 Barbiturates 200 Benzodiazepine metabolites 200 Cocaine metabolites 150 Cannabinoids 50 Opiates 300 Pcp 25 Specimen was received without chain of custody. Results should be used for medical purposes only. 8 Because ethnic data is not always readily [...] 15-29 5 Kidney failure <15 (or dialysis) 9 Critical Result LACT:7.4 Called to [id number] at: 13:05:19 by:[id number] Read back by:[id number] [facility] Severe Sepsis and Septic Shock Management Bundle Measure requires all lactic acids initially measuring >2.0 mmol/L be repeated. [facility] Severe Sepsis and Septic Shock Management Bundle Measure requires all lactic acids initially measuring >2.0 mmol/L be repeated. 10 REFERENCE VALUE 12.0 - 46.0 ADDITIONAL INFORMATION This test was developed and its performance characteristics determined by [facility] in a manner consistent with CLIA requirements. This test has not been cleared or approved by the U.S. Food and Drug Administration. Test Performed by: [facility] - [address] [address] 11 SEE RESULT BELOW Name: JAMES DOWNS JR : [address]: Vero Carpio MD Acct: [id number] Unit: [id number] AGE: 32 Location: ED Re08/25/18 SEX: M Status: DEP ER SPEC: [id number] FRANCISCO: 08/25/[address] [facility] [address]: Yasmeen Morris MD REQ: [id number] RECD: 08/25/18 STATUS: DHARMESH HARRIS DR: [facility] Raul Cosme III, MD _ SOURCE: URINE SPDESC: ORDERED: Urine Culture Procedure Result Reported Site Urine Culture Final 08/26/18917 ML No growth of clinically significant organisms * ML - Main Lab . END OF REPORT DEPARTMENT OF PATHOLOGY, [address] [place] [address] Alan Bee M.D. Director [facility] # [id number] 12 The urine specimen was tested at the listed cutoffs: Drug class test level (ng/mL) Amphetamines 500 Barbiturates 200 Benzodiazepine metabolites 200 Cocaine metabolites 150 Cannabinoids 50 Opiates 300 Pcp 25 Specimen was received without chain of custody. Results should be used for medical purposes only. 13 Because ethnic data is not always [...] failure <15 (or dialysis) 14 Critical Result LACT:2.1 Called to BERTRAM at: 07:54:28 by:[id number] Read back by:BERTRAM FAY Severe Sepsis and Septic Shock Management Bundle Measure requires all lactic acids initially measuring >2.0 mmol/L be repeated. 15 Warning: A positive result is not useful for establishing a diagnosis of syphilis. In most situations, such a result may reflect a prior treated infection; a negative result can exclude a diagnosis of syphilis except for incubating or early primary disease. 16 Result in log IU/mL is Undetected. ADDITIONAL INFORMATION The quantification range of this assay is 15 to 100,000,000 IU/mL (1.18 log to 8.00 log IU/mL). Testing was performed using the wen HCV test ([employer] with the wen [employer] System. Test Performed by: [facility] - [address] [address] 17 [facility] Severe Sepsis and Septic Shock Management Bundle Measure requires all lactic acids initially measuring >2.0 mmol/L be repeated. 18 Because ethnic data is not always readily [...] 15-29 5 Kidney failure <15 (or dialysis) 19 REFERENCE VALUE 12.0 - 46.0 ADDITIONAL INFORMATION This test was developed and its performance characteristics determined by [facility] in a manner consistent with CLIA requirements. This test has not been cleared or approved by the U.S. Food and Drug Administration. Test Performed by: [facility] [address] [address] 20 ADDITIONAL INFORMATION This test was developed and its performance characteristics determined by [facility] in a manner consistent with CLIA requirements. This test has not been cleared or approved by the U.S. Food and Drug Administration. Test Performed by: [facility] - [address] [address] 21 The urine specimen was tested at the listed cutoffs: Drug class test level (ng/mL) Amphetamines 500 Barbiturates 200 Benzodiazepine metabolites 200 Cocaine metabolites 150 Cannabinoids 50 Opiates 300 Pcp 25 Specimen was received without chain of custody. Results should be used for medical purposes only. 22 Because ethnic data is not always readily [...] 15-29 5 Kidney failure <15 (or dialysis) 23 REFERENCE VALUE 12.0 - 46.0 ADDITIONAL INFORMATION This test was developed and its performance characteristics determined by [facility] in a manner consistent with CLIA requirements. This test has not been cleared or approved by the U.S. Food and Drug Administration. Test Performed by: [facility] - [address] [address] ADDITIONAL INFORMATION This test was developed and its performance characteristics determined by [facility] in a manner consistent with CLIA requirements. This test has not been cleared or approved by the U.S. Food and Drug Administration. Test Performed by: [facility] - [address] [address] 25 Because ethnic data is not always [...] 5 Kidney failure <15 (or dialysis) 26 REFERENCE VALUE 12.0 - 46.0 ADDITIONAL INFORMATION This test was developed and its performance characteristics determined by [facility] in a manner consistent with CLIA requirements. This test has not been cleared or approved by the U.S. Food and Drug Administration. Test Performed by: [facility] - [address] [address] 27 ADDITIONAL INFORMATION This test was developed and its performance characteristics determined by [facility] in a manner consistent with CLIA requirements. This test has not been cleared or approved by the U.S. Food and Drug Administration. Test Performed by: [facility] [address] [place] [address] 28 Critical Result LACT:3.0 Called to LUBA at: 22:40:21 by:[id number] Read back by:LUBA [facility] Severe Sepsis and Septic Shock Management Bundle Measure requires all lactic acids initially measuring >2.0 mmol/L be repeated. 29 Because ethnic data is not always [...] 5 Kidney failure <15 (or dialysis) 30 Because ethnic data is not always readily [...] 15-29 5 Kidney failure <15 (or dialysis) 31 REFERENCE VALUE 12.0 - 46.0 ADDITIONAL INFORMATION This test was developed and its performance characteristics determined by [facility] in a manner consistent with CLIA requirements. This test has not been cleared or approved by the U.S. Food and Drug Administration. Test Performed by: [facility] - [address] [address] 32 ADDITIONAL INFORMATION This test was developed and its performance characteristics determined by [facility] in a manner consistent with CLIA requirements. This test has not been cleared or approved by the U.S. Food and Drug Administration. Test Performed by: [facility] - [address] [address] 33 Because ethnic data is not always readily [...] 15-29 5 Kidney failure <15 (or dialysis) 34 [facility] Severe Sepsis and Septic Shock Management Bundle Measure requires all lactic acids initially measuring >2.0 mmol/L be repeated. 35 Because ethnic data is not always readily [...] 15-29 5 Kidney failure <15 (or dialysis) 36 Critical Result LACT:7.0 Called to [id number] at: 22:15:21 by:[id number] Read back by:[id number] [facility] Severe Sepsis and Septic Shock Management Bundle Measure requires all lactic acids initially measuring >2.0 mmol/L be repeated. 37 Because ethnic data is not always readily [...] 15-29 5 Kidney failure <15 (or dialysis) 38 Acute inflammation: >10.00 39 The urine specimen was tested at the listed cutoffs: Drug class test level (ng/mL) Amphetamines 500 Barbiturates 200 Benzodiazepine metabolites 200 Cocaine metabolites 150 Cannabinoids 50 Opiates 300 Pcp 25 Specimen was received without chain of custody. Results should be used for medical purposes only. 40 [facility] Severe Sepsis and Septic Shock Management Bundle Measure requires all lactic acids initially measuring >2.0 mmol/L be repeated. 41 Absolute lymphocytosis, favor reactive. If persistent, recommend correlation with flow cytometry to exclude a low-grade lymphoproliferative disorder. Reviewed by Fawn Gil MD 42 The urine specimen was tested at the listed cutoffs: Drug class test level (ng/mL) Amphetamines 500 Barbiturates 200 Benzodiazepine metabolites 200 Cocaine metabolites 150 Cannabinoids 50 Opiates 300 Pcp 25 Specimen was received without chain of custody. Results should be used for medical purposes only. 43 *Ascorbic acid is present which may interfere with detection of blood. 44 Because ethnic data is not always readily [...] 15-29 5 Kidney failure <15 (or dialysis) 45 Critical Result CO2:14 Called to [id number] at: 03:22:47 by:[id number] Read back by:[id number] 46 Critical Result LACT:15.5 Called to [id number] at: 03:34:10 by:[id number] Read back by:[id number] [place] Severe Sepsis and Septic Shock Management Bundle Measure requires all lactic acids initially measuring >2.0 mmol/L be repeated. 47 Because ethnic data is not always readily [...] 15-29 5 Kidney failure <15 (or dialysis) 48 Acute inflammation: >10.00 49 Therapeutic concentration: <50 ug/mL Toxic concentration: >120 ug/mL 50 Critical Result LACT:2.3 Called to KAELYN at: 12:52:18 by:[id number] Read back by:KAELYN FAY Severe Sepsis and Septic Shock Management Bundle Measure requires all lactic acids initially measuring >2.0 mmol/L be repeated. 51 Because ethnic data is not always readily [...] 15-29 5 Kidney failure <15 (or dialysis) 52 Acute inflammation: >10.00 53 REFERENCE VALUE 12.0 - 46.0 ADDITIONAL INFORMATION This test was developed and its performance characteristics determined by [facility] in a manner consistent with CLIA requirements. This test has not been cleared or approved by the U.S. Food and Drug Administration. Test Performed by: [facility] [address] [place] [id number] 54 ADDITIONAL INFORMATION This test was developed and its performance characteristics determined by [facility] in a manner consistent with CLIA requirements. This test has not been cleared or approved by the U.S. Food and Drug Administration. Test Performed by: [facility] - [address] [address] 55 The urine specimen was tested at the listed cutoffs: Drug class test level (ng/mL) Amphetamines 500 Barbiturates 200 Benzodiazepine metabolites 200 Cocaine metabolites 150 Cannabinoids 50 Opiates 300 Pcp 25 Specimen was received without chain of custody. Results should be used for medical purposes only. 56 Because ethnic data is not always readily [...] 15-29 5 Kidney failure <15 (or dialysis) 57 REFERENCE VALUE 12.0 - 46.0 ADDITIONAL INFORMATION This test was developed and its performance characteristics determined by [facility] in a manner consistent with CLIA requirements. This test has not been cleared or approved by the U.S. Food and Drug Administration. Test Performed by: [facility] [employer] [address] [place] [id number] 58 ADDITIONAL INFORMATION This test was developed and its performance characteristics determined by [facility] in a manner consistent with CLIA requirements. This test has not been cleared or approved by the U.S. Food and Drug Administration. Test Performed by: [facility] [address] [place] [address] 59 Because ethnic data is not always readily [...] 15-29 5 Kidney failure <15 (or dialysis) 60 [facility] Severe Sepsis and Septic Shock Management [...] 5 Kidney failure <15 (or dialysis) 62 Therapeutic concentration: <50 ug/mL Toxic concentration: >120 ug/mL 63 REFERENCE VALUE 12.0 - 46.0 ADDITIONAL INFORMATION This test was developed and its performance characteristics determined by [facility] in a manner consistent with CLIA requirements. This test has not been cleared or approved by the U.S. Food and Drug Administration. Test Performed by: [facility] [address] [place] [address] 64 ADDITIONAL INFORMATION This test was developed and its performance characteristics determined by [facility] in a manner consistent with CLIA requirements. This test has not been cleared or approved by the U.S. Food and Drug Administration. Test Performed by: [facility] [facility] [address] [place] [address] 65 Presumptive Positive Presumptive positive results are unconfirmed. 66 The urine specimen was tested at the listed cutoffs: Drug class test level (ng/mL) Amphetamines 500 Barbiturates 200 Benzodiazepine metabolites 200 Cocaine metabolites 150 Cannabinoids 50 Opiates 300 Pcp 25 Specimen was received without chain of custody. Results should be used for medical purposes only. 67 Because ethnic data is not always readily [...] 15-29 5 Kidney failure <15 (or dialysis) 68 ADDITIONAL INFORMATION This test was developed and its performance characteristics determined by [facility] in a manner consistent with CLIA requirements. This test has not been cleared or approved by the U.S. Food and Drug Administration. Test Performed by: [facility] - [address] [address] 69 REFERENCE VALUE 12.0 - 46.0 ADDITIONAL INFORMATION This test was developed and its performance characteristics determined by [facility] in a manner consistent with CLIA requirements. This test has not been cleared or approved by the U.S. Food and Drug Administration. Test Performed by: [facility] - [address] [address] 70 ADDITIONAL INFORMATION This test was developed and its performance characteristics determined by [facility] in a manner consistent with CLIA requirements. This test has not been cleared or approved by the U.S. Food and Drug Administration. Test Performed by: [facility] - [address] [address] 71 REFERENCE VALUE 12.0 - 46.0 ADDITIONAL INFORMATION This test was developed and its performance characteristics determined by [facility] in a manner consistent with CLIA requirements. This test has not been cleared or approved by the U.S. Food and Drug Administration. Test Performed by: [facility] - [address] [address] 72 The urine specimen was tested at the listed cutoffs: Drug class test level (ng/mL) Amphetamines 500 Barbiturates 200 Benzodiazepine metabolites 200 Cocaine metabolites 150 Cannabinoids 50 Opiates 300 Pcp 25 Specimen was received without chain of custody. Results should be used for medical purposes only. 73 Critical Result LACT:2.1 Called to [id number] at: 13:04:15 by:[id number] Read back by:[id number] [facility] Severe Sepsis and Septic Shock Management Bundle Measure requires all lactic acids initially measuring >2.0 mmol/L be repeated. 74 Because ethnic data is not always readily [...] 15-29 5 Kidney failure <15 (or dialysis) 75 [facility] Severe Sepsis and Septic Shock Management Bundle Measure requires all lactic acids initially measuring >2.0 mmol/L be repeated. 76 Because ethnic data is not always readily [...] 15-29 5 Kidney failure <15 (or dialysis) 77 REFERENCE VALUE 12.0 - 46.0 ADDITIONAL INFORMATION This test was developed and its performance characteristics determined by [facility] in a manner consistent with CLIA requirements. This test has not been cleared or approved by the U.S. Food and Drug Administration. Test Performed by: [facility] - [address] [address] 78 ADDITIONAL INFORMATION This test was developed and its performance characteristics determined by [facility] in a manner consistent with CLIA requirements. This test has not been cleared or approved by the U.S. Food and Drug Administration. Test Performed by: [facility] - [address] [address] 79 REFERENCE VALUE 12.0 - 46.0 ADDITIONAL INFORMATION This test was developed and its performance characteristics determined by [facility] in a manner consistent with CLIA requirements. This test has not been cleared or approved by the U.S. Food and Drug Administration. Test Performed by: [facility] - [address] [address] Medical Resident: Adria Nguyen II, M.D., Ph.D. 80 ADDITIONAL INFORMATION This test was developed and its performance characteristics determined by [facility] in a manner consistent with CLIA requirements. This test has not been cleared or approved by the U.S. Food and Drug Administration. Test Performed by: [place] [address] Medical Resident: Adria Nguyen II, M.D., Ph.D. 81 Because ethnic data is not always readily [...] 15-29 5 Kidney failure <15 (or dialysis) 82 REFERENCE VALUE 12.0 - 46.0 Test Performed by: [facility] [place] [address] Medical Resident: Adria Nguyen II, M.D., Ph.D. 83 Test Performed by: [place] [address] Medical Resident: Adria Nguyen II, M.D., Ph.D. 84 Because ethnic data is not always readily [...] dialysis) Procedures Date Code Description Status 06/07/2017 46352 EEG Monitoring & Video Recording Completed 06/06/2017 31517 EEG Monitoring & Video Recording Completed 06/05/2017 16418 EEG Monitoring & Video Recording Completed 01/16/2017 18129 Electroencephalogram EEG Extended Monitoring Over 1 Hour Completed 07/30/2015 27215 EEG Recording Awake & Drowsy Completed 08/12/2012 33067 EEG Recording Awake & Asleep Completed Encounters Type Date Location Provider Dx Diagnosis Office Visit 07/29/2018 [facility] Mj Pathak MD B18.2 Chronic viral 10: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 Clinic [facility] hepatitis C Z11.3 Encntr screen for infections w sexl mode of transmiss G40.919 Epilepsy, unsp, intractable, without status epilepticus G43.009 Migraine w/o aura, not intractable, w/o status migrainosus G47.00 Insomnia, unspecified F41.9 Anxiety disorder, unspecified M25.562 Pain in left knee M62.451 Contracture of muscle, right thigh M62.452 Contracture of muscle, left thigh Office Visit 03/10/2018 [facility] G40.919 Epilepsy, unsp, 3:00p Clinic MD Isai intractable, without status epilepticus G43.009 Migraine w/o aura, not intractable, w/o status migrainosus G47.00 Insomnia, unspecified Office Visit 12/24/2017 [facility] G40.919 Epilepsy, unsp, 10:00a Clinic MD Isai intractable, without status epilepticus G43.009 Migraine w/o aura, not intractable, w/o status migrainosus G47.00 Insomnia, unspecified Office Visit 12/15/2017 [facility] Karen G40.909 Epilepsy, unsp, 11:11a Assoc,pc Rooth, DO not intractable, Hospitalists without status epilepticus F41.9 Anxiety disorder, unspecified F44.5 Conversion disorder with seizures or convulsions Office Visit 10/13/2017 2:10p [facility] Karen R56.9 Unspecified Assoc,pc Rooth, DO convulsions Hospitalists F44.5 Conversion disorder with seizures or convulsions F41.9 Anxiety disorder, unspecified Office 10/13/2017 [facility]nie G40.019 Local-rel idio Visit 1:35p Clinic Amari Le epi w seiz of loc onset, ntrct, [...] Clinic intractable, without status epilepticus Office 06/07/2017 [facility] Gilberto G40.901 Epilepsy, unsp, Visit 11:21a Assoc,pc Frankenberg II, not intractable, Hospitalists M.D. with status epilepticus R06.81 Apnea, not elsewhere classified Office Visit 06/06/2017 [facility] G40.919 Epilepsy, unsp, 11:38a Clinic MD Isai intractable, without status epilepticus Office Visit 06/05/2017 [facility] G40.919 Epilepsy, unsp, 11:34a Clinic MD Isai intractable, without status epilepticus Office Visit 04/06/2017 [facility] Matthew Winter G40.019 Local-rel idio 10:30a [facility] Carlos Kruger, epi w seiz of loc Amari onset, ntrct, w/o stat epi Z91.19 Patient's noncompliance w oth medical treatment and regimen F41.9 Anxiety disorder, unspecified Office Visit 01/16/2017 [facility] Alex, G40.019 Local-rel idio 11:36a Clinic epi w seiz of loc onset, ntrct, w/o stat epi Z91.19 Patient's noncompliance w oth medical treatment and regimen Office Visit 09/29/2016 [facility] Winter G40.011 Local-rel idio 10:00a Clinic Amari Kruger epi w seiz of loc onset, ntrct, w stat epi Z91.19 Patient's noncompliance w oth medical treatment and regimen Office 10/19/2015 [facility] Winter G40.909 Epilepsy, unsp, Visit 10:15a Andrea Kruger M.D. not intractable, without status epilepticus F41.9 Anxiety disorder, unspecified Office 07/25/2015 [facility] Winter G40.909 Epilepsy, unsp, Visit 9:00a Clinic Amari Kruger not intractable, without status epilepticus F41.9 Anxiety disorder, unspecified Office Visit 01/01/2015 11:40a [facility] Internal Raul Olivo 345.90 Epilepsy Unspec Peyton Cosme M.D. W/O Intractable [place] Office Visit 03/23/2014 3:40p [facility] Raul Olivo V70.0 Examination Medicine Jailyn Cosme M.D. [facility] Rout[facility] 345.90 Epilepsy Unspec W/O Intractable 305.1 Tobacco Use Disorder Office Visit 02/25/2012 [facility] 883.0 Open Wound 10:45a Services [facility] Gonzales(S) W/O C.M.A. Complication Office Visit 02/18/2012 [facility] 883.0 Open Wound 10:30a [facility] Gonzales(S) W/O C.M.A. Complication 305.1 Tobacco Use Disorder Office Visit 01/06/2010 12:30a [facility] 977.9 Poisoning By Assoc,toshia Mcconnell M.D. [facility] Substance Unspec 345.90 Epilepsy Unspec W/O Intractable 780.39 Convulsions Other 300.00 Anxiety State Unspec 308.9 Stress Reaction Unspec Acute Office Visit 01/05/2010 [facility] 300.9 Nonpsychotic 1:15a toshia Irvin M.D. Disorders NOS [facility] 969.4 Poisoning By Benzodiazepine Based Tranquilizers 780.39 Convulsions Other 308.9 Stress Reaction Unspec Acute Office Visit 01/05/2010 [facility] Jay Culver 977.9 Poisoning By 12:30a Asstoshia millan M.D. [facility] Hospitalist Substance Unspec 780.39 Convulsions Other 300.9 Nonpsychotic Disorders NOS Plan of Treatment Future Appointment(s):12/20/2018 10:15 am - Arnie Le M.D. at [facility] [id number]/08/2018 - Arnie Le M.D.G43.009 Migraine without aura, not intractable, without status migraNew Medication:Topiramate 50 mg - 1 tablet by mouth twice a dayNew Labs:CBC Auto Diff, Ordered: 10/08/18Comp Metabolic Panel, Ordered: 10/08/18Levetiracetam (Keppra), Ordered: Lamotrigine (Lamictal), Ordered: 10/08/18Myoglobin, Ordered: 10/08/18Creatine Kinase(CK), Ordered: 10/08/18Aldolase, Ordered: 10/08/18Follow up:Follow up in 3 monthsRecommendations:Call me 1 week after labs are done Have labs checked in am before taking first dose.G40.919 Epilepsy, unspecified, intractable, without status vhbblnxbiN77.00 Insomnia, lxenvyqvgvoT60.9 Anxiety disorder, unspecified
[2018-10-09] MEDS ORDERED: ALPRAZolam TAB* 0.5 MG PO ONE (23:42)
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
[2018-10-10 00:42] VITALS: BP 128/78
== END 2018-10-10 00:47 | disposition home or self-care (01) ==
LOC: ED 23:01
DX: F41.9 Anxiety disorder, unspecified (principal); F17.210 Nicotine dependence, cigarettes, uncomplicated
CPT/HCPCS: 99282; A9270-GY

== ENCOUNTER 2018-11-02 23:07 | Emergency (ER) | payer OTHER ==
[2018-11-02] MEDS ORDERED: LORazepam INJ* 2 MG/ML 1 ML VIAL IV ONE (23:39)
[2018-11-02] MEDS ORDERED: NS 0.9% 1000 ML** 1,000 ML IV ONE (23:39)
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
[2018-11-03 00:02] LABS: ABS Basophils 0 10^3/ul (0-0.2); ABS Eosinophils 0 10^3/ul (0-0.6); ABS Lymphocytes 1.4 10^3/ul (1.0-4.8); ABS Monocytes 0.7 10^3/ul (0-0.8); ABS Neutrophils 4.1 10^3/ul (1.5-7.7); ABS Nucleated RBC 0 10^3/ul; Eosinophil % 0.6 %; Hematocrit 41 % (42-52); Hemoglobin 14.1 g/dl (14.0-18.0); Mean Corpuscular HGB Conc 35 g/dl (31-36); Mean Corpuscular Hemoglobin 32 pg (27-31); Mean Corpuscular Volume 94 fL (80-94); Mean Platelet Volume 7.8 fL (7.4-10.4); Nucleated Red Blood Cells % 0; Platelet Count 222 10^3/ul (150-450); Red Blood Count 4.37 10^6/ul (4.00-5.40); Red Cell Distribution Width 13 % (10.5-15); White Blood Count 6.2 10^3/ul (3.5-10.8)
[2018-11-03 00:13] LABS: INR 0.89 (0.77-1.02)
[2018-11-03 00:19] LABS: Albumin 4.7 g/dL (3.2-5.2); Albumin/Globulin Ratio 1.8 (1-3); BUN/Creatinine Ratio 14.4 (8-20); Calcium 9.5 mg/dL (8.6-10.3); EGFR African American 100.1 (>60); EGFR Non-African American 82.8 (>60); Globulin 2.6 g/dL (2-4); Total Bilirubin 0.3 mg/dL (0.2-1.0); Total Protein 7.3 g/dL (6.4-8.9)
[2018-11-03 00:33] LABS: Potassium 3.6 mmol/L (3.5-5.0)
[2018-11-03 01:09] LABS: Urine Appearance Clear; Urine Bilirubin Negative (Negative); Urine Blood Negative (Negative); Urine Color Yellow; Urine Glucose Negative (Negative); Urine Ketones Trace (Negative); Urine Nitrite Negative (Negative); Urine Protein Negative (Negative); Urine Specific Gravity 1.031 (1.010-1.030); Urine Urobilinogen Negative (Negative)
[2018-11-03 01:20] LABS: Barbiturates Urine Screen None Detected (None Detect); Benzodiazepine Urine Screen None Detected (None Detect); Urine Cannabinoids Screen None Detected (None Detect)
[2018-11-03 01:59] VITALS: BP 105/62
[2018-11-04 16:33] LABS: Lamotrigine 6.2 mcg/mL (2.5 - 15.0)
== END 2018-11-03 01:33 | disposition home or self-care (01) ==
LOC: ED 23:07
DX: G40.909 Epilepsy, unspecified, not intractable, without status epilepticus (principal); R51 Headache; Z86.59 Personal history of other mental and behavioral disorders; F17.210 Nicotine dependence, cigarettes, uncomplicated
CPT/HCPCS: 36415; 80053; 80175; 80177; 80307; 81003; 83605; 83735; 85025; 85610; 96361; 96374; 99282; J2060

== ENCOUNTER 2019-05-28 20:42 | Emergency (ER) | payer OTHER ==
[2019-05-28] MEDS ORDERED: LORazepam TAB(*) 1 MG PO ONE (22:14)
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
[2019-05-28 23:16] VITALS: BP 108/62
== END 2019-05-28 23:16 | disposition home or self-care (01) ==
LOC: ED 20:42
DX: R56.9 Unspecified convulsions (principal); R62.50 Unspecified lack of expected normal physiological development in childhood; F41.9 Anxiety disorder, unspecified; F32.9 Major depressive disorder, single episode, unspecified; F17.210 Nicotine dependence, cigarettes, uncomplicated
CPT/HCPCS: 99282; A9270-GY

== ENCOUNTER 2019-07-07 01:48 | Emergency (ER) | payer OTHER ==
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
[2019-07-07] MEDS ORDERED: LORazepam INJ* 2 MG/ML 1 ML VIAL IV ONE (01:53)
[2019-07-07] MEDS ORDERED: NS 0.9% 1000 ML** 1,000 ML IV ONE (01:53)
[2019-07-07] MEDS ORDERED: Lorazepam PYXIS KEY ONE (02:14)
[2019-07-07 02:22] LABS: ABS Lymphocytes 2.3 10^3/ul (1.0-4.8); ABS Monocytes 0.6 10^3/ul (0-0.8); ABS Neutrophils 2.8 10^3/ul (1.5-7.7); Eosinophil % 0.6 %; Hematocrit 41 % (42-52); Hemoglobin 14.2 g/dL (14.0-18.0); Lymphocyte % 40.5 %; Mean Corpuscular HGB Conc 35 g/dL (31-36); Mean Corpuscular Hemoglobin 32 pg (27-31); Mean Corpuscular Volume 93 fL (80-94); Mean Platelet Volume 7.9 fL (7.4-10.4); Nucleated Red Blood Cells % 0.1; Platelet Count 200 10^3/uL (150-450); Red Blood Count 4.42 10^6 /uL (4.18-5.48); Red Cell Distribution Width 14 % (10-15); White Blood Count 5.7 10^3/uL (3.5-10.8)
[2019-07-07 02:26] LABS: INR 0.92 (0.82-1.09)
[2019-07-07 02:38] LABS: Albumin 4.5 g/dL (3.2-5.2); Albumin/Globulin Ratio 1.6 (1-3); BUN/Creatinine Ratio 11.7 (8-20); Calcium 9.7 mg/dL (8.6-10.3); EGFR African American 72.4 (>60); EGFR Non-African American 59.8 (>60); Globulin 2.8 g/dL (2-4); Magnesium 2.2 mg/dL (1.9-2.7); Potassium 3.9 mmol/L (3.5-5.0); Total Bilirubin 0.3 mg/dL (0.2-1.0); Total Protein 7.3 g/dL (6.4-8.9)
[2019-07-07 04:32] VITALS: BP 128/76
[2019-07-09 12:48] LABS: Levetiracetam 70.2 mcg/mL
[2019-07-09 13:19] LABS: Lamotrigine 6.3 mcg/mL (2.5 - 15.0)
== END 2019-07-07 04:20 | disposition home or self-care (01) ==
LOC: ED 01:48
DX: R56.9 Unspecified convulsions (principal); R62.50 Unspecified lack of expected normal physiological development in childhood; F41.9 Anxiety disorder, unspecified; F32.9 Major depressive disorder, single episode, unspecified; F17.210 Nicotine dependence, cigarettes, uncomplicated
CPT/HCPCS: 36415; 80053; 80175; 80177; 83605; 83735; 85025; 85610; 96361; 96374; 99284; J2060

== ENCOUNTER 2019-07-16 04:42 | Emergency (ER) | payer OTHER ==
[2019-07-16] MEDS ORDERED: LORazepam TAB(*) 0.5 MG PO ONE (06:40)
[2019-07-16] MEDS ORDERED: clonazePAM TAB(*) 0.5 MG PO ONE (06:49)
[2019-07-16 07:00] VITALS: BP 101/67
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
== END 2019-07-16 07:01 | disposition home or self-care (01) ==
LOC: ED 04:42
DX: F41.9 Anxiety disorder, unspecified (principal); G40.909 Epilepsy, unspecified, not intractable, without status epilepticus; F17.210 Nicotine dependence, cigarettes, uncomplicated
CPT/HCPCS: 99283; A9270-GY

== ENCOUNTER 2019-07-22 03:28 | Emergency (ER) | payer OTHER ==
[2019-07-22] MEDS ORDERED: Lorazepam PYXIS KEY PRN (05:07)
[2019-07-22] MEDS ORDERED: LORazepam INJ* 2 MG/ML 1 ML VIAL IM ONE (05:07)
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
[2019-07-22] MEDS ORDERED: SUMAtriptan TAB* 50 MG PO ONE (05:39)
[2019-07-22] MEDS ORDERED: Ibuprofen TAB* 400 MG PO ONE (05:50)
[2019-07-22 06:05] VITALS: BP 115/62
== END 2019-07-22 06:00 | disposition home or self-care (01) ==
LOC: ED 03:28
DX: F41.9 Anxiety disorder, unspecified (principal); R56.9 Unspecified convulsions; R06.02 Shortness of breath; R51 Headache; Z72.0 Tobacco use
CPT/HCPCS: 96372; 99282; A9270-GY; J2060

== ENCOUNTER 2019-07-23 21:25 | Emergency (ER) | payer MEDICAID, OTHER ==
[2019-07-23] MEDS ORDERED: NS 0.9% 1000 ML** 1,000 ML IV ONE (21:44)
[2019-07-23] MEDS ORDERED: LORazepam TAB(*) 1 MG PO ONE (21:56)
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
[2019-07-24 00:01] VITALS: BP 0/0
== END 2019-07-24 | disposition home or self-care (01) ==
LOC: ED 21:25
DX: G40.909 Epilepsy, unspecified, not intractable, without status epilepticus (principal); F41.9 Anxiety disorder, unspecified; Z72.0 Tobacco use; F32.9 Major depressive disorder, single episode, unspecified
CPT/HCPCS: 99282; A9270-GY

== ENCOUNTER 2019-08-04 18:56 | Emergency (ER) | payer OTHER ==
[2019-08-04] MEDS ORDERED: LORazepam TAB(*) 1 MG PO ONE (19:11)
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
[2019-08-04 19:32] LABS: ABS Lymphocytes 1.9 10^3/ul (1.0-4.8); ABS Monocytes 0.5 10^3/ul (0-0.8); ABS Neutrophils 2.4 10^3/ul (1.5-7.7); Eosinophil % 0.8 %; Hematocrit 40 % (42-52); Hemoglobin 13.9 g/dL (14.0-18.0); Lymphocyte % 39.2 %; Mean Corpuscular HGB Conc 35 g/dL (31-36); Mean Corpuscular Hemoglobin 32 pg (27-31); Mean Corpuscular Volume 94 fL (80-94); Mean Platelet Volume 7.5 fL (7.4-10.4); Platelet Count 199 10^3/uL (150-450); Red Blood Count 4.28 10^6 /uL (4.18-5.48); Red Cell Distribution Width 14 % (10-15); White Blood Count 4.8 10^3/uL (3.5-10.8)
[2019-08-04 19:41] LABS: INR 0.94 (0.82-1.09)
[2019-08-04 19:52] LABS: ALT 7 U/L (7-52); AST 11 U/L (13-39); Albumin 4.7 g/dL (3.2-5.2); Albumin/Globulin Ratio 1.7 (1-3); Alkaline Phosphatase 41 U/L (34-104); BUN/Creatinine Ratio 10.3 (8-20); Blood Urea Nitrogen 12 mg/dL (6-24); CO2 Carbon Dioxide 21 mmol/L (22-32); Calcium 9.5 mg/dL (8.6-10.3); EGFR African American 86.9 (>60); EGFR Non-African American 71.8 (>60); Globulin 2.8 g/dL (2-4); Glucose 93 mg/dL (70-100); Magnesium 2.1 mg/dL (1.9-2.7); Potassium 3.8 mmol/L (3.5-5.0); Sodium 138 mmol/L (135-145); Total Protein 7.5 g/dL (6.4-8.9)
[2019-08-04 19:53] LABS: Anion Gap 5 mmol/L (2-11); Chloride 112 mmol/L (101-111)
[2019-08-04 20:15] LABS: Alcohol < 10 mg/dL (<10)
[2019-08-04] MEDS ORDERED: lamoTRIgine TAB(*) 100 MG PO ONE (20:23)
[2019-08-04] MEDS ORDERED: levETIRAcetam TAB* 500 MG PO ONE (20:24)
[2019-08-04] MEDS ORDERED: Ibuprofen TAB* 800 MG PO ONE (20:25)
[2019-08-04] MEDS ORDERED: LORazepam TAB(*) 0.5 MG PO ONE (20:26)
[2019-08-04 21:07] VITALS: BP 113/76
[2019-08-06 16:02] LABS: Levetiracetam 59.9 mcg/mL
[2019-08-06 16:31] LABS: Lamotrigine 4.8 mcg/mL (2.5 - 15.0)
== END 2019-08-04 21:19 | disposition home or self-care (01) ==
LOC: ED 18:56
DX: F41.9 Anxiety disorder, unspecified (principal); G40.909 Epilepsy, unspecified, not intractable, without status epilepticus; R62.50 Unspecified lack of expected normal physiological development in childhood; Z72.0 Tobacco use
CPT/HCPCS: 36415; 70450; 80053; 80175; 80177; 80320; 83605; 83735; 85025; 85610; 93005; 99284; A9270-GY; G0480

== ENCOUNTER 2019-08-07 00:48 | Emergency (ER) | payer OTHER ==
[2019-08-07] MEDS ORDERED: PROCHLORPERAZINE INJ 5 MG/ML 2 ML VIAL IV ONE (01:12)
[2019-08-07] MEDS ORDERED: NS 0.9% 1000 ML** 1,000 ML IV ONE (01:12)
[2019-08-07] MEDS ORDERED: diPHENhydraMINE IV* 50 MG/ML 1 ml VIAL (BENADRYL) IV ONE (01:12)
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
[2019-08-07] MEDS ORDERED: Acetaminophen TAB* 325 MG PO ONE (01:54)
[2019-08-07 03:08] VITALS: BP 110/60
== END 2019-08-07 03:00 | disposition home or self-care (01) ==
LOC: ED 00:48
DX: R51 Headache (principal); R62.50 Unspecified lack of expected normal physiological development in childhood; F41.9 Anxiety disorder, unspecified; F32.9 Major depressive disorder, single episode, unspecified; F17.290 Nicotine dependence, other tobacco product, uncomplicated
CPT/HCPCS: 96361; 96374; 96375; 99283; A9270-GY; J0780; J1200

== ENCOUNTER 2019-08-09 23:21 | Emergency (ER) | payer OTHER ==
[2019-08-09] MEDS ORDERED: diPHENhydraMINE PO* 50 MG PO ONE (23:45)
[2019-08-09] MEDS ORDERED: Ibuprofen TAB* 400 MG PO ONE (23:46)
[2019-08-09] MEDS ORDERED: Dexamethasone TAB* 4 MG PO ONE (23:46)
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
[2019-08-10] MEDS ORDERED: LORazepam TAB(*) 1 MG PO ONE (01:03)
[2019-08-10] MEDS ORDERED: Lorazepam PYXIS KEY PRN (02:41)
[2019-08-10] MEDS ORDERED: LORazepam INJ* 2 MG/ML 1 ML VIAL IV PUSH ONE (02:41)
[2019-08-10] MEDS ORDERED: PROCHLORPERAZINE INJ 5 MG/ML 2 ML VIAL IV ONE (02:41)
[2019-08-10 04:08] VITALS: BP 112/67
== END 2019-08-10 04:00 | disposition home or self-care (01) ==
LOC: ED 23:21
DX: G43.909 Migraine, unspecified, not intractable, without status migrainosus (principal); M54.2 Cervicalgia; Z72.0 Tobacco use; H53.149 Visual discomfort, unspecified
CPT/HCPCS: 96374; 96375; 99284; A9270-GY; J0780; J2060; J8540; Q0164

== ENCOUNTER 2019-08-10 19:37 | Emergency (ER) | payer OTHER ==
[2019-08-10] MEDS ORDERED: NS 0.9% 1000 ML** 1,000 ML IV ONE (20:28)
[2019-08-10] MEDS ORDERED: Ketorolac INJ* 30 MG/ML 1 ML VIAL IV ONE (20:28)
[2019-08-10] MEDS ORDERED: Ondansetron INJ* 2 MG/ML VIAL IV ONE (20:28)
[2019-08-10] MEDS ORDERED: diPHENhydraMINE IV* 50 MG/ML 1 ml VIAL (BENADRYL) IV ONE (20:28)
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
[2019-08-10 20:55] LABS: ABS Lymphocytes 1.2 10^3/ul (1.0-4.8); ABS Monocytes 0.7 10^3/ul (0-0.8); ABS Neutrophils 7.2 10^3/ul (1.5-7.7); Hematocrit 41 % (42-52); Hemoglobin 14.6 g/dL (14.0-18.0); Lymphocyte % 13.4 %; Mean Corpuscular HGB Conc 36 g/dL (31-36); Mean Corpuscular Hemoglobin 33 pg (27-31); Mean Corpuscular Volume 92 fL (80-94); Mean Platelet Volume 7.8 fL (7.4-10.4); Nucleated Red Blood Cells % 0.1; Platelet Count 206 10^3/uL (150-450); Red Blood Count 4.42 10^6 /uL (4.18-5.48); Red Cell Distribution Width 13 % (10-15); White Blood Count 9.2 10^3/uL (3.5-10.8)
[2019-08-10 21:08] LABS: Albumin/Globulin Ratio 1.7 (1-3); BUN/Creatinine Ratio 10.6 (8-20); Calcium 9.6 mg/dL (8.6-10.3); EGFR African American 90.4 (>60); EGFR Non-African American 74.7 (>60); Globulin 2.9 g/dL (2-4); Potassium 3.7 mmol/L (3.5-5.0); Total Bilirubin 0.5 mg/dL (0.2-1.0); Total Protein 7.9 g/dL (6.4-8.9)
[2019-08-10] MEDS ORDERED: PROCHLORPERAZINE INJ 5 MG/ML 2 ML VIAL IV PRN (22:39)
[2019-08-10 23:42] LABS: Urine Appearance Clear; Urine Bilirubin Negative (Negative); Urine Blood Negative (Negative); Urine Color Yellow; Urine Glucose Negative (Negative); Urine Ketones Negative (Negative); Urine Nitrite Negative (Negative); Urine Protein Negative (Negative); Urine Specific Gravity 1.013 (1.010-1.030); Urine Urobilinogen Negative (Negative)
[2019-08-10 23:55] LABS: Urine Benzodiazepine Screen None Detected (None Detect); Urine Opiates Screen None Detected (None Detect)
[2019-08-11 00:17] VITALS: BP 111/64
== END 2019-08-11 00:01 | disposition home or self-care (01) ==
LOC: ED 19:37
DX: G43.909 Migraine, unspecified, not intractable, without status migrainosus (principal); F41.9 Anxiety disorder, unspecified; M54.2 Cervicalgia; Z72.0 Tobacco use
CPT/HCPCS: 36415; 80053; 80307; 81003; 83605; 85025; 96361; 96374; 96375; 99283; J0780; J1200; J1885; J2405

== ENCOUNTER 2019-08-11 16:22 | Emergency (ER) | payer OTHER ==
[2019-08-11] MEDS ORDERED: PROCHLORPERAZINE INJ 5 MG/ML 2 ML VIAL IV ONE (20:43)
[2019-08-11] MEDS ORDERED: diPHENhydraMINE IV* 50 MG/ML 1 ml VIAL (BENADRYL) IV ONE (20:43)
[2019-08-11] MEDS ORDERED: Dexamethasone IV* 4 MG/ML 1 ML (4 MG) IV SLOW PU ONE (20:43)
[2019-08-11] MEDS ORDERED: Ketorolac INJ* 30 MG/ML 1 ML VIAL IV PUSH ONE (20:44)
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
[2019-08-11] MEDS ORDERED: levETIRAcetam TAB* 500 MG PO ONE ×2 (21:50)
[2019-08-11 22:17] VITALS: BP 123/79
== END 2019-08-11 22:15 | disposition home or self-care (01) ==
LOC: ED 16:22
DX: G43.909 Migraine, unspecified, not intractable, without status migrainosus (principal); R62.50 Unspecified lack of expected normal physiological development in childhood; F41.9 Anxiety disorder, unspecified; F32.9 Major depressive disorder, single episode, unspecified; F17.290 Nicotine dependence, other tobacco product, uncomplicated; Z79.899 Other long term (current) drug therapy; Z88.8 Allergy status to other drugs, medicaments and biological substances
CPT/HCPCS: 96374; 96375; 99282; J0780; J1100; J1200; J1885

== ENCOUNTER 2019-08-15 23:36 | Emergency (ER) | payer OTHER ==
[2019-08-16] MEDS ORDERED: NS 0.9% 1000 ML** 1,000 ML IV ONE (00:33)
[2019-08-16] MEDS ORDERED: Ketorolac INJ* 30 MG/ML 1 ML VIAL IV ONE (00:33)
[2019-08-16] MEDS ORDERED: Metoclopramide IV* 5 MG/ML 2 ML VIAL IV ONE (00:33)
[2019-08-16] MEDS ORDERED: Acetaminophen TAB* 325 MG PO ONE (00:33)
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
[2019-08-16] MEDS ORDERED: diPHENhydraMINE IV* 50 MG/ML 1 ml VIAL (BENADRYL) IV ONE (00:35)
[2019-08-16] MEDS ORDERED: traMADol TAB* 50 MG PO ONE (02:06)
[2019-08-16] MEDS ORDERED: PROCHLORPERAZINE INJ 5 MG/ML 2 ML VIAL IV ONE (02:15)
[2019-08-16 02:53] VITALS: BP 114/68
== END 2019-08-16 02:47 | disposition home or self-care (01) ==
LOC: ED 23:36
DX: G43.909 Migraine, unspecified, not intractable, without status migrainosus (principal); R56.9 Unspecified convulsions; Z88.8 Allergy status to other drugs, medicaments and biological substances; Z91.048 Other nonmedicinal substance allergy status; Z72.0 Tobacco use
CPT/HCPCS: 96361; 96374; 96375; 99284; A9270-GY; J0780; J1200; J1885; J2765

== ENCOUNTER 2019-08-17 04:03 | Emergency (ER) | payer OTHER ==
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
[2019-08-17] MEDS ORDERED: methylPREDNISolone 125 MG* 2 ML VIAL IV ONE (04:36)
[2019-08-17] MEDS ORDERED: Metoclopramide IV* 5 MG/ML 2 ML VIAL IV ONE (05:42)
[2019-08-17] MEDS ORDERED: diPHENhydraMINE IV* 50 MG/ML 1 ml VIAL (BENADRYL) IV ONE (05:42)
[2019-08-17] MEDS ORDERED: hydrOXYzine HCL TAB* 50 MG PO ONE (06:17)
[2019-08-17] MEDS ORDERED: SUMAtriptan TAB* 50 MG PO ONE (06:20)
[2019-08-17 07:00] VITALS: BP 129/95
== END 2019-08-17 06:45 | disposition home or self-care (01) ==
LOC: ED 04:03
DX: R51 Headache (principal); F41.9 Anxiety disorder, unspecified; R62.50 Unspecified lack of expected normal physiological development in childhood; F32.9 Major depressive disorder, single episode, unspecified; F17.290 Nicotine dependence, other tobacco product, uncomplicated; Z79.899 Other long term (current) drug therapy; Z88.8 Allergy status to other drugs, medicaments and biological substances
CPT/HCPCS: 96374; 96375; 99283; A9270-GY; J1200; J2765; J2930

== ENCOUNTER 2019-08-21 01:33 | Emergency (ER) | payer OTHER ==
--- OUTSIDE RECORDS SUMMARY | 2019-08-21 01:44 | XMS REPORT | Continuity of Care Document ---
:1985 External Reference #:[id number] Author Name Nba Baptiste N.P. (transmitted by agent of provider Aarti Christy) Address [address] [place] [address], [place] [address] Care Team Providers Name Role Phone Moe Licea MD - Family Medicine Care Team Information Fisher [phone] Mj Pathak MD - Hospitalist Care Team Information Fisher [phone] Problems Active Problems Provider Date Idiopathic generalized epilepsy Matthew Krguer M.D. 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 Socorro Alex MD Onset: 08/05/2017 Refractory epilepsy Socorro Alex MD Onset: 08/05/2017 Social History Type Date Description Comments Sex Unknown ETOH Use Denies alcohol use Tobacco Use Start: Unknown Patient is a current smoker, smokes every day Recreational Drug Use Denies Drug Use Smoking Status Reviewed: 08/18/19 Patient is a current smoker, smokes every day Allergies, Adverse Reactions, Alerts Active Allergies Reaction Severity Comments Date Cyclobenzaprine increase seizure 2018 activity Lavender Oil increase seizure 2018 activity Methylprednisolone Flushing, Palpitations increased HR 08/17/2019 Inactive Allergies NKDA 03/23/2014 Medications Active Medications SIG Qnty Indications Ordering Provider Date Gabapentin 1 by mouth three 90caps G43.009 [facility], 08/18/2019 100mg times a day N.P. Capsules Rizatriptan Benzoate take 1 tablet at 10tabs [facility], 08/18/2019 onset of N.P. 10mg Tablets headache, may repeat times one in 2 hour no more than 2 tab in 24 hr/ max 2 days a week Topamax 1 tab by mouth 60tabs [facility], 08/16/2019 100mg Tablets twice daily N.P. Hydroxyzine HCL 1 tablet every 8 90tabs [facility], 08/10/2019 50mg hours as needed N.P. Tablets for anxiety Buspirone HCL take 1 tablet by 60tabs F41.9 [facility], 2018 10mg mouth every day N.P. Tablets in the morning and 1 tab at bedtime Paroxetine HCL use 1 tab daily. 30tabs Mj Pathak MD 07/29/2018 40mg Tablets Keppra 3 tabs by mouth 150tabs [facility], 07/09/2018 750mg Tablets in the in the N.P. morning, 2 tabs at night Lamotrigine 3 tabs in the 165tabs [facility], 07/25/2015 100mg morning and 2.5 N.P. Tablets at night Medications Administered in Office Medication SIG Qnty Indications Ordering Provider Date Influenza Virus Vaccine Unknown 07/01/2014 Injection Immunizations Description No Information Available Vital Signs Date Vital Result Comment 08/18/2019 3:03pm Height 69 inches 5'9" Weight 130.00 lb Heart Rate 76 /min BP Systolic Sitting 118 mmHg BP Diastolic Sitting 64 mmHg Respiratory Rate 18 /min BMI (Body Mass Index) 19.2 kg/m2 05/09/2019 10:54am Height 69 inches 5'9" Weight 123.00 lb Heart Rate 64 /min BP Systolic 120 mmHg BP Diastolic 80 mmHg BMI (Body Mass Index) 18.2 kg/m2 Results Test Acquired Date Facility Test Result H/L Range Note CBC Auto 08/18/2019 [facility] White Blood 10.0 10^3/uL Normal 3.5-10.[address] [place] [address] [phone] Red Blood Count 4.82 10^6/uL Normal 4.18-5.48 Hemoglobin 15.5 g/dL Normal 14.0-18.0 Hematocrit 45 % Normal 42-52 Mean Corpuscular Volume 94 fL Normal 80-94 Mean Corpuscular Hemoglobin 32 pg High 27-31 Mean Corpuscular HGB Conc 34 g/dL Normal 31-36 Red Cell Distribution Width 14 % Normal 10-15 Platelet Count 274 10^3/uL Normal 150-450 Mean Platelet Volume 8.0 fL Normal 7.4-10.4 Abs Neutrophils 5.1 10^3/uL Normal 1.5-7.7 Abs Lymphocytes 3.8 10^3/uL Normal 1.0-4.8 Abs Monocytes 1.0 10^3/uL High 0-0.8 Abs Eosinophils 0.1 10^3/uL Normal 0-0.6 Abs Basophils 0.0 10^3/uL Normal 0-0.2 Abs Nucleated RBC 0.0 10^3/uL Granulocyte % 51.2 % Lymphocyte % 38.2 % Monocyte % 9.6 % Eosinophil % 0.7 % Basophil % 0.3 % Nucleated Red Blood Cells % 0.0 Comp Metabolic 08/18/2019 [facility] Sodium 139 mmol/L Normal 135-[address] [place] [address] [phone] Potassium 3.5 mmol/L Normal 3.5-5.0 Chloride 104 mmol/L Normal 101-111 Co2 Carbon Dioxide 28 mmol/L Normal 22-32 Anion Gap 7 mmol/L Normal 2-11 Glucose 78 mg/dL Normal 70-100 Blood Urea Nitrogen 17 mg/dL Normal 6-24 Creatinine 1.31 mg/dL High 0.67-1.17 BUN/Creatinine Ratio 13.0 Normal 8-20 Calcium 10.0 mg/dL Normal 8.6-10.3 Total Protein 8.0 g/dL Normal 6.4-8.9 Albumin 5.1 g/dL Normal 3.2-5.2 Globulin 2.9 g/dL Normal 2-4 Albumin/Globulin Ratio 1.8 Normal 1-3 Total Bilirubin 0.40 mg/dL Normal 0.2-1.0 Alkaline Phosphatase 40 U/L Normal 34-104 Alt 7 U/L Normal 7-52 Ast 11 U/L Low 13-39 Egfr Non- 63.0 >60 Egfr 76.2 >60 1 Laboratory test 08/18/2019 [facility] Levetiracetam <pending> finding [address] (Keppra) [place] [address] [phone] Lamotrigine (Lamictal) <pending> Topamax (Topiramate) <pending> Comp Metabolic 08/10/2019 [facility] Sodium 138 mmol/L Normal 135-[address] [place] [address] [phone] Potassium 3.7 mmol/L Normal 3.5-5.0 Chloride 110 mmol/L Normal 101-111 Co2 Carbon Dioxide 22 mmol/L Normal 22-32 Anion Gap 6 mmol/L Normal 2-11 Glucose 103 mg/dL High 70-100 Blood Urea Nitrogen 12 mg/dL Normal 6-24 Creatinine 1.13 mg/dL Normal 0.67-1.17 BUN/Creatinine Ratio 10.6 Normal 8-20 Calcium 9.6 mg/dL Normal 8.6-10.3 Total Protein 7.9 g/dL Normal 6.4-8.9 Albumin 5.0 g/dL Normal 3.2-5.2 Globulin 2.9 g/dL Normal 2-4 Albumin/Globulin Ratio 1.7 Normal 1-3 Total Bilirubin 0.50 mg/dL Normal 0.2-1.0 Alkaline Phosphatase 39 U/L Normal 34-104 Alt 5 U/L Low 7-52 Ast 12 U/L Low 13-39 Egfr Non- 74.7 >60 Egfr 90.4 >60 2 CBC Auto 08/10/2019 [facility] White Blood 9.2 10^3/uL Normal 3.5-10.[address] [place] [address] [phone] Red Blood Count 4.42 10^6/uL Normal 4.18-5.48 Hemoglobin 14.6 g/dL Normal 14.0-18.0 Hematocrit 41 % Low 42-52 Mean Corpuscular Volume 92 fL Normal 80-94 Mean Corpuscular Hemoglobin 33 pg High 27-31 Mean Corpuscular HGB Conc 36 g/dL Normal 31-36 Red Cell Distribution Width 13 % Normal 10-15 Platelet Count 206 10^3/uL Normal 150-450 Mean Platelet Volume 7.8 fL Normal 7.4-10.4 Abs Neutrophils 7.2 10^3/uL Normal 1.5-7.7 Abs Lymphocytes 1.2 10^3/uL Normal 1.0-4.8 Abs Monocytes 0.7 10^3/uL Normal 0-0.8 Abs Eosinophils 0.0 10^3/uL Normal 0-0.6 Abs Basophils 0.0 10^3/uL Normal 0-0.2 Abs Nucleated RBC 0.0 10^3/uL Granulocyte % 78.4 % Lymphocyte % 13.4 % Monocyte % 8.1 % Eosinophil % 0.0 % Basophil % 0.1 % Nucleated Red Blood Cells % 0.1 Laboratory test 08/10/2019 [facility] Lactic Acid 1.0 mmol/L Normal 0.5-2.0 3 finding [address] [place] [address] [phone] Urinalysis 08/10/2019 [facility] Urine Color Yellow Profile [address] [place] [address] [phone] Urine Appearance Clear Urine Specific [place] 1.013 Normal 1.010-1.030 Urine pH 6.0 Normal 5-9 Urine Urobilinogen Negative Negative Urine Ketones Negative Negative Urine Protein Negative Negative Urine Leukocytes Negative Negative Urine Blood Negative Negative Urine Nitrite Negative Negative Urine Bilirubin Negative Negative Urine Glucose Negative Negative Urine Drug 08/10/2019 [facility] Urine None Detected None Detect [facility] ED & [address] [facility] [place] [address] Screen [phone] Urine Barbiturates Screen None Detected None Detect Urine Benzodiazepine Screen None Detected None Detect Urine Cannabinoids Screen None Detected None Detect Urine Cocaine Screen None Detected None Detect Urine Opiates Screen None Detected None Detect Urine Phencyclidine Screen None Detected None Detect 4 Laboratory test 08/04/2019 [facility] Magnesium 2.1 mg/dL Normal 1.9-2.7 finding [address] [place] [address] [phone] Alcohol < 10 mg/dL Normal <10 Lactic Acid 0.9 mmol/L Normal 0.5-2.0 5 Levetiracetam (Keppra) 59.9 g/mL Abnormal 6 Lamotrigine (Lamictal) 4.8 g/mL 2.5 - 15.0 7 Comp Metabolic 08/04/2019 [facility] Sodium 138 mmol/L Normal 135-[address] [place] [address] [phone] Potassium 3.8 mmol/L Normal 3.5-5.0 Co2 Carbon Dioxide 21 mmol/L Low 22-32 Glucose 93 mg/dL Normal 70-100 Blood Urea Nitrogen 12 mg/dL Normal 6-24 Creatinine 1.17 mg/dL Normal 0.67-1.17 BUN/Creatinine Ratio 10.3 Normal 8-20 Calcium 9.5 mg/dL Normal 8.6-10.3 Total Protein 7.5 g/dL Normal 6.4-8.9 Albumin 4.7 g/dL Normal 3.2-5.2 Globulin 2.8 g/dL Normal 2-4 Albumin/Globulin Ratio 1.7 Normal 1-3 Total Bilirubin 0.30 mg/dL Normal 0.2-1.0 Alkaline Phosphatase 41 U/L Normal 34-104 Alt 7 U/L Normal 7-52 Ast 11 U/L Low 13-39 Egfr Non- 71.8 >60 Egfr 86.9 >60 8 Chloride 112 mmol/L High 101-111 Anion Gap 5 mmol/L Normal 2-11 CBC Auto 08/04/2019 [facility] White Blood 4.8 10^3/uL Normal 3.5-10.[address] [place] [address] [phone] Red Blood Count 4.28 10^6/uL Normal 4.18-5.48 Hemoglobin 13.9 g/dL Low 14.0-18.0 Hematocrit 40 % Low 42-52 Mean Corpuscular Volume 94 fL Normal 80-94 Mean Corpuscular Hemoglobin 32 pg High 27-31 Mean Corpuscular HGB Conc 35 g/dL Normal 31-36 Red Cell Distribution Width 14 % Normal 10-15 Platelet Count 199 10^3/uL Normal 150-450 Mean Platelet Volume 7.5 fL Normal 7.4-10.4 Abs Neutrophils 2.4 10^3/uL Normal 1.5-7.7 Abs Lymphocytes 1.9 10^3/uL Normal 1.0-4.8 Abs Monocytes 0.5 10^3/uL Normal 0-0.8 Abs Eosinophils 0.0 10^3/uL Normal 0-0.6 Abs Basophils 0.0 10^3/uL Normal 0-0.2 Abs Nucleated RBC 0.0 10^3/uL Granulocyte % 49.5 % Lymphocyte % 39.2 % Monocyte % 10.1 % Eosinophil % 0.8 % Basophil % 0.4 % Nucleated Red Blood Cells % 0.0 Inr/Protime 08/04/2019 [facility] Inr 0.94 Normal 0.82-1.[address] [place] [address] [phone] Laboratory 07/23/2019 [facility] Levetiracetam 24.7 10 test finding [address] (Keppra) g/[place] [address] [phone] Lamotrigine (Lamictal) 5.3 g/mL 2.5 - 15.0 11 CBC Auto 07/07/2019 [facility] White Blood 5.7 10^3/uL Normal 3.5-10.[address] [place] [address] [phone] Red Blood Count 4.42 10^6/uL Normal 4.18-5.48 Hemoglobin 14.2 g/dL Normal 14.0-18.0 Hematocrit 41 % Low 42-52 Mean Corpuscular Volume 93 fL Normal 80-94 Mean Corpuscular Hemoglobin 32 pg High 27-31 Mean Corpuscular HGB Conc 35 g/dL Normal 31-36 Red Cell Distribution Width 14 % Normal 10-15 Platelet Count 200 10^3/uL Normal 150-450 Mean Platelet Volume 7.9 fL Normal 7.4-10.4 Abs Neutrophils 2.8 10^3/uL Normal 1.5-7.7 Abs Lymphocytes 2.3 10^3/uL Normal 1.0-4.8 Abs Monocytes 0.6 10^3/uL Normal 0-0.8 Abs Eosinophils 0.0 10^3/uL Normal 0-0.6 Abs Basophils 0.0 10^3/uL Normal 0-0.2 Abs Nucleated RBC 0.0 10^3/uL Granulocyte % 48.7 % Lymphocyte % 40.5 % Monocyte % 9.7 % Eosinophil % 0.6 % Basophil % 0.5 % Nucleated Red Blood Cells % 0.1 Inr/Protime 07/07/2019 [facility] Inr 0.92 Normal 0.82-1.[address] [place] [address] [phone] Laboratory test 07/07/2019 [facility] Lactic Acid 1.2 Normal 0.5-2.[address] mmol/[place] [address] [phone] Comp Metabolic 07/07/2019 [facility] Sodium 137 Normal 135- [address] mmol/[place] [address] [phone] Potassium 3.9 mmol/L Normal 3.5-5.0 Chloride 107 mmol/L Normal 101-111 Co2 Carbon Dioxide 26 mmol/L Normal 22-32 Anion Gap 4 mmol/L Normal 2-11 Glucose 90 mg/dL Normal 70-100 Blood Urea Nitrogen 16 mg/dL Normal 6-24 Creatinine 1.37 mg/dL High 0.67-1.17 BUN/Creatinine Ratio 11.7 Normal 8-20 Calcium 9.7 mg/dL Normal 8.6-10.3 Total Protein 7.3 g/dL Normal 6.4-8.9 Albumin 4.5 g/dL Normal 3.2-5.2 Globulin 2.8 g/dL Normal 2-4 Albumin/Globulin Ratio 1.6 Normal 1-3 Total Bilirubin 0.30 mg/dL Normal 0.2-1.0 Alkaline Phosphatase 45 U/L Normal 34-104 Alt 6 U/L Low 7-52 Ast 11 U/L Low 13-39 Egfr Non- 59.8 >60 Egfr 72.4 >60 14 Laboratory test 07/07/2019 [facility] Magnesium 2.2 mg/dL Normal 1.9-2.[address] [place] [address] [phone] Levetiracetam (Keppra) 70.2 g/mL Abnormal 15 Lamotrigine (Lamictal) 6.3 g/mL 2.5 - 15.0 16 CBC Auto 06/15/2019 [facility] White Blood 5.0 10^3/uL Normal 3.5-10.[address] [place] [address] [phone] Red Blood Count 5.02 10^6/uL Normal 4.18-5.48 Hemoglobin 16.0 g/dL Normal 14.0-18.0 Hematocrit 47 % Normal 42-52 Mean Corpuscular Volume 93 fL Normal 80-94 Mean Corpuscular Hemoglobin 32 pg High 27-31 Mean Corpuscular HGB Conc 34 g/dL Normal 31-36 Red Cell Distribution Width 14 % Normal 10-15 Platelet Count 218 10^3/uL Normal 150-450 Mean Platelet Volume 7.4 fL Normal 7.4-10.4 Abs Neutrophils 2.5 10^3/uL Normal 1.5-7.7 Abs Lymphocytes 1.8 10^3/uL Normal 1.0-4.8 Abs Monocytes 0.6 10^3/uL Normal 0-0.8 Abs Eosinophils 0.0 10^3/uL Normal 0-0.6 Abs Basophils 0.1 10^3/uL Normal 0-0.2 Abs Nucleated RBC 0.0 10^3/uL Granulocyte % 50.2 % Lymphocyte % 36.1 % Monocyte % 11.9 % Eosinophil % 0.5 % Basophil % 1.3 % Nucleated Red Blood Cells % 0.1 Comp Metabolic 06/15/2019 [facility] Sodium 138 mmol/L Normal 135-145 Panel [address] [place] [address] [phone] Potassium 4.7 mmol/L Normal 3.5-5.0 Chloride 106 mmol/L Normal 101-111 Co2 Carbon Dioxide 27 mmol/L Normal 22-32 Anion Gap 5 mmol/L Normal 2-11 Glucose 86 mg/dL Normal 70-100 Blood Urea Nitrogen 13 mg/dL Normal 6-24 Creatinine 1.44 mg/dL High 0.67-1.17 BUN/Creatinine Ratio 9.0 Normal 8-20 Calcium 10.1 mg/dL Normal 8.6-10.3 Total Protein 7.5 g/dL Normal 6.4-8.9 Albumin 5.0 g/dL Normal 3.2-5.2 Globulin 2.5 g/dL Normal 2-4 Albumin/Globulin Ratio 2.0 Normal 1-3 Total Bilirubin 0.50 mg/dL Normal 0.2-1.0 Alkaline Phosphatase 41 U/L Normal 34-104 Alt 6 U/L Low 7-52 Ast 12 U/L Low 13-39 Egfr Non- 56.5 >60 Egfr 68.4 >60 17 Laboratory test 06/15/2019 [facility] Ceruloplasmin 21.1 mg/dL [address] [place] [address] [phone] Copper, Serum 0.84 g/mL 0.75-1.45 19 Free T4 (Free Thyroxine) 0.83 ng/dL Normal 0.61-1.12 TSH (Thyroid Stim Horm) 2.34 mcIU/mL Normal 0.34-5.60 Erythrocyte Sed Rate 1 mm/Hr Normal 0-14 C Reactive Protein < 1.00 mg/L Normal <8.01 Lamotrigine (Lamictal) 5.2 g/mL 2.5 - 15.0 20 Topomax (Topiramate) 3.9 g/mL 21 Levetiracetam (Keppra) 32.0 g/mL 22 1 Because ethnic data is not always [...] 5 Kidney failure <15 (or dialysis) 2 Because ethnic data is not always readily [...] 15-29 5 Kidney failure <15 (or dialysis) 3 [facility] Severe Sepsis and Septic Shock Management Bundle Measure requires all lactic acids initially measuring >2.0 mmol/L be repeated. 4 The urine specimen was tested at the listed cutoffs: Drug class test level (ng/mL) Amphetamines 500 Barbiturates 200 Benzodiazepine metabolites 200 Cocaine metabolites 150 Cannabinoids 50 Opiates 300 Pcp 25 Specimen was received without chain of custody. Results should be used for medical purposes only. 5 [facility] Severe Sepsis and Septic Shock Management Bundle Measure requires all lactic acids initially measuring >2.0 mmol/L be repeated. 6 REFERENCE VALUE 12.0 - 46.0 ADDITIONAL INFORMATION This test was developed and its performance characteristics determined by [facility] in a manner consistent with CLIA requirements. This test has not been cleared or approved by the U.S. Food and Drug Administration. Test Performed by: [facility] [place] [address] Head Of Conservation: Adria Nguyen M.D. Ph.D.; CLIA# [id number] 7 ADDITIONAL INFORMATION This test was developed and its performance characteristics determined by [facility] in a manner consistent with CLIA requirements. This test has not been cleared or approved by the U.S. Food and Drug Administration. Test Performed by: [facility] [place] [address] Head Of Conservation: Adria Nguyen M.D. Ph.D.; CLIA# [id number] 8 Because ethnic data is not always [...] 5 Kidney failure <15 (or dialysis) 9 Standard intensity warfarin therapeutic range: 2.0-3.0 High intensity warfarin therapeutic range: 2.5-3.5 10 REFERENCE VALUE 12.0 - 46.0 ADDITIONAL INFORMATION This test was developed and its performance characteristics determined by [facility] in a manner consistent with CLIA requirements. This test has not been cleared or approved by the U.S. Food and Drug Administration. Test Performed by: [facility] [place] [address] Head Of Conservation: Adria Nguyen M.D. Ph.D.; CLIA# [id number] 11 ADDITIONAL INFORMATION This test was developed and its performance characteristics determined by [facility] in a manner consistent with CLIA requirements. This test has not been cleared or approved by the U.S. Food and Drug Administration. Test Performed by: [place] [address] Head Of Conservation: Adria Nguyen M.D. Ph.D.; CLIA# [id number] 12 Standard intensity warfarin therapeutic range: 2.0-3.0 High intensity warfarin therapeutic range: 2.5-3.5 13 [facility] Severe Sepsis and Septic Shock Management [...] 5 Kidney failure <15 (or dialysis) 15 REFERENCE VALUE 12.0 - 46.0 ADDITIONAL INFORMATION This test was developed and its performance characteristics determined by [facility] in a manner consistent with CLIA requirements. This test has not been cleared or approved by the U.S. Food and Drug Administration. Test Performed by: [facility] - [address] [address] Head Of Conservation: Adria Nguyen M.D. Ph.D.; CLIA# [id number] 16 ADDITIONAL INFORMATION This test was developed and its performance characteristics determined by [facility] in a manner consistent with CLIA requirements. This test has not been cleared or approved by the U.S. Food and Drug Administration. Test Performed by: [facility] - [address] [address] Head Of Conservation: Adria Nguyen M.D. Ph.D.; CLIA# [id number] 17 Because ethnic data is not always [...] failure <15 (or dialysis) 18 REFERENCE VALUE 19.0 - 31.0 Test Performed by: [facility] - [place] [id number] Head Of Conservation: Adria Nguyen M.D. Ph.D.; CLIA# [id number] 19 ADDITIONAL INFORMATION This test was developed and its performance characteristics determined by [facility] in a manner consistent with CLIA requirements. This test has not been cleared or approved by the U.S. Food and Drug Administration. Test Performed by: [place] [address] Head Of Conservation: Adria Nguyen M.D. Ph.D.; CLIA# [id number] 20 ADDITIONAL INFORMATION This test was developed and its performance characteristics determined by [facility] in a manner consistent with CLIA requirements. This test has not been cleared or approved by the U.S. Food and Drug Administration. Test Performed by: [place] [address] Head Of Conservation: Adria Nguyen M.D. Ph.D.; CLIA# [id number] 21 REFERENCE VALUE Reference values depend on clinical use: Anticonvulsant: 5.0-20.0 mcg/mL Psychiatric: 2.0-8.0 mcg/mL ADDITIONAL INFORMATION This test was developed and its performance characteristics determined by [facility] in a manner consistent with CLIA requirements. This test has not been cleared or approved by the U.S. Food and Drug Administration. Test Performed by: [place] [address] Head Of Conservation: Adria Nguyen M.D. Ph.D.; CLIA# [id number] 22 REFERENCE VALUE 12.0 - 46.0 ADDITIONAL INFORMATION This test was developed and its performance characteristics determined by [facility] in a manner consistent with CLIA requirements. This test has not been cleared or approved by the U.S. Food and Drug Administration. Test Performed by: [place] [address] Head Of Conservation: Adria Nguyen M.D. Ph.D.; CLIA# [id number] Procedures Date Code Description Status 06/15/2019 86807 EEG Monitoring Computer Completed Medical Devices Description No Information Available Encounters Type Date Location Provider Dx Diagnosis Office Visit 05/09/2019 Neurohospitalist Nba G43.009 Migraine w/o 11:00a [facility] Emile, N.P. aura, not intractable, w/o status migrainosus G40.919 Epilepsy, unsp, intractable, without status epilepticus F41.9 Anxiety disorder, unspecified R25.1 Tremor, unspecified R53.83 Other fatigue Assessments Date Code Description Provider 08/18/2019 G40.219 Localization-related (focal) (partial) Nba Baptiste, N.P. symptomatic epilepsy and epileptic syndromes with complex partial seizures, intractable, without status epilepticus 08/18/2019 G43.009 Migraine without aura, not intractable, Nba Baptiste, N.P. without status migra 08/18/2019 F41.9 Anxiety disorder, unspecified Nba Baptiste, N.P. 06/15/2019 G40.219 Localization-related (focal) (partial) Lissett Amador MD symptomatic epilepsy and epileptic syndromes with complex partial seizures, intractable, without status epilepticus 05/09/2019 G43.009 Migraine without aura, not intractable, Nba Baptiste, N.P. without status migra 05/09/2019 G40.919 Epilepsy, unspecified, intractable, without Nba Baptiste, N.P. status epileptic 05/09/2019 F41.9 Anxiety disorder, unspecified Nba Baptiste, N.P. 05/09/2019 R25.1 Tremor, unspecified Nba Baptiste, N.P. 05/09/2019 R53.83 Other fatigue Nba Baptiste, N.P. Plan of Treatment Future Appointment(s):09/08/2019 9:00 am - Nba Baptiste[facility] N.P. at [facility]08/18/2019 - Nba Baptiste, N.P.G40.219 Localization -related (focal) (partial) symptomatic epilepsy and epileptic syndromes with complex partial seizures, intractable, without status epilepticusFollow up:keep follow upG43.009 Migraine without aura, not intractable, without status migraNew Medication:Gabapentin 100 mg - 1 by mouth three times a dayF41.9 Anxiety disorder, unspecified Functional Status Description No Information Available Mental Status Description No Information Available Referrals Refer to Dr Reason for Referral Status Appt Date Meggan Hernandez M.D. intractable epilepsy Sent [address] [place] [address] [place] [address] [phone]
[2019-08-21] MEDS ORDERED: LORazepam TAB(*) 1 MG PO ONE (01:50)
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
[2019-08-21] MEDS ORDERED: Ibuprofen TAB* 800 MG PO ONE (02:43)
[2019-08-21 03:28] VITALS: BP 110/57
== END 2019-08-21 03:28 | disposition home or self-care (01) ==
LOC: ED 01:33
DX: G40.909 Epilepsy, unspecified, not intractable, without status epilepticus (principal); G43.909 Migraine, unspecified, not intractable, without status migrainosus; F41.9 Anxiety disorder, unspecified; R62.50 Unspecified lack of expected normal physiological development in childhood; F32.9 Major depressive disorder, single episode, unspecified; F17.290 Nicotine dependence, other tobacco product, uncomplicated; Z79.899 Other long term (current) drug therapy; Z88.8 Allergy status to other drugs, medicaments and biological substances
CPT/HCPCS: 99282; A9270-GY

== ENCOUNTER 2019-08-22 02:17 | Emergency (ER) | payer OTHER ==
[2019-08-22] MEDS ORDERED: LORazepam TAB(*) 1 MG PO ONE (02:25)
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
[2019-08-22 02:58] LABS: ABS Eosinophils 0.1 10^3/ul (0-0.6); ABS Lymphocytes 3.6 10^3/ul (1.0-4.8); ABS Monocytes 0.8 10^3/ul (0-0.8); ABS Neutrophils 4.6 10^3/ul (1.5-7.7); Eosinophil % 0.7 %; Hematocrit 44 % (42-52); Hemoglobin 15.5 g/dL (14.0-18.0); Mean Corpuscular HGB Conc 36 g/dL (31-36); Mean Corpuscular Hemoglobin 33 pg (27-31); Mean Corpuscular Volume 93 fL (80-94); Mean Platelet Volume 7.3 fL (7.4-10.4); Nucleated Red Blood Cells % 0.1; Platelet Count 270 10^3/uL (150-450); Red Cell Distribution Width 13 % (10-15); White Blood Count 9.1 10^3/uL (3.5-10.8)
[2019-08-22 03:13] LABS: ALT 6 U/L (7-52); Albumin 4.8 g/dL (3.2-5.2); Albumin/Globulin Ratio 1.5 (1-3); Alkaline Phosphatase 43 U/L (34-104); BUN/Creatinine Ratio 13.3 (8-20); Blood Urea Nitrogen 17 mg/dL (6-24); CO2 Carbon Dioxide 17 mmol/L (22-32); Chloride 109 mmol/L (101-111); EGFR African American 78.3 (>60); EGFR Non-African American 64.7 (>60); Globulin 3.1 g/dL (2-4); Glucose 97 mg/dL (70-100); Sodium 136 mmol/L (135-145); Total Protein 7.9 g/dL (6.4-8.9)
[2019-08-22 03:38] LABS: Anion Gap 10 mmol/L (2-11); Potassium 3.8 mmol/L (3.5-5.0)
[2019-08-22 03:39] LABS: Alcohol < 10 mg/dL (<10)
[2019-08-22 03:43] LABS: AST 12 U/L (13-39)
[2019-08-22] MEDS ORDERED: Gabapentin CAP(*) 100 MG PO ONE (03:47)
[2019-08-22 03:50] LABS: Urine Appearance Clear; Urine Bilirubin Negative (Negative); Urine Blood Negative (Negative); Urine Color Straw; Urine Glucose Negative (Negative); Urine Ketones Negative (Negative); Urine Nitrite Negative (Negative); Urine Protein Negative (Negative); Urine Specific Gravity 1.008 (1.010-1.030); Urine Urobilinogen Negative (Negative)
[2019-08-22 03:54] LABS: TSH (Thyroid Stimulating Horm) 3.83 mcIU/mL (0.34-5.60)
[2019-08-22 03:57] VITALS: BP 112/68
[2019-08-22 04:04] LABS: Urine Benzodiazepine Screen None Detected (None Detect); Urine Opiates Screen None Detected (None Detect)
== END 2019-08-22 03:56 | disposition home or self-care (01) ==
LOC: ED 02:17
DX: G43.909 Migraine, unspecified, not intractable, without status migrainosus (principal); F41.9 Anxiety disorder, unspecified; R62.50 Unspecified lack of expected normal physiological development in childhood; F32.9 Major depressive disorder, single episode, unspecified; F17.290 Nicotine dependence, other tobacco product, uncomplicated; Z88.8 Allergy status to other drugs, medicaments and biological substances
CPT/HCPCS: 36415; 80053; 80307; 80320; 81003; 84443; 85025; 99283; A9270-GY; G0480

== ENCOUNTER 2019-08-28 15:59 | Emergency (ER) | payer OTHER ==
[2019-08-28] MEDS ORDERED: LORazepam TAB(*) 1 MG PO ONE ×2 (16:16→16:57)
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
[2019-08-28 16:32] LABS: ABS Lymphocytes 1.2 10^3/ul (1.0-4.8); ABS Monocytes 0.6 10^3/ul (0-0.8); ABS Neutrophils 6.7 10^3/ul (1.5-7.7); Eosinophil % 0.4 %; Hematocrit 42 % (42-52); Hemoglobin 14.7 g/dL (14.0-18.0); Lymphocyte % 13.7 %; Mean Corpuscular HGB Conc 35 g/dL (31-36); Mean Corpuscular Hemoglobin 32 pg (27-31); Mean Corpuscular Volume 92 fL (80-94); Mean Platelet Volume 7.6 fL (7.4-10.4); Platelet Count 236 10^3/uL (150-450); Red Blood Count 4.56 10^6 /uL (4.18-5.48); Red Cell Distribution Width 13 % (10-15); White Blood Count 8.6 10^3/uL (3.5-10.8)
[2019-08-28 16:49] LABS: Albumin 4.8 g/dL (3.2-5.2); Albumin/Globulin Ratio 1.5 (1-3); BUN/Creatinine Ratio 13.4 (8-20); Calcium 9.4 mg/dL (8.6-10.3); EGFR African American 74.3 (>60); EGFR Non-African American 61.4 (>60); Globulin 3.1 g/dL (2-4); Potassium 3.7 mmol/L (3.5-5.0); Total Bilirubin 0.4 mg/dL (0.2-1.0); Total Protein 7.9 g/dL (6.4-8.9)
[2019-08-28 17:13] VITALS: BP 116/71
== END 2019-08-28 17:14 | disposition home or self-care (01) ==
LOC: ED 15:59
DX: F41.9 Anxiety disorder, unspecified (principal); R62.50 Unspecified lack of expected normal physiological development in childhood; F32.9 Major depressive disorder, single episode, unspecified; F17.290 Nicotine dependence, other tobacco product, uncomplicated; Z88.8 Allergy status to other drugs, medicaments and biological substances
CPT/HCPCS: 36415; 80053; 85025; 99283; A9270-GY

== ENCOUNTER 2019-08-31 02:27 | Emergency (ER) | payer OTHER ==
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
[2019-08-31 05:14] LABS: Urine Appearance Clear; Urine Bilirubin Negative (Negative); Urine Blood Negative (Negative); Urine Color Yellow; Urine Glucose Negative (Negative); Urine Ketones Negative (Negative); Urine Nitrite Negative (Negative); Urine Protein Negative (Negative); Urine Specific Gravity 1.011 (1.010-1.030); Urine Urobilinogen Negative (Negative)
[2019-08-31 05:27] LABS: ABS Lymphocytes 1.6 10^3/ul (1.0-4.8); ABS Monocytes 0.6 10^3/ul (0-0.8); ABS Neutrophils 6.6 10^3/ul (1.5-7.7); Eosinophil % 0.1 %; Hematocrit 42 % (42-52); Hemoglobin 14.7 g/dL (14.0-18.0); Lymphocyte % 18.1 %; Mean Corpuscular HGB Conc 35 g/dL (31-36); Mean Corpuscular Hemoglobin 33 pg (27-31); Mean Corpuscular Volume 93 fL (80-94); Mean Platelet Volume 7.6 fL (7.4-10.4); Platelet Count 248 10^3/uL (150-450); Red Blood Count 4.51 10^6 /uL (4.18-5.48); Red Cell Distribution Width 13 % (10-15); White Blood Count 8.8 10^3/uL (3.5-10.8)
[2019-08-31 05:31] LABS: Urine Benzodiazepine Screen None Detected (None Detect); Urine Opiates Screen None Detected (None Detect)
[2019-08-31 05:44] LABS: ALT 6 U/L (7-52); AST 12 U/L (13-39); Acetaminophen < 15 mcg/mL; Albumin 4.8 g/dL (3.2-5.2); Albumin/Globulin Ratio 1.7 (1-3); Alcohol < 10 mg/dL (<10); Alkaline Phosphatase 43 U/L (34-104); BUN/Creatinine Ratio 9.6 (8-20); Blood Urea Nitrogen 12 mg/dL (6-24); CO2 Carbon Dioxide 20 mmol/L (22-32); Calcium 9.4 mg/dL (8.6-10.3); EGFR African American 80.5 (>60); EGFR Non-African American 66.5 (>60); Globulin 2.9 g/dL (2-4); Glucose 98 mg/dL (70-100); Potassium 3.3 mmol/L (3.5-5.0); Salicylate < 2.50 mg/dL (<30); Sodium 139 mmol/L (135-145); Total Protein 7.7 g/dL (6.4-8.9)
[2019-08-31 05:45] LABS: Anion Gap 7 mmol/L (2-11); Chloride 112 mmol/L (101-111)
[2019-08-31 06:00] LABS: TSH (Thyroid Stimulating Horm) 2.99 mcIU/mL (0.34-5.60)
[2019-08-31 06:08] VITALS: BP 115/75
== END 2019-08-31 06:00 | disposition home or self-care (01) ==
LOC: ED 02:27
DX: F41.9 Anxiety disorder, unspecified (principal); R62.50 Unspecified lack of expected normal physiological development in childhood; F32.9 Major depressive disorder, single episode, unspecified; Z79.899 Other long term (current) drug therapy; Z88.8 Allergy status to other drugs, medicaments and biological substances
CPT/HCPCS: 36415; 80053; 80307; 80320; 80329; 81003; 84443; 85025; 99284; G0480

== ENCOUNTER 2019-08-31 06:23 | Emergency (ER) | payer OTHER ==
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
[2019-08-31 08:28] VITALS: BP 121/76
== END 2019-08-31 08:25 | disposition home or self-care (01) ==
LOC: ED 06:23
DX: R25.1 Tremor, unspecified (principal); Z76.5 Malingerer [conscious simulation]; R62.50 Unspecified lack of expected normal physiological development in childhood; F41.9 Anxiety disorder, unspecified; F17.290 Nicotine dependence, other tobacco product, uncomplicated; Z79.899 Other long term (current) drug therapy; Z88.8 Allergy status to other drugs, medicaments and biological substances
CPT/HCPCS: 99282

== ENCOUNTER 2019-08-31 16:06 | Emergency (ER) | payer OTHER ==
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
[2019-08-31] MEDS ORDERED: NS 0.9% 1000 ML** 1,000 ML IV ONE ×2 (18:06→18:58)
[2019-08-31] MEDS ORDERED: Lorazepam PYXIS KEY PRN (18:07)
[2019-08-31] MEDS ORDERED: LORazepam INJ* 2 MG/ML 1 ML VIAL IV PUSH ONE (18:07)
[2019-08-31] MEDS ORDERED: Lorazepam PYXIS KEY ONE (18:15)
[2019-08-31 18:28] LABS: ABS Monocytes 1.1 10^3/ul (0-0.8); ABS Neutrophils 10.9 10^3/ul (1.5-7.7); ABS Nucleated RBC 0.1 10^3/ul; Hematocrit 41 % (42-52); Lymphocyte % 7.6 %; Mean Corpuscular HGB Conc 34 g/dL (31-36); Mean Corpuscular Hemoglobin 32 pg (27-31); Mean Corpuscular Volume 93 fL (80-94); Mean Platelet Volume 7.4 fL (7.4-10.4); Nucleated Red Blood Cells % 0.3; Platelet Count 264 10^3/uL (150-450); Red Blood Count 4.42 10^6 /uL (4.18-5.48); Red Cell Distribution Width 13 % (10-15)
[2019-08-31 18:54] LABS: Albumin 5.1 g/dL (3.2-5.2); Albumin/Globulin Ratio 1.7 (1-3); BUN/Creatinine Ratio 10.9 (8-20); Calcium 9.7 mg/dL (8.6-10.3); EGFR African American 77.6 (>60); EGFR Non-African American 64.1 (>60); Potassium 3.9 mmol/L (3.5-5.0); Total Bilirubin 0.4 mg/dL (0.2-1.0); Total Protein 8.1 g/dL (6.4-8.9)
[2019-08-31 19:51] VITALS: BP 91/62
== END 2019-08-31 19:48 | disposition home or self-care (01) ==
LOC: ED 16:06
DX: G40.89 Other seizures (principal); F17.210 Nicotine dependence, cigarettes, uncomplicated; F41.9 Anxiety disorder, unspecified; F32.9 Major depressive disorder, single episode, unspecified
CPT/HCPCS: 36415; 80053; 82550; 85025; 96361; 96374; 99282; J2060

== ENCOUNTER 2019-08-31 20:09 | Inpatient (IN) | payer OTHER ==
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
[2019-08-31 21:18] LABS: INR 1.14 (0.82-1.09)
[2019-08-31 21:19] LABS: ABS Lymphocytes 1.7 10^3/ul (1.0-4.8); ABS Monocytes 1.1 10^3/ul (0-0.8); ABS Neutrophils 8.3 10^3/ul (1.5-7.7); Hematocrit 37 % (42-52); Hemoglobin 12.9 g/dL (14.0-18.0); Lymphocyte % 15.5 %; Mean Corpuscular HGB Conc 35 g/dL (31-36); Mean Corpuscular Hemoglobin 32 pg (27-31); Mean Corpuscular Volume 93 fL (80-94); Mean Platelet Volume 7.5 fL (7.4-10.4); Nucleated Red Blood Cells % 0.1; Platelet Count 230 10^3/uL (150-450); Red Blood Count 4.01 10^6 /uL (4.18-5.48); Red Cell Distribution Width 13 % (10-15); White Blood Count 11.1 10^3/uL (3.5-10.8)
[2019-08-31] MEDS ORDERED: hydrOXYzine HCL TAB* 50 MG PO ONE (21:24)
[2019-08-31 21:29] LABS: Albumin 4.6 g/dL (3.2-5.2); Albumin/Globulin Ratio 1.8 (1-3); BUN/Creatinine Ratio 11.2 (8-20); Calcium 9.2 mg/dL (8.6-10.3); EGFR African American 87.7 (>60); EGFR Non-African American 72.5 (>60); Globulin 2.6 g/dL (2-4); Magnesium 1.9 mg/dL (1.9-2.7); Potassium 3.8 mmol/L (3.5-5.0); Total Bilirubin 0.5 mg/dL (0.2-1.0); Total Protein 7.2 g/dL (6.4-8.9)
[2019-08-31] MEDS ORDERED: levETIRAcetam TAB* 500 MG PO SCH (21:30)
[2019-08-31] MEDS: Topiramate TAB(*) 100 MG PO SCH (22:31)
[2019-08-31] MEDS: lamoTRIgine TAB(*) 100 MG PO SCH (22:31)
[2019-08-31] MEDS ORDERED: SUMAtriptan TAB* 50 MG PO PRN (22:35)
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
[2019-09-01 00:57] LABS: Urine Appearance Clear; Urine Bilirubin Negative (Negative); Urine Blood Negative (Negative); Urine Color Yellow; Urine Glucose Negative (Negative); Urine Ketones Negative (Negative); Urine Nitrite Negative (Negative); Urine Protein Negative (Negative); Urine Specific Gravity 1.026 (1.010-1.030); Urine Urobilinogen Negative (Negative)
[2019-09-01 01:02] LABS: Urine Benzodiazepine Screen None Detected (None Detect); Urine Opiates Screen None Detected (None Detect)
[2019-09-01] MEDS ORDERED: diPHENhydraMINE PO* 50 MG PO PRN (01:03)
[2019-09-01] MEDS: lamoTRIgine TAB(*) 100 MG PO SCH ×2 (08:37→17:38)
[2019-09-01] MEDS: Topiramate TAB(*) 25 MG PO SCH (08:39)
[2019-09-01] MEDS: busPIRone TAB* 10 MG PO SCH ×2 (08:40→20:21)
[2019-09-01] MEDS ORDERED: levETIRAcetam TAB* 500 MG PO SCH (09:00)
[2019-09-01] MEDS ORDERED: Nicotine PATCH 21 MG/24 HR* PATCH TRANSDERM PRN (09:29)
[2019-09-01] MEDS: Lacosamide TAB* 50 MG TAB PO SCH ×2 (10:05→20:21)
--- NOTE | 2019-09-01 12:34 | EEG ---
ELECTROENCEPHALOGRAM REPORT: DATE OF STUDY: 09/01/19 LOCATION: He is an inpatient in room 410. REFERRING PROVIDER: Dr. Kruger. CLINICAL PROBLEM: History of epilepsy and psychogenic nonepileptic spells. MEDICATIONS: Include: 1. Keppra. 2. BuSpar. 3. Topamax. 4. Lamictal. REPORT: This 19-channel EEG is remarkable for background rhythms consisting of an alpha rhythm in th e occipital derivations at about 9 cycles per second. There is fairly abundant beta rhythm seen cent rally and bifrontally. The patient is clinically awake. The patient is given a dose of oral Vimpat about 10 to 15 minutes into the recording. Activation procedures are not attempted. The patient aroldo wses with central and bitemporal slowing, but does not fall into stage II sleep. There are no clinica l events. There are no focal, lateralized, or epileptiform abnormalities. CLINICAL IMPRESSION: Normal awake and drowsy EEG. [id number]/[facility] #: [id number]
[2019-09-01] MEDS: Nicotine* 4MG (FRUIT FLAVOR) GUM PO PRN ×2 (13:01→21:45)
--- NOTE | 2019-09-01 13:32 | CONS ---
CC: Dr. Arnie Le NEUROLOGY CONSULTATION: DATE OF CONSULT: 09/01/19 LOCATION: He is an inpatient in room 410. REFERRING PROVIDER: BELGICA Carlisle CHIEF COMPLAINT: Epilepsy, anxiety, psychogenic nonepileptic spells. HISTORY OF PRESENT ILLNESS: Omar Downs is a 33-year-old man known to me from prior treatment for epilepsy. He also carries a diagnosis of psychogenic nonepileptic spells documented by epilepsy monitoring, which was done in 2017. He has been going to the emergency room very frequently over this past year. He has gone in for headaches, but also for episodes of shaking. His girlfriend called me yesterday on 2 occasions. Jai was shaking, but could nod his head and respond. He had been seen in the emergency room a couple of times and last night advised that she have Jai go and to be admitted. He is currently when examined in his exam room awake and alert. He has a headache with some photophobia. He bit his tongue some last night. He did not have any falls. He says he takes his medications on a regular basis. PAST MEDICAL HISTORY: Notable for anxiety; substance abuse, in remission; epilepsy; psychogenic nonepileptic spells; IV drug abuse. MEDICATIONS: At home consist of: 1. Topamax 100 mg p.o. b.i.d. 2. Lamotrigine 250 mg p.o. q.a.m. and 300 mg p.o. q.h.s. 3. Keppra 1500 mg q.h.s. and 2250 mg q.a.m. 4. Naratriptan 1 mg p.o. b.i.d. as needed for migraine up to 2 days per week. 5. BuSpar 10 mg p.o. b.i.d. ALLERGIES: He is allergic to CYCLOBENZAPRINE. PHYSICAL EXAM: He is thin, but well hydrated. Temperature 97.2, blood pressure 90/60, heart rate was in the 70s and fairly regular. There is a little bit of a redness near the lateral tip of his right tongue, but no laceration. Neck is supple. He has multiple tattoos. Lungs are clear. Heart tones are normal. Neurologically, he is psychomotorically slow, but not all that unusual from my prior encounters with Jai. Eye movements are normal. Pupils react equally. Facial musculature is symmetric. Speech is soft, but clear. Muscle tone and strength is normal in the limbs. He has a mild sustention tremor in the hands. [id number] maneuver is normal. Reflexes are intact and symmetric. I did not test his gait. There are no lapses in attention and concentration during my visit with him today. LABORATORY DATA: Includes a normal CBC from yesterday other than a white blood cell count of 11.1 and hemoglobin 12.9. Toxicology screen from this morning is negative. Urinalysis from this morning is normal. Chemistries are notable for carbon dioxide of 20 and a glucose of 105. Creatine kinase from yesterday is elevated at 388. IMPRESSION AND PLAN: Impression is that of epilepsy and psychogenic nonepileptic spells. It is hard to separate which is occurring. An EEG has been obtained and I reviewed it and it does not show any epileptiform discharges. My plan is to start Vimpat and get him off the Keppra with hopes that it would both increase the likelihood of controlling his epilepsy as well as possibly improve treatment of the psychogenic nonepileptic spells. With his mood disorder and anxiety, I think he might be better off, off Keppra if we can manage it. Vimpat is a controlled substance, but hopefully will provide calming effect and help stabilize his mood. I will continue lamotrigine and Topamax. Another thought for future consideration is to adjust his antimigraine medicines and possibly switch Topamax to Depakote at some point, but for now I just want to see if we can make a smooth transition from Keppra to Vimpat. I have explained this to Jai and his fiancee. Jai is willing to stay in the hospital at least for today to see if we can make a start with his transition. [id number]/[facility] #: [id number] HERNANDEZ
--- NOTE | 2019-09-01 14:14 | PN ---
Subjective Date of Service: 09/01/19 Interval History: Patient is feeling well today. Patient denies any abnormal movements, twitching , or sedation. Patient denies F/C, N/V, abdominal pain, diarrhea, CP, or other pain. Family History: Unchanged from Admission Social History: Unchanged from Admission Past Medical History: Unchanged from Admission Objective Active Medications: Buspirone HCl (Buspar Tab*) 10 mg PO BID [facility] Last Admin: 09/01/19 08:40 Dose: 10 mg Diphenhydramine HCl (Benadryl Po*) 50 mg PO BEDTIME PRN PRN Reason: INSOMNIA/SLEEP Lacosamide (Vimpat Tab*) 50 mg PO BID [facility] Last Admin: 09/01/19 10:05 Dose: 50 mg Lamotrigine (Lamictal Tab(*)) 300 mg PO QPM [facility] Last Admin: 08/31/19 22:31 Dose: 300 mg Lamotrigine (Lamictal Tab(*)) 250 mg PO QAM [facility] Last Admin: 09/01/19 08:37 Dose: 250 mg Levetiracetam (Keppra Tab*) 1,000 mg PO BID [facility] Nicotine (Nicotine Patch 21 Mg/24 Hr*) 1 patch TRANSDERM DAILY@0800 PRN PRN Reason: CRAVING Nicotine Polacrilex (Nicotine Gum*) 4 mg PO Q2H PRN PRN Reason: CRAVING Last Admin: 09/01/19 13:01 Dose: 4 mg Sumatriptan Succinate (Imitrex Tab*) 50 mg PO DAILY PRN PRN Reason: MIGRAINE HEADACHE Topiramate (Topamax(*)) 100 mg PO QPM [facility] Last Admin: 08/31/19 22:31 Dose: 100 mg Topiramate (Topamax(*)) 100 mg PO QAM [facility] Last Admin: 09/01/19 08:39 Dose: 100 mg Vital Signs - 8 hr 09/01/19 09/01/19 09/01/19 07:15 08:00 11:40 Temperature 97.2 F 98.1 F Pulse Rate 57 60 Respiratory 20 18 19 Rate Blood Pressure 85/48 91/53 (mmHg) O2 Sat by Pulse 99 100 Oximetry Oxygen Devices in Use Now: None Appearance: Patient is a 33yo male who appears older than stated age and is sitting in the bed in NAD. Eyes: No Scleral Icterus, PERRLA Ears/Nose/Mouth/Throat: NL Teeth, Lips, Gums, Clear Oropharnyx, Mucous Membranes Moist Neck: NL Appearance and Movements; NL JVP, Trachea Midline Respiratory: Clear to Auscultation Cardiovascular: NL Sounds; No Murmurs; No JVD, RRR, No Edema Abdominal: NL Sounds; No Tenderness; No Distention, No Hepatosplenomegaly Lymphatic: No Cervical Adenopathy Extremities: No Edema, No Clubbing, Cyanosis Skin: No Rash or Ulcers, No Nodules or Sclerosis Neurological: Alert and Oriented x 3, NL Sensation, NL Muscle Strength and Tone , - - CN II-XII intact. Result Diagrams: 08/31/19 21:00 08/31/19 21:00 Assess/Plan/Problems-Billing Assessment: Patient is a 33yo male male with a PMH for PNES, Epilepsy, who is here with increased frequency of seizures. - Patient Problems (1) Epilepsy Current Visit: No Status: Acute Code(s): G40.909 - EPILEPSY, UNSP, NOT INTRACTABLE, WITHOUT STATUS EPILEPTICUS SNOMED Code(s): 99559402 Comment: - Has known epilepsy - Worsened recently - Difficult to tell which seizures are related to epilepsy due to PNES - Cross titrate Vimpat and Keppra. - Continue Topimirate and Lamictal - EEG Unremarkable (2) Anxiety Current Visit: No Status: Acute Code(s): F41.9 - ANXIETY DISORDER, UNSPECIFIED SNOMED Code(s): 24307365 Comment: - Contributing to PNES - Controlled at this time. (3) DVT prophylaxis Current Visit: Yes Status: Acute Code(s): Z29.9 - ENCOUNTER FOR PROPHYLACTIC MEASURES, UNSPECIFIED SNOMED Code(s): 487840727 Comment: - Low risk, Ambulation (4) Full code status Current Visit: Yes Status: Acute Code(s): Z78.9 - OTHER SPECIFIED HEALTH STATUS SNOMED Code(s): 980706138 Status and Disposition: Inpatient for optimization of Antiepileptics.
[2019-09-01] MEDS: Topiramate TAB(*) 100 MG PO SCH (17:38)
[2019-09-01] MEDS ORDERED: clonazePAM TAB(*) 0.5 MG PO PRN (18:26)
[2019-09-01] MEDS: levETIRAcetam TAB* 500 MG PO SCH (20:21)
[2019-09-02] MEDS: Topiramate TAB(*) 25 MG PO SCH (09:07)
[2019-09-02] MEDS: Nicotine* 4MG (FRUIT FLAVOR) GUM PO PRN (09:07)
[2019-09-02] MEDS: busPIRone TAB* 10 MG PO SCH (09:07)
[2019-09-02] MEDS: Lacosamide TAB* 50 MG TAB PO SCH (09:07)
[2019-09-02] MEDS: levETIRAcetam TAB* 500 MG PO SCH (09:07)
[2019-09-02] MEDS: lamoTRIgine TAB(*) 100 MG PO SCH (09:27)
[2019-09-02 11:27] VITALS: BP 108/64
--- NOTE | 2019-09-02 22:06 | DS ---
CC: [facility]; Dr. Arnie Le * DISCHARGE SUMMARY: DATE OF ADMISSION: 09/01/19 DATE OF DISCHARGE: 09/02/19 PRIMARY CARE PROVIDER: [facility]. MY ATTENDING WHILE IN THE HOSPITAL: Dr. Jessica Bowling.* (DICTATED BY BELGICA ANDREW) CONSULTING NEUROLOGIST: Dr. Arnie Le. PRIMARY DISCHARGE DIAGNOSIS: Seizures, possible psychogenic nonepileptic seizures. SECONDARY DISCHARGE DIAGNOSES: 1. Anxiety. 2. Epilepsy. 3. Developmental delay. 4. History of opioid abuse. STUDIES DONE WHILE IN THE HOSPITAL: Brain MRI from 09/01/19 read as no acute intracranial abnormality. MEDICATIONS AT DISCHARGE: 1. Hydroxyzine 50 mg p.o. t.i.d. as needed. 2. Topiramate 100 mg p.o. b.i.d. 3. Lamotrigine 300 mg p.o. nightly, 250 mg p.o. daily. 4. Sumatriptan 50 mg p.o. daily. 5. Naratriptan 1 mg p.o. daily as needed. 6. Buspirone 10 mg p.o. b.i.d. 7. Lacosamide 50 mg p.o. b.i.d. 8. Levetiracetam 1000 mg p.o. b.i.d. New medications on discharge: 1. Lacosamide. 2. Levetiracetam. Medications discontinued at discharge: 1. Keppra 1500 mg p.o. nightly. 2. Levetiracetam 2250 mg p.o. daily. HOSPITAL COURSE: This is a brief summary of the patient's presentation. For more details, please see the history and physical from Dr. Lazaro Lazcano on . In brief, the patient is a 33-year-old male with a past medical history significant for the above, who has been to the emergency department over 100 times in the last several years related to potential seizure activity. The patient has known epileptic seizures and psychogenic nonepileptic seizures. On the day before his admission, the patient had significant amount of seizure activity including 3 distinct episodes with possible tongue biting and altered mental status. The patient due to concern for uncontrolled seizures, the patient was admitted to the hospital. The patient in the emergency department was found to have an elevated CK, decreased carbon dioxide, negative toxicology , negative urine, slight anemia, and slightly elevated white blood cell count. The patient was seen in consultation by Dr. Matthew Kruger of Neurology, who recommended changing the patient's Keppra to lacosamide given his comorbid psychiatric disorders. An EEG was performed; it was unremarkable. The patient had outpatient MRI of his brain scheduled through his neurologist; however, given the change in his presentation, this was performed without inpatient and was unremarkable for any evidence of encephalomalacia from concussion or other secondary effects of stroke. The patient tolerated his lacosamide well without sedation. His anxiety was well under control. On 09/02/19, the patient was stable and amenable for discharge to home. PHYSICAL EXAMINATION ON THE DAY OF DISCHARGE: General: The patient is a 33- year- old male, who appears older than stated age, sitting in the bed, in no acute distress. Vital signs at the time of discharge: Temp 97.5, pulse rate 54 , respiratory rate 18, oxygen saturation 100% on room air, blood pressure 108/ 64. HEENT: Head: Normocephalic, atraumatic. Sclerae anicteric. No conjunctival injection. Nasal mucosa moist. Oral mucosa moist. No oropharyngeal erythema, discharge, or exudate. Numerous facial piercing. Neck : Supple and nontender. No lymphadenopathy. No carotid bruit auscultated. No JVD. Cardiac: Regular rate and rhythm. No clicks, murmurs, gallops, or rubs. Pulses 2+ in the dorsalis pedis, posterior tibial, and radial areas. Respiratory: Clear to auscultation bilaterally. No wheezes, rales, or rhonchi. Good air exchange bilaterally. Abdomen: Soft, nontender, and nondistended. Bowel sounds present and normoactive in all 4 quadrants. No hepatosplenomegaly. No abdominal bruits auscultated. No hepatojugular reflux. Genitourinary: No suprapubic or CVA tenderness. Skin: Clean, dry, and intact. No rash. Neuro: Cranial nerves II through XII intact. No focal deficits. Alert and oriented x3. Psychiatric: Pleasant and cooperative. DISCHARGE PLAN BY PROBLEM: 1. Seizures, both epileptic and psychogenic. The patient had started the cross titration of his Keppra and his lacosamide per Neurology. The patient will be continued on these doses for a week and follow up with his outpatient neurologist, Dr. Arnie Le. The patient should continue this cross titration until he is stabilized on the lacosamide and off the Keppra if he does not have any significant increase in his seizure activity. The patient had no seizures while inpatient. Again, lacosamide may help to treat the patient 's comorbid anxiety, but Keppra may have been exacerbating and may be a trigger for his psychogenic nonepileptic seizures. 2. Anxiety secondary to hydroxyzine and BuSpar as well as above discussion lacosamide. 3. Recent concussion. The patient had an MRI, which was unremarkable. These results will be available with the patient's outpatient neurologist. DISPOSITION: Home. CONDITION: Stable. TIME SPENT: Approximately 45 minutes was spent on the discharge of this patient , 20 of which was spent [id number] with the patient obtaining history and physical and discussing treatment plan. BELGICA ANDREW [id number]/CPS #: [id number] HERNANDEZ
== END 2019-09-02 12:05 | disposition home or self-care (01) | DRG 756 ==
LOC: ED 20:09 → MED 22:28
PROVIDERS: ADMIT Internal Medicine; ATTEND Internal Medicine
PROC: 4A00X4Z Measurement of Central Nervous Electrical Activity, External Approach (ICD-10-PCS; principal; 2019-09-01)
DX: F44.5 Conversion disorder with seizures or convulsions (principal); G40.909 Epilepsy, unspecified, not intractable, without status epilepticus; F41.9 Anxiety disorder, unspecified; G89.29 Other chronic pain; M25.569 Pain in unspecified knee; F32.9 Major depressive disorder, single episode, unspecified; F17.210 Nicotine dependence, cigarettes, uncomplicated; R62.50 Unspecified lack of expected normal physiological development in childhood; T43.595A Adverse effect of other antipsychotics and neuroleptics, initial encounter; G43.909 Migraine, unspecified, not intractable, without status migrainosus; D72.829 Elevated white blood cell count, unspecified; Z88.8 Allergy status to other drugs, medicaments and biological substances; Y92.9 Unspecified place or not applicable
CPT/HCPCS: 36415; 70551; 80053; 80307; 81003; 82550; 83605; 83735; 85025; 85610; 95816; 99284; A9270-GY

== ENCOUNTER 2019-10-13 21:51 | Emergency (ER) | payer OTHER ==
--- OUTSIDE RECORDS SUMMARY | 2019-10-13 22:04 | XMS REPORT | Continuity of Care Document ---
:1985 External Reference #:[id number] Author Name N[facility] Baptiste N.P. (transmitted by agent of provider Aarti Christy) Address [address] [facility], [place] [address] Care Team Providers Name Role Phone Moe Licea MD - Family Medicine Care Team Information Hospital Insurance Representative [phone] Mj Pathak MD - Hospitalist Care Team Information Hospital Insurance Representative [phone] Problems Active Problems Provider Date Idiopathic generalized epilepsy Matthew Kruger M.D. 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 Socorro Alex MD Onset: 08/05/2017 Migraine without aura, not refractory Socorro Alex MD Onset: 12/24/2017 Insomnia Socorro Alex MD Onset: 12/24/2017 Chronic hepatitis C Mj Pathak MD Onset: 07/29/2018 Venereal disease screening Mj Pathak MD Onset: 07/29/2018 Anxiety state Mj Pathak MD Onset: 07/29/2018 Knee pain Mj Pathak MD Onset: 07/29/2018 Spasm Mj Pathak MD Onset: 07/29/2018 Social History Type Date Description Comments Sex Unknown Tobacco Use Start: Unknown current cigarette smoker Smoking Status Reviewed: 09/08/19 current cigarette smoker ETOH Use Denies alcohol use Tobacco Use Start: Unknown Patient is a current smoker, smokes every day Recreational Drug Use Denies Drug Use Exercise Type/Frequency Does not exercise Allergies, Adverse Reactions, Alerts Active Allergies Reaction Severity Comments Date Cyclobenzaprine increase seizure 2018 activity Lavender Oil increase seizure 2018 activity Methylprednisolone Flushing, increased HR 08/17/2019 Palpitations Marijuana (Cannabis Sativa) seizures Severe 09/06/2019 Melatonin nightmares Severe 09/06/2019 Inactive Allergies NKDA 03/23/2014 Medications Active Medications SIG Qnty Indications Ordering Provider Date Lactaid take up to 3 90tabs R63.4 Noreen An, 09/06/2019 3000Unit times per day DO Tablets before dairy Ensure Active twice daily 60units R63.4 Noreen An, 09/06/2019 Liquid DO Keppra 2 po bid for 1 60tabs Matthew Kruger, 09/02/2019 500mg Tablets wk then 1 bid M.D. for 2 wks then 1 qd for 2 wks then stop keppra Vimpat 1 bid for 1 wk 14tabs Matthew Kruger, 09/02/2019 50mg Tablets then 100 mg bid M.D. Naratriptan HCL 1 by mouth as 9tabs [facility], 08/19/2019 1mg needed migraine, N.P. Tablets may repeat once after 4 hours if no relief, no more than 2 days a week Topamax 1 tab by mouth 60tabs [facility], 08/16/2019 100mg Tablets twice daily N.P. Hydroxyzine HCL 1 tablet every 8 90tabs [facility], 08/10/2019 50mg hours as needed N.P. Tablets for anxiety Buspirone HCL take 1 tablet by 60tabs F41.9 [facility], 2018 10mg mouth every day N.P. Tablets in the morning and 1 tab at bedtime Lamotrigine 2.5 tabs in the 165tabs [facility], 07/25/2015 100mg morning and 3 at N.P. Tablets night Tylenol PM as needed at Unknown Tablets night History Medications Clonazepam 1 tab 30 1tabs [facility] [place], 09/01/2019 - 1mg minutes prior N.P. 09/06/2019 Tablets to MRI, DO Not Drive After Taking, Gabapentin 1 by mouth 90caps G43.009 [facility], 08/18/2019 - 100mg three times a N.P. 09/06/2019 Capsules day Rizatriptan Benzoate take 1 tablet 10tabs [facility], 08/18/2019 - at onset of N.P. 08/18/2019 10mg Tablets headache, may repeat times one in 2 hour no more than 2 tab in 24 hr/ max 2 days a week Medications Administered in Office Medication SIG Qnty Indications Ordering Provider Date Influenza Virus Vaccine Unknown 07/01/2014 Injection Immunizations CPT Code Status Date Vaccine Lot # [id number] Given 09/06/2019 Tdap - Tetanus/Diptheria/Acellular Pertussis [id number] Given 09/06/2019 Influenza Virus Vaccine, Quadrivalent, Split, [id number] Preservative Free Vital Signs Date Vital Result Comment 09/08/2019 8:53am Height 69 inches 5'9" Weight 114.38 lb Heart Rate 108 /min BP Systolic 120 mmHg BP Diastolic 78 mmHg BMI (Body Mass Index) 16.9 kg/m2 09/06/2019 1:25pm Height 69 inches 5'9" Weight 116.50 lb Heart Rate 55 /min BP Systolic 108 mmHg BP Diastolic 62 mmHg Body Temperature 96.6 F O2 % BldC Oximetry 98 % BMI (Body Mass Index) 17.2 kg/m2 Results Test Acquired Date Facility Test Result H/L Range Note Laboratory test 08/31/2019 [facility] TSH 2.99 Normal 0.34- 5.[address] (Thyroid mcIU/[place] [address] Stim Horm) [phone] Comp Metabolic 08/31/2019 [facility] Sodium 139 mmol/L Normal 135-[address] [place] [address] [phone] Potassium 3.3 mmol/L Low 3.5-5.0 Co2 Carbon Dioxide 20 mmol/L Low 22-32 Glucose 98 mg/dL Normal 70-100 Blood Urea Nitrogen 12 mg/dL Normal 6-24 Creatinine 1.25 mg/dL High 0.67-1.17 BUN/Creatinine Ratio 9.6 Normal 8-20 Calcium 9.4 mg/dL Normal 8.6-10.3 Total Protein 7.7 g/dL Normal 6.4-8.9 Albumin 4.8 g/dL Normal 3.2-5.2 Globulin 2.9 g/dL Normal 2-4 Albumin/Globulin Ratio 1.7 Normal 1-3 Total Bilirubin 0.40 mg/dL Normal 0.2-1.0 Alkaline Phosphatase 43 U/L Normal 34-104 Alt 6 U/L Low 7-52 Ast 12 U/L Low 13-39 Egfr Non- 66.5 >60 Egfr 80.5 >60 1 Chloride 112 mmol/L High 101-111 Anion Gap 7 mmol/L Normal 2-11 Laboratory test 08/31/2019 [facility] Acetaminophen < 15 g/mL [address] [place] [address] [phone] Alcohol < 10 mg/dL Normal <10 Salicylate < 2.50 mg/dL <30 CBC Auto 08/31/2019 [facility] White Blood 8.8 10^3/uL Normal 3.5-10.[address] [place] [address] [phone] Red Blood Count 4.51 10^6/uL Normal 4.18-5.48 Hemoglobin 14.7 g/dL Normal 14.0-18.0 Hematocrit 42 % Normal 42-52 Mean Corpuscular Volume 93 fL Normal 80-94 Mean Corpuscular Hemoglobin 33 pg High 27-31 Mean Corpuscular HGB Conc 35 g/dL Normal 31-36 Red Cell Distribution Width 13 % Normal 10-15 Platelet Count 248 10^3/uL Normal 150-450 Mean Platelet Volume 7.6 fL Normal 7.4-10.4 Abs Neutrophils 6.6 10^3/uL Normal 1.5-7.7 Abs Lymphocytes 1.6 10^3/uL Normal 1.0-4.8 Abs Monocytes 0.6 10^3/uL Normal 0-0.8 Abs Eosinophils 0.0 10^3/uL Normal 0-0.6 Abs Basophils 0.0 10^3/uL Normal 0-0.2 Abs Nucleated RBC 0.0 10^3/uL Granulocyte % 75.1 % Lymphocyte % 18.1 % Monocyte % 6.5 % Eosinophil % 0.1 % Basophil % 0.2 % Nucleated Red Blood Cells % 0.0 Urine Drug 08/31/2019 [facility] Urine None Detected None Detect SCR ED & [address] [place] [address] Screen [phone] Urine Barbiturates Screen None Detected None Detect Urine Benzodiazepine Screen None Detected None Detect Urine Cannabinoids Screen None Detected None Detect Urine Cocaine Screen None Detected None Detect Urine Opiates Screen None Detected None Detect Urine Phencyclidine Screen None Detected None Detect 3 Urinalysis Profile 08/31/2019 [facility] Urine Color Yellow [address] [place] [address] [phone] Urine Appearance Clear Urine Specific [place] 1.011 Normal 1.010-1.030 Urine pH 7.0 Normal 5-9 Urine Urobilinogen Negative Negative Urine Ketones Negative Negative Urine Protein Negative Negative Urine Leukocytes Negative Negative Urine Blood Negative Negative Urine Nitrite Negative Negative Urine Bilirubin Negative Negative Urine Glucose Negative Negative Laboratory test 08/31/2019 [facility] Creatine 336 U/L High 10 -[address] Kinase(CK) [place] [address] [phone] Comp Metabolic 08/31/2019 [facility] Sodium 140 Normal 135- [address] mmol/[place] [address] [phone] Potassium 3.9 mmol/L Normal 3.5-5.0 Co2 Carbon Dioxide 20 mmol/L Low 22-32 Glucose 109 mg/dL High 70-100 Blood Urea Nitrogen 14 mg/dL Normal 6-24 Creatinine 1.29 mg/dL High 0.67-1.17 BUN/Creatinine Ratio 10.9 Normal 8-20 Calcium 9.7 mg/dL Normal 8.6-10.3 Total Protein 8.1 g/dL Normal 6.4-8.9 Albumin 5.1 g/dL Normal 3.2-5.2 Globulin 3.0 g/dL Normal 2-4 Albumin/Globulin Ratio 1.7 Normal 1-3 Total Bilirubin 0.40 mg/dL Normal 0.2-1.0 Alkaline Phosphatase 42 U/L Normal 34-104 Alt 6 U/L Low 7-52 Ast 17 U/L Normal 13-39 Egfr Non- 64.1 >60 Egfr 77.6 >60 4 Chloride 112 mmol/L High 101-111 Anion Gap 8 mmol/L Normal 2-11 CBC Auto 08/31/2019 [facility] White Blood 13.0 10^3/uL High 3.5-10.[address] [place] [address] [phone] Red Blood Count 4.42 10^6/uL Normal 4.18-5.48 Hemoglobin 14.0 g/dL Normal 14.0-18.0 Hematocrit 41 % Low 42-52 Mean Corpuscular Volume 93 fL Normal 80-94 Mean Corpuscular Hemoglobin 32 pg High 27-31 Mean Corpuscular HGB Conc 34 g/dL Normal 31-36 Red Cell Distribution Width 13 % Normal 10-15 Platelet Count 264 10^3/uL Normal 150-450 Mean Platelet Volume 7.4 fL Normal 7.4-10.4 Abs Neutrophils 10.9 10^3/uL High 1.5-7.7 Abs Lymphocytes 1.0 10^3/uL Normal 1.0-4.8 Abs Monocytes 1.1 10^3/uL High 0-0.8 Abs Eosinophils 0.0 10^3/uL Normal 0-0.6 Abs Basophils 0.0 10^3/uL Normal 0-0.2 Abs Nucleated RBC 0.1 10^3/uL Granulocyte % 83.9 % Lymphocyte % 7.6 % Monocyte % 8.3 % Eosinophil % 0.0 % Basophil % 0.2 % Nucleated Red Blood Cells % 0.3 Laboratory test 08/31/2019 [facility] Creatine 388 U/L High 10 -[address] Kinase(CK) [place], [place] [id number] [phone] Urinalysis 08/31/2019 [facility] Urine Color Yellow Profile [address] [place], [place] [id number] [phone] Urine Appearance Clear Urine Specific [place] 1.026 Normal 1.010-1.030 Urine pH 6.0 Normal 5-9 Urine Urobilinogen Negative Negative Urine Ketones Negative Negative Urine Protein Negative Negative Urine Leukocytes Negative Negative Urine Blood Negative Negative Urine Nitrite Negative Negative Urine Bilirubin Negative Negative Urine Glucose Negative Negative CBC Auto 08/31/2019 [facility] White Blood 11.1 10^3/uL High 3.5-10.[address] [place] [address] [phone] Red Blood Count 4.01 10^6/uL Low 4.18-5.48 Hemoglobin 12.9 g/dL Low 14.0-18.0 Hematocrit 37 % Low 42-52 Mean Corpuscular Volume 93 fL Normal 80-94 Mean Corpuscular Hemoglobin 32 pg High 27-31 Mean Corpuscular HGB Conc 35 g/dL Normal 31-36 Red Cell Distribution Width 13 % Normal 10-15 Platelet Count 230 10^3/uL Normal 150-450 Mean Platelet Volume 7.5 fL Normal 7.4-10.4 Abs Neutrophils 8.3 10^3/uL High 1.5-7.7 Abs Lymphocytes 1.7 10^3/uL Normal 1.0-4.8 Abs Monocytes 1.1 10^3/uL High 0-0.8 Abs Eosinophils 0.0 10^3/uL Normal 0-0.6 Abs Basophils 0.0 10^3/uL Normal 0-0.2 Abs Nucleated RBC 0.0 10^3/uL Granulocyte % 74.5 % Lymphocyte % 15.5 % Monocyte % 9.8 % Eosinophil % 0.0 % Basophil % 0.2 % Nucleated Red Blood Cells % 0.1 Laboratory test 08/31/2019 [facility] Magnesium 1.9 mg/dL Normal 1.9-2.7 finding [address] [place] [address] [phone] Comp Metabolic 08/31/2019 [facility] Sodium 140 mmol/L Normal 135-145 Panel [address] [place] [address] [phone] Potassium 3.8 mmol/L Normal 3.5-5.0 Co2 Carbon Dioxide 20 mmol/L Low 22-32 Glucose 105 mg/dL High 70-100 Blood Urea Nitrogen 13 mg/dL Normal 6-24 Creatinine 1.16 mg/dL Normal 0.67-1.17 BUN/Creatinine Ratio 11.2 Normal 8-20 Calcium 9.2 mg/dL Normal 8.6-10.3 Total Protein 7.2 g/dL Normal 6.4-8.9 Albumin 4.6 g/dL Normal 3.2-5.2 Globulin 2.6 g/dL Normal 2-4 Albumin/Globulin Ratio 1.8 Normal 1-3 Total Bilirubin 0.50 mg/dL Normal 0.2-1.0 Alkaline Phosphatase 37 U/L Normal 34-104 Alt 7 U/L Normal 7-52 Ast 16 U/L Normal 13-39 Egfr Non- 72.5 >60 Egfr 87.7 >60 5 Chloride 113 mmol/L High 101-111 Anion Gap 7 mmol/L Normal 2-11 Laboratory test 08/31/2019 [facility] Lactic Acid 1.4 mmol/L Normal 0.5-2.0 6 finding [address] [place] [address] [phone] Inr/Protime 08/31/2019 [facility] Inr 1.14 High 0.82-1.[address] [place] [address] [phone] CBC Auto Diff 08/28/2019 [facility] White Blood 8.6 Normal 3.5 -10.[address] Count 10^3/[place] [address] [phone] Red Blood Count 4.56 10^6/uL Normal 4.18-5.48 Hemoglobin 14.7 g/dL Normal 14.0-18.0 Hematocrit 42 % Normal 42-52 Mean Corpuscular Volume 92 fL Normal 80-94 Mean Corpuscular Hemoglobin 32 pg High 27-31 Mean Corpuscular HGB Conc 35 g/dL Normal 31-36 Red Cell Distribution Width 13 % Normal 10-15 Platelet Count 236 10^3/uL Normal 150-450 Mean Platelet Volume 7.6 fL Normal 7.4-10.4 Abs Neutrophils 6.7 10^3/uL Normal 1.5-7.7 Abs Lymphocytes 1.2 10^3/uL Normal 1.0-4.8 Abs Monocytes 0.6 10^3/uL Normal 0-0.8 Abs Eosinophils 0.0 10^3/uL Normal 0-0.6 Abs Basophils 0.0 10^3/uL Normal 0-0.2 Abs Nucleated RBC 0.0 10^3/uL Granulocyte % 78.2 % Lymphocyte % 13.7 % Monocyte % 7.3 % Eosinophil % 0.4 % Basophil % 0.4 % Nucleated Red Blood Cells % 0.0 Comp Metabolic 08/28/2019 [facility] Sodium 137 mmol/L Normal 135-[address] [place] [address] [phone] Potassium 3.7 mmol/L Normal 3.5-5.0 Chloride 108 mmol/L Normal 101-111 Co2 Carbon Dioxide 24 mmol/L Normal 22-32 Anion Gap 5 mmol/L Normal 2-11 Glucose 92 mg/dL Normal 70-100 Blood Urea Nitrogen 18 mg/dL Normal 6-24 Creatinine 1.34 mg/dL High 0.67-1.17 BUN/Creatinine Ratio 13.4 Normal 8-20 Calcium 9.4 mg/dL Normal 8.6-10.3 Total Protein 7.9 g/dL Normal 6.4-8.9 Albumin 4.8 g/dL Normal 3.2-5.2 Globulin 3.1 g/dL Normal 2-4 Albumin/Globulin Ratio 1.5 Normal 1-3 Total Bilirubin 0.40 mg/dL Normal 0.2-1.0 Alkaline Phosphatase 42 U/L Normal 34-104 Alt 6 U/L Low 7-52 Ast 10 U/L Low 13-39 Egfr Non- 61.4 >60 Egfr 74.3 >60 8 CBC Auto 08/22/2019 [facility] White Blood 9.1 10^3/uL Normal 3.5-10.[address] Count [place], [place] [id number] [phone] Red Blood Count 4.70 10^6/uL Normal 4.18-5.48 Hemoglobin 15.5 g/dL Normal 14.0-18.0 Hematocrit 44 % Normal 42-52 Mean Corpuscular Volume 93 fL Normal 80-94 Mean Corpuscular Hemoglobin 33 pg High 27-31 Mean Corpuscular HGB Conc 36 g/dL Normal 31-36 Red Cell Distribution Width 13 % Normal 10-15 Platelet Count 270 10^3/uL Normal 150-450 Mean Platelet Volume 7.3 fL Low 7.4-10.4 Abs Neutrophils 4.6 10^3/uL Normal 1.5-7.7 Abs Lymphocytes 3.6 10^3/uL Normal 1.0-4.8 Abs Monocytes 0.8 10^3/uL Normal 0-0.8 Abs Eosinophils 0.1 10^3/uL Normal 0-0.6 Abs Basophils 0.0 10^3/uL Normal 0-0.2 Abs Nucleated RBC 0.0 10^3/uL Granulocyte % 50.4 % Lymphocyte % 40.0 % Monocyte % 8.5 % Eosinophil % 0.7 % Basophil % 0.4 % Nucleated Red Blood Cells % 0.1 Urine Drug 08/22/2019 [facility] Urine None Detected None Detect SCR ED & [address] [place] [address] Screen [phone] Urine Barbiturates Screen None Detected None Detect Urine Benzodiazepine Screen None Detected None Detect Urine Cannabinoids Screen None Detected None Detect Urine Cocaine Screen None Detected None Detect Urine Opiates Screen None Detected None Detect Urine Phencyclidine Screen None Detected None Detect 9 Urinalysis Profile 08/22/2019 [facility] Urine Color Straw [address] [place] [address] [phone] Urine Appearance Clear Urine Specific [place] 1.008 Low 1.010-1.030 Urine pH 8.0 Normal 5-9 Urine Urobilinogen Negative Negative Urine Ketones Negative Negative Urine Protein Negative Negative Urine Leukocytes Negative Negative Urine Blood Negative Negative Urine Nitrite Negative Negative Urine Bilirubin Negative Negative Urine Glucose Negative Negative Comp Metabolic 08/22/2019 [facility] Sodium 136 mmol/L Normal 135-145 Panel [address] [place] [address] [phone] Chloride 109 mmol/L Normal 101-111 Co2 Carbon Dioxide 17 mmol/L Low 22-32 Glucose 97 mg/dL Normal 70-100 Blood Urea Nitrogen 17 mg/dL Normal 6-24 Creatinine 1.28 mg/dL High 0.67-1.17 BUN/Creatinine Ratio 13.3 Normal 8-20 Calcium 10.0 mg/dL Normal 8.6-10.3 Total Protein 7.9 g/dL Normal 6.4-8.9 Albumin 4.8 g/dL Normal 3.2-5.2 Globulin 3.1 g/dL Normal 2-4 Albumin/Globulin Ratio 1.5 Normal 1-3 Total Bilirubin 0.30 mg/dL Normal 0.2-1.0 Alkaline Phosphatase 43 U/L Normal 34-104 Alt 6 U/L Low 7-52 Egfr Non- 64.7 >60 Egfr 78.3 >60 10 Potassium 3.8 mmol/L Normal 3.5-5.0 Anion Gap 10 mmol/L Normal 2-11 Ast 12 U/L Low 13-39 Laboratory test 08/22/2019 [facility] Alcohol < 10 mg/dL Normal <[address] [place] [address] [phone] TSH (Thyroid Stim Horm) 3.83 mcIU/mL Normal 0.34-5.60 Laboratory test 08/18/2019 [facility] Levetiracetam 23.2 g/mL [address] (Keppra) [place] [address] [phone] Lamotrigine (Lamictal) 5.3 g/mL 2.5 - 15.0 12 Topomax (Topiramate) 4.2 g/mL 13 Comp Metabolic 08/18/2019 [facility] Sodium 139 mmol/L Normal 135-[address] [place] [address] [phone] Potassium 3.5 mmol/L Normal 3.5-5.0 Chloride 104 [...] Egfr Non- 63.0 >60 Egfr 76.2 >60 14 CBC Auto 08/18/2019 [facility] White Blood 10.0 10^3/uL Normal 3.5-10.[address] [place] [address] [phone] Red Blood Count 4.82 10^6/uL Normal 4.18-5.48 [...] Red Blood Cells % 0.0 Comp Metabolic 08/10/2019 [facility] Sodium 138 mmol/L Normal 135-[address] [place] [address] [phone] Potassium 3.7 mmol/L Normal 3.5-5.0 Chloride 110 [...] Egfr Non- 74.7 >60 Egfr 90.4 >60 15 CBC Auto 08/10/2019 [facility] White Blood 9.2 10^3/uL Normal 3.5-10.[address] [place] [address] [phone] Red Blood Count 4.42 10^6/uL Normal 4.18-5.48 [...] Blood Cells % 0.1 Laboratory test 08/10/2019 [facility] Lactic Acid 1.0 mmol/L Normal 0.5-2.0 16 finding [address] [place] [address] [phone] Urinalysis 08/10/2019 [facility] Urine Color Yellow Profile [address] [place] [address] [phone] Urine Appearance Clear Urine Specific [place] 1.013 Normal 1.010-1.030 Urine pH 6.0 Normal 5-9 Urine Urobilinogen Negative Negative Urine Ketones Negative Negative Urine Protein Negative Negative Urine Leukocytes Negative Negative Urine Blood Negative Negative Urine Nitrite Negative Negative Urine Bilirubin Negative Negative Urine Glucose Negative Negative Urine Drug 08/10/2019 [facility] Urine None Detected None Detect SCR ED & [address] [facility] [place] [address] Screen [phone] Urine Barbiturates Screen None Detected None Detect Urine Benzodiazepine Screen None Detected None Detect Urine Cannabinoids Screen None Detected None Detect Urine Cocaine Screen None Detected None Detect Urine Opiates Screen None Detected None Detect Urine Phencyclidine Screen None Detected None Detect 17 Inr/Protime 08/04/2019 [facility] Inr 0.94 Normal 0.82-1.09 18 [address] [place] [address] [phone] CBC Auto Diff 08/04/2019 [facility] White Blood 4.8 Normal 3.5 -10.8 [address] [facility] Count 10^3/[place] [address] [phone] Red Blood Count 4.28 10^6/uL Normal 4.18-5.48 [...] Red Blood Cells % 0.0 Comp Metabolic 08/04/2019 [facility] Sodium 138 mmol/L Normal 135-[address] [place] [address] [phone] Potassium 3.8 mmol/L Normal 3.5-5.0 Co2 Carbon [...] Egfr Non- 71.8 >60 Egfr 86.9 >60 19 Chloride 112 mmol/L High 101-111 Anion Gap 5 mmol/L Normal 2-11 Laboratory test 08/04/2019 [facility] Magnesium 2.1 mg/dL Normal 1.9-2.[address] [place] [address] [phone] Alcohol < 10 mg/dL Normal <10 Lactic Acid 0.9 mmol/L Normal 0.5-2.0 20 Levetiracetam (Keppra) 59.9 g/mL Abnormal 21 Lamotrigine (Lamictal) 4.8 g/mL 2.5 - 15.0 22 Laboratory test 07/23/2019 [facility] Levetiracetam 24.7 g/mL [address] (Keppra) [place] [address] [phone] Lamotrigine (Lamictal) 5.3 g/mL 2.5 - 15.0 24 CBC Auto 07/07/2019 [facility] White Blood 5.7 10^3/uL Normal 3.5-10.[address] [place] [address] [phone] Red Blood Count 4.42 10^6/uL Normal 4.18-5.48 [...] Red Blood Cells % 0.1 Inr/Protime 07/07/2019 [facility] Inr 0.92 Normal 0.82-1.[address] [place] [address] [phone] Laboratory test 07/07/2019 [facility] Lactic Acid 1.2 Normal 0.5-2.0 [address] mmol/[place] [address] [phone] Comp Metabolic 07/07/2019 [facility] Sodium 137 Normal 135- [address] mmol/[place] [address] [phone] Potassium 3.9 mmol/L Normal 3.5-5.0 Chloride 107 [...] Egfr Non- 59.8 >60 Egfr 72.4 >60 27 Laboratory test 07/07/2019 [facility] Magnesium 2.2 mg/dL Normal 1.9-2.[address] [place] [address] [phone] Levetiracetam (Keppra) 70.2 g/mL Abnormal 28 Lamotrigine (Lamictal) 6.3 g/mL 2.5 - 15.0 29 CBC Auto 06/15/2019 [facility] White Blood 5.0 10^3/uL Normal 3.5-10.[address] [place] [address] [phone] Red Blood Count 5.02 10^6/uL Normal 4.18-5.48 [...] Blood Cells % 0.1 Comp Metabolic 06/15/2019 [facility] Sodium 138 mmol/L Normal 135-[address] [place] [address] [phone] Potassium 4.7 mmol/L Normal 3.5-5.0 Chloride 106 [...] Egfr Non- 56.5 >60 Egfr 68.4 >60 30 Laboratory test 06/15/2019 [facility] Ceruloplasmin 21.1 mg/dL [address] [place] [address] [phone] Copper, Serum 0.84 g/mL 0.75-1.45 32 Free T4 (Free Thyroxine) 0.83 ng/dL Normal 0.61-1.12 TSH (Thyroid Stim Horm) 2.34 mcIU/mL Normal 0.34-5.60 Erythrocyte Sed Rate 1 mm/Hr Normal 0-14 C Reactive Protein < 1.00 mg/L Normal <8.01 Lamotrigine (Lamictal) 5.2 g/mL 2.5 - 15.0 33 Topomax (Topiramate) 3.9 g/mL 34 Levetiracetam (Keppra) 32.0 g/mL 35 1 Because ethnic data is not always [...] 5 Kidney failure <15 (or dialysis) 2 Therapeutic concentration: <50 ug/mL Toxic concentration: >120 ug/mL 3 The urine specimen was tested at the listed cutoffs: Drug class test level (ng/mL) Amphetamines 500 Barbiturates 200 Benzodiazepine metabolites 200 Cocaine metabolites 150 Cannabinoids 50 Opiates 300 Pcp 25 Specimen was received without chain of custody. Results should be used for medical purposes only. 4 Because ethnic data is not always [...] 5 Kidney failure <15 (or dialysis) 5 Because ethnic data is not always readily [...] 15-29 5 Kidney failure <15 (or dialysis) 6 [place] Severe Sepsis and Septic Shock Management Bundle Measure requires all lactic acids initially measuring >2.0 mmol/L be repeated. 7 Standard intensity warfarin therapeutic range: 2.0-3.0 High intensity warfarin therapeutic range: 2.5-3.5 8 Because ethnic data is not always [...] 5 Kidney failure <15 (or dialysis) 9 The urine specimen was tested at the listed cutoffs: Drug class test level (ng/mL) Amphetamines 500 Barbiturates 200 Benzodiazepine metabolites 200 Cocaine metabolites 150 Cannabinoids 50 Opiates 300 Pcp 25 Specimen was received without chain of custody. Results should be used for medical purposes only. 10 Because ethnic data is not always [...] its performance characteristics determined by [facility] in a manner consistent with CLIA requirements. This test has not been cleared or approved by the U.S. Food and Drug Administration. Test Performed by: [facility] [employer] - [address] [address] Cell Builder: Adria Nguyen M.D. Ph.D.; CLIA# [id number] 12 ADDITIONAL INFORMATION This test was developed and its performance characteristics determined by [facility] in a manner consistent with CLIA requirements. This test has not been cleared or approved by the U.S. Food and Drug Administration. Test Performed by: [facility] [place] [address] Cell Builder: Adria Nguyen M.D. Ph.D.; CLIA# [id number] 13 REFERENCE VALUE Reference values depend on clinical use: Anticonvulsant: 5.0-20.0 mcg/mL Psychiatric: 2.0-8.0 mcg/mL ADDITIONAL INFORMATION This test was developed and its performance characteristics determined by [facility] in a manner consistent with CLIA requirements. This test has not been cleared or approved by the U.S. Food and Drug Administration. Test Performed by: [facility] [place] [address] Cell Builder: Adria Nguyen M.D. Ph.D.; CLIA# [id number] 14 Because ethnic data is not always [...] 5 Kidney failure <15 (or dialysis) 16 [facility] Severe Sepsis and Septic Shock Management Bundle Measure requires all lactic acids initially measuring >2.0 mmol/L be repeated. 17 The urine specimen was tested at the listed cutoffs: Drug class test level (ng/mL) Amphetamines 500 Barbiturates 200 Benzodiazepine metabolites 200 Cocaine metabolites 150 Cannabinoids 50 Opiates 300 Pcp 25 Specimen was received without chain of custody. Results should be used for medical purposes only. 18 Standard intensity warfarin therapeutic range: 2.0-3.0 High intensity warfarin therapeutic range: 2.5-3.5 19 Because ethnic data is not always [...] 5 Kidney failure <15 (or dialysis) 20 [facility] Severe Sepsis and Septic Shock Management Bundle Measure requires all lactic acids initially measuring >2.0 mmol/L be repeated. 21 REFERENCE VALUE 12.0 - 46.0 ADDITIONAL INFORMATION This test was developed and its performance characteristics determined by [facility] in a manner consistent with CLIA requirements. This test has not been cleared or approved by the U.S. Food and Drug Administration. Test Performed by: [facility] [place] [address] Cell Builder: Adria Nguyen M.D. Ph.D.; CLIA# [id number] 22 ADDITIONAL INFORMATION This test was developed and its performance characteristics determined by [facility] in a manner consistent with CLIA requirements. This test has not been cleared or approved by the U.S. Food and Drug Administration. Test Performed by: [facility] [place] [address] Cell Builder: Adria Nguyen M.D. Ph.D.; CLIA# [id number] 23 REFERENCE VALUE 12.0 - 46.0 ADDITIONAL INFORMATION This test was developed and its performance characteristics determined by [facility] in a manner consistent with CLIA requirements. This test has not been cleared or approved by the U.S. Food and Drug Administration. Test Performed by: [facility] [place] [address] Cell Builder: Adria Nguyen M.D. Ph.D.; CLIA# [id number] 24 ADDITIONAL INFORMATION This test was developed and its performance characteristics determined by [facility] in a manner consistent with CLIA requirements. This test has not been cleared or approved by the U.S. Food and Drug Administration. Test Performed by: [facility] [place] [address] Cell Builder: Adria Nguyen M.D. Ph.D.; CLIA# [id number] 25 Standard intensity warfarin therapeutic range: 2.0-3.0 High intensity warfarin therapeutic range: 2.5-3.5 26 [facility] Severe Sepsis and Septic Shock Management Bundle Measure requires all lactic acids initially measuring >2.0 mmol/L be repeated. 27 Because ethnic data is not always [...] 5 Kidney failure <15 (or dialysis) 28 REFERENCE VALUE 12.0 - 46.0 ADDITIONAL INFORMATION This test was developed and its performance characteristics determined by [facility] in a manner consistent with CLIA requirements. This test has not been cleared or approved by the U.S. Food and Drug Administration. Test Performed by: [facility] [place] [address] Cell Builder: Adria Nguyen M.D. Ph.D.; CLIA# [id number] 29 ADDITIONAL INFORMATION This test was developed and its performance characteristics determined by [facility] in a manner consistent with CLIA requirements. This test has not been cleared or approved by the U.S. Food and Drug Administration. Test Performed by: [facility] [address] [place] [address] Cell Builder: Adria Nguyen M.D. Ph.D.; CLIA# [id number] 30 Because ethnic data is not always [...] failure <15 (or dialysis) 31 REFERENCE VALUE 19.0 - 31.0 Test Performed by: [facility] - [address] [address] Cell Builder: Adria Nguyen M.D. Ph.D.; CLIA# [id number] 32 ADDITIONAL INFORMATION This test was developed and its performance characteristics determined by [facility] in a manner consistent with CLIA requirements. This test has not been cleared or approved by the U.S. Food and Drug Administration. Test Performed by: [facility] [place] [address] Cell Builder: Adria Nguyen M.D. Ph.D.; CLIA# [id number] 33 ADDITIONAL INFORMATION This test was developed and its performance characteristics determined by [facility] in a manner consistent with CLIA requirements. This test has not been cleared or approved by the U.S. Food and Drug Administration. Test Performed by: [facility] [place] [address] Cell Builder: Adria Nguyen M.D. Ph.D.; CLIA# [id number] 34 REFERENCE VALUE Reference values depend on clinical use: Anticonvulsant: 5.0-20.0 mcg/mL Psychiatric: 2.0-8.0 mcg/mL ADDITIONAL INFORMATION This test was developed and its performance characteristics determined by [facility] in a manner consistent with CLIA requirements. This test has not been cleared or approved by the U.S. Food and Drug Administration. Test Performed by: [facility] [place] [address] Cell Builder: Adria Nguyen M.D. Ph.D.; CLIA# [id number] 35 REFERENCE VALUE 12.0 - 46.0 ADDITIONAL INFORMATION This test was developed and its performance characteristics determined by [facility] in a manner consistent with CLIA requirements. This test has not been cleared or approved by the U.S. Food and Drug Administration. Test Performed by: [facility] - [facility] [address] [place] [address] Cell Builder: Adria Nguyen M.D. Ph.D.; CLIA# [id number] Procedures Date Code Description Status 08/17/2019 54160 Sleep Study Unattended,HRT Rate,Oxygen Sat,Resp Completed Effort/Airflow 06/15/2019 99116 EEG Monitoring Computer Completed Medical Devices Description No Information Available Encounters Type Date Location Provider Dx Diagnosis Office Visit 08/31/2019 [facility] Belen Rivera, R56.9 Unspecified 10:55a Asstoshia millan M.D. convulsions [facility] D72.829 Elevated white blood cell count, unspecified F41.9 Anxiety disorder, unspecified Office Visit 08/18/2019 3:00p [facility] G40.219 [facility] Emile, N.P. symptc epi w cmplx part seiz, ntrct, w/o stat epi G43.009 Migraine w/o aura, not intractable, w/o status migrainosus F41.9 Anxiety disorder, unspecified Office 05/09/2019 [facility] G43.009 Migraine w/o Visit 11:00a [facility] Emile, N.P. aura, not intractable, w/o status migrainosus G40.919 Epilepsy, unsp, intractable, without status epilepticus F41.9 Anxiety disorder, unspecified R25.1 Tremor, unspecified R53.83 Other fatigue Assessments Date Code Description Provider 09/08/2019 G40.919 Epilepsy, unspecified, intractable, without Nba Baptiste, N.P. status epileptic 09/08/2019 R56.9 Unspecified convulsions Nba Baptiste, N.P. 09/08/2019 R53.83 Other fatigue Nba Baptiste, N.P. 09/08/2019 G43.009 Migraine without aura, not intractable, Nbaaan Baptiste, N.P. without status migra 09/06/2019 R63.4 Abnormal weight loss Noreen An, DO 09/06/2019 G40.919 Epilepsy, unspecified, intractable, without Noreen Senner, DO status epileptic 09/02/2019 R56.9 Unspecified convulsions Adria Rodrigez, PA 09/02/2019 F41.9 Anxiety disorder, unspecified Adria Rodrigez, PA 09/01/2019 R56.9 Unspecified convulsions Adria Rodrigez, PA 09/01/2019 F41.9 Anxiety disorder, unspecified Adria Elia, PA 08/31/2019 R56.9 Unspecified convulsions Belen Rivera M.D. 08/31/2019 D72.829 Elevated white blood cell count, unspecified Belen Rivera M.D. 08/31/2019 F41.9 Anxiety disorder, unspecified Belen Rivera M.D. 08/18/2019 G40.219 Localization-related (focal) (partial) Nba Baptiste, N.P. symptomatic epilepsy and epileptic syndromes with complex partial seizures, intractable, without status epilepticus 08/18/2019 G43.009 Migraine without aura, not intractable, Nba Baptiste, N.P. without status migra 08/18/2019 F41.9 Anxiety disorder, unspecified Nba Baptiste, N.P. 08/17/2019 R53.83 Other fatigue Alison Smith MD 06/15/2019 G40.219 Localization-related (focal) (partial) Lissett Amador [...] Nba Baptiste, N.P. Plan of Treatment Future Appointment(s):01/13/2020 2:30 pm - Arnie Le M.D. at [facility]12/07/2019 1:40 pm - Mj Pathak MD at [facility] - [address] 09/08/2019 - Nba Baptiste, N.P.G40.919 Epilepsy, unspecified, intractable, without status epilepticFollow up:3 monthsRecommendations:Have your labs done tomorrow morning spohjglG36.9 Unspecified sdktrsqclhvI49.83 Other zcjakcyW65.009 Migraine without aura, not intractable, without status migra Functional Status Description No Information Available Mental Status Description No Information Available Referrals Refer to Dr Reason for Referral Status Appt Date [facility] [address] [place] [address] [address] [place] [address] [phone] Meggan Hernandez M.D. intractable epilepsy [facility] [address] [place] [address] [place] [address] [phone]
--- OUTSIDE RECORDS SUMMARY | 2019-10-13 22:04 | XMS REPORT | Continuity of Care Document ---
:1985 External Reference #:[id number] Author Name Noreen An DO (transmitted by agent of provider Katiana Simth) Address [address] [place] [id number] Care Team Providers Name Role Phone Moe Licea MD - Family Medicine Care Team Information Fence Maker Mj Pathak MD - Hospitalist Care Team Information Fence Maker [phone] Problems Active Problems Provider Date Idiopathic generalized [...] Use Denies Drug Use Smoking Status Reviewed: 09/06/19 Patient is a current smoker, smokes every [...] take up to 3 90tabs R63.4 Noreen Juve, 09/06/2019 3000Unit times per day DO Tablets [...] 1 by mouth as 9tabs [facility], 08/19/2019 1mg needed migraine, N.P. Tablets may repeat once after 4 hours if no relief, no more than 2 days a week Topamax 1 tab by mouth 60tabs [facility], 08/16/2019 100mg Tablets twice daily N.P. Hydroxyzine HCL 1 tablet every 8 90tabs [facility], 08/10/2019 50mg hours as needed N.P. Tablets for anxiety Buspirone HCL take 1 tablet by 60tabs F41.9 [facility], 2018 10mg mouth every day N.P. Tablets in the morning and 1 tab at bedtime Lamotrigine 2.5 tabs in the 165tabs [facility], 07/25/2015 100mg morning and 3 at N.P. Tablets night Tylenol PM as needed at Unknown Tablets night History Medications Clonazepam 1 tab 30 1tabs [facility], 09/01/2019 - 1mg minutes prior N.P. 09/06/2019 Tablets to MRI, DO Not Drive After Taking, Gabapentin 1 by mouth 90caps G43.009 [facility], 08/18/2019 - 100mg three times a N.P. 09/06/2019 Capsules day Rizatriptan Benzoate take 1 tablet 10tabs [facility], 08/18/2019 - at onset of N.P. 08/18/2019 10mg Tablets headache, may repeat times one in 2 hour no more than 2 tab in 24 hr/ max 2 days a week Medications Administered in Office Medication SIG Qnty Indications Ordering Provider Date Influenza Virus Vaccine Unknown 07/01/2014 Injection Immunizations CPT Code Status Date Vaccine Lot # [id number] Given 09/06/2019 Tdap - Tetanus/Diptheria/Acellular Pertussis [id number] Given 09/06/2019 Influenza Virus Vaccine, Quadrivalent, Split, [id number] Preservative Free Vital Signs Date Vital Result Comment 09/06/2019 1:25pm Height 69 inches 5'9" Weight 116.50 lb Heart Rate 55 /min BP Systolic 108 mmHg BP Diastolic 62 mmHg Body Temperature 96.6 F O2 % BldC Oximetry 98 % BMI (Body Mass Index) 17.2 kg/m2 08/18/2019 3:03pm Height 69 inches 5'9" Weight 130.00 lb Heart Rate 76 /min BP Systolic Sitting 118 mmHg BP Diastolic Sitting 64 mmHg Respiratory Rate 18 /min BMI (Body Mass Index) 19.2 kg/m2 Results Test Acquired Date Facility Test Result H/L Range Note Laboratory test 08/31/2019 [facility] TSH 2.99 Normal 0.34- 5.[address] (Thyroid mcIU/[place] [address] Stim Horm) [phone] Comp Metabolic 08/31/2019 [facility] Sodium 139 mmol/L Normal 135-[address] [place] [address] [phone] Potassium 3.3 mmol/L Low 3.5-5.0 Co2 Carbon [...] 7 mmol/L Normal 2-11 Laboratory test 08/31/2019 [facility] Acetaminophen < 15 g/mL [address] [place] [address] [phone] Alcohol < 10 mg/dL Normal <10 Salicylate < 2.50 mg/dL <30 CBC Auto 08/31/2019 [facility] White Blood 8.8 10^3/uL Normal 3.5-10.[address] [place] [address] [phone] Red Blood Count 4.51 10^6/uL Normal 4.18-5.48 [...] Blood Cells % 0.0 Urine Drug 08/31/2019 [facility] Urine None Detected None Detect SCR ED & [address] [place] [address] Screen [phone] Urine Barbiturates Screen None Detected None Detect Urine Benzodiazepine Screen None Detected None Detect Urine Cannabinoids Screen None Detected None Detect Urine Cocaine Screen None Detected None Detect Urine Opiates Screen None Detected None Detect Urine Phencyclidine Screen None Detected None Detect 3 Urinalysis Profile 08/31/2019 [facility] Urine Color Yellow [address] [place] [address] [phone] Urine Appearance Clear Urine Specific [place] 1.011 Normal 1.010-1.030 Urine pH 7.0 Normal 5-9 Urine Urobilinogen Negative Negative Urine Ketones Negative Negative Urine Protein Negative Negative Urine Leukocytes Negative Negative Urine Blood Negative Negative Urine Nitrite Negative Negative Urine Bilirubin Negative Negative Urine Glucose Negative Negative Laboratory test 08/31/2019 [facility] Creatine 336 U/L High 10 -[address] Kinase(CK) [place] [address] [phone] Comp Metabolic 08/31/2019 [facility] Sodium 140 Normal 135- [address] mmol/[place] [address] [phone] Potassium 3.9 mmol/L Normal 3.5-5.0 Co2 Carbon [...] 8 mmol/L Normal 2-11 CBC Auto 08/31/2019 [facility] White Blood 13.0 10^3/uL High 3.5-10.[address] [place] [address] [phone] Red Blood Count 4.42 10^6/uL Normal 4.18-5.48 [...] Blood Cells % 0.3 Laboratory test 08/31/2019 [facility] Creatine 388 U/L High 10 -[address] Kinase(CK) [place], [place] [address] [phone] Urinalysis 08/31/2019 [facility] Urine Color Yellow Profile [address] [place], [place] [address] [phone] Urine Appearance Clear Urine Specific [place] 1.026 Normal 1.010-1.030 Urine pH 6.0 Normal 5-9 Urine Urobilinogen Negative Negative Urine Ketones Negative Negative Urine Protein Negative Negative Urine Leukocytes Negative Negative Urine Blood Negative Negative Urine Nitrite Negative Negative Urine Bilirubin Negative Negative Urine Glucose Negative Negative CBC Auto 08/31/2019 [facility] White Blood 11.1 10^3/uL High 3.5-10.[address] [place] [address] [phone] Red Blood Count 4.01 10^6/uL Low 4.18-5.48 [...] Blood Cells % 0.1 Laboratory test 08/31/2019 [facility] Magnesium 1.9 mg/dL Normal 1.9-2.7 finding [address] [place] [address] [phone] Comp Metabolic 08/31/2019 [facility] Sodium 140 mmol/L Normal 135-145 Panel [address] [place] [address] [phone] Potassium 3.8 mmol/L Normal 3.5-5.0 Co2 Carbon [...] 7 mmol/L Normal 2-11 Laboratory test 08/31/2019 [facility] Lactic Acid 1.4 mmol/L Normal 0.5-2.0 6 finding [address] [place] [address] [phone] Inr/Protime 08/31/2019 [facility] Inr 1.14 High 0.82-1.[address] [place] [address] [phone] CBC Auto Diff 08/28/2019 [facility] White Blood 8.6 Normal 3.5 -10.[address] Count 10^3/[place] [address] [phone] Red Blood Count 4.56 10^6/uL Normal 4.18-5.48 [...] Blood Cells % 0.0 Comp Metabolic 08/28/2019 [facility] Sodium 137 mmol/L Normal 135-[address] [place] [address] [phone] Potassium 3.7 mmol/L Normal 3.5-5.0 Chloride 108 [...] Egfr 74.3 >60 8 CBC Auto 08/22/2019 [facility] White Blood 9.1 10^3/uL Normal 3.5-10.[address] Count [place], [place] [address] [phone] Red Blood Count 4.70 10^6/uL Normal 4.18-5.48 [...] Blood Cells % 0.1 Urine Drug 08/22/2019 [facility] Urine None Detected None Detect SCR ED & [address] [place] [address] Screen [phone] Urine Barbiturates Screen None Detected None Detect Urine Benzodiazepine Screen None Detected None Detect Urine Cannabinoids Screen None Detected None Detect Urine Cocaine Screen None Detected None Detect Urine Opiates Screen None Detected None Detect Urine Phencyclidine Screen None Detected None Detect 9 Urinalysis Profile 08/22/2019 [facility] Urine Color Straw [address] [place] [address] [phone] Urine Appearance Clear Urine Specific [place] 1.008 Low 1.010-1.030 Urine pH 8.0 Normal 5-9 Urine Urobilinogen Negative Negative Urine Ketones Negative Negative Urine Protein Negative Negative Urine Leukocytes Negative Negative Urine Blood Negative Negative Urine Nitrite Negative Negative Urine Bilirubin Negative Negative Urine Glucose Negative Negative Comp Metabolic 08/22/2019 [facility] Sodium 136 mmol/L Normal 135-145 Panel [address] [place] [address] [phone] Chloride 109 mmol/L Normal 101-111 Co2 Carbon [...] 12 U/L Low 13-39 Laboratory test 08/22/2019 [facility] Alcohol < 10 mg/dL Normal <[address] [place] [address] [phone] TSH (Thyroid Stim Horm) 3.83 mcIU/mL Normal 0.34-5.60 Laboratory test 08/18/2019 [facility] Levetiracetam 23.2 g/mL [address] (Keppra) [place] [address] [phone] Lamotrigine (Lamictal) 5.3 g/mL 2.5 - 15.0 12 Topomax (Topiramate) 4.2 g/mL 13 Comp Metabolic 08/18/2019 [facility] Sodium 139 mmol/L Normal 135-[address] [place] [address] [phone] Potassium 3.5 mmol/L Normal 3.5-5.0 Chloride 104 [...] Egfr 76.2 >60 14 CBC Auto 08/18/2019 [facility] White Blood 10.0 10^3/uL Normal 3.5-10.[address] [place] [address] [phone] Red Blood Count 4.82 10^6/uL Normal 4.18-5.48 [...] Blood Cells % 0.0 Comp Metabolic 08/10/2019 [facility] Sodium 138 mmol/L Normal 135-[address] [place] [address] [phone] Potassium 3.7 mmol/L Normal 3.5-5.0 Chloride 110 [...] Egfr 90.4 >60 15 CBC Auto 08/10/2019 [facility] White Blood 9.2 10^3/uL Normal 3.5-10.[address] [place] [address] [phone] Red Blood Count 4.42 10^6/uL Normal 4.18-5.48 [...] Blood Cells % 0.1 Laboratory test 08/10/2019 [facility] Lactic Acid 1.0 mmol/L Normal 0.5-2.0 16 finding [address] [place] [address] [phone] Urinalysis 08/10/2019 [facility] Urine Color Yellow Profile [address] [place] [address] [phone] Urine Appearance Clear Urine Specific [place] 1.013 Normal 1.010-1.030 Urine pH 6.0 Normal 5-9 Urine Urobilinogen Negative Negative Urine Ketones Negative Negative Urine Protein Negative Negative Urine Leukocytes Negative Negative Urine Blood Negative Negative Urine Nitrite Negative Negative Urine Bilirubin Negative Negative Urine Glucose Negative Negative Urine Drug 08/10/2019 [facility] Urine None Detected None Detect SCR ED & [address] [facility] [place] [address] Screen [phone] Urine Barbiturates Screen None Detected None Detect Urine Benzodiazepine Screen None Detected None Detect Urine Cannabinoids Screen None Detected None Detect Urine Cocaine Screen None Detected None Detect Urine Opiates Screen None Detected None Detect Urine Phencyclidine Screen None Detected None Detect 17 Inr/Protime 08/04/2019 [facility] Inr 0.94 Normal 0.82-1.09 18 [address] [place] [address] [phone] CBC Auto Diff 08/04/2019 [facility] White Blood 4.8 Normal 3.5 -10.8 [address] [facility] Count 10^3/[place] [address] [phone] Red Blood Count 4.28 10^6/uL Normal 4.18-5.48 [...] Blood Cells % 0.0 Comp Metabolic 08/04/2019 [facility] Sodium 138 mmol/L Normal 135-[address] [place] [address] [phone] Potassium 3.8 mmol/L Normal 3.5-5.0 Co2 Carbon [...] 5 mmol/L Normal 2-11 Laboratory test 08/04/2019 [facility] Magnesium 2.1 mg/dL Normal 1.9-2.[address] [place] [address] [phone] Alcohol < 10 mg/dL Normal <10 Lactic Acid 0.9 mmol/L Normal 0.5-2.0 20 Levetiracetam (Keppra) 59.9 g/mL Abnormal 21 Lamotrigine (Lamictal) 4.8 g/mL 2.5 - 15.0 22 Laboratory test 07/23/2019 [facility] Levetiracetam 24.7 g/mL [address] (Keppra) [place] [address] [phone] Lamotrigine (Lamictal) 5.3 g/mL 2.5 - 15.0 24 CBC Auto 07/07/2019 [facility] White Blood 5.7 10^3/uL Normal 3.5-10.[address] [place] [address] [phone] Red Blood Count 4.42 10^6/uL Normal 4.18-5.48 [...] Red Blood Cells % 0.1 Inr/Protime 07/07/2019 [facility] Inr 0.92 Normal 0.82-1.[address] [place] [address] [phone] Laboratory test 07/07/2019 [facility] Lactic Acid 1.2 Normal 0.5-2.0 [address] mmol/[place] [address] [phone] Comp Metabolic 07/07/2019 [facility] Sodium 137 Normal 135- [address] mmol/[place] [address] [phone] Potassium 3.9 mmol/L Normal 3.5-5.0 Chloride 107 [...] Egfr 72.4 >60 27 Laboratory test 07/07/2019 [facility] Magnesium 2.2 mg/dL Normal 1.9-2.[address] [place] [address] [phone] Levetiracetam (Keppra) 70.2 g/mL Abnormal 28 Lamotrigine (Lamictal) 6.3 g/mL 2.5 - 15.0 29 CBC Auto 06/15/2019 [facility] White Blood 5.0 10^3/uL Normal 3.5-10.[address] [place] [address] [phone] Red Blood Count 5.02 10^6/uL Normal 4.18-5.48 [...] Blood Cells % 0.1 Comp Metabolic 06/15/2019 [facility] Sodium 138 mmol/L Normal 135-[address] [place] [address] [phone] Potassium 4.7 mmol/L Normal 3.5-5.0 Chloride 106 [...] Egfr 68.4 >60 30 Laboratory test 06/15/2019 [facility] Ceruloplasmin 21.1 mg/dL [address] [place] [address] [phone] Copper, Serum 0.84 g/mL 0.75-1.45 32 Free [...] its performance characteristics determined by [facility] in a manner consistent with CLIA requirements. This test has not been cleared or approved by the U.S. Food and Drug Administration. Test Performed by: [facility] - [address] [address] Site Superintendent: Adria Nguyen M.D. Ph.D.; CLIA# [id number] 12 ADDITIONAL INFORMATION This test was developed and its performance characteristics determined by [facility] in a manner consistent with CLIA requirements. This test has not been cleared or approved by the U.S. Food and Drug Administration. Test Performed by: [facility] [place] [address] Site Superintendent: Adria Nguyen M.D. Ph.D.; CLIA# [id number] 13 REFERENCE VALUE Reference values depend on clinical use: Anticonvulsant: 5.0-20.0 mcg/mL Psychiatric: 2.0-8.0 mcg/mL ADDITIONAL INFORMATION This test was developed and its performance characteristics determined by [facility] in a manner consistent with CLIA requirements. This test has not been cleared or approved by the U.S. Food and Drug Administration. Test Performed by: [facility] [place] [address] Site Superintendent: Adria Nguyen M.D. Ph.D.; CLIA# [id number] 14 Because ethnic data is not always [...] 5 Kidney failure <15 (or dialysis) 16 [facility] Severe Sepsis and Septic Shock Management [...] 5 Kidney failure <15 (or dialysis) 20 [facility] Severe Sepsis and Septic Shock Management Bundle Measure requires all lactic acids initially measuring >2.0 mmol/L be repeated. 21 REFERENCE VALUE 12.0 - 46.0 ADDITIONAL INFORMATION This test was developed and its performance characteristics determined by [facility] in a manner consistent with CLIA requirements. This test has not been cleared or approved by the U.S. Food and Drug Administration. Test Performed by: [facility] [place] [address] Site Superintendent: Adria Nguyen M.D. Ph.D.; CLIA# [id number] 22 ADDITIONAL INFORMATION This test was developed and its performance characteristics determined by [facility] in a manner consistent with CLIA requirements. This test has not been cleared or approved by the U.S. Food and Drug Administration. Test Performed by: [facility] [place] [address] Site Superintendent: Adria Nguyen M.D. Ph.D.; CLIA# [id number] 23 REFERENCE VALUE 12.0 - 46.0 ADDITIONAL INFORMATION This test was developed and its performance characteristics determined by [facility] in a manner consistent with CLIA requirements. This test has not been cleared or approved by the U.S. Food and Drug Administration. Test Performed by: [facility] [place] [address] Site Superintendent: Adria Nguyen M.D. Ph.D.; CLIA# [id number] 24 ADDITIONAL INFORMATION This test was developed and its performance characteristics determined by [facility] in a manner consistent with CLIA requirements. This test has not been cleared or approved by the U.S. Food and Drug Administration. Test Performed by: [facility] [place] [address] Site Superintendent: Adria Nguyen M.D. Ph.D.; CLIA# [id number] 25 Standard intensity warfarin therapeutic range: 2.0-3.0 High intensity warfarin therapeutic range: 2.5-3.5 26 [facility] Severe Sepsis and Septic Shock Management [...] its performance characteristics determined by [facility] in a manner consistent with CLIA requirements. This test has not been cleared or approved by the U.S. Food and Drug Administration. Test Performed by: [facility] [place] [address] Site Superintendent: Adria Nguyen M.D. Ph.D.; CLIA# [id number] 29 ADDITIONAL INFORMATION This test was developed and its performance characteristics determined by [facility] in a manner consistent with CLIA requirements. This test has not been cleared or approved by the U.S. Food and Drug Administration. Test Performed by: [facility] - [facility] [address] [place] [address] Site Superintendent: Adria Nguyen M.D. Ph.D.; CLIA# [id number] 30 Because ethnic data is not always [...] - 31.0 Test Performed by: [facility] - [address] [address] Site Superintendent: Adria Nguyen M.D. Ph.D.; CLIA# [id number] 32 ADDITIONAL INFORMATION This test was developed and its performance characteristics determined by [facility] in a manner consistent with CLIA requirements. This test has not been cleared or approved by the U.S. Food and Drug Administration. Test Performed by: [facility] [place] [address] Site Superintendent: Adria Nguyen M.D. Ph.D.; CLIA# [id number] 33 ADDITIONAL INFORMATION This test was developed and its performance characteristics determined by [facility] in a manner consistent with CLIA requirements. This test has not been cleared or approved by the U.S. Food and Drug Administration. Test Performed by: [facility] [place] [address] Site Superintendent: Adria Nguyen M.D. Ph.D.; CLIA# [id number] 34 REFERENCE VALUE Reference values depend on clinical use: Anticonvulsant: 5.0-20.0 mcg/mL Psychiatric: 2.0-8.0 mcg/mL ADDITIONAL INFORMATION This test was developed and its performance characteristics determined by [facility] in a manner consistent with CLIA requirements. This test has not been cleared or approved by the U.S. Food and Drug Administration. Test Performed by: [facility] [place] [address] Site Superintendent: Adria Nugyen M.D. Ph.D.; CLIA# [id number] 35 REFERENCE VALUE 12.0 - 46.0 ADDITIONAL INFORMATION This test was developed and its performance characteristics determined by [facility] in a manner consistent with CLIA requirements. This test has not been cleared or approved by the U.S. Food and Drug Administration. Test Performed by: [facility] - [facility] [address] [place] [address] Site Superintendent: Adria Nguyen M.D. Ph.D.; CLIA# [id number] Procedures Date Code Description Status 08/17/2019 18093 Sleep Study Unattended,HRT Rate,Oxygen Sat,Resp Completed Effort/Airflow 06/15/2019 42413 EEG Monitoring Computer Completed Medical Devices Description No Information Available Encounters Type Date Location Provider Dx Diagnosis Office Visit 08/31/2019 [facility] Belen Rivera, R56.9 Unspecified 10:55a Assoctoshia M.D. convulsions [facility] D72.829 Elevated white blood cell count, unspecified F41.9 Anxiety disorder, unspecified Office Visit 08/18/2019 3:00p [facility] G40.219 [facility] Emile, N.P. symptc epi w cmplx part seiz, ntrct, w/o stat epi G43.009 Migraine w/o aura, not intractable, w/o status migrainosus F41.9 Anxiety disorder, unspecified Office 05/09/2019 [facility] G43.009 Migraine w/o Visit 11:00a [facility] Emile, N.P. aura, not intractable, w/o status migrainosus G40.919 Epilepsy, unsp, intractable, without status epilepticus F41.9 Anxiety disorder, unspecified R25.1 Tremor, unspecified R53.83 Other fatigue Assessments Date Code Description Provider 09/06/2019 R63.4 Abnormal weight loss Noreen An, DO 09/06/2019 G40.919 Epilepsy, unspecified, intractable, without Noreen Senner, DO status epileptic 09/02/2019 R56.9 Unspecified convulsions BELGICA Carlisle 09/02/2019 F41.9 Anxiety disorder, unspecified BELGICA [place] 09/01/2019 R56.9 Unspecified convulsions BELGICA [place] 09/01/2019 F41.9 Anxiety disorder, unspecified BELGICA [place] 08/31/2019 R56.9 Unspecified convulsions Belen Rivera M.D. [...] Nba Baptiste, N.P. Plan of Treatment Future Appointment(s):12/07/2019 1:40 pm - Mj Pathak MD at [facility] - Suite 09/08/2019 9:00 am - Nba Baptiste, N.P. at [facility]09/06/2019 - IVONE [place].4 Abnormal weight lossNew Medication:Lactaid 3000 Unit - take up to 3 times per day before dairyEnsure Active - twice dailyFollow up:3 roflmqX33.919 Epilepsy, unspecified, intractable, without status epileptic Functional Status Description No Information Available Mental Status Description No Information Available Referrals Refer to Dr Reason for Referral Status Appt Date [facility] [address] [place] [address] [address] [place] [address] [phone] Meggan Hernandez M.D. intractable epilepsy Sent [address] [place] [address] Neurology Dept [place], [place] [id number] [phone]
[2019-10-13] MEDS ORDERED: Ibuprofen TAB* 400 MG PO ONE (22:09)
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
[2019-10-13 22:39] LABS: ABS Lymphocytes 1.1 10^3/ul (1.0-4.8); ABS Monocytes 0.9 10^3/ul (0-0.8); ABS Neutrophils 8.3 10^3/ul (1.5-7.7); Eosinophil % 0.2 %; Hematocrit 38 % (42-52); Lymphocyte % 10.5 %; Mean Corpuscular HGB Conc 34 g/dL (31-36); Mean Corpuscular Hemoglobin 31 pg (27-31); Mean Corpuscular Volume 91 fL (80-94); Mean Platelet Volume 7.3 fL (7.4-10.4); Platelet Count 258 10^3/uL (150-450); Red Blood Count 4.18 10^6 /uL (4.18-5.48); Red Cell Distribution Width 13 % (10-15); White Blood Count 10.3 10^3/uL (3.5-10.8)
[2019-10-13 22:51] LABS: Albumin 4.6 g/dL (3.2-5.2); Albumin/Globulin Ratio 1.5 (1-3); BUN/Creatinine Ratio 10.7 (8-20); C Reactive Protein 18.92 mg/L (<8.01); Calcium 9.4 mg/dL (8.6-10.3); EGFR African American 70.6 (>60); EGFR Non-African American 58.4 (>60); Globulin 3.1 g/dL (2-4); Potassium 3.7 mmol/L (3.5-5.0); Total Bilirubin 0.3 mg/dL (0.2-1.0); Total Protein 7.7 g/dL (6.4-8.9)
[2019-10-13] MEDS ORDERED: LORazepam TAB(*) 1 MG PO ONE (22:53)
[2019-10-13 23:53] LABS: Urine Appearance Cloudy; Urine Bilirubin Negative (Negative); Urine Blood 1+ (Negative); Urine Color Yellow; Urine Glucose Negative (Negative); Urine Ketones Negative (Negative); Urine Nitrite Positive (Negative); Urine Protein Negative (Negative); Urine Specific Gravity 1.015 (1.010-1.030); Urine Urobilinogen Negative (Negative)
[2019-10-13 23:57] LABS: Urine Bacteria 2+ (Absent); Urine Red Blood Cell 3+(>10/hpf) (Absent); Urine White Blood Cell 3+(>20/hpf) (Absent)
[2019-10-14] MEDS ORDERED: Sulfamethox/Trimethoprim DS 800/160* TAB PO ONE (00:51)
[2019-10-14] MEDS ORDERED: traMADol TAB* 50 MG PO ONE (00:57)
[2019-10-14 01:26] VITALS: BP 108/62
--- NOTE | 2019-10-17 14:48 | ED ---
Imaging and Labs Follow Up Follow Up Type: Labs/Cultures Labs/Culture Result: Urine culture growing >100k e. coli. Patient Communication/Plan: Pt. treated with Bactrim for UTI which is not susceptible. Will switch to keflex. Spoke with pt.'s today at 1440 and discussed results. She will sisal picker new rx today. Provider Diagnoses: UTI (urinary tract infection)
== END 2019-10-14 01:10 | disposition home or self-care (01) ==
LOC: ED 21:51
DX: N39.0 Urinary tract infection, site not specified (principal); B96.20 Unspecified Escherichia coli [E. coli] as the cause of diseases classified elsewhere; R56.9 Unspecified convulsions; G43.909 Migraine, unspecified, not intractable, without status migrainosus; F41.9 Anxiety disorder, unspecified; Z88.8 Allergy status to other drugs, medicaments and biological substances; Z91.048 Other nonmedicinal substance allergy status; F17.210 Nicotine dependence, cigarettes, uncomplicated
CPT/HCPCS: 36415; 74176; 80053; 81003; 81015; 83690; 85025; 86140; 87077; 87086; 87186; 99283; A9270-GY

== ENCOUNTER 2019-10-28 11:58 | Emergency (ER) | payer OTHER ==
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
[2019-10-28 12:48] LABS: ABS Lymphocytes 1.6 10^3/ul (1.0-4.8); ABS Monocytes 0.3 10^3/ul (0-0.8); ABS Neutrophils 2.2 10^3/ul (1.5-7.7); Eosinophil % 0.7 %; Hematocrit 41 % (42-52); Hemoglobin 14.1 g/dL (14.0-18.0); Lymphocyte % 39.1 %; Mean Corpuscular HGB Conc 35 g/dL (31-36); Mean Corpuscular Hemoglobin 31 pg (27-31); Mean Corpuscular Volume 91 fL (80-94); Mean Platelet Volume 7.2 fL (7.4-10.4); Platelet Count 286 10^3/uL (150-450); Red Blood Count 4.49 10^6 /uL (4.18-5.48); Red Cell Distribution Width 13 % (10-15); White Blood Count 4.2 10^3/uL (3.5-10.8)
[2019-10-28 13:09] LABS: Albumin 5.2 g/dL (3.2-5.2); Albumin/Globulin Ratio 1.8 (1-3); BUN/Creatinine Ratio 14.9 (8-20); EGFR Non-African American 57.9 (>60); Globulin 2.9 g/dL (2-4); Magnesium 2.2 mg/dL (1.9-2.7); Total Bilirubin 0.3 mg/dL (0.2-1.0); Total Protein 8.1 g/dL (6.4-8.9)
[2019-10-28 13:15] LABS: INR 0.99 (0.82-1.09)
[2019-10-28 15:52] VITALS: BP 110/74
== END 2019-10-28 15:51 | disposition home or self-care (01) ==
LOC: ED 11:58
DX: F41.9 Anxiety disorder, unspecified (principal); F41.0 Panic disorder [episodic paroxysmal anxiety]; N28.9 Disorder of kidney and ureter, unspecified; R62.50 Unspecified lack of expected normal physiological development in childhood; F32.9 Major depressive disorder, single episode, unspecified; F17.290 Nicotine dependence, other tobacco product, uncomplicated; Z79.899 Other long term (current) drug therapy; Z88.8 Allergy status to other drugs, medicaments and biological substances
CPT/HCPCS: 36415; 80053; 83605; 83735; 85025; 85610; 93005; 99283

== ENCOUNTER 2019-11-24 08:42 | Emergency (ER) | payer OTHER ==
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
[2019-11-24 09:13] LABS: ABS Lymphocytes 1.8 10^3/ul (1.0-4.8); ABS Monocytes 0.5 10^3/ul (0-0.8); ABS Neutrophils 2.5 10^3/ul (1.5-7.7); Eosinophil % 0.9 %; Hematocrit 40 % (42-52); Hemoglobin 13.9 g/dL (14.0-18.0); Lymphocyte % 37.3 %; Mean Corpuscular HGB Conc 35 g/dL (31-36); Mean Corpuscular Hemoglobin 32 pg (27-31); Mean Corpuscular Volume 91 fL (80-94); Mean Platelet Volume 7.3 fL (7.4-10.4); Nucleated Red Blood Cells % 0.1; Platelet Count 212 10^3/uL (150-450); Red Blood Count 4.38 10^6 /uL (4.18-5.48); Red Cell Distribution Width 14 % (10-15); White Blood Count 4.9 10^3/uL (3.5-10.8)
--- OUTSIDE RECORDS SUMMARY | 2019-11-24 09:21 | XMS REPORT | Continuity of Care Document ---
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 Tamiflu take 1 tab daily 10caps Mj Pathak MD 11/02/2019 75mg while household Capsules member is symptomatic from the flu or 10 days which ever is longer. Tylenol 8 Hour take every 6 hours 30tabs Mj Pathak MD 11/02/2019 as needed for 650mg Tablets ER pain, headache or fever Vimpat 1 tab by mouth 180tabs Nba Baptiste, 09/30/2019 150mg twice a day code N.P. Tablets c Lactaid take up to 3 times 90tabs R63.4 Noreen An DO 09/06/2019 3000Unit per day before Tablets dairy Ensure Active twice daily 60units R63.4 Noreen An DO 09/06/2019 Liquid Keppra 2 by mouth twice a 60tabs Matthew Kruger, 09/02/2019 500mg day for 1 week M.D. Tablets then 1 twice a day for 2 wks then 1 every day for 2 wks then stop keppra Naratriptan HCL 1 by mouth as 9tabs Nba Baptiste, 08/19/2019 needed migraine, N.P. 1mg Tablets may repeat once after 4 hours if no relief, no more than 2 days a week Topamax 1 tab by mouth 60tabs Nba Baptiste, 08/16/2019 100mg twice daily N.P. Tablets Hydroxyzine HCL 1 tablet every 8 90tabs Arnie Le, 08/10/2019 hours as needed M.D. 50mg Tablets for anxiety Buspirone HCL take 1 tablet by 60tabs F41.9 Nba Baptiste, 2018 mouth every day in N.P. 10mg Tablets the morning and 1 tab at bedtime Lamotrigine 2.5 tabs in the 165tabs Arnie Le, 07/25/2015 100mg morning and 3 at M.D. Tablets night Tylenol PM as needed at night Unknown Tablets History Medications Vimpat take one tablet 60tabs Nba Baptiste, 09/21/2019 - 100mg Tablets by mouth twice N.P. 10/09/2019 a day mdd 2 code c Vimpat 1 bid for 1 wk 14tabs Matthew Kruger, 09/02/2019 - 50mg Tablets then 100 mg bid M.D. 09/21/2019 Clonazepam 1 tab 30 1tabs Nba Baptiste, 09/01/2019 - 1mg minutes prior N.P. 09/06/2019 Tablets to MRI, DO Not Drive After Taking, Gabapentin 1 by mouth 90caps G43.009 Nba Baptiste, 08/18/2019 - 100mg three times a N.P. 09/06/2019 Capsules day Rizatriptan Benzoate take 1 tablet 10tabs Nba Chandler, 08/18/2019 - at onset of N.P. 08/18/2019 10mg Tablets headache, may repeat times one in 2 hour no more than 2 tab in 24 hr/ max 2 days a week Medications Administered in Office Medication SIG Qnty Indications Ordering Provider Date Influenza Virus Vaccine Unknown 07/01/2014 Injection Immunizations CPT Code Status Date Vaccine Lot # [id number] Given 09/06/2019 Tdap - Tetanus/Diptheria/Acellular Pertussis [id number] Given 09/06/2019 Influenza Virus Vaccine, Quadrivalent, Split, [id number] Preservative Free Vital Signs Date Vital Result [...] Date Facility Test Result H/L Range Note Inr/Protime 10/28/2019 [facility] Inr 0.99 Normal 0.82-1.[address] [place] [address] [phone] CBC Auto 10/28/2019 [facility] White Blood 4.2 10^3/uL Normal 3.5-10.[address] [place] [address] [phone] Red Blood Count 4.49 10^6/uL Normal 4.18-5.48 Hemoglobin 14.1 g/dL Normal 14.0-18.0 Hematocrit 41 % Low 42-52 Mean Corpuscular Volume 91 fL Normal 80-94 Mean Corpuscular Hemoglobin 31 pg Normal 27-31 Mean Corpuscular HGB Conc 35 g/dL Normal 31-36 Red Cell Distribution Width 13 % Normal 10-15 Platelet Count 286 10^3/uL Normal 150-450 Mean Platelet Volume 7.2 fL Low 7.4-10.4 Abs Neutrophils 2.2 10^3/uL Normal 1.5-7.7 Abs Lymphocytes 1.6 10^3/uL Normal 1.0-4.8 Abs Monocytes 0.3 10^3/uL Normal 0-0.8 Abs Eosinophils 0.0 10^3/uL Normal 0-0.6 Abs Basophils 0.0 10^3/uL Normal 0-0.2 Abs Nucleated RBC 0.0 10^3/uL Granulocyte % 52.8 % Lymphocyte % 39.1 % Monocyte % 6.9 % Eosinophil % 0.7 % Basophil % 0.5 % Nucleated Red Blood Cells % 0.0 Laboratory test 10/28/2019 [facility] Lactic Acid 0.9 mmol/L Normal 0.5-2.0 [address] [place] [phone] Comp Metabolic 10/28/2019 [facility] Sodium 135 mmol/L Normal 135-145 Panel [facility] [place] [address] [phone] Potassium 4.0 mmol/L Normal 3.5-5.0 Chloride 109 mmol/L Normal 101-111 Co2 Carbon Dioxide 21 mmol/L Low 22-32 Anion Gap 5 mmol/L Normal 2-11 Glucose 92 mg/dL Normal 70-100 Blood Urea Nitrogen 21 mg/dL Normal 6-24 Creatinine 1.41 mg/dL High 0.67-1.17 BUN/Creatinine Ratio 14.9 Normal 8-20 Calcium 10.0 mg/dL Normal 8.6-10.3 Total Protein 8.1 g/dL Normal 6.4-8.9 Albumin 5.2 g/dL Normal 3.2-5.2 Globulin 2.9 g/dL Normal 2-4 Albumin/Globulin Ratio 1.8 Normal 1-3 Total Bilirubin 0.30 mg/dL Normal 0.2-1.0 Alkaline Phosphatase 40 U/L Normal 34-104 Alt 9 U/L Normal 7-52 Ast 13 U/L Normal 13-39 Egfr Non- 57.9 >60 Egfr 70.0 >60 3 Laboratory 10/28/2019 [facility] Magnesium 2.2 Normal 1.9-2.7 test finding [address] mg/[place] [address] [phone] Laboratory 10/17/2019 [facility] Levetiracetam 6.3 Abnormal 4 test finding [address] (Keppra) g/[place] [address] [phone] Lamotrigine (Lamictal) 5.9 g/mL 2.5 - 15.0 5 Lacosamide 5.2 g/mL 1.0 - 10.0 6 CBC Auto 10/13/2019 [facility] White Blood 10.3 10^3/uL Normal 3.5-10.[address] [place] [address] [phone] Red Blood Count 4.18 10^6/uL Normal 4.18-5.48 Hemoglobin 13.0 g/dL Low 14.0-18.0 Hematocrit 38 % Low 42-52 Mean Corpuscular Volume 91 fL Normal 80-94 Mean Corpuscular Hemoglobin 31 pg Normal 27-31 Mean Corpuscular HGB Conc 34 g/dL Normal 31-36 Red Cell Distribution Width 13 % Normal 10-15 Platelet Count 258 10^3/uL Normal 150-450 Mean Platelet Volume 7.3 fL Low 7.4-10.4 Abs Neutrophils 8.3 10^3/uL High 1.5-7.7 Abs Lymphocytes 1.1 10^3/uL Normal 1.0-4.8 Abs Monocytes 0.9 10^3/uL High 0-0.8 Abs Eosinophils 0.0 10^3/uL Normal 0-0.6 Abs Basophils 0.0 10^3/uL Normal 0-0.2 Abs Nucleated RBC 0.0 10^3/uL Granulocyte % 80.7 % Lymphocyte % 10.5 % Monocyte % 8.5 % Eosinophil % 0.2 % Basophil % 0.1 % Nucleated Red Blood Cells % 0.0 Comp Metabolic 10/13/2019 [facility] Sodium 137 mmol/L Normal 135-145 Panel [address] [place] [address] [phone] Potassium 3.7 mmol/L Normal 3.5-5.0 Chloride 111 mmol/L Normal 101-111 Co2 Carbon Dioxide 22 mmol/L Normal 22-32 Anion Gap 4 mmol/L Normal 2-11 Glucose 80 mg/dL Normal 70-100 Blood Urea Nitrogen 15 mg/dL Normal 6-24 Creatinine 1.40 mg/dL High 0.67-1.17 BUN/Creatinine Ratio 10.7 Normal 8-20 Calcium 9.4 mg/dL Normal 8.6-10.3 Total Protein 7.7 g/dL Normal 6.4-8.9 Albumin 4.6 g/dL Normal 3.2-5.2 Globulin 3.1 g/dL Normal 2-4 Albumin/Globulin Ratio 1.5 Normal 1-3 Total Bilirubin 0.30 mg/dL Normal 0.2-1.0 Alkaline Phosphatase 53 U/L Normal 34-104 Alt 7 U/L Normal 7-52 Ast 10 U/L Low 13-39 Egfr Non- 58.4 >60 Egfr 70.6 >60 7 Laboratory test 10/13/2019 [facility] Lipase 28 U/L Normal 11.0-82.0 finding [address] [place] [address] [phone] C Reactive Protein 18.92 mg/L High <8.01 Urinalysis Profile 10/13/2019 [facility] Urine Color [place] [address] [place] [address] [phone] Urine Appearance Cloudy Urine Specific [place] 1.015 Normal 1.010-1.030 Urine pH 6.0 Normal 5-9 Urine Urobilinogen Negative Negative Urine Ketones Negative Negative Urine Protein Negative Negative Urine Leukocytes 3+ Abnormal Negative Urine Blood 1+ Abnormal Negative Urine Nitrite Positive Abnormal Negative Urine Bilirubin Negative Negative Urine Glucose Negative Negative Urine White Blood Cell 3+(>20/hpf) Abnormal Absent Urine Red Blood Cell 3+(>10/hpf) Abnormal Absent Urine Bacteria 2+ Abnormal Absent Urine Culture And 10/13/2019 [facility] Urine Culture SEE RESULT [address] [place] [address] [phone] Laboratory test 09/28/2019 [facility] Topomax 5.0 g/mL [address] (Topiramate) [place] [address] [phone] Lacosamide 2.2 g/mL 1.0 - 10.0 10 CBC Auto 09/28/2019 [facility] White Blood 4.5 10^3/uL Normal 3.5-10.[address] [place] [address] [phone] Red Blood Count 4.60 10^6/uL Normal 4.18-5.48 Hemoglobin 14.7 g/dL Normal 14.0-18.0 Hematocrit 43 % Normal 42-52 Mean Corpuscular Volume 93 fL Normal 80-94 Mean Corpuscular Hemoglobin 32 pg High 27-31 Mean Corpuscular HGB Conc 34 g/dL Normal 31-36 Red Cell Distribution Width 13 % Normal 10-15 Platelet Count 193 10^3/uL Normal 150-450 Mean Platelet Volume 8.1 fL Normal 7.4-10.4 Abs Neutrophils 2.0 10^3/uL Normal 1.5-7.7 Abs Lymphocytes 2.0 10^3/uL Normal 1.0-4.8 Abs Monocytes 0.5 10^3/uL Normal 0-0.8 Abs Eosinophils 0.0 10^3/uL Normal 0-0.6 Abs Basophils 0.0 10^3/uL Normal 0-0.2 Abs Nucleated RBC 0.0 10^3/uL Granulocyte % 44.1 % Lymphocyte % 43.8 % Monocyte % 10.3 % Eosinophil % 1.1 % Basophil % 0.7 % Nucleated Red Blood Cells % 0.1 Comp Metabolic 09/28/2019 [facility] Sodium 140 mmol/L Normal 135-[address] [place] [address] [phone] Potassium 4.0 mmol/L Normal 3.5-5.0 Chloride 108 mmol/L Normal 101-111 Co2 Carbon Dioxide 24 mmol/L Normal 22-32 Anion Gap 8 mmol/L Normal 2-11 Glucose 69 mg/dL Low 70-100 Blood Urea Nitrogen 15 mg/dL Normal 6-24 Creatinine 1.45 mg/dL High 0.67-1.17 BUN/Creatinine Ratio 10.3 Normal 8-20 Calcium 9.9 mg/dL Normal 8.6-10.3 Total Protein 7.9 g/dL Normal 6.4-8.9 Albumin 5.2 g/dL Normal 3.2-5.2 Globulin 2.7 g/dL Normal 2-4 Albumin/Globulin Ratio 1.9 Normal 1-3 Total Bilirubin 0.50 mg/dL Normal 0.2-1.0 Alkaline Phosphatase 44 U/L Normal 34-104 Alt 6 U/L Low 7-52 Ast 13 U/L Normal 13-39 Egfr Non- 56.0 >60 Egfr 67.8 >60 11 Laboratory test 09/28/2019 [facility] Levetiracetam 15.5 g/mL [address] ([place]ra) [place] [address] [phone] Lamotrigine (Lamictal) 6.3 g/mL 2.5 - 15.0 13 Laboratory 08/31/2019 [facility] TSH (Thyroid 2.99 Normal 0.34 -5.[address] Stim Horm) mcIU/[place] [address] [phone] Comp Metabolic 08/31/2019 [facility] Sodium 139 mmol/L Normal 135-[address] [place] [address] [phone] Potassium 3.3 mmol/L Low 3.5-5.0 Co2 Carbon [...] Egfr Non- 66.5 >60 Egfr 80.5 >60 14 Chloride 112 mmol/L High 101-111 Anion Gap 7 mmol/L Normal 2-11 Laboratory test 08/31/2019 [facility] Acetaminophen < 15 g/mL [address] [place] [address] [phone] Alcohol < 10 mg/dL Normal <10 Salicylate < 2.50 mg/dL <30 CBC Auto 08/31/2019 [facility] White Blood 8.8 10^3/uL Normal 3.5-10.[address] [place] [address] [phone] Red Blood Count 4.51 10^6/uL Normal 4.18-5.48 [...] Blood Cells % 0.0 Urine Drug 08/31/2019 [facility] Urine None Detected None Detect SCR ED & [address] [place] [address] Screen [phone] Urine Barbiturates Screen None Detected None Detect Urine Benzodiazepine Screen None Detected None Detect Urine Cannabinoids Screen None Detected None Detect Urine Cocaine Screen None Detected None Detect Urine Opiates Screen None Detected None Detect Urine Phencyclidine Screen None Detected None Detect 16 Urinalysis Profile 08/31/2019 [facility] Urine Color [place] [address] [place] [address] [phone] Urine Appearance Clear Urine Specific [place] 1.011 Normal 1.010-1.030 Urine pH 7.0 Normal 5-9 Urine Urobilinogen Negative Negative Urine Ketones Negative Negative Urine Protein Negative Negative Urine Leukocytes Negative Negative Urine Blood Negative Negative Urine Nitrite Negative Negative Urine Bilirubin Negative Negative Urine Glucose Negative Negative Laboratory test 08/31/2019 [facility] Creatine 336 U/L High 10 -[address] Kinase([place]) [place] [address] [phone] Comp Metabolic 08/31/2019 [facility] Sodium 140 Normal 135- [address] mmol/[place] [address] [phone] Potassium 3.9 mmol/L Normal 3.5-5.0 Co2 Carbon [...] Egfr Non- 64.1 >60 Egfr 77.6 >60 17 Chloride 112 mmol/L High 101-111 Anion Gap 8 mmol/L Normal 2-11 CBC Auto 08/31/2019 [facility] White Blood 13.0 10^3/uL High 3.5-10.[address] [place] [address] [phone] Red Blood Count 4.42 10^6/uL Normal 4.18-5.48 [...] Blood Cells % 0.3 Laboratory test 08/31/2019 [facility] Creatine 388 U/L High 10 -223 finding [address] [facility] Kinase([place]) [place] [address] [phone] Urinalysis 08/31/2019 [facility] Urine Color Yellow Profile [address] [place] [address] [phone] Urine Appearance Clear Urine Specific [place] 1.026 Normal 1.010-1.030 Urine pH 6.0 Normal 5-9 Urine Urobilinogen Negative Negative Urine Ketones Negative Negative Urine Protein Negative Negative Urine Leukocytes Negative Negative Urine Blood Negative Negative Urine Nitrite Negative Negative Urine Bilirubin Negative Negative Urine Glucose Negative Negative CBC Auto 08/31/2019 [facility] White Blood 11.1 10^3/uL High 3.5-10.[address] [place] [address] [phone] Red Blood Count 4.01 10^6/uL Low 4.18-5.48 [...] Blood Cells % 0.1 Laboratory test 08/31/2019 [facility] Magnesium 1.9 mg/dL Normal 1.9-2.7 finding [address] [place] [address] [phone] Comp Metabolic 08/31/2019 [facility] Sodium 140 mmol/L Normal 135-[address] [place] [address] [phone] Potassium 3.8 mmol/L Normal 3.5-5.0 Co2 Carbon [...] Egfr Non- 72.5 >60 Egfr 87.7 >60 18 Chloride 113 mmol/L High 101-111 Anion Gap 7 mmol/L Normal 2-11 Laboratory test 08/31/2019 [facility] Lactic 1.4 mmol/L Normal 0.5-2.0 19 finding [address] [facility] [place] [address] [phone] Inr/Protime 08/31/2019 [facility] Inr 1.14 High 0.82-1.09 20 [place] [address] [phone] CBC Auto Diff 08/28/2019 [facility] White 8.6 Normal 3.5-10.[address] Blood 10^3/[place] [address] Count [phone] Red Blood Count 4.56 10^6/uL Normal 4.18-5.48 [...] Blood Cells % 0.0 Comp Metabolic 08/28/2019 [facility] Sodium 137 mmol/L Normal 135-[address] [place] [address] [phone] Potassium 3.7 mmol/L Normal 3.5-5.0 Chloride 108 [...] Egfr Non- 61.4 >60 Egfr 74.3 >60 21 Laboratory test 08/22/2019 [facility] Alcohol < 10 mg/dL Normal <[address] [place], [place] [id number] [phone] TSH (Thyroid Stim Horm) 3.83 mcIU/mL Normal 0.34-5.60 Comp Metabolic 08/22/2019 [facility] Sodium 136 mmol/L Normal 135-145 Panel [address] [place] [address] [phone] Chloride 109 mmol/L Normal 101-111 Co2 Carbon [...] Egfr Non- 64.7 >60 Egfr 78.3 >60 22 Potassium 3.8 mmol/L Normal 3.5-5.0 Anion Gap 10 mmol/L Normal 2-11 Ast 12 U/L Low 13-39 Urinalysis Profile 08/22/2019 [facility] Urine Color Straw [address] [place] [address] [phone] Urine Appearance Clear Urine Specific [place] 1.008 Low 1.010-1.030 Urine pH 8.0 Normal 5-9 Urine Urobilinogen Negative Negative Urine Ketones Negative Negative Urine Protein Negative Negative Urine Leukocytes Negative Negative Urine Blood Negative Negative Urine Nitrite Negative Negative Urine Bilirubin Negative Negative Urine Glucose Negative Negative Urine Drug 08/22/2019 [facility] Urine None Detected None Detect SCR ED & [address] [address] Screen [phone] Urine Barbiturates Screen None Detected None Detect Urine Benzodiazepine Screen None Detected None Detect Urine Cannabinoids Screen None Detected None Detect Urine Cocaine Screen None Detected None Detect Urine Opiates Screen None Detected None Detect Urine Phencyclidine Screen None Detected None Detect 23 CBC Auto 08/22/2019 [facility] White Blood 9.1 10^3/uL Normal 3.5-10.[address] [place] [address] [phone] Red Blood Count 4.70 10^6/uL Normal 4.18-5.48 [...] % Nucleated Red Blood Cells % 0.1 CBC Auto 08/18/2019 [facility] White Blood 10.0 10^3/uL Normal 3.5-10.[address] [place] [address] [phone] Red Blood Count 4.82 10^6/uL Normal 4.18-5.48 [...] Blood Cells % 0.0 Comp Metabolic 08/18/2019 [facility] Sodium 139 mmol/L Normal 135-[address] [place] [address] [phone] Potassium 3.5 mmol/L Normal 3.5-5.0 Chloride 104 [...] Egfr Non- 63.0 >60 Egfr 76.2 >60 24 Laboratory test 08/18/2019 [facility] Levetiracetam 23.2 g/mL [address] (Keppra) [place] [address] [phone] Lamotrigine (Lamictal) 5.3 g/mL 2.5 - 15.0 26 Topomax (Topiramate) 4.2 g/mL 27 Urine Drug 08/10/2019 [facility] Urine None Detected None Detect SCR ED & [address] [place] [address] Screen [phone] Urine Barbiturates Screen None Detected None Detect Urine Benzodiazepine Screen None Detected None Detect Urine Cannabinoids Screen None Detected None Detect Urine Cocaine Screen None Detected None Detect Urine Opiates Screen None Detected None Detect Urine Phencyclidine Screen None Detected None Detect 28 Urinalysis Profile 08/10/2019 [facility] Urine Color Yellow [address] [place], [place] [id number] [phone] Urine Appearance Clear Urine Specific [place] 1.013 Normal 1.010-1.030 Urine pH 6.0 Normal 5-9 Urine Urobilinogen Negative Negative Urine Ketones Negative Negative Urine Protein Negative Negative Urine Leukocytes Negative Negative Urine Blood Negative Negative Urine Nitrite Negative Negative Urine Bilirubin Negative Negative Urine Glucose Negative Negative Laboratory test 08/10/2019 [facility] Lactic Acid 1.0 mmol/L Normal 0.5-2.0 [address] [place] [address] [phone] CBC Auto Diff 08/10/2019 [facility] White Blood 9.2 Normal 3.5 -10.[address] Count 10^3/[place] [address] [phone] Red Blood Count 4.42 10^6/uL Normal 4.18-5.48 [...] Red Blood Cells % 0.1 Comp Metabolic 08/10/2019 [facility] Sodium 138 mmol/L Normal 135-[address] [place] [address] [phone] Potassium 3.7 mmol/L Normal 3.5-5.0 Chloride 110 [...] Egfr Non- 74.7 >60 Egfr 90.4 >60 30 Inr/Protime 08/04/2019 [facility] Inr 0.94 Normal 0.82-1.[address] [place] [address] [phone] CBC Auto Diff 08/04/2019 [facility] White Blood 4.8 Normal 3.5 -10.[address] Count 10^3/[place] [address] [phone] Red Blood Count 4.28 10^6/uL Normal 4.18-5.48 [...] Blood Cells % 0.0 Comp Metabolic 08/04/2019 [facility] Sodium 138 mmol/L Normal 135-145 Panel [address] [place] [address] [phone] Potassium 3.8 mmol/L Normal 3.5-5.0 Co2 Carbon [...] Egfr Non- 71.8 >60 Egfr 86.9 >60 32 Chloride 112 mmol/L High 101-111 Anion Gap 5 mmol/L Normal 2-11 Laboratory test 08/04/2019 [facility] Magnesium 2.1 mg/dL Normal 1.9-2.7 finding [address] [place] [address] [phone] Alcohol < 10 mg/dL Normal <10 Lactic Acid 0.9 mmol/L Normal 0.5-2.0 33 Levetiracetam (Keppra) 59.9 g/mL Abnormal 34 Lamotrigine (Lamictal) 4.8 g/mL 2.5 - 15.0 35 Laboratory test 07/23/2019 [facility] Levetiracetam 24.7 g/mL [address] ([place]) [place] [address] [phone] Lamotrigine (Lamictal) 5.3 g/mL 2.5 - 15.0 37 Laboratory test 07/07/2019 [facility] Magnesium 2.2 mg/dL Normal 1.9-2.[address] [place] [address] [phone] Levetiracetam (Keppra) 70.2 g/mL Abnormal 38 Lamotrigine (Lamictal) 6.3 g/mL 2.5 - 15.0 39 Comp Metabolic 07/07/2019 [facility] Sodium 137 mmol/L Normal 135-145 Panel [address] [place] [address] [phone] Potassium 3.9 mmol/L Normal 3.5-5.0 Chloride 107 [...] Egfr Non- 59.8 >60 Egfr 72.4 >60 40 Laboratory test 07/07/2019 [facility] Lactic 1.2 mmol/L Normal 0.5-2.[address] [place] [address] [phone] Inr/Protime 07/07/2019 [facility] Inr 0.92 Normal 0.82-1.[address] [place] [address] [phone] CBC Auto Diff 07/07/2019 [facility] White 5.7 Normal 3.5-10.[address] Blood 10^3/[place] [address] Count [phone] Red Blood Count 4.42 10^6/uL Normal 4.18-5.48 [...] % Nucleated Red Blood Cells % 0.1 CBC Auto 06/15/2019 [facility] White Blood 5.0 10^3/uL Normal 3.5-10.[address] [place] [address] [phone] Red Blood Count 5.02 10^6/uL Normal 4.18-5.48 [...] Blood Cells % 0.1 Comp Metabolic 06/15/2019 [facility] Sodium 138 mmol/L Normal 135-[address] [place] [address] [phone] Potassium 4.7 mmol/L Normal 3.5-5.0 Chloride 106 [...] Egfr Non- 56.5 >60 Egfr 68.4 >60 43 Laboratory test 06/15/2019 [facility] Ceruloplasmin 21.1 mg/dL [address] [place] [address] [phone] Copper, Serum 0.84 g/mL 0.75-1.45 45 Free T4 (Free Thyroxine) 0.83 ng/dL Normal 0.61-1.12 TSH (Thyroid Stim Horm) 2.34 mcIU/mL Normal 0.34-5.60 Erythrocyte Sed Rate 1 mm/Hr Normal 0-14 C Reactive Protein < 1.00 mg/L Normal <8.01 Lamotrigine (Lamictal) 5.2 g/mL 2.5 - 15.0 46 Topomax (Topiramate) 3.9 g/mL 47 Levetiracetam (Keppra) 32.0 g/mL 48 1 Standard intensity warfarin therapeutic range: 2.0-3.0 High intensity warfarin therapeutic range: 2.5-3.5 2 [place] Severe Sepsis and Septic Shock Management Bundle Measure requires all lactic acids initially measuring >2.0 mmol/L be repeated. 3 Because ethnic data is not always [...] 5 Kidney failure <15 (or dialysis) 4 REFERENCE VALUE 12.0 - 46.0 ADDITIONAL INFORMATION This test was developed and its performance characteristics determined by [facility] in a manner consistent with CLIA requirements. This test has not been cleared or approved by the U.S. Food and Drug Administration. Test Performed by: [facility] - [address] [address] Wildlife Biology Technician: Adria Nguyen M.D. Ph.D.; CLIA# [id number] 5 ADDITIONAL INFORMATION This test was developed and its performance characteristics determined by [facility] in a manner consistent with CLIA requirements. This test has not been cleared or approved by the U.S. Food and Drug Administration. Test Performed by: [facility] [place] [address] Wildlife Biology Technician: Adria Nguyen M.D. Ph.D.; CLIA# [id number] 6 ADDITIONAL INFORMATION This test was developed and its performance characteristics determined by [facility] in a manner consistent with CLIA requirements. This test has not been cleared or approved by the U.S. Food and Drug Administration. Test Performed by: [facility] [place] [address] Wildlife Biology Technician: Adria Nguyen M.D. Ph.D.; CLIA# [id number] 7 Because ethnic data is not always [...] 5 Kidney failure <15 (or dialysis) 8 SEE RESULT BELOW Name: JAMES DOWNS JR : [address]: Dave Denton MD Acct: [id number] Unit: [id number] AGE: 33 Location: ED Re10/13/19 SEX: M Status: DEP ER SPEC: [id number] FRANCISCO: 10/13/[address]: Dave Denton MD REQ: [id number] RECD: 10/13/19 STATUS: DHARMESH HARRIS DR: Mj Pathak MD _ SOURCE: URINE SPDESC: ORDERED: Urine Culture Procedure Result Reported Site Urine Culture Final 10/16/19- 0816 ML Organism 1 ESCHERICHIA COLI [place] Count >100,000 (Many) CFU/ML 1. ESCHERICHIA COLI M.I.C. RX --------- ------ Ampicillin >=32 R Cefazolin <=4 S Cefepime <=1 S Ceftriaxone <=1 S Ciprofloxacin <=0.25 S Gentamicin <=1 S Levofloxacin <=0.12 S Meropenem <=0.25 S Nitrofurantoin <=16 S Tetracycline <=1 S Pipercillin/Tazobactam <=4 S Trimethoprim/Sulfamethoxazole >=320 R Amoxicillin/Clavulanic Acid 4 S Aztreonam <=1 S Contact the Microbiology Department for any additional antibiotic reporting. * - [facility] . END OF REPORT DEPARTMENT OF PATHOLOGY, [address] [place] [address] Alan Bee M.D. Director [facility] # [id number] 9 REFERENCE VALUE Reference values depend on clinical use: Anticonvulsant: 5.0-20.0 mcg/mL Psychiatric: 2.0-8.0 mcg/mL ADDITIONAL INFORMATION This test was developed and its performance characteristics determined by [facility] in a manner consistent with CLIA requirements. This test has not been cleared or approved by the U.S. Food and Drug Administration. Test Performed by: [facility] [place] [address] Wildlife Biology Technician: Adria Nguyen M.D. Ph.D.; CLIA# [id number] 10 ADDITIONAL INFORMATION This test was developed and its performance characteristics determined by [facility] in a manner consistent with CLIA requirements. This test has not been cleared or approved by the U.S. Food and Drug Administration. Test Performed by: [facility] [place] [address] Wildlife Biology Technician: Adria Nguyen M.D. Ph.D.; CLIA# [id number] 11 Because ethnic data is not always [...] 5 Kidney failure <15 (or dialysis) 12 REFERENCE VALUE 12.0 - 46.0 ADDITIONAL INFORMATION This test was developed and its performance characteristics determined by [facility] in a manner consistent with CLIA requirements. This test has not been cleared or approved by the U.S. Food and Drug Administration. Test Performed by: [facility] [place] [address] Wildlife Biology Technician: Adria Nguyen M.D. Ph.D.; CLIA# [id number] 13 ADDITIONAL INFORMATION This test was developed and its performance characteristics determined by [facility] in a manner consistent with CLIA requirements. This test has not been cleared or approved by the U.S. Food and Drug Administration. Test Performed by: [facility] [place] [address] Wildlife Biology Technician: Adria Nguyen M.D. Ph.D.; CLIA# [id number] 14 Because ethnic data is not always [...] 5 Kidney failure <15 (or dialysis) 15 Therapeutic concentration: <50 ug/mL Toxic concentration: >120 ug/mL 16 The urine specimen was tested at the listed cutoffs: Drug class test level (ng/mL) Amphetamines 500 Barbiturates 200 Benzodiazepine metabolites 200 Cocaine metabolites 150 Cannabinoids 50 Opiates 300 Pcp 25 Specimen was received without chain of custody. Results should be used for medical purposes only. 17 Because ethnic data is not always [...] 5 Kidney failure <15 (or dialysis) 18 Because ethnic data is not always [...] 5 Kidney failure <15 (or dialysis) 19 [facility] Severe Sepsis and Septic Shock Management Bundle Measure requires all lactic acids initially measuring >2.0 mmol/L be repeated. 20 Standard intensity warfarin therapeutic range: 2.0-3.0 High intensity warfarin therapeutic range: 2.5-3.5 21 Because ethnic data is not always [...] 5 Kidney failure <15 (or dialysis) 22 Because ethnic data is not always [...] 5 Kidney failure <15 (or dialysis) 23 The urine specimen was tested at the listed cutoffs: Drug class test level (ng/mL) Amphetamines 500 Barbiturates 200 Benzodiazepine metabolites 200 Cocaine metabolites 150 Cannabinoids 50 Opiates 300 Pcp 25 Specimen was received without chain of custody. Results should be used for medical purposes only. 24 Because ethnic data is not always readily [...] 15-29 5 Kidney failure <15 (or dialysis) 25 REFERENCE VALUE 12.0 - 46.0 ADDITIONAL INFORMATION This test was developed and its performance characteristics determined by [facility] in a manner consistent with CLIA requirements. This test has not been cleared or approved by the U.S. Food and Drug Administration. Test Performed by: [facility] [address] [place] [address] Wildlife Biology Technician: Adria Nguyen M.D. Ph.D.; CLIA# [id number] 26 ADDITIONAL INFORMATION This test was developed and its performance characteristics determined by [facility] in a manner consistent with CLIA requirements. This test has not been cleared or approved by the U.S. Food and Drug Administration. Test Performed by: [facility] [place] [address] Wildlife Biology Technician: Adria Nguyen M.D. Ph.D.; CLIA# [id number] 27 REFERENCE VALUE Reference values depend on clinical use: Anticonvulsant: 5.0-20.0 mcg/mL Psychiatric: 2.0-8.0 mcg/mL ADDITIONAL INFORMATION This test was developed and its performance characteristics determined by [facility] in a manner consistent with CLIA requirements. This test has not been cleared or approved by the U.S. Food and Drug Administration. Test Performed by: [facility] [place] [address] Wildlife Biology Technician: Adria Nguyen M.D. Ph.D.; CLIA# [id number] 28 The urine specimen was tested at the listed cutoffs: Drug class test level (ng/mL) Amphetamines 500 Barbiturates 200 Benzodiazepine metabolites 200 Cocaine metabolites 150 Cannabinoids 50 Opiates 300 Pcp 25 Specimen was received without chain of custody. Results should be used for medical purposes only. 29 [facility] Severe Sepsis and Septic Shock Management Bundle Measure requires all lactic acids initially measuring >2.0 mmol/L be repeated. 30 Because ethnic data is not always [...] 5 Kidney failure <15 (or dialysis) 31 Standard intensity warfarin therapeutic range: 2.0-3.0 High intensity warfarin therapeutic range: 2.5-3.5 32 Because ethnic data is not always [...] 5 Kidney failure <15 (or dialysis) 33 [facility] Severe Sepsis and Septic Shock Management Bundle Measure requires all lactic acids initially measuring >2.0 mmol/L be repeated. 34 REFERENCE VALUE 12.0 - 46.0 ADDITIONAL INFORMATION This test was developed and its performance characteristics determined by [facility] in a manner consistent with CLIA requirements. This test has not been cleared or approved by the U.S. Food and Drug Administration. Test Performed by: [facility] - [address] [address] Wildlife Biology Technician: Adria Nguyen M.D. Ph.D.; CLIA# [id number] 35 ADDITIONAL INFORMATION This test was developed and its performance characteristics determined by [facility] in a manner consistent with CLIA requirements. This test has not been cleared or approved by the U.S. Food and Drug Administration. Test Performed by: [facility] [place] [address] Wildlife Biology Technician: Adria Nguyen M.D. Ph.D.; CLIA# [id number] 36 REFERENCE VALUE 12.0 - 46.0 ADDITIONAL INFORMATION This test was developed and its performance characteristics determined by [facility] in a manner consistent with CLIA requirements. This test has not been cleared or approved by the U.S. Food and Drug Administration. Test Performed by: [facility] [place] [address] Wildlife Biology Technician: Adria Nguyen M.D. Ph.D.; CLIA# [id number] 37 ADDITIONAL INFORMATION This test was developed and its performance characteristics determined by [facility] in a manner consistent with CLIA requirements. This test has not been cleared or approved by the U.S. Food and Drug Administration. Test Performed by: [facility] [place] [address] Wildlife Biology Technician: Adria Nguyen M.D. Ph.D.; CLIA# [id number] 38 REFERENCE VALUE 12.0 - 46.0 ADDITIONAL INFORMATION This test was developed and its performance characteristics determined by [facility] in a manner consistent with CLIA requirements. This test has not been cleared or approved by the U.S. Food and Drug Administration. Test Performed by: [facility] [place] [address] Wildlife Biology Technician: Adria Nguyen M.D. Ph.D.; CLIA# [id number] 39 ADDITIONAL INFORMATION This test was developed and its performance characteristics determined by [facility] in a manner consistent with CLIA requirements. This test has not been cleared or approved by the U.S. Food and Drug Administration. Test Performed by: [facility] [place] [address] Wildlife Biology Technician: Adria Nguyen M.D. Ph.D.; CLIA# [id number] 40 Because ethnic data is not always readily [...] 15-29 5 Kidney failure <15 (or dialysis) 41 [facility] Severe Sepsis and Septic Shock Management Bundle Measure requires all lactic acids initially measuring >2.0 mmol/L be repeated. 42 Standard intensity warfarin therapeutic range: 2.0-3.0 High intensity warfarin therapeutic range: 2.5-3.5 43 Because ethnic data is not always readily [...] 15-29 5 Kidney failure <15 (or dialysis) 44 REFERENCE VALUE 19.0 - 31.0 Test Performed by: [place] [id number] Wildlife Biology Technician: Adria Nguyen M.D. Ph.D.; CLIA# [id number] 45 ADDITIONAL INFORMATION This test was developed and its performance characteristics determined by [facility] in a manner consistent with CLIA requirements. This test has not been cleared or approved by the U.S. Food and Drug Administration. Test Performed by: [facility] [address] [place] [address] Wildlife Biology Technician: Adria Nguyen M.D. Ph.D.; CLIA# [id number] 46 ADDITIONAL INFORMATION This test was developed and its performance characteristics determined by [facility] in a manner consistent with CLIA requirements. This test has not been cleared or approved by the U.S. Food and Drug Administration. Test Performed by: [facility] [place] [address] Wildlife Biology Technician: Adria Nguyen M.D. Ph.D.; CLIA# [id number] 47 REFERENCE VALUE Reference values depend on clinical use: Anticonvulsant: 5.0-20.0 mcg/mL Psychiatric: 2.0-8.0 mcg/mL ADDITIONAL INFORMATION This test was developed and its performance characteristics determined by [facility] in a manner consistent with CLIA requirements. This test has not been cleared or approved by the U.S. Food and Drug Administration. Test Performed by: [facility] [place] [address] Wildlife Biology Technician: Adria Nguyen M.D. Ph.D.; CLIA# [id number] 48 REFERENCE VALUE 12.0 - 46.0 ADDITIONAL INFORMATION This test was developed and its performance characteristics determined by [facility] in a manner consistent with CLIA requirements. This test has not been cleared or approved by the U.S. Food and Drug Administration. Test Performed by: [facility] [place] [address] Wildlife Biology Technician: Adria Nguyen M.D. Ph.D.; CLIA# [id number] Procedures Date Code Description Status 09/01/2019 72957 EEG Recording Awake & Drowsy Completed 08/17/2019 79247 Sleep Study Unattended,HRT Rate,Oxygen Sat,Resp Completed Effort/Airflow 06/15/2019 29137 EEG Monitoring Computer Completed Medical Devices Description No Information Available Encounters Type Date Location Provider Dx Diagnosis Office Visit 09/08/2019 [facility] Nba Baptiste, G40.919 Epilepsy, unsp, 9:00a [facility] N.[facility] intractable, without status epilepticus R53.83 Other fatigue G43.009 Migraine w/o aura, not intractable, w/o status migrainosus Office Visit 09/06/2019 1:20p [facility] Internal Noreen An, R63.4 Abnormal weight Medicine - Suite DO loss R G40.919 Epilepsy, unsp, intractable, without status epilepticus Z23 Encounter for immunization Office Visit 09/02/2019 10:55a [facility] Adria R56.9 Unspecified Assoc,BELGICA Garcia convulsions Hospitalists F41.9 Anxiety disorder, unspecified Office 09/01/2019 [facility] Matthew Winter G40.909 Epilepsy, unsp, Visit 7:00a Andrea Kruger M.D. not intractable, without status epilepticus Office 09/01/2019 [facility] Adria R56.9 Unspecified Visit 10:55a Assoc,pc Hospitalists BELGICA Rodrigez convulsions F41.9 Anxiety disorder, unspecified Office Visit 08/31/2019 [facility] Belen Rivera, R56.9 Unspecified 10:55a Asstoshia millan M.D. convulsions Hospitalists D72.829 Elevated white blood cell count, unspecified F41.9 Anxiety disorder, unspecified Office Visit 08/18/2019 3:00p [facility] Nba G40.219 [facility] Emile, N.P. symptc epi w cmplx part seiz, ntrct, w/o stat epi G43.009 Migraine w/o aura, not intractable, w/o status migrainosus F41.9 Anxiety disorder, unspecified Assessments Date Code Description Provider 09/08/2019 G40.919 Epilepsy, unspecified, intractable, without Nba Baptiste, N.P. status epileptic 09/08/2019 R53.83 Other fatigue Nba Baptiste, N.P. 09/08/2019 G43.009 Migraine without aura, not intractable, Nba Baptiste, N.P. without status migra 09/06/2019 R63.4 Abnormal weight loss Noreen An, DO 09/06/2019 G40.919 Epilepsy, unspecified, intractable, without Noreen Juve, DO status epileptic 09/06/2019 Z23 Encounter for immunization Noreen Juev, DO 09/02/2019 R56.9 Unspecified convulsions Adria Rodrigez, BELGICA 09/02/2019 F41.9 Anxiety disorder, unspecified Adria Rodrigez, PA 09/01/2019 G40.909 Epilepsy, unspecified, not intractable, Matthew Kruger M.D. without status epilepticus 09/01/2019 R56.9 Unspecified convulsions BELGICA [place] 09/01/2019 F41.9 Anxiety disorder, unspecified dAria Rodrigez, BELGICA 08/31/2019 R56.9 Unspecified convulsions Belen Rivera M.D. 08/31/2019 D72.829 Elevated white blood cell count, Belen Rivera M.D. unspecified 08/31/2019 F41.9 Anxiety disorder, unspecified Belen Rivera [...] complex partial seizures, intractable, without status epilepticus Plan of Treatment Future Appointment(s):01/13/2020 2:30 pm - Arnie Le M.D. at [facility]12/07/2019 1:40 pm - Mj Pathak MD at [facility] Internal Medicine - Suite 09/08/2019 - Nba Baptiste, N.P.G40.919 Epilepsy, unspecified, intractable, without status epilepticFollow up:3 monthsRecommendations:Have your labs done tomorrow morning ltyyygaZ72.83 Other xgbfrzmW83.009 Migraine without aura, not intractable, without status migra Functional Status Description No Information Available Mental Status Description No Information Available Referrals Refer to Reason for Referral Status Appt Date [facility] Sent [address] [place] [address] 4[address] Floor [place], [place] [address] [phone] Meggan Hernandez M.D. intractable epilepsy Sent [address] [place] [address] [place] [address] [phone]
[2019-11-24 09:31] LABS: Albumin 4.9 g/dL (3.2-5.2); BUN/Creatinine Ratio 12.9 (8-20); EGFR African American 70.2 (>60); Potassium 3.9 mmol/L (3.5-5.0); Total Protein 7.7 g/dL (6.4-8.9)
[2019-11-24 09:32] LABS: Albumin/Globulin Ratio 1.8 (1-3); Globulin 2.8 g/dL (2-4); Total Bilirubin 0.4 mg/dL (0.2-1.0)
[2019-11-24] MEDS ORDERED: hydrOXYzine HCL TAB* 25 MG PO ONE (11:06)
[2019-11-24] MEDS ORDERED: Lacosamide TAB* 50 MG TAB PO ONE (11:09)
[2019-11-24 11:32] VITALS: BP 125/73
== END 2019-11-24 11:31 | disposition home or self-care (01) ==
LOC: ED 08:42
DX: G40.909 Epilepsy, unspecified, not intractable, without status epilepticus (principal); Z88.8 Allergy status to other drugs, medicaments and biological substances; F41.9 Anxiety disorder, unspecified; F32.9 Major depressive disorder, single episode, unspecified; F17.210 Nicotine dependence, cigarettes, uncomplicated
CPT/HCPCS: 36415; 80053; 80175; 85025; 99283; A9270-GY